=== PATIENT | female | born 1940 | race Caucasian/White ===

== ENCOUNTER 2019-12-31 13:23 | Inpatient (IN) | payer MEDICARE, OTHER ==
[~2019-12-31] VITALS: Ht 165 cm; Wt 75.8 kg
[2019-12-31] MEDS ORDERED: ACETAMINOPHEN 500 MG TAB (TYLENOL) PO PRN (13:30)
[2019-12-31] MEDS ORDERED: MELATONIN 3 MG TABLET PO PRN (13:30)
[2019-12-31] MEDS ORDERED: LOPERAMIDE 2 MG (IMODIUM) TABLET PO PRN (13:30)
[2019-12-31] MEDS ORDERED: LACTULOSE SYRUP 10GM/15ML (ENULOSE) 30ML UDC PO PRN ×2 (13:30→18:15)
[2019-12-31] MEDS ORDERED: ONDANSETRON 4 MG (ZOFRAN) ORAL DISSOLVE TAB PO PRN (13:30)
[2019-12-31] MEDS ORDERED: guaiFENesin/CODEINE (ROBITUSSIN AC) 10ML UDC PO PRN (13:30)
[2019-12-31] MEDS ORDERED: CALCIUM CARBONATE 500 MG (TUMS) TAB.CHEW PO PRN (13:30)
[2019-12-31] MEDS ORDERED: DOCUSATE SODIUM 100 MG (COLACE) CAP PO PRN ×2 (13:30→17:30)
[2019-12-31] MEDS ORDERED: diphenhydrAMINE 25 MG TAB (BENADRYL) PO PRN (13:30)
[2019-12-31] MEDS ORDERED: BISACODYL 10 MG SUPP (DULCOLAX) PR PRN (13:30)
[2019-12-31] MEDS ORDERED: FLEET ENEMA ADULT 1 EA BTL PR PRN (13:30)
--- NOTE | 2019-12-31 13:57 | NUR ---
Call placed to [facility] in [place] to ask when pt last had Lovenox shot ? Spoke w Judy Molina, she states that pt had Lovenox shot this morning at 0900, & that she also gave pt Hydrocodone before she left there.
[2019-12-31] MEDS: ENOXAPARIN 40 MG/0.4 ML (LOVENOX) SYR SC SCH (14:00)
--- NOTE | 2019-12-31 14:25 | NUR ---
Pt admitted to room 231, with an admitting diagnosis of CVA, from [facility] in [place] via EMS stretcher, accompanied by 2 EMS techs. BRADY SIDHU introduced to surroundings, call light, bed controls, phone, TV, temperature control, lights, meal times, smoking policy, visitor policy, side rail policy, bathrooms and showers. Patient Rights given to patient in the handbook. BRADY SIDHU acknowledges understanding that [facility] is not responsible for the loss or damage to any personal effects or valuables that are kept in the patients posession during their hospitalization. The following Patient Care Plans were discussed with the pt: Discharge Planning, Self Care Deficit, Potential for fall/injury, Knowledge Deficit. BRADY SIDHU acknowledges understanding of Interdisciplinary Patient Education. Patient and/or family were informed about the Rapid Response Team and its purpose. Patient received Patient Rights Booklet, which includes Privacy Act Statement and Data Collection Information Summary.
[2019-12-31 14:35] VITALS: BP 178/78
[2019-12-31] MEDS ORDERED: DICL100G18 TP (14:38)
[2019-12-31] MEDS ORDERED: ACET325C7 PO (14:38)
[2019-12-31] MEDS ORDERED: ASPI-1238 PO (14:38)
[2019-12-31] MEDS ORDERED: BISA5TAB8 PO (14:38)
[2019-12-31] MEDS ORDERED: CLOP75TA69 PO (14:38)
[2019-12-31] MEDS ORDERED: CHOL100048 PO (14:38)
[2019-12-31] MEDS ORDERED: BISA10SU8 RC (14:38)
[2019-12-31] MEDS ORDERED: ACHD5005 PO (14:38)
[2019-12-31] MEDS ORDERED: LACT10SO PO (14:38)
[2019-12-31] MEDS ORDERED: DOCU100C37 PO (14:38)
[2019-12-31] MEDS ORDERED: ATOR40TA70 PO ×2 (14:38→15:12)
[2019-12-31] MEDS ORDERED: MAG30ORA2 PO (14:38)
[2019-12-31] MEDS ORDERED: LEVO100T7 PO (14:39)
[2019-12-31] MEDS ORDERED: ONDA-105 PO (14:39)
[2019-12-31] MEDS ORDERED: OXYC10TA85 PO (14:39)
[2019-12-31] MEDS ORDERED: PHEN28OI9 RC (14:39)
[2019-12-31] MEDS ORDERED: PANT40TA52 PO (14:39)
[2019-12-31] MEDS ORDERED: LOSA25TA41 PO (14:39)
[2019-12-31 14:58] VITALS: BP 118/52
[2019-12-31] MEDS ORDERED: CLIN150C2 PO (15:12)
[2019-12-31] MEDS ORDERED: BACL10TA PO (15:12)
[2019-12-31] MEDS ORDERED: POLY17PO6 PO (15:12)
--- NOTE | 2019-12-31 15:42 | NUR ---
MED REC WAS ENTERED USING THE DISCHARGE ORDERS FROM [facility]- AFTER MEDICATIONS ARE CONTINUED I WILL SPEAK WITH THE PT AND MAKE ANY CHANGES TO THE NOTES/MED REC IF NEEDED Addendum: 12/31/19 at 1546 by SHANE VUONG CPhT CLINDAMYCIN 150MG- ON THE DISCHARGE ORDERS THERE WAS NO DURATION LISTED OR # OF CAPS TO DISPENSE. Addendum: 01/08/20 at 1509 by SHANE VUONG CPhT SPOKE WITH THE PT AND WENT THRU THE EXT MED HISTORY TO COMPLETE THE MED REC MEDICATIONS REMOVED DUE TO PT NOT TAKING PRIOR TO [facility]: ATORVASTATIN ASPIRIN 81MG CLINDAMYCIN 150MG CLOPIDOGREL 75MG DICLOFENAC GEL LACTULOSE ONDANSETRON OXYCODONE 10MG PANTOPRAZOLE 40MG HEMORID CREAM MIRALAX BISACODYL SUPPOSITORY AND TABLET MEDICATIONS THAT HAVE CHANGED: DOCUSATE 100MG- DISCHARGE ORDERS SAY 1 TAB BID PRN HOWEVER AT HOME PT IS TAKING 1 TAB HS HYDROCODONE- [facility] ORDERS ARE HYDROCODONE 5/325MG 1 TAB BID PRN HOWEVER AT HOME PT IS TAKING HYDROCODONE 7.5/325MG 1 TAB EVERY 6 HOURS PRB TYLENOL- [facility] DISCHARGE HAS TYLENOL 325MG LISTED BUT PT USUALLY TAKES TYLENOL PM MEDICATIONS THAT HAVE BEEN ADDED TO THE MED REC DUE TO PT TAKING PRIOR TO [facility]: MORPHINE ER 15MG COREG 12.5MG HUMIRA- PT GETS THIS THROUGH [employer] PATIENT SUPPORT AND WAS LAST MAILED OUT IN OCT 2019- PT CANNOT REMEMBER WHEN HER LAST INJECTION WAS
--- NOTE | 2019-12-31 16:06 | Physical Therapy Evaluation ---
PT Evaluation-General Medical Diagnosis Admission Date Dec 31, 2019 at 14:25 Medical Diagnosis: CVA Onset Date: Dec 16, 2019 Therapy Diagnosis Therapy Diagnosis: impaired mobility, strength, endurance, balance Precautions Precautions/Isolations: Standard Precautions Referral Physician: Gianna Bentley DO Reason for Referral: Evaluation/Treatment Medical History Pertinent Medical History: HTN, Hypothroidism Additional Medical History osteoporosis, plaque psoriasis Reviewed History: Yes Social History Home: Single Level Current Living Status: Spouse Entry Into Home: Stairs With Railing PT Steps Into Home: 3 Prior Prior Level of Function SCALE: Activities may be completed with or without assistive devices. 8-Httjteuxrl-ebkreaw completes the activity by him/herself with no assistance from a helper. 5-Set-up or Clean-up Assistance-helper sets up or cleans up; patient completes activity. [place] assists only prior to or following the activity. 4-Supervision or Touching Assistance-helper provides verbal cues and/or touching/steadying and/or contact guard assistance as patient completes act ivity. Assistance may be provided throughout the activity or intermittently. 3-Partial/Moderate Assistance-helper does LESS THAN HALF the effort. [place] lifts, holds or supports trunk or limbs, but provides less than half the effort. 2-Substantial/Maximal Assistance-helper does MORE THAN HALF the effort. [place] lifts or holds trunk or limbs and provides more than half the effort. 7-Fkmxfuucd-bwbbpy does ALL the effort. Patient does none of the effort to complete the activity. Or, the assistance of 2 or more helpers is required for the patient to complete the activity. If activity was not attempted, code reason: 7-Patient Refused. 9-Not Applicable-not attempted and the patient did not perform the activity before the current illness, exacerbation or injury. 10-Not Attempted due to Environmental Limitations-(lack of equipment, weather restraints, etc.). 88-Not Attempted due to Medical Conditions or Safety Concerns. Bed Mobility: 6 Transfers (B,C,W/C): 6 Gait: 6 Stairs: 6 Indoor Mobility (Ambulation): Independent Stairs: Independent Prior Device Use: single point cane PT Evaluation-Current Subjective Patient in bed pre tx, agrees to PT, has no complaints of pain at rest. Pt/Family Goals "to get stronger" Objective Patient Orientation: Person, Place, Situation ROM/Strength ROM Lower Extremities WNL Strength Lower Extremities RLE 4+/5 gross, LLE 2/5 gross (including dorsiflexion) Neuromuscular (Tone, Coordination, Reflexes) increased muscle tone in LLE Sensory Hearing: Functional Sensation Right Lower Extremit: Intact Sensation Left Lower Extremity: Impaired Sensation Lower Extremities Patient has intact light touch sensation but seems to be less in LLE Transfers Roll Left & Right (QC): 3 Sit to Lying (QC): 2 Lying to Sitting/Side of Bed(Q: 2 Sit to Stand (QC): 2 Chair/Lvl-uq-Njwvq Xfer(QC): 2 Toilet Transfer (QC): 2 Car Transfer (QC): 1 Patient performs bed mobility with mod assist, supine <-> sit max assist, sit <- > stand max assist, transfers max assist, car transfer max assist. Gait Does the Patient Walk?: No and Walking Goal IS indicated Walk 10 feet (QC): 88 Walk 50 ft with 2 Turns(QC): 88 Walk 150 ft (QC): 88 Walking 10ft/uneven surface-QC: 88 Wheelchair Training Does the Pt Use a Wheelchair?: Yes Distance: 50'x2 Wheel 50 ft with 2 turns (QC): 2 Wheel 150 ft (QC): 88 Type of Wheelchair: Manual Stairs 1 Step (curb) (QC): 88 4 Steps (QC): 88 12 Steps (QC): 88 Balance Sitting Static: Poor Sitting Dynamic: Poor Standing Static: Poor Standing Dynamic: Poor Picking up an Object (QC): 88 Treatment Patient transferred from supine to sit and then stand pivot to WC, propel WC to therapy gym and into parallel bars, stand x3 with assist of 2, sitting balance training working on limits of stability and reaching for cones. PT worked on balance, bed mobility and transfers, WC mobility, and standing, OT worked on UE positioning and safety, assist with standing and balance training. Assessment/Needs Patient has impaired mobility, strength, endurance, balance. Patient leans to the left side with sitting and standing. Patient gets dizzy a lot and needs frequent rest breaks due to this and to fatigue. Patient in bed post tx with nurse call, phone, tray, bed alarm on. Rehab Potential: Fair PT Short Term Goals Short Term Goals Time Frame: Jan 08, 2020 Roll Left & Right: 3 Sit to lyin Lying to sitting on side of be: 3 Sit to stand: 3 Chair/jnq-lf-eudsp transfer: 3 PT [place] Goals Chcf Goals PT Chcf Goals Time Frame: Jan 22, 2020 Roll Left & Right (QC): 3 (Татьяна) Sit to Lying (QC): 3 (Татьяна) Lying-Sitting on Side/Bed(QC): 3 (Татьяна) Sit to Stand (QC): 3 (Татьяна) Chair/Yal-jg-Kbvdz Xfer(QC): 3 (Татьяна) Toilet Transfer (QC): 3 (Татьяна) Car Transfer (QC): 3 (Татьяна) Does the Patient Walk: No and Walking Goal IS indicated Walk 10 feet (QC): 3 (Татьяна) Walk 50ft with 2 Turns (QC): 88 Walk 150 ft (QC): 88 Walking 10ft on Uneven Surface: 88 1 Step (curb) (QC): 88 4 Steps (QC): 88 12 Steps (QC): 88 Picking up an Object (QC): 88 Wheel 50 feet with 2 turns (QC: 4 Type: Manual Wheel 150 feet: 4 Type: Manual PT Plan Problem List Problem List: Activity Tolerance, Functional Strength, Safety, Balance, Gait, Transfer, Bed Mobility, ROM Treatment/Plan Treatment Plan: Continue Plan of Care Treatment Plan: Bed Mobility, Education, Functional Activity Benson, Functional Strength, Group Therapy, Gait, Safety, Therapeutic Exercise, Transfers Treatment Duration: Jan 21, 2020 Frequency: At least 5 of 7 days/Wk (IRF) Estimated Hrs Per Day: 1.5 hours per day Patient and/or Family Agrees t: Yes Safety Risks/Education Patient Education: Transfer Techniques, Correct Positioning, W/C Management, Safety Issues Teaching Recipient: Patient Teaching Methods: Demonstration, Discussion Response to Teaching: Reinforcement Needed Discharge Recommendations Plan Patient will perform bed mobility and transfer training, balance and endurance training, functional strengthening, stair training, gait training, and education , to improve functional mobility and independence at home. Therapy Discharge Recommendati: Scheduled Assistance, Post Acute PT Time/GCodes Time In: 1435 Time Out: 1605 Total Billed Treatment Time: 90 Total Billed Treatment 1 visit EVM 10' FA 80' PT eval from [id number], co-treat from [id number] DEON BAIRD PT Dec 31, 2019 16:06
--- NOTE | 2019-12-31 16:09 | Occupational Therapy Eval ---
OT Evaluation-General/PLF Medical Diagnosis Admission Date Dec 31, 2019 at 14:25 Medical Diagnosis: CVA Onset Date: Dec 16, 2019 Therapy Diagnosis Therapy Diagnosis: weakness, decreased ADL status Precautions Precautions/Isolations: Standard Precautions Referral Physician: Mc Referral Reason: Evaluation/Treatment Medical History Pertinent Medical History: HTN, Hypothroidism Additional Medical History osteoporosis, plaque psoriasis Current History Pt had CVA with last known well time noon on 12/16/2019, L side weakness. Pt transferred to [facility]. Reviewed History: Yes Social History Home: Single Level Current Living Status: Significant Other Entry Into Home: Stairs With Railing Steps Into Home: 3 Pt indicates she lives with her but her son is also going to stay with her until she gets better. ADL-Prior Level of Function SCALE: Activities may be completed with or without assistive devices. 9-Genhcfjnhp-dmsskwa completes the activity by him/herself with no assistance from a helper. 5-Set-up or Clean-up Assistance-helper sets up or cleans up; patient completes activity. [place] assists only prior to or following the activity. 4-Supervision or Touching Assistance-helper provides verbal cues and/or touching/steadying and/or contact guard assistance as patient completes activity. Assistance may be provided throughout the activity or intermittently. 3-Partial/Moderate Assistance-helper does LESS THAN HALF the effort. [place] lif ts, holds or supports trunk or limbs, but provides less than half the effort. 2-Substantial/Maximal Assistance-helper does MORE THAN HALF the effort. [place] lifts or holds trunk or limbs and provides more than half the effort. 5-Sijntnrvk-xokjwi does ALL the effort. Patient does none of the effort to complete the activity. Or, the assistance of 2 or more helpers is required for the patient to complete the activity. If activity was not attempted, code reason: 7-Patient Refused. 9-Not Applicable-not attempted and the patient did not perform the activity before the current illness, exacerbation or injury. 10-Not Attempted due to Environmental Limitations-(lack of equipment, weather restraints, etc.). 88-Not Attempted due to Medical Conditions or Safety Concerns. ADL PLOF Comments Pt indicates she was independent with all ADLS and functional mobility at PLOF, occasional use of a cane when she is on her feet for long periods or going longer distances. Self Care: Independent Functional Cognition: Independent DME/Equipment: Bath Chair, Shower Drive Self: No OT Current Status Subjective Pt agreeable to OT evaluation, then OT/PT cotreat. Pt reports headache, but does not verbalize pain rating. Mental Status/Objective Patient Orientation: Person, Place, Time, Situation Attachments: Bearden Catheter Current Glasses/Contacts: Yes Hearing Aids: No Dentures/Partials: Yes Hand Dominance: Right Upper Extremity ROM RUE WFL, shoulder flexion to approx 150 degrees LUE impaired, increased tone noted with shoulder flexion & elbow flexion/extension. Pt reports increased pain with PROM. Upper Extremity Coordination decreased due to limitations in LUE Upper Extremity Sensation Pt indicates intact sensation in RUE. LUE impaired to light touch, hot/cold, and to pressure. Upper Extremity Strength RUE grossly 4/5 LUE impaired due to limitations in ROM ADL-Treatment Eating (QC): 5 (Based on clincial judgement, pt would require set up assistance with feeding) Oral Hygiene (QC): 3 (Based on clinical reasoning pt would require mod assist with task. Pt able to remove bottom denture but required assistance to put back in mouth.) Shower/Bathe Self (QC): 7 Upper Body Dressing (QC): 7 Lower Body Dressing (QC): 7 On/Off Footwear (QC): 1 (Total assist to don/doff gripper socks.) Toileting Hygiene (QC): 7 Other Treatments OT educated pt on purpose and benefits of OT, she verbalized understanding. Pt provided information about PLOF and home set up and participated in UE screen. OT/PT cotreat due to skill of 2 clinicians required which a rehab rn could not perform in order to coordinate UE/LEs with tasks, and due to pt's limitations in strength, endurance, functional mobility, and functional transfers. OT focused on ADLS, UE placement, and cues for sequencing and safety, while PT focused on LE placement, gross overall movements, functional mobility and transfers. Pt t ransferred from bed to w/c and taken to therapy gym. Pt completed x3 standing trails at parallel bars, PT assisted with balance as OT assisted with LUE placement onto parallel bar. Pt states she wants to be able to reach up and grab the bars, OT informs pt her hand is on the bar but pt is unable to feel the bar in her hand. Pt then transferred to therapy mat where she completed reaching activity with RUE in all planes with weightbearing through LUE. Pt required cues to find her "center" again due to leaning towards L side. Pt then transferred back to w/c, self propelled w/c back to room with assistance to maintain straight line and to turn corners. Pt indicates she is nauseous, nursing provides pt with meds. Pt removes bottom denture from mouth, when asked to place back in mouth, pt put the right side of dentures in but unable to put the entire denture back. OT assisted pt with returning dentures correctly. Pt then continued to propel towards room, transferring from w/c to EOB via SPT, then sit to supine with assist for trunk and LEs. Some L neglect noted during tx. Please refer to PT evaluation for pt's performance with transfers. Post OT/PT cotreat, pt laying in bed, call light in reach and all needs met. Education OT Patient Education: Correct positioning, Energy conservation, Modified ADL techniques, Progress toward Goal/Update tx plan, Purpose of tx/functional activities, Rehab process, Transfer techniques Teaching Recipient: Patient Teaching Methods: Discussion Response to Teaching: Verbalize Understanding OT Short Term Goals Short Term Goals Time Frame: Jan 16, 2020 Eatin Oral hygiene: 5 Upper body dressin Lower body dressin OT Fpc Goals Fpc Goals Time Frame: Jan 25, 2020 Eating (QC): 6 Oral Hygiene (QC): 6 Toileting Hygiene (QC): 4 Shower/Bathe Self (QC): 4 Upper Body Dressing (QC): 5 Lower Body Dressing (QC): 4 On/Off Footwear (QC): 3 Additional Goals: 1-Demonstrate ADL Tasks, 2-Verbalize Understanding, 3-Impr oveStrength/Benson 1=Demonstrate adherence to instructed precautions during ADL tasks. 2=Patient will verbalize/demonstrate understanding of assistive devices/modifications for ADL. 3=Patient will improve strength/tolerance for activity to enable patient to perform ADL's. OT Education/Plan Problem List/Assessment Assessment: Decreased Activ Tolerance, Decreased UE Strength, Impaired Bed Mobility, Impaired Funct Balance, Impaired I ADL's, Impaired Self-Care Skills, Restricted Funct UE ROM, Visual-Perceptual Deficit Discharge Recommendations Plan/Recommendations: Continue POC Comment Discharge and equipment recommendations to be determined. Treatment Plan/Plan of Care Patient would benefit from OT for education, treatment and training to promote independence in ADL's, mobility, safety and/or upper extremity function for ADL's. Plan of Care: ADL Retraining, Functional Mobility, Group Exercise/Act as Ind, UE Funct Exercise/Act, UE Neuromus Re-Ed/Coord, Visual/Perceptual Retrain, W/C Management Training Treatment Duration: Jan 25, 2020 Frequency: At least 5 of 7 days/Wk (IRF) Estimated Hrs Per Day: 1.5 hours per day Agreement: Yes Rehab Potential: Fair Time/GCodes Start Time: 14:25 Stop Time: 16:05 Total Time Billed (hr/min): 90 Billed Treatment Time 4204-0406 OT evaluation (10') [id number] OT/PT cotreat (80') 1, EVM (10'), FA 5 (80') SOILA AMBROSIO OT Dec 31, 2019 16:09
[2019-12-31] MEDS ORDERED: NON-FORMULARY MEDICATION 1 EA EA (Acetaminophen (Tylenol) 650 MG) PO PRN (17:30)
[2019-12-31] MEDS ORDERED: NON-FORMULARY MEDICATION 1 EA EA (Ondansetron HCl 4 MG) PO PRN (17:30)
[2019-12-31] MEDS ORDERED: LACTULOSE 10 GM/15 ML 30 ML POUR BOTTLE FOR ENEMA PO PRN (17:30)
[2019-12-31] MEDS ORDERED: BISACODYL 5 MG (DULCOLAX) TABLET PO PRN (17:30)
[2019-12-31] MEDS ORDERED: BISACODYL 10 MG SUPP (DULCOLAX) RC PRN (17:30)
[2019-12-31] MEDS ORDERED: PREPARATION H OINTMENT 57 GR TUBE RC PRN (17:30)
[2019-12-31] MEDS ORDERED: ACETAMINOPHEN 325 MG TABLET PO PRN (18:15)
[2019-12-31] MEDS: oxyCODONE ER 10 MG (OxyCONTIN CR) TAB PO SCH (18:17)
[2019-12-31 18:50] VITALS: BP 139/65
--- NOTE | 2019-12-31 20:49 | PM&R Post Admission Assessment ---
PM&R HP Date of Visit: Dec 31, 2019 Time of Visit: 18:15 History of Present Illness CC: CVA HPI: This is a 79yoWF clinic patient of Dr Rodrigez who presents to the IRF following an uncomplicated course at swing bed in [facility] following a CVA. Apparently she had symptoms of slurred speech 12/16/19 which promoted ER visit and CT normal and symptoms resolved and she chose to DC home after dx with UTI but when she tried to get out of her car at home from the ER she had left sided weakness and could not walk. ER visit occurred again and CT repeat was normal and tPA was not administered so she was admitted after ASA and Plavix load. She began to have worsened symptoms and transfer to higher level of care to Neurology was not possible due to [facility] capacity issues. She is currently flaccid on left side and still remains with in-dwelling catheter due to urinary retention. Patient has chronic pain from Ankylosing Spondilitis so she is on chronic narc meds and currently a but constipated. Past Tdhkrrg-Pvxcge-Scandl Hx Past Med/Social Hx: Reviewed Nursing Past Med/Soc Hx, Reviewed and Corrections made Patient Social History Marrital Status: Employed/Student: retired Alcohol Use: Denies Use Recreational Drug Use: No Smoking Status: Never a Smoker Physical Abuse Screen: No Sexual Abuse: No Recent Foreign Travel: No Contact w/other who traveled: No Recent Hopitalizations: No Recent Infectious Disease Expo: No Immunizations Up To Date Pediatric: Yes Date of Pneumonia Vaccine: Nov 10, 2019 Date of Influenza Vaccine: Nov 10, 2019 Seasonal Allergies Seasonal Allergies: No Past Medical History Surgeries: Appendectomy, Gallbladder, Hysterectomy, Orthopedic Cardiac: High Cholesterol, Hypertension Neurological: Stroke (2003 and 12/16/19) Gastrointestinal: Gall Bladder Disease Musculoskeletal: Osteoporosis Ankylosing spondylitis HEENT: Cataract, Double Vision Loss of Vision: Left Hearing Impairment: Denies Skin/Integumentary: Psoriasis History of Blood Disorders: No Adverse Reaction to Blood Alvarez: No Prior Level of Function Bed Mobility: 6 Transfers: 6 Gait: 6 Stairs: 6 Indoor Mobility (Ambulation): Independent Stairs: Independent single point cane Self Care: Independent Functional Cognition: Independent Drive Self: No Eatin Oral Hygiene: 3 (Based on clinical reasoning pt would require mod assist with task. Pt able to remove bottom denture but required assistance to put back in mouth.) Shower/Bathe Self: 7 Upper Body Dressin Lower Body Dressin On/Off Footwear: 1 (Total assist to don/doff gripper socks.) Toileting Hygiene: 7 PM&R Allergy/Meds/Data Review Allergies Coded Allergies: green pepper (Verified Allergy, Severe, Anaphylaxis, 12/31/19) Sulfa (Sulfonamide Antibiotics) (Verified Allergy, Unknown, 12/31/19) Home Medications Scheduled Aspirin (Aspirin EC), 81 MG PO DAILY, (Reported) Atorvastatin Calcium (Atorvastatin Calcium), 80 MG PO HS, (Reported) Baclofen (Baclofen), 10 MG PO TID, (Reported) Cholecalciferol (Vitamin D3) (Vitamin D3), 25 MCG PO DAILY, (Reported) Clindamycin HCl (Cleocin HCl), 300 MG PO BID, (Reported) Clopidogrel Bisulfate (Plavix), 75 MG PO DAILY, (Reported) Diclofenac Sodium (Voltaren), 2 GM TP TID, (Reported) Hydrocodone/Acetaminophen (Hydrocodone-Acetamin 5-325 mg), 1 EACH PO BID, (Reported) Levothyroxine Sodium (Levothyroxine Sodium), 100 MCG PO DAILY, (Reported) Losartan Potassium (Losartan Potassium), 25 MG PO DAILY, (Reported) Oxycodone HCl (Oxycodone HCl ER), 20 MG PO Q12H, (Reported) Pantoprazole Sodium (Pantoprazole Sodium), 40 MG PO DAILY, (Reported) Polyethylene Glycol 3350 (Miralax), 17 GM PO DAILY, (Reported) Scheduled PRN Acetaminophen (Tylenol), 650 MG PO Q6H PRN for PAIN-MILD (1-4) OR TEMPATURE, (Reported) Bisacodyl (Bisacodyl), 5 MG PO HS PRN for CONSTIPATION-4TH LINE, (Reported) Bisacodyl (Bisacodyl), 10 MG RC DAILY PRN for CONSTIPATION-4TH LINE, (Reported) Docusate Sodium (Docusate Sodium), 100 MG PO BID PRN for CONSTIPATION-1ST LINE, (Reported) Lactulose (Lactulose), 15 ML PO DAILY PRN for CONSTIPATION-3RD LINE, (Reported) Mag Hydrox/Al Hydrox/Simeth (Mylanta Suspension), 15 ML PO QID PRN for HEARTBURN/INDIGESTION, (Reported) Ondansetron HCl (Ondansetron HCl), 4 MG PO TID PRN for NAUSEA/VOMITING-1ST LINE, (Reported) Phenyleph/Mineral Oil/Petrolat (Preparation H Ointment), 1 APPLIC RC PRN PRN for HEMMORRHOID DISCOMFORT, (Reported) Discontinued Medications Atorvastatin Calcium (Atorvastatin Calcium), 80 MG PO HS, (Reported) Discontinued Reason: Duplicate Order Current Medications Current Medications Reviewed Review of Systems Constitutional: see HPI, malaise, weakness EENTM: no symptoms reported Respiratory: no symptoms reported Cardiovascular: no symptoms reported Gastrointestinal: constipation Genitourinary: other (retention) Musculoskeletal: back pain, joint pain, muscle pain, muscle stiffness, muscle cramps, neck pain Skin: no symptoms reported Psychiatric/Neurological: Anxiety, Depressed, Numbness, Paresthesia, Weakness All Other Systems Reviewed Negative Unless Noted: Yes Physical Exam Physical Exam Vital Signs Vital Signs - First Documented 12/31/19 14:35 Temp 35.8 Pulse 58 Resp 20 B/P (MAP) 178/78 Pulse Ox 94 O2 Delivery Room Air Capillary Refill : Height, Weight, BMI Height: '" Weight: lbs. oz. kg; 29.97 BMI Method: General Appearance: No Apparent Distress, WD/WN Eyes: Bilateral Eye Normal Inspection, Bilateral Eye PERRL HEENT: PERRL/EOMI, Normal ENT Inspection, Pharynx Normal Neck: Full Range of Motion, Normal Inspection, Non Tender, Supple, Carotid Bruit Respiratory: Chest Non Tender, Lungs Clear, Normal Breath Sounds, No Accessory Muscle Use, No Respiratory Distress Cardiovascular: Regular Rate, Rhythm, No Edema, No Gallop, No JVD, No Murmur, Normal Peripheral Pulses Gastrointestinal: Normal Bowel Sounds, No Organomegaly, No Pulsatile Mass, Non Tender, Soft Back: Normal Inspection, No CVA Tenderness, No Vertebral Tenderness Extremity: Normal Capillary Refill, Normal Inspection, Normal Range of Motion, Non Tender, No Calf Tenderness, No Pedal Edema Neurologic/Psychiatric: Alert, Oriented x3, Normal Mood/Affect, Abnormal Gait, Motor Weakness (left sided weakness) Skin: Normal Color, Warm/Dry Lymphatic: No Adenopathy PM&R Medical Assessment & Plan REHAB/MEDICAL ASSESSMENT AND PLAN: REHAB IMPAIRMENT GROUP: [ ] ETIOLOGIC DIAGNOSIS: [ (condition that led to rehab admission) ] The comorbidities that impact the patients function and/or functional outcome by: [ ] REHAB PLAN: The patient is being admitted to our comprehensive inpatient rehabilitation facility and can tolerate the intensity of service consisting of at least: 180 minutes of therapy a day, 5 out of 7 days a week Rehab treatment will consist of: [ (write brief focus that includes physician, rehab nursing and therapies/modalitiesIPOC will have more specifics) ] The patient/family has a good understanding of our discharge process and will benefit from an interdisciplinary inpatient rehabilitation program. The patient has potential to make improvement and is in need of at least two of the followi ng multidisciplinary therapies including but not limited to physical, occupational, speech, and prosthetics and orthotics. Additionally the patient will need services from respiratory, nutritional services, wound care, psychology, etc. (Customize this to each patient). Given the patients complex condition and risk of further medical complications, rehabilitation services cannot be safely or effectively provided at a lower level of care such as a fci facility. BARRIERS TO DISCHARGE: [ ] ESTIMATED LOS: [ ] DISPOSITION: [ ] RELEVANT CHANGES SINCE PREADMISSION SCREENING: I have compared the patients medical and functional status at the time of the preadmission screening and there are: [no changes] [changes as follows: (if there is a discrepancy between the IGC/Etiologic stated on the PAS, address/clarify this as well) ] PROGNOSIS: [ ] REHABILITATION GOALS: 1. [ (specific to the patient) ] All the above goals were reviewed with the patient and he/she is in agreement. By signing this document, I acknowledge that I have personally performed a full physical examination on this patient within 24 hours of admission to this inpatient rehabilitation facility and have determined the patient to be able to tolerate the above course of treatment at an intensive level for a reasonable period of time. I will be completing a detailed individualized Plan of Care for this patient by day #4 of the patients stay based upon the Preadmission Screen, the Post-Admission Evaluation, and the therapy evaluations. 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 - Other specified diseases of intestine (7) Urinary retention ICD Codes: R33.9 - Retention of urine, unspecified (8) Bearden catheter in place ICD Codes: Z97.8 - Presence of other specified devices (9) UTI (urinary tract infection) ICD Codes: N39.0 - Urinary tract infection, site not specified (10) Left-sided weakness ICD Codes: R53.1 - Weakness (11) Psoriasis ICD Codes: L40.9 - Psoriasis, unspecified (12) Osteoporosis ICD Codes: M81.0 - Age-related osteoporosis without current pathological fracture Assessment/Plan Assessment and Plan Assess & Plan/Chief Complaint Assessment: CVA Left sided weakness [place] Hypothyroidism Chronic pain Narcotic dependent Narcotic bowel Osteoporosis Bearden cath in place Urinary retention UTI Plan: Dr Nesbitt IRF protocol Current meds WILEY WRIGHT DO Dec 31, 2019 20:49
[2019-12-31] MEDS ORDERED: HYDROcodone/APAP 5 MG/325 MG (LORTAB) TAB PO SCH (21:00)
[2019-12-31] MEDS ORDERED: polyethylene glycoL POWDER 17 GM (MIRALAX) PACK PO SCH (21:00)
[2019-12-31] MEDS: DICLOFENAC 1% GEL 100 GM (VOLTAREN) TUBE TP SCH (21:36)
[2019-12-31] MEDS: SENNA W/DOCUSATE (SENOKOT S) TABLET PO SCH (21:37)
[2019-12-31] MEDS: CLINDAMYCIN 150 MG (CLEOCIN) CAP PO SCH (21:38)
[2019-12-31] MEDS: BACLOFEN 10 MG (LIORESAL) TAB PO SCH (21:39)
[2019-12-31] MEDS: DOCUSATE SODIUM 100 MG (COLACE) CAP PO SCH (21:39)
[2019-12-31] MEDS: ALPRAZolam 0.25 MG (XANAX) TAB PO PRN (21:39)
[2019-12-31] MEDS: HYDROcodone/APAP 5 MG/325 MG (LORTAB) TAB PO PRN (21:39)
[2020-01-01] MEDS: HYDROcodone/APAP 5 MG/325 MG (LORTAB) TAB PO PRN ×3 (03:58→20:25)
[2020-01-01] MEDS: LEVOTHYROXINE 100 MCG (LEVOTHROID) TAB PO SCH (05:32)
[2020-01-01] MEDS: oxyCODONE ER 10 MG (OxyCONTIN CR) TAB PO SCH ×2 (05:32→17:18)
[2020-01-01 05:56] LABS: BASOPHILS # (AUTO) 0.1 10^3/uL (0.0-0.1); BASOPHILS % (AUTO) 1 % (0-10); EOSINOPHILS # (AUTO) 0.1 10^3/uL (0.0-0.3); EOSINOPHILS % (AUTO) 2 % (0-10); HEMATOCRIT 40 % (35-52); HEMOGLOBIN 13.2 g/dL (11.5-16.0); LYMPHOCYTES # (AUTO) 1.8 10^3/uL (1.0-4.0); LYMPHOCYTES % (AUTO) 21 % (12-44); MEAN CORPUSCULAR HEMOGLOBIN 30 pg (25-34); MEAN CORPUSCULAR HGB CONC 33 g/dL (32-36); MEAN CORPUSCULAR VOLUME 91 fL (80-99); MEAN PLATELET VOLUME 10.2 fL (9.0-12.2); MONOCYTES # (AUTO) 0.6 10^3/uL (0.0-1.0); MONOCYTES % (AUTO) 7 % (0-12); NEUTROPHILS # (AUTO) 6.1 10^3/uL (1.8-7.8); NEUTROPHILS % (AUTO) 70 % (42-75); PLATELET COUNT 223 10^3/uL (130-400); WHITE BLOOD COUNT 8.7 10^3/uL (4.3-11.0)
[2020-01-01 06:05] LABS: ALBUMIN 3.9 GM/DL (3.2-4.5); POTASSIUM 4.1 MMOL/L (3.6-5.0)
[2020-01-01 06:06] LABS: CALCIUM 9.7 MG/DL (8.5-10.1)
[2020-01-01 06:07] LABS: TOTAL PROTEIN 6.9 GM/DL (6.4-8.2)
[2020-01-01 06:09] LABS: BILIRUBIN,TOTAL 0.9 MG/DL (0.1-1.0)
[2020-01-01 06:10] VITALS: BP 134/60
[2020-01-01 06:11] LABS: CREATININE SERUM 0.98 MG/DL (0.60-1.30)
[2020-01-01] MEDS: SENNA W/DOCUSATE (SENOKOT S) TABLET PO SCH ×2 (08:30→20:24)
[2020-01-01] MEDS: DOCUSATE SODIUM 100 MG (COLACE) CAP PO SCH ×2 (08:30→20:24)
[2020-01-01] MEDS: VITAMIN D3 25 MCG (1,000 UNITS) TABLET PO SCH (08:30)
[2020-01-01] MEDS: PANTOPRAZOLE 40 MG (PROTONIX) TAB PO SCH (08:30)
[2020-01-01] MEDS: BACLOFEN 10 MG (LIORESAL) TAB PO SCH ×3 (08:30→20:24)
[2020-01-01] MEDS: CLOPIDOGREL 75 MG (PLAVIX) TABLET PO SCH (08:30)
[2020-01-01] MEDS: LOSARTAN 25 MG (COZAAR) TAB PO SCH (08:30)
[2020-01-01] MEDS: ALPRAZolam 0.25 MG (XANAX) TAB PO PRN ×2 (08:30→21:36)
[2020-01-01] MEDS: ASPIRIN E.C. 81 MG (ECOTRIN) TAB PO SCH (08:30)
[2020-01-01] MEDS: DICLOFENAC 1% GEL 100 GM (VOLTAREN) TUBE TP SCH ×3 (08:31→20:31)
[2020-01-01] MEDS: polyethylene glycoL POWDER 17 GM (MIRALAX) PACK PO SCH (08:31)
--- NOTE | 2020-01-01 08:35 | PM&R Progress Note ---
Subjective HPI/CC On Admission Date Seen by Provider: Jan 01, 2020 Time Seen by Provider: 08:40 Subjective/Events-last exam Pt settling in pretty well Having a lot of pain ankylosing spondylitis is very painful for her Will aggressively react bowels Remains with a catheter, I did consult urology Checked meds and labs Conferred with RN Reviewed therapy notes Review of Systems General: Fatigue, Malaise Neurological: Weakness, Incoordination Objective Exam Vital Signs Vital Signs Date Time Temp Pulse Resp B/P (MAP) Pulse Ox O2 Delivery O2 Flow Rate FiO2 01/02/20 06:12 35.5 54 18 99/44 (62) 96 Room Air Capillary Refill : Less Than 3 Seconds General Appearance: No Apparent Distress, WD/WN HEENT: PERRL/EOMI, Normal ENT Inspection, Pharynx Normal Neck: Full Range of Motion, Normal Inspection, Non Tender, Supple, Carotid Bruit Respiratory: Chest Non Tender, Lungs Clear, Normal Breath Sounds, No Accessory Muscle Use, No Respiratory Distress Cardiovascular: Regular Rate, Rhythm, No Edema, No Gallop, No JVD, No Murmur, Normal Peripheral Pulses Gastrointestinal: Normal Bowel Sounds, No Organomegaly, No Pulsatile Mass, Non Tender, Soft Back: Normal Inspection, No CVA Tenderness, No Vertebral Tenderness Extremity: Normal Capillary Refill, Normal Inspection, Normal Range of Motion, Non Tender, No Calf Tenderness, No Pedal Edema Neurologic/Psychiatric: Alert, Oriented x3, Normal Mood/Affect, Abnormal Gait, Motor Weakness (left sided weakness) Skin: Normal Color, Warm/Dry Lymphatic: No Adenopathy Results/Procedures Lab Patient resulted labs reviewed. FIM Transfers Therapy Code Descriptions/Definitions Functional [place] Measure: 0=Not Assessed/NA 4=Minimal Assistance 1=Total Assistance 5=Supervision or Setup 2=Maximal Assistance 6=Modified [place] 3=Moderate Assistance 7=Complete IndependenceSCALE: Activities may be completed with or without assistive devices. 4-Jyopybbkui-hfuzxnf completes the activity by him/herself with no assistance from a helper. 5-Set-up or Clean-up Assistance-helper sets up or cleans up; patient completes activity. [place] assists only prior to or following the activity. 4-Supervision or Touching Assistance-helper provides verbal cues and/or touching/steadying and/or contact guard assistance as patient completes activity. Assistance may be provided throughout the activity or intermittently. 3-Partial/Moderate Assistance-helper does LESS THAN HALF the effort. [place] lifts, holds or supports trunk or limbs, but provides less than half the effort. 2-Substantial/Maximal Assistance-helper does MORE THAN HALF the effort. [place] lifts or holds trunk or limbs and provides more than half the effort. 8-Hbihfobwb-umywsk does ALL the effort. Patient does none of the effort to complete the activity. Or, the assistance of 2 or more helpers is required for the patient to complete the activity. If activity was not attempted, code reason: 7-Patient Refused. 9-Not Applicable-not attempted and the patient did not perform the activity before the current illness, exacerbation or injury. 10-Not Attempted due to Environmental Limitations-(lack of equipment, weather restraints, etc.). 88-Not Attempted due to Medical Conditions or Safety Concerns. Roll Left to Right (QC): 3 Sit to Lying (QC): 2 Sit to Stand (QC): 2 Chair/End-sw-Yroqa Xfer(QC): 2 Car Transfer (QC): 1 Gait Training Does the Patient Walk?: No and Walking Goal IS indicated Walk 10 feet (QC): 88 Walk 50 ft with 2 Turns(QC): 88 Walk 150 ft (QC): 88 Walking 10ft/uneven surface-QC: 88 Wheelchair Training Does the Pt Use a Wheelchair?: Yes Distance: 50'x2 Wheel 50 ft with 2 turns (QC): 2 Wheel 150 ft (QC): 88 Type of Wheelchair: Manual Stair Training 1 Step (curb) (QC): 88 4 Steps (QC): 88 12 Steps (QC): 88 ADL-Treatment Eating (QC): 7 Oral Hygiene (QC): 3 (Based on clinical reasoning pt would require mod assist with task. Pt able to remove bottom denture but required assistance to put back in mouth.) Shower/Bathe Self (QC): 7 Upper Body Dressing (QC): 7 Lower Body Dressing (QC): 7 On/Off Footwear (QC): 1 (Total assist to don/doff gripper socks.) Toileting Hygiene (QC): 7 Assessment/Plan Assessment and Plan Assess & Plan/Chief Complaint Assessment: CVA Left sided weakness AK Hypothyroidism Chronic pain Narcotic dependent Narcotic bowel Osteoporosis Bearden cath in place Urinary retention UTI Plan: Dr Nesbitt IRF protocol Current meds 01/01/20: Pain management Dr Nesibtt consult for urinary retention Monitor for falls BM regimen (1) CVA (cerebral vascular accident) (2) Ankylosing spondylitis (3) Acquired hypothyroidism (4) Chronic pain (5) Narcotic dependence (6) Narcotic bowel syndrome (7) Urinary retention (8) Bearden catheter in place (9) UTI (urinary tract infection) (10) Left-sided weakness (11) Psoriasis (12) Osteoporosis WILEY WRIGHT DO Jan 01, 2020 08:35
[2020-01-01] MEDS ORDERED: NON-FORMULARY MEDICATION 1 EA EA (Cholecalciferol (Vitamin D3) (Vitamin D3) 25 MCG) PO SCH (09:00)
[2020-01-01] MEDS: ONDANSETRON 4 MG (ZOFRAN) ORAL DISSOLVE TAB PO PRN (10:05)
--- NOTE | 2020-01-01 10:55 | CONSULTATION REPORT ---
DATE OF SERVICE: 01/01/2020 ATTENDING PHYSICIAN: Dr. Bentley. SUMMARY: After reviewing the patient's records and H and P by Dr. Bentley, this is a 79-year-old lady, who sustained a CVA that affected her left side and was unable to void and has a Bearden catheter and the patient denies any urinary symptoms or problem at home prior to the stroke. She is on no medication for the bladder. She is allergic to sulfa. The rest of the history and physical per Dr. Bentley. IMPRESSION: Neurogenic bladder with retention. PLAN: Start Flomax 0.4 mg daily and Urecholine 10 mg q.i.d. before meals and at bedtime. In a day or two, we will give her a trial of voiding and manage accordingly. The plan was fully explained to the patient. Job ID: [id number] DocumentID: [id number] Dictated Date: 01/01/2020 10:23:46 [place] Captain Date: 01/01/2020 10:54:59 Dictated By: JAY NERI MD
--- NOTE | 2020-01-01 10:58 | Physical Therapy Daily Note ---
PT Daily Note-Current Subjective Patient in bed pre tx, agrees to PT, has no complaints of pain but has nausea, nurse gives her nausea meds. Will be co-treating with OT due to poor patient mobility, strength, endurance, left hemiparesis, the need to coordinate UE and LE during activity. Appearance Patient in therapy gym post tx, will continue with OT for a bit. Mental Status Patient Orientation: Person, Place, Situation Transfers SCALE: Activities may be completed with or without assistive devices. 7-Dbleagaihe-aixhkpt completes the activity by him/herself with no assistance from a helper. 5-Set-up or Clean-up Assistance-helper sets up or cleans up; patient completes activity. [place] assists only prior to or following the activity. 4-Supervision or Touching Assistance-helper provides verbal cues and/or touching/steadying and/or contact guard assistance as patient completes activity . Assistance may be provided throughout the activity or intermittently. 3-Partial/Moderate Assistance-helper does LESS THAN HALF the effort. [place] lifts, holds or supports trunk or limbs, but provides less than half the effort. 2-Substantial/Maximal Assistance-helper does MORE THAN HALF the effort. [place] lifts or holds trunk or limbs and provides more than half the effort. 9-Ihqnpdxej-onrfcf does ALL the effort. Patient does none of the effort to complete the activity. Or, the assistance of 2 or more helpers is required for the patient to complete the activity. If activity was not attempted, code reason: 7-Patient Refused. 9-Not Applicable-not attempted and the patient did not perform the activity before the current illness, exacerbation or injury. 10-Not Attempted due to Environmental Limitations-(lack of equipment, weather restraints, etc.). 88-Not Attempted due to Medical Conditions or Safety Concerns. Roll Left & Right (QC): 3 Lying to Sitting/Side of Bed(Q: 3 Sit to Stand (QC): 2 Chair/Rcf-xg-Rcnqd Xfer(QC): 2 transfer to , undress, transfer to shower room, shower, dry off, stand to dry off completely and change into WC, dress with more standing, propel WC to therapy gym Exercises standing in parallel bars x3 for a couple of minutes each time, patient leans heavily backward Treatments PT worked on bed mobility and transfers, standing, WC mobility, assist with balance during dressing and bathing, OT worked on dressing, bathing, UE positioning and safety during activity Assessment Current Status: Fair Progress improved sitting balance PT Short Term Goals Short Term Goals Time Frame: Jan 08, 2020 Roll Left & Right: 3 Sit to lyin Lying to sitting on side of be: 3 Sit to stand: 3 Chair/xtu-ay-nglmz transfer: 3 PT County Health Officer Goals Detention Goals PT County Health Officer Goals Time Frame: Jan 22, 2020 Roll Left & Right (QC): 3 (Татьяна) Sit to Lying (QC): 3 (Татьяна) Lying-Sitting on Side/Bed(QC): 3 (Татьяна) Sit to Stand (QC): 3 (Татьяна) Chair/Fcy-qe-Ryrbv Xfer(QC): 3 (Татьяна) Toilet Transfer (QC): 3 (Татьяна) Car Transfer (QC): 3 (Татьяна) Does the Patient Walk: No and Walking Goal IS indicated Walk 10 feet (QC): 3 (Татьяна) Walk 50ft with 2 Turns (QC): 88 Walk 150 ft (QC): 88 Walking 10ft on Uneven Surface: 88 1 Step (curb) (QC): 88 4 Steps (QC): 88 12 Steps (QC): 88 Picking up an Object (QC): 88 Wheel 50 feet with 2 turns (QC: 4 Type: Manual Wheel 150 feet: 4 Type: Manual PT Plan Problem List Problem List: Activity Tolerance, Functional Strength, Safety, Balance, Gait, Transfer, Bed Mobility, ROM Treatment/Plan Treatment Plan: Continue Plan of Care Treatment Plan: Bed Mobility, Education, Functional Activity [place], Functional Strength, Group Therapy, Gait, Safety, Therapeutic Exercise, Transfers Treatment Duration: Jan 21, 2020 Frequency: At least 5 of 7 days/Wk (IRF) Estimated Hrs Per Day: 1.5 hours per day Patient and/or Family Agrees t: Yes Safety Risks/Education Patient Education: Transfer Techniques, Correct Positioning, W/C Management, Safety Issues Teaching Recipient: Patient Teaching Methods: Demonstration, Discussion Response to Teaching: Reinforcement Needed Time/GCodes Time In: 1000 Time Out: 1100 Total Billed Treatment Time: 60 Total Billed Treatment 1 visit FA 60' DEON BAIRD PT Jan 01, 2020 10:58
--- NOTE | 2020-01-01 11:51 | Occupational Ther Daily Note ---
OT Current Status-Daily Note Subjective Pt in bed. Pt stated head hurting, lights made it worse. Pt agreed to therapy. Mental Status/Objective Patient Orientation: Person, Place, Time, Situation Attachments: Bearden Catheter ADL-Treatment Co-treatment with PT ([id number]) skills of two clinicans required for skilled instruction and care due to transfers and increase safety concerns. PT focusing on transfers and mobility during ADLs and standing. OT focusing on B UE placement during transfers and mobility and ADLs. Pt lying supine to EOB, x2 assists to sit on EOB. Pt performed doff upper body clothing with Mod A, verbal cues to doff clothing on L side. See PT notes for transfers. Pt transferred to bath chair from EOB Max A, propelled to shower room by PT. Pt performed upper zach dy washing with verbal cues, Min A when cleansing R side. Pt performed lower body washing with Max A, DE LA O cleansed lower legs/feet. Pt cleansed perineal area by self, DE LA O cleansed buttocks area. Pt used grab bars to stabilize while PT helped pt stand to transfer into w/c from bath chair. Pt don upper body clothing Max A, verbal cues to find L arm. Pt was able to use R hand to help thread L hand/arm into shirt. Pt dependent don lower body clothing, required DE LA O to thread feet into briefs. Pt Max A to stand using PT to stabilize while DE LA O hiked pants over hips. Pt dependent threading socks onto feet. Pt propelled self to therapy gym using R foot to guide and R hand pushing. Pt worked on standing balance in parallel bars with PT. Pt propelled back to room using R look to guide, R hand pushing. Pt performed oral care Max A, verbal cues when brushing dentures and applying tooth paste. Pt propelled to recliner, transfer Max A assists. Call light/phone in reach. All needs met. Therapy Code Descriptions/Definitions Functional Schley Measure: 0=Not Assessed/NA 4=Minimal Assistance 1=Total Assistance 5=Supervision or Setup 2=Maximal Assistance 6=Modified Schley 3=Moderate Assistance 7=Complete IndependenceSCALE: Activities may be completed with or without assistive devices. 0-Ioezowvfpm-jkpogsz completes the activity by him/herself with no assistance from a helper. 5-Set-up or Clean-up Assistance-helper sets up or cleans up; patient completes activity. [place] assists only prior to or following the activity. 4-Supervision or Touching Assistance-helper provides verbal cues and/or touching/steadying and/or contact guard assistance as patient completes act ivity. Assistance may be provided throughout the activity or intermittently. 3-Partial/Moderate Assistance-helper does LESS THAN HALF the effort. P[place]iar lifts, holds or supports trunk or limbs, but provides less than half the effort. 2-Substantial/Maximal Assistance-helper does MORE THAN HALF the effort. Pec[place]iar lifts or holds trunk or limbs and provides more than half the effort. 5-Htgxsptup-fthbnl does ALL the effort. Patient does none of the effort to complete the activity. Or, the assistance of 2 or more helpers is required for the patient to complete the activity. If activity was not attempted, code reason: 7-Patient Refused. 9-Not Applicable-not attempted and the patient did not perform the activity before the current illness, exacerbation or injury. 10-Not Attempted due to Environmental Limitations-(lack of equipment, weather restraints, etc.). 88-Not Attempted due to Medical Conditions or Safety Concerns. Oral Hygiene (QC): 2 Bathing Location: R Arm, L Upper Leg, R Upper Leg, Chest, Abdomen, Perineal Area Shower/Bathe Self (QC): 3 Upper Body Dressing (QC): 2 Lower Body Dressing (QC): 1 On/Off Footwear: 1 OT Short Term Goals Short Term Goals Time Frame: Jan 16, 2020 Eatin Oral hygiene: 5 Upper body dressin Lower body dressin OT Mcfp Goals Can Stacker Goals Time Frame: Jan 25, 2020 Eating (QC): 6 Oral Hygiene (QC): 6 Toileting Hygiene (QC): 4 Shower/Bathe Self (QC): 4 Upper Body Dressing (QC): 5 Lower Body Dressing (QC): 4 On/Off Footwear (QC): 3 Additional Goals: 1-Demonstrate ADL Tasks, 2-Verbalize Understanding, 3- ImproveStrength/Benson 1=Demonstrate adherence to instructed precautions during ADL tasks. 2=Patient will verbalize/demonstrate understanding of assistive devices/modifications for ADL. 3=Patient will improve strength/tolerance for activity to enable patient to perform ADL's. OT Education/Plan Problem List/Assessment Assessment: Decreased Activ Tolerance, Decreased UE Strength, Impaired Funct Balance, Impaired Self-Care Skills Discharge Recommendations Plan/Recommendations: Continue POC Treatment Plan/Plan of Care Patient would benefit from OT for education, treatment and training to promote independence in ADL's, mobility, safety and/or upper extremity function for ADL's. Plan of Care: ADL Retraining, Functional Mobility, Group Exercise/Act as Ind, UE Funct Exercise/Act, UE Neuromus Re-Ed/Coord, Visual/Perceptual Retrain, W/C Management Training Treatment Duration: Jan 25, 2020 Frequency: At least 5 of 7 days/Wk (IRF) Estimated Hrs Per Day: 1.5 hours per day Agreement: Yes Rehab Potential: Fair Time/GCodes Start Time: 10:00 Stop Time: 11:30 Total Time Billed (hr/min): 90 Billed Treatment Time 1 visit- ADL 3 (40 mins), EX 3 (50 mins) Co-treatment PT ([id number]) Ind- ([id number]) PAMELLA BURNETTE Jan 01, 2020 11:51
[2020-01-01] MEDS: CLINDAMYCIN 150 MG (CLEOCIN) CAP PO SCH ×2 (12:18→20:24)
[2020-01-01] MEDS: BETHANECHOL 10 MG (URECHOLINE) TAB PO SCH ×3 (12:18→20:24)
[2020-01-01] MEDS: ENOXAPARIN 40 MG/0.4 ML (LOVENOX) SYR SC SCH (12:19)
--- NOTE | 2020-01-01 13:29 | Physical Therapy Daily Note ---
PT Daily Note-Current Subjective Patient in recliner pre tx, agrees to PT, states she would like to get back into the bed and her behind is sore. Appearance Patient in bed post tx with nurse call, phone, tray, all needs met Mental Status Patient Orientation: Person, Place, Situation Attachments: Bearden Catheter Transfers SCALE: Activities may be completed with or without assistive devices. 2-Michqtzquk-mgrmice completes the activity by him/herself with no assistance from a helper. 5-Set-up or Clean-up Assistance-helper sets up or cleans up; patient completes activity. [place] assists only prior to or following the activity. 4-Supervision or Touching Assistance-helper provides verbal cues and/or touching/steadying and/or contact guard assistance as patient completes activity. Assistance may be provided throughout the activity or intermittently. 3-Partial/Moderate Assistance-helper does LESS THAN HALF the effort. [place] lifts, holds or supports trunk or limbs, but provides less than half the effort. 2-Substantial/Maximal Assistance-helper does MORE THAN HALF the effort. [place] lifts or holds trunk or limbs and provides more than half the effort. 6-Kcdxmlfel-zoclss does ALL the effort. Patient does none of the effort to complete the activity. Or, the assistance of 2 or more helpers is required for the patient to complete the activity. If activity was not attempted, code reason: 7-Patient Refused. 9-Not Applicable-not attempted and the patient did not perform the activity before the current illness, exacerbation or injury. 10-Not Attempted due to Environmental Limitations-(lack of equipment, weather restraints, etc.). 88-Not Attempted due to Medical Conditions or Safety Concerns. Sit to Lying (QC): 3 Sit to Stand (QC): 3 Chair/Ypd-po-Wqosv Xfer(QC): 3 mod assist for sit to stand and transfer Exercises PROM LLE in all planes, patient has some increased muscle tone in left leg Treatments bed mobility and transfers, PROM Assessment Current Status: Fair Progress improved stand pivot transfer PT Short Term Goals Short Term Goals Time Frame: Jan 08, 2020 Roll Left & Right: 3 Sit to lyin Lying to sitting on side of be: 3 Sit to stand: 3 Chair/tpj-xj-ssqkq transfer: 3 PT Line Ordering Clinician Goals Line Ordering Clinician Goals PT Line Ordering Clinician Goals Time Frame: Jan 22, 2020 Roll Left & Right (QC): 3 (Татьяна) Sit to Lying (QC): 3 (Татьяна) Lying-Sitting on Side/Bed(QC): 3 (Татьяна) Sit to Stand (QC): 3 (Татьяна) Chair/Ksy-ft-Uctjj Xfer(QC): 3 (Татьяна) Toilet Transfer (QC): 3 (Татяьна) Car Transfer (QC): 3 (Татьяна) Does the Patient Walk: No and Walking Goal IS indicated Walk 10 feet (QC): 3 (Татьяна) Walk 50ft with 2 Turns (QC): 88 Walk 150 ft (QC): 88 Walking 10ft on Uneven Surface: 88 1 Step (curb) (QC): 88 4 Steps (QC): 88 12 Steps (QC): 88 Picking up an Object (QC): 88 Wheel 50 feet with 2 turns (QC: 4 Type: Manual Wheel 150 feet: 4 Type: Manual PT Plan Problem List Problem List: Activity Tolerance, Functional Strength, Safety, Balance, Gait, Transfer, Bed Mobility, ROM Treatment/Plan Treatment Plan: Continue Plan of Care Treatment Plan: Bed Mobility, Education, Functional Activity Benson, Functional Strength, Group Therapy, Gait, Safety, Therapeutic Exercise, Transfers Treatment Duration: Jan 21, 2020 Frequency: At least 5 of 7 days/Wk (IRF) Estimated Hrs Per Day: 1.5 hours per day Patient and/or Family Agrees t: Yes Safety Risks/Education Patient Education: Transfer Techniques, Correct Positioning, Safety Issues Teaching Recipient: Patient Teaching Methods: Demonstration, Discussion Response to Teaching: Reinforcement Needed Time/GCodes Time In: 1300 Time Out: 1315 Total Billed Treatment Time: 15 Total Billed Treatment 1 visit EX DEON GUALLPA PT Jan 01, 2020 13:29
--- NOTE | 2020-01-01 14:36 | ST Cognitive Linguistic Eval ---
Speech Evaluation-General Medical Diagnosis CVA Onset Date: Dec 16, 2019 Therapy Diagnosis Therapy Diagnosis: Cognitive-communication Referral Referring Physician: Dr. Bentley Medical History Pertinent Medical History: HTN, Hypothroidism Reviewed History: Yes Social History Current Living Status: Significant Other Speech PLF-Current Status Prior Level of Function Patient lived at home with her of 55 years. Subjective Patient was pleasant and cooperative with the cognitive assessment. Language Eval: Auditory Comprehends Simple Yes/No Ques: Functional Indent/Objects Multiple Atkins: Functional Ident/Pics in Multiple Atkins: Functional Follows 1-Step Commands: Functional Follows Complex Directions: Functional Follows General Conversations: Functional Language Eval: Verbal Language Completes Spontaneous Greeting: Functional Produces Auto, Serial Info: Functional Imitates Simple Words/Phrases: Functional Word Finding: Functional Requests Basic Needs: Functional States Basic Personal Info: Functional Expresses Complex Ideas: Functional Objective Cognitive Domain Attention: WNL Memory: Mild Problem Solving: Functional Executive Functions: WNL Visuospatial Skills: WNL Composite Severity Rating: WNL Clock Drawing Severity Rating: WNL Objective Formal/Standardized Tests [facility] Status ([facility]) Results 27/30, within normal limits range of function Oral Motor/Speech Production Within Normal Limits Impression Patient is pleasant 79 y/o female who was admitted to the ARU s/p CVA. Patient has a hx of CVA in 2003. Patient was given the SLUMS with a score of 27/30 obtained. This score is within the normal range of function. Patient does not require skilled ST services for communication at this time. Speech Patient Assess Expression of Ideas/Wants: Expression (4) Understanding Verbal Content: Understands (4) Brief Interview-Mental Status: Yes Repetition of Three Words: Three (3) Temporal Orientation: Year: Correct (3) Temporal Orientation: Month: Accurate within 5 days(2) Temporal Orientation: Day: Correct (1) Recall : Wear to say "Sock": Yes,after cueing (1) Recall : Color: Yes, after cueing (1) Recall : Bed: Yes,after cueing (1) Memory/Recall Ability: Current season, Location of own room, That he or she is in a hsp/hsp unit Speech-Plan Patient/Family Goals Patient/Family Goals: Patient plans on returning to her home where she lives with her . Treatment Plan Speech Therapy Treatment Plan: Discontinue ST Treatment Duration: Jan 01, 2020 Frequency: 1 time per week Estimated Hrs Per Day: .25 hour per day Rehab Potential: Fair Barriers to Learning: None identified Pt/Family Agrees to Plan: Yes Safety Risks/Education Teaching Recipient: Patient Teaching Methods: Discussion Response to Teaching: Verbalize Understanding Education Topics Provided: Safety within her room and communication of wants/needs Time Speech Therapy Time In: 11:30 Speech Therapy Time Out: 11:45 Total Billed Time: 15 Billed Treatment Time 1, SPENCER Garcia Jan 01, 2020 14:36
--- NOTE | 2020-01-01 14:47 | ST Dysphagia Evaluation ---
Speech Evaluation-General Medical Diagnosis CVA Onset Date: Dec 16, 2019 Therapy Diagnosis Therapy Diagnosis: Oropharyngeal Dysphagia Precautions Precautions: Aspiration Referral Referring Physician: Dr. Bentley Medical History Pertinent Medical History: HTN, Hypothroidism Reviewed History: Yes Social History Current Living Status: Significant Other Speech PLF/Current-Dysphagia Prior Level of Function Patient lived at home with her of 55 years. Patient states she was able to eat anything she wanted without difficulty. Subjective Patient was cooperative with the Bedside Dysphagia Evaluation. Oral Motor Skills Dentition: Natural Current Food Consistancy: Pureed Ability to Follow Directions: Good Oral Expression Ability: No Impairment Voice Voice Phonatory-Based Quality: Normal Voice Pitch: Normal Voice Loudness: Normal Face Facial Symmetry: Symmetrical Oral-Facial Assessment Oral-Facial Dentition: Normal Labial Seal Description: Reduced ROM Lingual Protrusion: Normal Lingual ROM: Normal Lingual Strength: Normal Pharynx Velopharyngeal Move.: Normal Volitional Dry Swallow: Yes Voluntary Cough: Yes Dysphagia Evaluation Consistencies Presented: Thin Liquid, Mechanical Soft, Pureed Oral Phase: Unable to Form Bolus Oral phase is within normal limits for thin and puree. Mechanical soft exhibits decreased bolus management. Pharyngeal Phase: Decreased A/P Bolus Transit Pharyngeal phase is within normal limits for thin and puree. Mechanical soft exhibits decreased bolus management. Dietary Recommendations: Pureed Liquid Recommendations: Thin Swallowing Precautions: Alternate Liquids/Solids, Double Swallow, Decreased Bolus 1/2 Tsp, Decreased Rate of Oral Intake, Liquids from Straw, Liquids from Spoon, [place] Maneuver, Small Bites and Sips, Sitting Upright 90 Degrees, Sitting 90 Degrees 30 Post Intake Dysphagia Evaluation Summary Patient is a pleasant 79 t=y/o female who was admitted to the ARU s/p CVA. Patient exhibited oropharyngeal dysphagia post CVA. She was on a Dysphagia I diet level upon arrival. Patient completed BDE with results indicating this continues to be the appropriate level for safe intake. Patient was given a trial of mechanical soft with decreased bolus management and A to P transfer. The patient will continue Dysphagia I with a goal of progressing to Dyspahgia II. Patient is currently on thin liquids will continue. Patient will receive skilled ST for dysphagia therapy. Barriers to Learning None identified Speech Short Term Goals Short Term Goals Short Term Goals 1) Patient will tolerate the least restrictive diet level without s/s of aspiration at 90% or greater. 2) Patient will utilize compensatory strategies as trained for safe oral intake at 90% or greater. Speech Automation Analyst Goals [facility] Goals Patient will maintain adequate nutrition/hydration via safe effective swallow function. Speech-Plan Patient/Family Goals Patient/Family Goals: Patient plans on returning to her home where she lives with her . Treatment Plan Speech Therapy Treatment Plan: Continue Plan of Care Treatment Duration: Jan 11, 2020 Frequency: 4 times per week (Patient will receive skilled ST 4-5x per week) Estimated Hrs Per Day: .25 hour per day Rehab Potential: Fair Barriers to Learning: None identified Pt/Family Agrees to Plan: Yes Safety Risks/Education Teaching Recipient: Patient Teaching Methods: Discussion Response to Teaching: Verbalize Understanding Education Topics Provided: Safety of oral intake, diet level Time Speech Therapy Time In: 11:45 Speech Therapy Time Out: 12:00 Total Billed Time: 15 Billed Treatment Time 1, ANNEL LEVIN BETH[place] ST Jan 01, 2020 14:47
--- NOTE | 2020-01-01 15:15 | NUR ---
RD ASSESSMENT PMHx: hypercholesterolemia; HTN; stroke (2003, 12/16/2019); PT INTERACTION: Pt was awake and pleasant during nutrition assessment. Pt states current appetite is not good, and it has been this way for a while. Note avg PO intake <25% x3meal, per chart review. Pt states following a "low calcium" diet at home, and has some issues with swallowing food. Pt states some recent issues with nausea and constipation, and that her last BM was prior to admit. Note pt currently on bowel regimen of colace BID, senna BID, and miralax qd, per chart review. Pt states recent wt loss. "I went from 163# to 162#." Note current wt of 179# per chart review. Note unable to determine recent wt hx, per chart review. 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 ABNORMAL NUTRITION-RELATED LAB VALUES LOW: HIGH: BUN 21; AST 37; Est. kcal needs: 2226-7431 kcal | 15-20 kcal/kg Est. Pro needs: 65-82 g Pro | 0.8-1.0 g Pro/kg PES STATEMENT: Inadequate oral intake (NI-2.1) related to loss of appetite, nausea, and constipation, as evidenced by pt interview, and avg PO intake <25% x3meal. 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 Would recommend swallow evaluation to determine consistency of diet. Continue with current supplementation order of Ensure Enlive with meals TID, for increased kcal intake. Provides 350 kcal and 20 g Pro per serving. Encouraged pt to eat when able. Will continue to follow and reassess as pt needs, intake, and status change. Trina Verde, MS RD LD [phone] cell
[2020-01-01] MEDS: TAMSULOSIN 0.4 MG (FLOMAX) CAP PO SCH (17:18)
[2020-01-01 18:10] VITALS: BP 156/69
[2020-01-01] MEDS: ANTACID SUSP 30 ML UDC (MYLANTA) PO PRN (22:49)
[2020-01-02] MEDS: HYDROcodone/APAP 5 MG/325 MG (LORTAB) TAB PO PRN ×3 (02:59→14:14)
[2020-01-02 06:12] VITALS: BP 99/44
[2020-01-02] MEDS: BETHANECHOL 10 MG (URECHOLINE) TAB PO SCH ×4 (06:17→20:57)
[2020-01-02] MEDS: LEVOTHYROXINE 100 MCG (LEVOTHROID) TAB PO SCH (06:17)
[2020-01-02] MEDS: oxyCODONE ER 10 MG (OxyCONTIN CR) TAB PO SCH ×2 (06:17→17:10)
--- NOTE | 2020-01-02 07:10 | Individualized Plan of Care ---
Individualized Plan of Care Rehab Nursing IPOC Order Admission Date Dec 31, 2019 at 14:25 Current Orders Orders Admission Order(Inpt,Obs,Sdc) (12/31/19 13:28) Vital Signs: Per Unit Policy ( 08,16,00 (12/31/19 13:28) José Miguel Méndez 09,21 (12/31/19 13:28) Sequential Compression Device Q4H (12/31/19 13:28) Advertising Dispatch Clerk-Inpt Rehab Con (12/31/19 13:28) Rehab Nursing Orders-Ipoc (12/31/19 13:28) Physical Therapy Rehab Orders (12/31/19 13:28) Occupational Therapy Rehab Ord (12/31/19 13:28) Speech Therapy Rehab Orders (12/31/19 13:28) Cbc With Automated Diff (01/01/20 06:00) Comprehensive Metabolic Panel (01/01/20 06:00) General/Regular (12/31/19 Lunch) Intake & Output 06,14, (12/31/19 13:28) Precautions (Aru) (12/31/19 13:28) Rehab-Intensity Of Therapy (12/31/19 13:28) Initiate Admission Nursing Pro .admission (12/31/19 13:28) Acetaminophen Tablet (Tylenol Tablet) (12/31/19 13:30) Alprazolam Tablet (Xanax Tablet) (12/31/19 13:30) Calcium Carbonate Chew Tablet (Antacid C (12/31/19 13:30) Diphenhydramine Tablet (Benadryl Tablet) (12/31/19 13:30) Docusate Sodium Capsule (Colace Capsule) (12/31/19 21:00) Docusate Sodium Capsule (Colace Capsule) (12/31/19 13:30) Bisacodyl Suppository (Dulcolax Supposit (12/31/19 13:30) Lactulose Oral Solution (Enulose Oral So (12/31/19 13:30) Na Phos/Na Biphos Enema (Fleet Enema Miguel A (12/31/19 13:30) Guaifenesin/Codeine Syrup (Robitussin Ac (12/31/19 13:30) Loperamide Tablet (Imodium Tablet) (12/31/19 13:30) Enoxaparin Injection (Lovenox Injection) (12/31/19 13:30) Melatonin Tablet (Melatonin Tablet) (12/31/19 13:30) Polyethylene Glycol Powder Pkt (Miralax (12/31/19 21:00) Ondansetron Oral Dissolve Tab (Zofran (12/31/19 13:30) Senna S Tablet (Senokot S Tablet) (12/31/19 21:00) Admission Arrival Bed Request (12/31/19 14:25) Dys1 Pureed (12/31/19 Dinner) Ensure Enlive (12/31/19 Dinner) Ambulate 08,12,20 (12/31/19 16:53) Sequential Compression Device Q4H (12/31/19 16:53) Dvt/Vte Risk - Notifiy Physici Q4H (12/31/19 16:53) Aspirin Enteric Coated Tablet (Ecotrin T (01/01/20 09:00) Atorvastatin Tablet (Lipitor) (12/31/19 21:00) Baclofen Tablet (Lioresal Tablet) (12/31/19 21:00) Bisacodyl Tablet (Dulcolax Tablet) (12/31/19 17:30) Bisacodyl Suppository (Dulcolax Supposit (12/31/19 17:30) Clindamycin Capsule (Cleocin Capsule) (12/31/19 21:00) Clopidogrel Tablet (Plavix Tablet) (01/01/20 09:00) Diclofenac 1% Gel (Voltaren 1% Gel) (12/31/19 21:00) Docusate Sodium Capsule (Colace Capsule) (12/31/19 17:30) Hydrocodone/Apap 5/325 Tablet (Lortab 5 (12/31/19 21:00) Lactulose Syrup (Pour Bottle) (Cephulac (12/31/19 17:30) Levothyroxine Tablet (Synthroid Tablet) (01/01/20 06:30) Losartan Tablet (Cozaar Tablet) (01/01/20 09:00) Antacid Suspension (Mylanta Suspension (12/31/19 17:30) Oxycodone Extended Release Tab (Oxyconti (12/31/19 17:30) Pantoprazole Tablet (Protonix Tablet) (01/01/20 09:00) Phenyleph/Mineral Oil/Petrolat (Hemorrho (12/31/19 17:30) Polyethylene Glycol Powder Pkt (Miralax (01/01/20 09:00) (Nf) Acetaminophen (Tylenol) (12/31/19 17:30) (Nf) Cholecalciferol (Vitamin D3) (Vitam (01/01/20 09:00) (Nf) Ondansetron Hcl (12/31/19 17:30) Atorvastatin Tablet (Lipitor Tablet) (12/31/19 21:00) Ondansetron Oral Dissolve Tab (Zofran (12/31/19 18:15) Lactulose Oral Solution (Enulose Oral So (12/31/19 18:15) Acetaminophen Tablet/Caplet (Tylenol T (12/31/19 18:15) Cholecalciferol Capsule/Tablet (Vitamin (01/01/20 09:00) Hydrocodone/Apap 5/325 Tablet (Lortab 5 (12/31/19 18:45) Patient Visit (01/01/20 ) Pt Eval Moderate Complexity (01/01/20 ) Functional Activities, Ea 15 (01/01/20 ) Patient Visit (12/31/19 ) Pt Eval Moderate Complexity (12/31/19 ) Functional Activities, Ea 15 (12/31/19 ) Consult Urology (01/01/20 08:45) Tamsulosin Capsule (Flomax Capsule) (01/01/20 18:00) Bethanechol Tablet (Urecholine Tablet) (01/01/20 11:00) Patient Visit (01/01/20 ) Functional Activities, Ea 15 (01/01/20 ) Exercise Therap, Ea 15 Min (01/01/20 ) Patient Visit (01/01/20 ) Speech Sound Lang Comp (01/01/20 ) Dysphagia Evaluation Std (01/01/20 ) Dysphagia Therapy (01/01/20 ) Rehab Nursing Orders: Ongoing Assess. of Cognitive Status, Ongoing Assess. of Function Status, Bladder Management, Bladder Scan, Bladder Training, Bowel Management, Bowel Training, Disease Management & Educaiton, DVT Prophylaxis, Fall Prevention, Fluid/Electrolyte/Nutrition Mgmt, Infection Prevention, Medication Management & Education, Management of Risks & Complications, Nutrition Management, Pain Management, Patient/Family Support, Safety Management, Swallow Precautions Intensity of Therapy to be met Patient to be seen: Min.3h per day/5 of 7d PT IPOC Problem List: Activity Tolerance, Functional Strength, Safety, Balance, Gait, Transfer, Bed Mobility, ROM Treatment Plan: Continue Plan of Care Bed Mobility, Education, Functional Activity Benson, Functional Strength, Group Therapy, Gait, Safety, Therapeutic Exercise, Transfers Treatment Duration: Jan 21, 2020 Frequency: At least 5 of 7 days/Wk (IRF) Estimated Hrs Per Day: 1.5 hours per day OT IPOC Problems: Decreased Activ Tolerance, Decreased UE Strength, Impaired Funct Balance, Impaired Self-Care Skills OT Treatment, Training and Edu: Yes Plan of Care: ADL Retraining, Functional Mobility, Group Exercise/Act as Ind, UE Funct Exercise/Act, UE Neuromus Re-Ed/Coord, Visual/Perceptual Retrain, W/C Management Training Treatment Duration: Jan 25, 2020 Frequency: At least 5 of 7 days/Wk (IRF) Estimated Hrs Per Day: 1.[address] IPOC Speech Therapy Treatment Plan: Continue Plan of Care Treatment Duration: Jan 11, 2020 Frequency: 4 times per week Estimated Hrs Per Day: .25 hour per day Advertising Dispatch Clerk/Case Mgmt Advertising Dispatch Clerk/Case Managemen: Discharge Planning Dietitian/Cardiovascular Operating Room Nurse Dietitian/Cardiovascular Operating Room Nurse to monitor nutritional status and make changes and/or recommendations as needed and work with speech pathology on dietary upgrades as the occur. 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
--- NOTE | 2020-01-02 07:10 | PM&R Progress Note ---
Subjective HPI/CC On Admission Date Seen by Provider: Jan 02, 2020 Time Seen by Provider: 09:30 Subjective/Events-last exam 01/02/20: Decreasing food intake Chest pain prompting EKG and cardiology evaluation Troponin will be checked Nausea noted Very difficult to manage with such chronic pain Appreciate Dr Nesbitt and Dr Johnson Pt settling in pretty well Having a lot of pain ankylosing spondylitis is very painful for her Will aggressively react bowels Remains with a catheter, I did consult urology Checked meds and labs Conferred with RN Reviewed therapy notes Review of Systems General: Fatigue, Malaise Cardiovascular: Chest Pain Musculoskeletal: back pain, hand pain Objective Exam Vital Signs Vital Signs Date Time Temp Pulse Resp B/P (MAP) Pulse Ox O2 Delivery O2 Flow Rate FiO2 01/02/20 20:00 96 Room Air 01/02/20 16:00 35.6 56 14 125/56 (79) Capillary Refill : Less Than 3 Seconds General Appearance: No Apparent Distress, WD/WN HEENT: PERRL/EOMI, Normal ENT Inspection, Pharynx Normal Neck: Full Range of Motion, Normal Inspection, Non Tender, Supple, Carotid Bruit Respiratory: Chest Non Tender, Lungs Clear, Normal Breath Sounds, No Accessory Muscle Use, No Respiratory Distress Cardiovascular: Regular Rate, Rhythm, No Edema, No Gallop, No JVD, No Murmur, Normal Peripheral Pulses Gastrointestinal: Normal Bowel Sounds, No Organomegaly, No Pulsatile Mass, Non Tender, Soft Back: Normal Inspection, No CVA Tenderness, No Vertebral Tenderness Extremity: Normal Capillary Refill, Normal Inspection, Normal Range of Motion, Non Tender, No Calf Tenderness, No Pedal Edema Neurologic/Psychiatric: Alert, Oriented x3, Normal Mood/Affect, Abnormal Gait, Motor Weakness (left sided weakness) Skin: Normal Color, Warm/Dry Lymphatic: No Adenopathy Results/Procedures Lab Patient resulted labs reviewed. FIM Transfers Therapy Code Descriptions/Definitions Functional [place] Measure: 0=Not Assessed/NA 4=Minimal Assistance 1=Total Assistance 5=Supervision or Setup 2=Maximal Assistance 6=Modified [place] 3=Moderate Assistance 7=Complete IndependenceSCALE: Activities may be completed with or without assistive devices. 1-Deuonzjocg-qnlqury completes the activity by him/herself with no assistance from a helper. 5-Set-up or Clean-up Assistance-helper sets up or cleans up; patient completes activity. [place] assists only prior to or following the activity. 4-Supervision or Touching Assistance-helper provides verbal cues and/or touching/steadying and/or contact guard assistance as patient completes activity. Assistance may be provided throughout the activity or intermittently. 3-Partial/Moderate Assistance-helper does LESS THAN HALF the effort. [place] lifts, holds or supports trunk or limbs, but provides less than half the effort. 2-Substantial/Maximal Assistance-helper does MORE THAN HALF the effort. [place] lifts or holds trunk or limbs and provides more than half the effort. 9-Afcmzbjzf-ecgxrk does ALL the effort. Patient does none of the effort to complete the activity. Or, the assistance of 2 or more helpers is required for the patient to complete the activity. If activity was not attempted, code reason: 7-Patient Refused. 9-Not Applicable-not attempted and the patient did not perform the activity before the current illness, exacerbation or injury. 10-Not Attempted due to Environmental Limitations-(lack of equipment, weather restraints, etc.). 88-Not Attempted due to Medical Conditions or Safety Concerns. Roll Left to Right (QC): 3 Sit to Lying (QC): 3 Sit to Stand (QC): 3 Chair/Yzy-ig-Jjmgk Xfer(QC): 3 Car Transfer (QC): 1 Gait Training Walk 10 feet (QC): 88 Walk 50 ft with 2 Turns(QC): 88 Walk 150 ft (QC): 88 Walking 10ft/uneven surface-QC: 88 Wheelchair Training Distance: 50'x2 Wheel 50 ft with 2 turns (QC): 2 Wheel 150 ft (QC): 88 Stair Training 1 Step (curb) (QC): 88 4 Steps (QC): 88 12 Steps (QC): 88 Balance Picking up an Object (QC): 88 ADL-Treatment Eating (QC): 5 (Based on clincial judgement, pt would require set up assistance with feeding) Oral Hygiene (QC): 2 Bathing Location: R Arm, L Upper Leg, R Upper Leg, Chest, Abdomen, Perineal Area Shower/Bathe Self (QC): 3 Upper Body Dressing (QC): 2 Lower Body Dressing (QC): 1 On/Off Footwear (QC): 1 Toileting Hygiene (QC): 7 Assessment/Plan Assessment and Plan Assess & Plan/Chief Complaint Assessment: CVA Left sided weakness AK Hypothyroidism Chronic pain Narcotic dependent Narcotic bowel Osteoporosis Bearden cath in place Urinary retention UTI Plan: Dr Nesbitt IRF protocol Current meds 01/01/20: Pain management Dr Nesbitt consult for urinary retention Monitor for falls BM regimen 01/02/20: Pain management Cardiology and Urology consultation is appreciated (1) CVA (cerebral vascular accident) (2) Ankylosing spondylitis (3) Acquired hypothyroidism (4) Chronic pain (5) Narcotic dependence (6) Narcotic bowel syndrome (7) Urinary retention (8) Bearden catheter in place (9) UTI (urinary tract infection) (10) Left-sided weakness (11) Psoriasis (12) Osteoporosis WILEY WRIGHT DO Jan 02, 2020 07:10
[2020-01-02] MEDS: DOCUSATE SODIUM 100 MG (COLACE) CAP PO SCH ×2 (09:25→21:00)
[2020-01-02] MEDS: SENNA W/DOCUSATE (SENOKOT S) TABLET PO SCH ×2 (09:25→21:00)
[2020-01-02] MEDS: VITAMIN D3 25 MCG (1,000 UNITS) TABLET PO SCH (09:25)
[2020-01-02] MEDS: CLINDAMYCIN 150 MG (CLEOCIN) CAP PO SCH ×2 (09:25→20:55)
[2020-01-02] MEDS: polyethylene glycoL POWDER 17 GM (MIRALAX) PACK PO SCH (09:25)
[2020-01-02] MEDS: ASPIRIN E.C. 81 MG (ECOTRIN) TAB PO SCH (09:25)
[2020-01-02] MEDS: LOSARTAN 25 MG (COZAAR) TAB PO SCH (09:25)
[2020-01-02] MEDS: CLOPIDOGREL 75 MG (PLAVIX) TABLET PO SCH (09:25)
[2020-01-02] MEDS: PANTOPRAZOLE 40 MG (PROTONIX) TAB PO SCH (09:25)
[2020-01-02] MEDS: BACLOFEN 10 MG (LIORESAL) TAB PO SCH ×3 (09:25→20:54)
[2020-01-02] MEDS: DICLOFENAC 1% GEL 100 GM (VOLTAREN) TUBE TP SCH ×3 (09:26→21:04)
--- NOTE | 2020-01-02 10:02 | Occupational Ther Daily Note ---
OT Current Status-Daily Note Subjective Pt was in bed upon arrival. Pt stated head was still hurting. Pt agreed to therapy. Nrsg notified, brought pain meds. Mental Status/Objective Patient Orientation: Person, Place, Time, Situation Attachments: Bearden Catheter ADL-Treatment Pt lying supine to EOB Mod A. Pt stated wanted to try to use restroom. Pt transferred from EOB to commode Max A. Pt performed sponge bath, cleansed perineal area by self. Due to time restraint, DE LA O helped with sponge bath. Co- treatment PT ([id number]) skills of two clinicians required for skilled instruction and care due to transfers and safety concerns. PT worked on standing balance, transfers. DE LA O worked with pt on ADLs, hand placement. Pt don upper body clothing Max A, using R arm to help thread L arm into shirt. Pt performed lower body dressing Max A, able to lift feet into briefs. DE LA O stabilized pt in standing while 2nd person assists to manipulate clothing and cleanse buttocks. Pt transferred from commode to w/c Max A. Pt given dentures, verbal cues to place dentures in mouth correctly. Pt propelled to therapy gym by DE LA O. Pt worked on standing balance with PT in parallel bars, verbal cues required.Pt propelled back to room using R foot to guide, R hand to push. Pt transferred to bed from w/c Max A, laying on R side. Pt call light/phone in reach. All needs met. Nursing in room. Therapy Code Descriptions/Definitions Functional [place] Measure: 0=Not Assessed/NA 4=Minimal Assistance 1=Total Assistance 5=Supervision or Setup 2=Maximal Assistance 6=Modified [place] 3=Moderate Assistance 7=Complete IndependenceSCALE: Activities may be completed with or without assistive devices. 3-Nwbbwmnezu-kbzbfjn completes the activity by him/herself with no assistance from a helper. 5-Set-up or Clean-up Assistance-helper sets up or cleans up; patient completes activity. [place] assists only prior to or following the activity. 4-Supervision or Touching Assistance-helper provides verbal cues and/or touching/steadying and/or contact guard assistance as patient completes activity. Assistance may be provided throughout the activity or intermittently. 3-Partial/Moderate Assistance-helper does LESS THAN HALF the effort. [place] lifts, holds or supports trunk or limbs, but provides less than half the effort. 2-Substantial/Maximal Assistance-helper does MORE THAN HALF the effort. [place] lifts or holds trunk or limbs and provides more than half the effort. 1-Yunkyzlpd-vqxrjb does ALL the effort. Patient does none of the effort to complete the activity. Or, the assistance of 2 or more helpers is required for the patient to complete the activity. If activity was not attempted, code reason: 7-Patient Refused. 9-Not Applicable-not attempted and the patient did not perform the activity before the current illness, exacerbation or injury. 10-Not Attempted due to Environmental Limitations-(lack of equipment, weather restraints, etc.). 88-Not Attempted due to Medical Conditions or Safety Concerns. Upper Body Dressing (QC): 2 Lower Body Dressing (QC): 1 On/Off Footwear: 2 Toileting Hygiene (QC): 1 Toilet Transfer (QC): 2 OT Short Term Goals Short Term Goals Time Frame: Jan 16, 2020 Eatin Oral hygiene: 5 Upper body dressin Lower body dressin OT [facility] Goals Color Checker Roving Or Yarn Goals Time Frame: Jan 25, 2020 Eating (QC): 6 Oral Hygiene (QC): 6 Toileting Hygiene (QC): 4 Shower/Bathe Self (QC): 4 Upper Body Dressing (QC): 5 Lower Body Dressing (QC): 4 On/Off Footwear (QC): 3 Additional Goals: 1-Demonstrate ADL Tasks, 2-Verbalize Understanding, 3- ImproveStrength/Benson 1=Demonstrate adherence to instructed precautions during ADL tasks. 2=Patient will verbalize/demonstrate understanding of assistive devices/modifications for ADL. 3=Patient will improve strength/tolerance for activity to enable patient to perform ADL's. OT Education/Plan Problem List/Assessment Assessment: Decreased Activ Tolerance, Decreased UE Strength, Impaired Funct Balance, Impaired Self-Care Skills Discharge Recommendations Plan/Recommendations: Continue POC Treatment Plan/Plan of Care Patient would benefit from OT for education, treatment and training to promote independence in ADL's, mobility, safety and/or upper extremity function for ADL's. Plan of Care: ADL Retraining, Functional Mobility, Group Exercise/Act as Ind, UE Funct Exercise/Act, UE Neuromus Re-Ed/Coord, Visual/Perceptual Retrain, W/C Management Training Treatment Duration: Jan 25, 2020 Frequency: At least 5 of 7 days/Wk (IRF) Estimated Hrs Per Day: 1.5 hours per day Agreement: Yes Rehab Potential: Fair Time/GCodes Start Time: 08:45 Stop Time: 10:00 Total Time Billed (hr/min): 75 Billed Treatment Time 1 visit- ADL 2 (35 mins), FA 3 (40 mins) co-treatment PT ([id number]) ind- ([id number]) PAMELLA BURNETTE Jan 02, 2020 10:02
--- NOTE | 2020-01-02 10:04 | Physical Therapy Daily Note ---
PT Daily Note-Current Subjective Pt sitting on toilet upon arrival. Pt agrees to PT/OT co-alessandro. Pain Numeric Pain Scale: 7 Location Body Site: Neck Pain Description: Ache, Tightness Mental Status Patient Orientation: Person, Place Attachments: Bearden Catheter Transfers SCALE: Activities may be completed with or without assistive devices. 4-Ehnmsrqlcf-injdrsu completes the activity by him/herself with no assistance f rom a helper. 5-Set-up or Clean-up Assistance-helper sets up or cleans up; patient completes activity. [place] assists only prior to or following the activity. 4-Supervision or Touching Assistance-helper provides verbal cues and/or touching/steadying and/or contact guard assistance as patient completes activity. Assistance may be provided throughout the activity or intermittently. 3-Partial/Moderate Assistance-helper does LESS THAN HALF the effort. [place] lifts, holds or supports trunk or limbs, but provides less than half the effort. 2-Substantial/Maximal Assistance-helper does MORE THAN HALF the effort. [place] lifts or holds trunk or limbs and provides more than half the effort. 0-Jpzvvcffj-oqregd does ALL the effort. Patient does none of the effort to complete the activity. Or, the assistance of 2 or more helpers is required for the patient to complete the activity. If activity was not attempted, code reason: 7-Patient Refused. 9-Not Applicable-not attempted and the patient did not perform the activity before the current illness, exacerbation or injury. 10-Not Attempted due to Environmental Limitations-(lack of equipment, weather restraints, etc.). 88-Not Attempted due to Medical Conditions or Safety Concerns. Sit to Stand (QC): 2 Toilet Transfer (QC): 2 Wheelchair Training Does the Pt Use a Wheelchair?: Yes Wheel 50 ft with 2 turns (QC): 3 Wheel 150 ft (QC): 3 Type of Wheelchair: Manual Exercises Seated Therapy Exercises: Sit to stand Treatments Co-treatment PT ([id number]) skills of two clinicians required for skilled instruction and care due to transfers and safety concerns. PT worked on standing balance, transfers. DE LA O worked with pt on ADLs, hand placement. Pt don upper body clothing Max A, using R arm to help thread L arm into shirt. Pt performed lower body dressing Max A, able to lift feet into briefs. DE LA O stabilized pt in standing while 2nd person assists to manipulate clothing and cleanse buttocks. Pt transferred from commode to w/c Max A. Pt given dentures, verbal cues to place dentures in mouth correctly. Pt propelled to therapy gym by JAYLYN. Pt worked on standing balance with PT in parallel bars, verbal cues required. Pt propelled back to room using R foot to guide, R hand to push. Pt transferred to bed from w/c Max A, laying on R side. Pt call light/phone in reach. All needs met. Nursing in room. 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 PT Short Term Goals Short Term Goals Time Frame: Jan 08, 2020 Roll Left & Right: 3 Sit to lyin Lying to sitting on side of be: 3 Sit to stand: 3 Chair/yvm-at-ogluh transfer: 3 PT [employer] Developer Goals Shelter Goals PT [employer] Developer Goals Time Frame: Jan 22, 2020 Roll Left & Right (QC): 3 (Татьяна) Sit to Lying (QC): 3 (Татьяна) Lying-Sitting on Side/Bed(QC): 3 (Татьяна) Sit to Stand (QC): 3 (Татьяна) Chair/Hlf-ve-Cxwxv Xfer(QC): 3 (Татьяна) Toilet Transfer (QC): 3 (Татьяна) Car Transfer (QC): 3 (Татьяна) Does the Patient Walk: No and Walking Goal IS indicated Walk 10 feet (QC): 3 (Татьяна) Walk 50ft with 2 Turns (QC): 88 Walk 150 ft (QC): 88 Walking 10ft on Uneven Surface: 88 1 Step (curb) (QC): 88 4 Steps (QC): 88 12 Steps (QC): 88 Picking up an Object (QC): 88 Wheel 50 feet with 2 turns (QC: 4 Type: Manual Wheel 150 feet: 4 Type: Manual PT Plan Problem List Problem List: Activity Tolerance, Functional Strength, Safety, Balance, Transfer Treatment/Plan Treatment Plan: Continue Plan of Care Treatment Plan: Bed Mobility, Education, Functional Activity Benson, Functional Strength, Group Therapy, Gait, Safety, Therapeutic Exercise, Transfers Treatment Duration: Jan 21, 2020 Frequency: At least 5 of 7 days/Wk (IRF) Estimated Hrs Per Day: 1.5 hours per day Patient and/or Family Agrees t: Yes Safety Risks/Education Patient Education: Transfer Techniques, Correct Positioning, Safety Issues Teaching Recipient: Patient Teaching Methods: Discussion Response to Teaching: Reinforcement Needed Time/GCodes Time In: 900 Time Out: 1000 Total Billed Treatment Time: 60 Total Billed Treatment 1, FA x3 (40m) & W[facility] (20m) JAVON OJEDA ELECTROPHYSIOLOGIST Jan 02, 2020 10:04
--- NOTE | 2020-01-02 11:00 | NUR ---
CM/SS ADMISSION Patient was admitted to ARU 12/31/19 from [facility] Swing Bed for CVA with left sided weakness. Other comorbidities are, in part, ankylosing spondylitis, chronic pain, narcotic dependence and narcotic bowel syndrome, osteoporosis, urinary retention with [place] catheter. Patient resides at home with her spouse Donavon Beauchamp and plans to return there when able. They have two sons, Donavon "Mari BeauchampJr. and Catarino Beauchamp, neither of whom reside locally. PCP: Dr. Forrest Rodrigez, DO [address] [place] [id number] PHARMACY: [facility] INSURANCE: Medicare, [employer] supplement DME: Patient has cane, FWW, shower chair, raised seat toilet and stool riser. OT recommends Hip Kit and Tub Transfer Bench. Other assistive device recommendations to be assessed by therapy team. BARRIERS TO DISCHARGE: Patient's overall level of recovery and ability to return to her home with assistance from her Donavon who is 87 years old. Children Donavon and Catarino both reside out of [facility]. CONTACTS: Donavon Beauchamp, Spouse [address] [place] [address] CELL: [phone] Patient indicates they only have one cell phone and Donavon has it. ARU team to assist with facetime if Donavon is able to facilitate it on his end. Donavon resides in [place], [place] on an organic farm. Catarino resides in [place], [place]. Patient understood the purpose and process of the weekly patient care conference and that she would first be reviewed today with an assumed recheck next Thursday, January 09, 2020. Addendum: 01/22/20 at 1511 by JUSTICE GAGNON Correcting PCP information: Che Rodrigez, DO [address] [place], [place] [id number] PH: [phone] FX: [phone]
--- NOTE | 2020-01-02 13:20 | Consultation-Cardiology ---
HPI-Cardiology Cardiology Consultation Date of Consultation 01/02/20 Date of Admission Time Seen by Provider: 08:40 Indication: CVA HPI Patient is a 79 y/o female with history of recent CVA, hx of HTN, Ankylosing spondylitis, hypothyroidism. Transfer from [facility] to [facility] and [address]. Presented to ER at [facility] on 12/15 with c/o slurred speech, presented after symptoms had resoved and had CT head that was negative for acute changes. Was found to have UTI, did not want to stay for admission and was discharged on Levaquin. Later that day she began having slurred speech as well as left sided weakness, present back to ther ER. Did not qualify for tPA. Underwent w/u for cryptogenic CVA including 2D echo, CTA head and neck, which was all negative. MRI done revealed right frontal parietal lobe infarct. Currently, she denies any chest pain or dyspnea. Continues to have right sided weakness. Home Medications & Allergies Allergies: Coded Allergies: green pepper (Verified Allergy, Severe, Anaphylaxis, 12/31/19) Sulfa (Sulfonamide Antibiotics) (Verified Allergy, Unknown, 12/31/19) Home Medication List Reviewed: Yes REP-Jvwean-Lzxtda Hx Patient Social History Marital Status: Employed/Student: retired Alcohol Use: Denies Use Recreational Drug Use: No Smoking Status: Never a Smoker Recent Foreign Travel: No Recent Infectious Disease Expo: No Recent Hopitalizations: No Physical Abuse Screen: No Sexual Abuse: No Immunizations Up To Date Date of Pneumonia Vaccine: Nov 10, 2019 Date of Influenza Vaccine: Nov 10, 2019 Past Medical History CVA, HTN, Hypothyroidism Review of Systems-General Review of Systems Constitutional: see HPI, malaise, weakness EENTM: no symptoms reported Respiratory: no symptoms reported Cardiovascular: no symptoms reported Gastrointestinal: constipation Genitourinary: other (retention) Musculoskeletal: back pain, joint pain, muscle pain, muscle stiffness, muscle cramps, neck pain Skin: no symptoms reported Psychiatric/Neurological: Anxiety, Depressed, Numbness, Paresthesia, Weakness All Other Systems Reviewed Negative Unless Noted: Yes Reviewed Test Results Reviewed Test Results Lab Laboratory Tests 01/02/20 10:35: Troponin I < 0.028 ECG Impression ECG Comment SR with incomplete LBBB Physical Exam Physical Exam Vital Signs Vital Signs - First Documented 12/31/19 14:35 Temp 35.8 Pulse 58 Resp 20 B/P (MAP) 178/78 Pulse Ox 94 O2 Delivery Room Air Capillary Refill : Less Than 3 Seconds Height, Weight, BMI Height: '" Weight: lbs. oz. kg; 29.97 BMI Method: General Appearance: No Apparent Distress, WD/WN Eyes: Bilateral Eye Normal Inspection, Bilateral Eye PERRL HEENT: PERRL/EOMI, Normal ENT Inspection, Pharynx Normal Neck: Full Range of Motion, Normal Inspection, Non Tender, Supple, Carotid Bruit Respiratory: Chest Non Tender, Lungs Clear, Normal Breath Sounds, No Accessory Muscle Use, No Respiratory Distress Cardiovascular: Regular Rate, Rhythm, No Edema, No Gallop, No JVD, No Murmur, Normal Peripheral Pulses Gastrointestinal: Normal Bowel Sounds, No Organomegaly, No Pulsatile Mass, Non Tender, Soft Back: Normal Inspection, No CVA Tenderness, No Vertebral Tenderness Extremity: Normal Capillary Refill, Normal Inspection, Normal Range of Motion, Non Tender, No Calf Tenderness, No Pedal Edema Neurologic/Psychiatric: Alert, Oriented x3, Normal Mood/Affect, Abnormal Gait, Motor Weakness (left sided weakness) Skin: Normal Color, Warm/Dry Lymphatic: No Adenopathy A/P-Cardiology Admission Diagnosis CVA HTN Hypothyroidism Ankylosing spondylitis Assessment/Plan 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 MRI done at [facility] showing right frontal parietal lobe infarct. 2D Echo done 12/18/2019 demonstrated LVH with normal EF. CTA Head and neck unremarkable. Continues to have left sided weakness. Reports hx of previous CVA in 2004. Continue on ASA and Plavix. Discussed possibility of LINq implantation for further monitoring for atrial fibrillation HTN, continue to monitor HLP, recently started on statin, continue to monitor Hypothyroidism Ankylosing spondylitis Epigastric pain, resolved. Thank you for allowing us to participate in the management of Ms. Beauchamp. This is Maribel Catalan PA-C, as a scribe for Dr. Johnson. Patient was seen and evaluated with Maribel, examination performed, management plan was discussed, agree with the current scribed note, I made few changes to the note using Italic font Patient denied any further episode of chest pain Cardiac enzymes and EKG did not show any acute changes Clinical Quality Measures DVT/VTE Risk/Contraindication: Risk Factor Score Per Nursin RFS Level Per Nursing on Admit: 4+=Very High MARIBEL OCHOA Jan 02, 2020 1:20 pm CLIFFORD JOHNSON MD Jan 02, 2020 2:16 pm
--- NOTE | 2020-01-02 13:30 | Speech Therapy Daily Note ---
Speech Daily Progress Note Subjective Date Seen by Provider: Jan 02, 2020 Time Seen by Provider: 00:30 Patient states she feels SOB and is having discomfort in her chest. Nursing was aware and blood work was taken. Objective Patient demonstrated use of compensatory strategies as trained for intake including small sips/bites with 80% given 20% verbal and visual cues. Assessment Assessment Current Status: Fair Progress Treatment Plan Continue Plan of Care Speech Short Term Goals Short Term Goals Short Term Goals 1) Patient will tolerate the least restrictive diet level without s/s of aspiration at 90% or greater. 2) Patient will utilize compensatory strategies as trained for safe oral intake at 90% or greater. Speech Fpc Goals Network And Threat Support Specialist Goals Patient will maintain adequate nutrition/hydration via safe effective swallow function. Speech-Plan Patient/Family Goals Patient/Family Goals: Patient plans on returning to her home where she lives with her . Treatment Plan Speech Therapy Treatment Plan: Continue Plan of Care Treatment Duration: Jan 11, 2020 Frequency: 4 times per week Estimated Hrs Per Day: .25 hour per day Rehab Potential: Fair Barriers to Learning: Patient's recent CVA, age Pt/Family Agrees to Plan: Yes Safety Risks/Education Teaching Recipient: Patient Teaching Methods: Demonstration, Discussion Response to Teaching: Verbalize Understanding, Return Demonstration Education Topics Provided: Safety of oral intake Time Speech Therapy Time In: 10:30 Speech Therapy Time Out: 11:00 Total Billed Time: 30 Billed Treatment Time RafaANNEL B[address] ST Jan 02, 2020 13:30
[2020-01-02] MEDS: ENOXAPARIN 40 MG/0.4 ML (LOVENOX) SYR SC SCH (14:15)
[2020-01-02] MEDS: ONDANSETRON 4 MG (ZOFRAN) ORAL DISSOLVE TAB PO PRN (14:50)
--- NOTE | 2020-01-02 15:39 | Physical Therapy Daily Note ---
PT Daily Note-Current Subjective Pt L sidelying in bed upon arrival. Pt agrees to PT. Pt asked to change clothes as she was cold and to be repositioned. Mental Status Patient Orientation: Person, Place Transfers SCALE: Activities may be completed with or without assistive devices. 6-Jfjgsnsnth-gvvatmg completes the activity by him/herself with no assistance from a helper. 5-Set-up or Clean-up Assistance-helper sets up or cleans up; patient completes activity. [place] assists only prior to or following the activity. 4-Supervision or Touching Assistance-helper provides verbal cues and/or touching/steadying and/or contact guard assistance as patient completes activity. Assistance may be provided throughout the activity or intermittently. 3-Partial/Moderate Assistance-helper does LESS THAN HALF the effort. [place] lifts, holds or supports trunk or limbs, but provides less than half the effort. 2-Substantial/Maximal Assistance-helper does MORE THAN HALF the effort. [place] lifts or holds trunk or limbs and provides more than half the effort. 0-Pldnhfeiz-kgaeou does ALL the effort. Patient does none of the effort to complete the activity. Or, the assistance of 2 or more helpers is required for the patient to complete the activity. If activity was not attempted, code reason: 7-Patient Refused. 9-Not Applicable-not attempted and the patient did not perform the activity before the current illness, exacerbation or injury. 10-Not Attempted due to Environmental Limitations-(lack of equipment, weather restraints, etc.). 88-Not Attempted due to Medical Conditions or Safety Concerns. Roll Left & Right (QC): 3 Sit to Lying (QC): 2 Lying to Sitting/Side of Bed(Q: 2 Exercises Supine Ex: Rolling Treatments TF to EOB to doff/don clothes since pt was cold. Pt is assisted in repositioning to comfort. All needs met, call light in hand. Assessment Current Status: Fair Progress Pt still weak and demonstrates difficulty with sitting balance when at EOB. PT Short Term Goals Short Term Goals Time Frame: Jan 08, 2020 Roll Left & Right: 3 Sit to lyin Lying to sitting on side of be: 3 Sit to stand: 3 Chair/ohb-wl-kkthn transfer: 3 PT Mcfp Goals Mcfp Goals PT Mcfp Goals Time Frame: Jan 22, 2020 Roll Left & Right (QC): 3 (Татьяна) Sit to Lying (QC): 3 (Татьяна) Lying-Sitting on Side/Bed(QC): 3 (Татьяна) Sit to Stand (QC): 3 (Татьяна) Chair/Oeu-gi-Engif Xfer(QC): 3 (Татьяна) Toilet Transfer (QC): 3 (Татьяна) Car Transfer (QC): 3 (Татьяна) Does the Patient Walk: No and Walking Goal IS indicated Walk 10 feet (QC): 3 (Татьяна) Walk 50ft with 2 Turns (QC): 88 Walk 150 ft (QC): 88 Walking 10ft on Uneven Surface: 88 1 Step (curb) (QC): 88 4 Steps (QC): 88 12 Steps (QC): 88 Picking up an Object (QC): 88 Wheel 50 feet with 2 turns (QC: 4 Type: Manual Wheel 150 feet: 4 Type: Manual PT Plan Problem List Problem List: Activity Tolerance, Functional Strength, Safety, Balance Treatment/Plan Treatment Plan: Continue Plan of Care Treatment Plan: Bed Mobility, Education, Functional Activity Benson, Functional Strength, Group Therapy, Gait, Safety, Therapeutic Exercise, Transfers Treatment Duration: Jan 21, 2020 Frequency: At least 5 of 7 days/Wk (IRF) Estimated Hrs Per Day: 1.5 hours per day Patient and/or Family Agrees t: Yes Safety Risks/Education Patient Education: Transfer Techniques, Correct Positioning, Safety Issues Teaching Recipient: Patient Teaching Methods: Discussion Response to Teaching: Reinforcement Needed Time/GCodes Time In: 1315 Time Out: 1330 Total Billed Treatment Time: 15 Total Billed Treatment 1, FA (15m) JAVON OJEDA NURSING HOME ADMINISTRATOR Jan 02, 2020 15:39
--- NOTE | 2020-01-02 15:50 | NUR ---
Weekly Care Team Conference Discussed weekly care team conference with patient and team's recommendation for recheck on 01/09/2020. Patient is agreeable to this plan as she just admitted to the rehab unit on 12/31/2019. Patient had no further questions or concerns.
[2020-01-02 16:00] VITALS: BP 125/56
--- NOTE | 2020-01-02 17:07 | Progress Note - Urology ---
Progress Note-Urology Progress Notes/Assess & Plan Progress/Assessment & Plan TOV TOMORROW. TOLERATES MEDS WELL Final Diagnosis URINE RETENTION JAY NERI MD Jan 02, 2020 17:07
[2020-01-02] MEDS: TAMSULOSIN 0.4 MG (FLOMAX) CAP PO SCH (17:10)
[2020-01-02] MEDS: MELATONIN 3 MG TABLET PO SCH (20:54)
[2020-01-02] MEDS: ALPRAZolam 0.25 MG (XANAX) TAB PO PRN (20:56)
[2020-01-03] MEDS: HYDROcodone/APAP 5 MG/325 MG (LORTAB) TAB PO PRN ×6 (00:12→21:00)
[2020-01-03] MEDS: ANTACID SUSP 30 ML UDC (MYLANTA) PO PRN ×2 (04:25→20:01)
[2020-01-03] MEDS: BETHANECHOL 10 MG (URECHOLINE) TAB PO SCH ×4 (05:41→20:59)
[2020-01-03] MEDS: oxyCODONE ER 10 MG (OxyCONTIN CR) TAB PO SCH ×2 (05:41→12:12)
--- NOTE | 2020-01-03 06:11 | PM&R Progress Note ---
Subjective HPI/CC On Admission Date Seen by Provider: Jan 03, 2020 Time Seen by Provider: 09:30 Subjective/Events-last exam 01/03/20: Bearden out and has yet to void Dr Nesbitt and I conferred on the unit Oxycontin increased to 30mg BID she takes it at 0700 and 1330 so instructed pharmacy to put it in for that time slot Swallowing better 12/31/19 BM so laxatives given Pureed diet 01/02/20: Decreasing food intake Chest pain prompting EKG and cardiology evaluation Troponin will be checked Nausea noted Very difficult to manage with such chronic pain Appreciate Dr Nesbitt and Dr Johnson Pt settling in pretty well Having a lot of pain ankylosing spondylitis is very painful for her Will aggressively react bowels Remains with a catheter, I did consult urology Checked meds and labs Conferred with RN Reviewed therapy notes Review of Systems Musculoskeletal: neck pain, shoulder pain, back pain Neurological: Weakness, Incoordination Objective Exam Vital Signs Vital Signs Date Time Temp Pulse Resp B/P (MAP) Pulse Ox O2 Delivery O2 Flow Rate FiO2 01/03/20 17:27 36.6 53 18 141/58 (85) 96 Room Air Capillary Refill : Less Than 3 Seconds General Appearance: No Apparent Distress, WD/WN HEENT: PERRL/EOMI, Normal ENT Inspection, Pharynx Normal Neck: Full Range of Motion, Normal Inspection, Non Tender, Supple, Carotid Bruit Respiratory: Chest Non Tender, Lungs Clear, Normal Breath Sounds, No Accessory Muscle Use, No Respiratory Distress Cardiovascular: Regular Rate, Rhythm, No Edema, No Gallop, No JVD, No Murmur, Normal Peripheral Pulses Gastrointestinal: Normal Bowel Sounds, No Organomegaly, No Pulsatile Mass, Non Tender, Soft Back: Normal Inspection, No CVA Tenderness, No Vertebral Tenderness Extremity: Normal Capillary Refill, Normal Inspection, Normal Range of Motion, Non Tender, No Calf Tenderness, No Pedal Edema Neurologic/Psychiatric: Alert, Oriented x3, Normal Mood/Affect, Abnormal Gait, Motor Weakness (left sided weakness) Skin: Normal Color, Warm/Dry Lymphatic: No Adenopathy Results/Procedures Lab Patient resulted labs reviewed. FIM Transfers Therapy Code Descriptions/Definitions Functional [place] Measure: 0=Not Assessed/NA 4=Minimal Assistance 1=Total Assistance 5=Supervision or Setup 2=Maximal Assistance 6=Modified [place] 3=Moderate Assistance 7=Complete IndependenceSCALE: Activities may be completed with or without assistive devices. 1-Uibccroutd-fqmpoim completes the activity by him/herself with no assistance fr om a helper. 5-Set-up or Clean-up Assistance-helper sets up or cleans up; patient completes activity. [place] assists only prior to or following the activity. 4-Supervision or Touching Assistance-helper provides verbal cues and/or touching/steadying and/or contact guard assistance as patient completes activity. Assistance may be provided throughout the activity or intermittently. 3-Partial/Moderate Assistance-helper does LESS THAN HALF the effort. [place] lifts, holds or supports trunk or limbs, but provides less than half the effort. 2-Substantial/Maximal Assistance-helper does MORE THAN HALF the effort. [place] lifts or holds trunk or limbs and provides more than half the effort. 3-Vhrtqkpow-zytoiu does ALL the effort. Patient does none of the effort to complete the activity. Or, the assistance of 2 or more helpers is required for the patient to complete the activity. If activity was not attempted, code reason: 7-Patient Refused. 9-Not Applicable-not attempted and the patient did not perform the activity before the current illness, exacerbation or injury. 10-Not Attempted due to Environmental Limitations-(lack of equipment, weather restraints, etc.). 88-Not Attempted due to Medical Conditions or Safety Concerns. Roll Left to Right (QC): 3 Sit to Lying (QC): 2 Sit to Stand (QC): 2 Chair/Dxl-ob-Crwhl Xfer(QC): 3 Car Transfer (QC): 1 Gait Training Walk 10 feet (QC): 88 Walk 50 ft with 2 Turns(QC): 88 Walk 150 ft (QC): 88 Walking 10ft/uneven surface-QC: 88 Wheelchair Training Does the Pt Use a Wheelchair?: Yes Distance: 50'x2 Wheel 50 ft with 2 turns (QC): 3 Wheel 150 ft (QC): 3 Type of Wheelchair: Manual Stair Training 1 Step (curb) (QC): 88 4 Steps (QC): 88 12 Steps (QC): 88 Balance Picking up an Object (QC): 88 ADL-Treatment Eating (QC): 5 (Based on clincial judgement, pt would require set up assistance with feeding) Oral Hygiene (QC): 2 Bathing Location: R Arm, L Upper Leg, R Upper Leg, Chest, Abdomen, Perineal Area Shower/Bathe Self (QC): 3 Upper Body Dressing (QC): 2 Lower Body Dressing (QC): 1 On/Off Footwear (QC): 2 Toileting Hygiene (QC): 1 Toilet Transfer (QC): 2 Assessment/Plan Assessment and Plan Assess & Plan/Chief Complaint Assessment: CVA Left sided weakness [place] Hypothyroidism Chronic pain Narcotic dependent Narcotic bowel Osteoporosis Bearden cath in place Urinary retention UTI Plan: Dr Nesbitt IRF protocol Current meds 01/01/20: Pain management Dr Nesbitt consult for urinary retention Monitor for falls BM regimen 01/02/20: Pain management Cardiology and Urology consultation is appreciated 01/03/20: Urology appreciated Pain med increased to her home dose Pureed diet (1) CVA (cerebral vascular accident) (2) Ankylosing spondylitis (3) Acquired hypothyroidism (4) Chronic pain (5) Narcotic dependence (6) Narcotic bowel syndrome (7) Urinary retention (8) Bearden catheter in place (9) UTI (urinary tract infection) (10) Left-sided weakness (11) Psoriasis (12) Osteoporosis WILEY WRIGHT DO Jan 03, 2020 06:11
[2020-01-03] MEDS: LEVOTHYROXINE 100 MCG (LEVOTHROID) TAB PO SCH (06:35)
[2020-01-03 06:39] VITALS: BP 130/61
[2020-01-03] MEDS: PANTOPRAZOLE 40 MG (PROTONIX) TAB PO SCH (07:51)
[2020-01-03] MEDS: CLOPIDOGREL 75 MG (PLAVIX) TABLET PO SCH (07:51)
[2020-01-03] MEDS: DOCUSATE SODIUM 100 MG (COLACE) CAP PO SCH ×2 (07:51→21:08)
[2020-01-03] MEDS: CLINDAMYCIN 150 MG (CLEOCIN) CAP PO SCH ×2 (07:52→20:59)
[2020-01-03] MEDS: ASPIRIN E.C. 81 MG (ECOTRIN) TAB PO SCH (07:52)
[2020-01-03] MEDS: polyethylene glycoL POWDER 17 GM (MIRALAX) PACK PO SCH (07:52)
[2020-01-03] MEDS: VITAMIN D3 25 MCG (1,000 UNITS) TABLET PO SCH (07:52)
[2020-01-03] MEDS: BACLOFEN 10 MG (LIORESAL) TAB PO SCH ×3 (07:52→20:59)
[2020-01-03] MEDS: LOSARTAN 25 MG (COZAAR) TAB PO SCH (07:52)
[2020-01-03] MEDS: SENNA W/DOCUSATE (SENOKOT S) TABLET PO SCH ×2 (07:52→21:08)
[2020-01-03] MEDS: DICLOFENAC 1% GEL 100 GM (VOLTAREN) TUBE TP SCH ×3 (07:53→21:06)
--- NOTE | 2020-01-03 10:08 | Physical Therapy Daily Note ---
PT Daily Note-Current Subjective Pt agreeable to PT. "I want to stand". Mental Status Patient Orientation: Person, Place, Time, Situation Transfers SCALE: Activities may be completed with or without assistive devices. 5-Slvycbwxem-bnuaoas completes the activity by him/herself with no assistance from a helper. 5-Set-up or Clean-up Assistance-helper sets up or cleans up; patient completes activity. [place] assists only prior to or following the activity. 4-Supervision or Touching Assistance-helper provides verbal cues and/or touc jessica/steadying and/or contact guard assistance as patient completes activity. Assistance may be provided throughout the activity or intermittently. 3-Partial/Moderate Assistance-helper does LESS THAN HALF the effort. [place] lifts, holds or supports trunk or limbs, but provides less than half the effort. 2-Substantial/Maximal Assistance-helper does MORE THAN HALF the effort. [place] lifts or holds trunk or limbs and provides more than half the effort. 2-Hpqkqivul-xjrydu does ALL the effort. Patient does none of the effort to complete the activity. Or, the assistance of 2 or more helpers is required for the patient to complete the activity. If activity was not attempted, code reason: 7-Patient Refused. 9-Not Applicable-not attempted and the patient did not perform the activity before the current illness, exacerbation or injury. 10-Not Attempted due to Environmental Limitations-(lack of equipment, weather restraints, etc.). 88-Not Attempted due to Medical Conditions or Safety Concerns. Lying to Sitting/Side of Bed(Q: 2 (mod assist to lift her trunk; pt able to move her legs to the side and off the bed) Sit to Stand (QC): 2 (max assist of 1 with skilled cues for sequencing, hand and foot placement. ) Chair/Dec-di-Jbarq Xfer(QC): 2 (Pt able to take small steps to complete but is max assist; limited WB left LE) Sit to stand x 3 in // bars with max assist, worked on hip and knee extension and left UE use on the bar. Treatments Co treat with OT this visit due to the complexity of her CVA and need for skill of 2 clinicians to effectively complete tasks. Pt performed a sponge bath, which OT addressed. PT addressed trunk control seated EOB with support of left UE, leaning forward and back; sit to stand mulitple attempst and transfers as OT assisted with the ADL/self care task. In the // bars, PT addressed the gross standing activity as OT verbalized sequencing, use and placment of left UE. Assessment Current Status: Good Progress Pt is progressing, improved seated EOB and does initiate sit to stand. She follows cues well and is participatory. She assists with cues verbal and tactile throughout the treatment session. Able to activate gluts and quads left in standing for brief moments. PT Short Term Goals Short Term Goals Time Frame: Jan 08, 2020 Roll Left & Right: 3 Sit to lyin Lying to sitting on side of be: 3 Sit to stand: 3 Chair/fpu-up-knjzx transfer: 3 PT Retirement Goals Retirement Goals PT Collection Systems Foreman Goals Time Frame: Jan 22, 2020 Roll Left & Right (QC): 3 (Татьяна) Sit to Lying (QC): 3 (Татьяна) Lying-Sitting on Side/Bed(QC): 3 (Татьяна) Sit to Stand (QC): 3 (Татьяна) Chair/Hyg-jy-Nignt Xfer(QC): 3 (Татьяна) Toilet Transfer (QC): 3 (Татьяна) Car Transfer (QC): 3 (Татьяна) Does the Patient Walk: No and Walking Goal IS indicated Walk 10 feet (QC): 3 (Татьяна) Walk 50ft with 2 Turns (QC): 88 Walk 150 ft (QC): 88 Walking 10ft on Uneven Surface: 88 1 Step (curb) (QC): 88 4 Steps (QC): 88 12 Steps (QC): 88 Picking up an Object (QC): 88 Wheel 50 feet with 2 turns (QC: 4 Type: Manual Wheel 150 feet: 4 Type: Manual PT Plan Problem List Problem List: Activity Tolerance, Functional Strength, Safety, Balance, Gait, Transfer, Bed Mobility Treatment/Plan Treatment Plan: Continue Plan of Care Treatment Plan: Bed Mobility, Education, Functional Activity Benson, Functional Strength, Group Therapy, Gait, Safety, Therapeutic Exercise, Transfers Treatment Duration: Jan 21, 2020 Frequency: At least 5 of 7 days/Wk (IRF) Estimated Hrs Per Day: 1.5 hours per day Patient and/or Family Agrees t: Yes Safety Risks/Education Patient Education: Transfer Techniques, Safety Issues Teaching Recipient: Patient Teaching Methods: Demonstration, Discussion Response to Teaching: Reinforcement Needed Time/GCodes Time In: 900 Time Out: 1000 Total Billed Treatment Time: 60 Total Billed Treatment visit FA 60 co treat withOT 60 minutes. PAMELLA HUNTER PT Jan 03, 2020 10:07
--- NOTE | 2020-01-03 10:12 | Occupational Ther Daily Note ---
OT Current Status-Daily Note Subjective Pt alert/ oriented. Pt in bed upon entry. states pain in neck/ head. Decrease of lights help. OT/ PT co-treat this session with OT addressing UE movement, ADLs, attention/ problem solving, scanning and PT addressing fx transfers, gait pattern, balance, and mobility. Mental Status/Objective Patient Orientation: Person, Place, Situation ADL-Treatment Therapy Code Descriptions/Definitions Functional [place] Measure: 0=Not Assessed/NA 4=Minimal Assistance 1=Total Assistance 5=Supervision or Setup 2=Maximal Assistance 6=Modified [place] 3=Moderate Assistance 7=Complete IndependenceSCALE: Activities may be completed with or without assistive devices. 1-Jpfhwrponm-evnpnro completes the activity by him/herself with no assistance from a helper. 5-Set-up or Clean-up Assistance-helper sets up or cleans up; patient completes activity. [place] assists only prior to or following the activity. 4-Supervision or Touching Assistance-helper provides verbal cues and/or touching/steadying and/or contact guard assistance as patient completes activity. Assistance may be provided throughout the activity or intermittently. 3-Partial/Moderate Assistance-helper does LESS THAN HALF the effort. [place] lifts, holds or supports trunk or limbs, but provides less than half the effort. 2-Substantial/Maximal Assistance-helper does MORE THAN HALF the effort. [place] lifts or holds trunk or limbs and provides more than half the effort. 7-Uvpoaiaus-netsqp does ALL the effort. Patient does none of the effort to complete the activity. Or, the assistance of 2 or more helpers is required for the patient to complete the activity. If activity was not attempted, code reason: 7-Patient Refused. 9-Not Applicable-not attempted and the patient did not perform the activity before the current illness, exacerbation or injury. 10-Not Attempted due to Environmental Limitations-(lack of equipment, weather restraints, etc.). 88-Not Attempted due to Medical Conditions or Safety Concerns. Bathing Location: L Arm, R Arm, L Upper Leg, R Upper Leg, Chest, Abdomen, Perineal Area Shower/Bathe Self (QC): 1 (TD due to Ax2 in stance for bottom/ dragan area. Pt requires cues for problem solving at times.) Upper Body Dressing (QC): 2 (max A donning techniques. Cues and mod A for doffing overhead/ over L UE) Lower Body Dressing (QC): 1 (TD Ax2. Pt's pants threaded bilaterally. Pt able to pulley maintainer knees. Ax2-3 to pull up in stance. ) On/Off Footwear: 2 (Pt able to flex BLEs to assist in donning. Attempt to doff in sit with ankle to knee, unable to complete.) Toileting Hygiene (QC): 1 (TD) Other Treatment OT/ PT co-treat this session with OT addressing UE movement, ADLs, attention/ problem solving, scanning and PT addressing fx transfers, gait pattern, balance, and mobility. Pt bed mob with max A to EOB. LE washing completed EOB with max A. Pt sit to stand Max A and SPT to w/c, pt incontinent of stool/ urine. Pt is cleansed in stance and complete TD washing/ LB dressing. Pt sits in recliner to complete UB washing/ dressing. Cues for dressing techniques and eyes open. Pt states vision has changed drastically since onset of CVA. Pt w/c mob with assist to gym. Sit to building trades instructor parallel bars with max A. Stands 2x with assist and cues for pelvis position and leaning to L side. Pt able to slightly correct with cues. Pt return s to room, SPT with assist from PT to recliner. LEs brought up, all needs met, call light in reach. Education OT Patient Education: Correct positioning, Exercise program, Home exercise program, Modified ADL techniques, Purpose of tx/functional activities, Safety issues, Transfer techniques Teaching Recipient: Patient Teaching Methods: Demonstration, Discussion Response to Teaching: Verbalize Understanding, Return Demonstration, Reinforcement Needed OT Short Term Goals Short Term Goals Time Frame: Jan 16, 2020 Eatin Oral hygiene: 5 Upper body dressin Lower body dressin OT Usp Goals Usp Goals Time Frame: Jan 25, 2020 Eating (QC): 6 Oral Hygiene (QC): 6 Toileting Hygiene (QC): 4 Shower/Bathe Self (QC): 4 Upper Body Dressing (QC): 5 Lower Body Dressing (QC): 4 On/Off Footwear (QC): 3 Additional Goals: 1-Demonstrate ADL Tasks, 2-Verbalize Understanding, 3- ImproveStrength/[place] 1=Demonstrate adherence to instructed precautions during ADL tasks. 2=Patient will verbalize/demonstrate understanding of assistive devices/modifications for ADL. 3=Patient will improve strength/tolerance for activity to enable patient to perform ADL's. OT Education/Plan Problem List/Assessment Assessment: Decreased Activ Tolerance, Decreased UE Strength, Dependent Transfers, Impaired Bed Mobility, Impaired Coordination, Impaired Funct Balance, Impaired I ADL's, Impaired Self-Care Skills, Restricted Funct UE ROM, Visual- Perceptual Deficit Discharge Recommendations Plan/Recommendations: Continue POC Therapy Discharge Recommendati: 24 Hour Supervision, Assisted Living, Post Acute OT Treatment Plan/Plan of Care Treatment,Training & Education: Yes Patient would benefit from OT for education, treatment and training to promote independence in ADL's, mobility, safety and/or upper extremity function for ADL's. Plan of Care: ADL Retraining, Functional Mobility, Group Exercise/Act as Ind, UE Funct Exercise/Act, UE Neuromus Re-Ed/Coord, Visual/Perceptual Retrain, W/C Management Training Treatment Duration: Jan 25, 2020 Frequency: At least 5 of 7 days/Wk (IRF) Estimated Hrs Per Day: 1.5 hours per day Agreement: Yes Rehab Potential: Fair Time/GCodes Start Time: 09:00 Stop Time: 10:00 Total Time Billed (hr/min): 60 Billed Treatment Time OT/ PT co-treat this session with OT addressing UE movement, ADLs, attention/ problem solving, scanning and PT addressing fx transfers, gait pattern, balance, and mobility. 1, ADL 3 (45), NM (15)= 60 GREGORIO DAMON OTR Jan 03, 2020 10:12
--- NOTE | 2020-01-03 10:14 | Progress Note - Urology ---
Progress Note-Urology Progress Notes/Assess & Plan Progress/Assessment & Plan TOV TODAY Final Diagnosis RETENTION JAY NERI MD Jan 03, 2020 10:14
[2020-01-03] MEDS: ENOXAPARIN 40 MG/0.4 ML (LOVENOX) SYR SC SCH (12:21)
--- NOTE | 2020-01-03 12:23 | Therapy Group Daily Note ---
Therapy Daily Group Note Patient Education Topic Home Safety, Exercises Exercises LE Seated Exercise, Stretching, UE Exercise Session Ratio (pt:therapist): 4:1 Goal of Session: Home Safety Strategies Education on home safety Functional strengthening for improved functional mobility. Goal Met for this Session: Yes Pt Benefit of Group: Contributions to Others, Increased Functional Safety Pt enjoyed offering suggestions to others and discussing her current situation. masks worn and social distancing practiced. Other/Notes Pt interacted appropriately and offered good home safety suggestions. She participated in strengthening activities and accepted assist as needed. Start Time: 11:00 Stop Time: 12:00 Total Billed Treatment Time: 60 Total Billed Treatment visit GRP 60 PAMELLA HUNTER PT Jan 03, 2020 12:23
--- NOTE | 2020-01-03 13:00 | NUR ---
VOIDED LARGE AMT. CLEAR YELLOW URINE INC. BLADDER SCAN DONE-5 CC NOTED.
--- NOTE | 2020-01-03 16:30 | NUR ---
VOIDED 150 CC CLOUDY YELLOW URINE IN BEDPAN. WITHOUT DIFFICULTY.
[2020-01-03 17:27] VITALS: BP 141/58
[2020-01-03] MEDS ORDERED: oxyCODONE ER 10 MG (OxyCONTIN CR) TAB PO SCH (17:30)
[2020-01-03] MEDS: TAMSULOSIN 0.4 MG (FLOMAX) CAP PO SCH (19:00)
--- NOTE | 2020-01-03 19:10 | NUR ---
Bedside report received from ARMAND BOJORQUEZ, assume care of pt
--- NOTE | 2020-01-03 20:59 | NUR ---
Pt refused Colace & Senokot, c/o neck & hip pain level 9/10 on numeric scale, Lortab 5 1 tab, Melatonin 6mg scheduled, Lioresal 10mg scheduled & Voltaren gel applied
[2020-01-03] MEDS: MELATONIN 3 MG TABLET PO SCH (21:00)
--- NOTE | 2020-01-03 21:50 | NUR ---
Rates pain level 7/10 on numeric scale
[2020-01-04] MEDS: HYDROcodone/APAP 5 MG/325 MG (LORTAB) TAB PO PRN ×3 (03:04→13:01)
--- NOTE | 2020-01-04 03:04 | NUR ---
Pt c/o pain to hip & neck pain level 9/10 on numeric scale, Lortab 5 1 taB Q4HRS
--- NOTE | 2020-01-04 03:50 | NUR ---
resting quietly in bed, pain level 0/10 on CNPI scale
[2020-01-04 05:32] VITALS: BP 134/61
[2020-01-04] MEDS: BETHANECHOL 10 MG (URECHOLINE) TAB PO SCH ×4 (06:46→22:04)
[2020-01-04] MEDS: oxyCODONE ER 10 MG (OxyCONTIN CR) TAB PO SCH ×2 (06:47→13:00)
[2020-01-04] MEDS: LEVOTHYROXINE 100 MCG (LEVOTHROID) TAB PO SCH (06:47)
--- NOTE | 2020-01-04 06:55 | NUR ---
pt stating did not want breakfast, advised can not give scheduled OxyContin 30mg on empty stomach the pt agreed to eat oatmeal & milk, rates pain 7/10 on numeric scale, OxyContin 30mg given
--- NOTE | 2020-01-04 07:07 | PM&R Progress Note ---
Subjective HPI/CC On Admission Date Seen by Provider: Jan 04, 2020 Time Seen by Provider: 13:00 Subjective/Events-last exam 01/04/20: Much improved status Bearden now out and voiding well Not sleeping well so added equivalent of Tylenol PM to night time to see if that helps her since she takes that at home on occasion Advanced diet Repeat UA via in/out cath DC Cleocin 01/03/20: Bearden out and has yet to void Dr Nesbitt and I conferred on the unit Oxycontin increased to 30mg BID she takes it at 0700 and 1330 so instructed pharmacy to put it in for that time slot Swallowing better 12/31/19 BM so laxatives given Pureed diet 01/02/20: Decreasing food intake Chest pain prompting EKG and cardiology evaluation Troponin will be checked Nausea noted Very difficult to manage with such chronic pain Appreciate Dr Nesbitt and Dr Johnson Pt settling in pretty well Having a lot of pain ankylosing spondylitis is very painful for her Will aggressively react bowels Remains with a catheter, I did consult urology Checked meds and labs Conferred with RN Reviewed therapy notes Review of Systems General: Fatigue Neurological: Weakness, Incoordination Objective Exam Vital Signs Vital Signs Date Time Temp Pulse Resp B/P (MAP) Pulse Ox O2 Delivery O2 Flow Rate FiO2 01/04/20 20:00 98 Room Air 01/04/20 16:17 35.9 56 16 112/54 (73) Capillary Refill : Less Than 3 Seconds General Appearance: No Apparent Distress, WD/WN HEENT: PERRL/EOMI, Normal ENT Inspection, Pharynx Normal Neck: Full Range of Motion, Normal Inspection, Non Tender, Supple, Carotid Bruit Respiratory: Chest Non Tender, Lungs Clear, Normal Breath Sounds, No Accessory Muscle Use, No Respiratory Distress Cardiovascular: Regular Rate, Rhythm, No Edema, No Gallop, No JVD, No Murmur, Normal Peripheral Pulses Gastrointestinal: Normal Bowel Sounds, No Organomegaly, No Pulsatile Mass, Non Tender, Soft Back: Normal Inspection, No CVA Tenderness, No Vertebral Tenderness Extremity: Normal Capillary Refill, Normal Inspection, Normal Range of Motion, Non Tender, No Calf Tenderness, No Pedal Edema Neurologic/Psychiatric: Alert, Oriented x3, Normal Mood/Affect, Abnormal Gait, Motor Weakness (left sided weakness) Skin: Normal Color, Warm/Dry Lymphatic: No Adenopathy Results/Procedures Lab Patient resulted labs reviewed. FIM Transfers Therapy Code Descriptions/Definitions Functional [place] Measure: 0=Not Assessed/NA 4=Minimal Assistance 1=Total Assistance 5=Supervision or Setup 2=Maximal Assistance 6=Modified [place] 3=Moderate Assistance 7=Complete IndependenceSCALE: Activities may be completed with or without assistive devices. 6-Lewyrdwglw-gympxpy completes the activity by him/herself with no assistance from a helper. 5-Set-up or Clean-up Assistance-helper sets up or cleans up; patient completes activity. [place] assists only prior to or following the activity. 4-Supervision or Touching Assistance-helper provides verbal cues and/or touching/steadying and/or contact guard assistance as patient completes activity. Assistance may be provided throughout the activity or intermittently. 3-Partial/Moderate Assistance-helper does LESS THAN HALF the effort. [place] lifts, holds or supports trunk or limbs, but provides less than half the effort. 2-Substantial/Maximal Assistance-helper does MORE THAN HALF the effort. [place] lifts or holds trunk or limbs and provides more than half the effort. 5-Htzoyiovt-monxbg does ALL the effort. Patient does none of the effort to complete the activity. Or, the assistance of 2 or more helpers is required for the patient to complete the activity. If activity was not attempted, code reason: 7-Patient Refused. 9-Not Applicable-not attempted and the patient did not perform the activity before the current illness, exacerbation or injury. 10-Not Attempted due to Environmental Limitations-(lack of equipment, weather restraints, etc.). 88-Not Attempted due to Medical Conditions or Safety Concerns. Roll Left to Right (QC): 3 Sit to Lying (QC): 2 Sit to Stand (QC): 2 (max assist of 1 with skilled cues for sequencing, hand and foot placement. ) Chair/Vkx-yw-Luvsw Xfer(QC): 2 (Pt able to take small steps to complete but is max assist; limited WB left LE) Car Transfer (QC): 1 Gait Training Walk 10 feet (QC): 88 Walk 50 ft with 2 Turns(QC): 88 Walk 150 ft (QC): 88 Walking 10ft/uneven surface-QC: 88 Wheelchair Training Does the Pt Use a Wheelchair?: Yes Distance: 50'x2 Wheel 50 ft with 2 turns (QC): 3 Wheel 150 ft (QC): 3 Type of Wheelchair: Manual Stair Training 1 Step (curb) (QC): 88 4 Steps (QC): 88 12 Steps (QC): 88 Balance Picking up an Object (QC): 88 ADL-Treatment Eating (QC): 5 (Based on clincial judgement, pt would require set up assistance with feeding) Oral Hygiene (QC): 2 Bathing Location: L Arm, R Arm, L Upper Leg, R Upper Leg, Chest, Abdomen, Perineal Area Shower/Bathe Self (QC): 1 (TD due to Ax2 in stance for bottom/ dragan area. Pt requires cues for problem solving at times.) Upper Body Dressing (QC): 2 (max A donning techniques. Cues and mod A for doffing overhead/ over L UE) Lower Body Dressing (QC): 1 (TD Ax2. Pt's pants threaded bilaterally. Pt able to washing machine loader and puller knees. Ax2-3 to pull up in stance. ) On/Off Footwear (QC): 2 (Pt able to flex BLEs to assist in donning. Attempt to doff in sit with ankle to knee, unable to complete.) Toileting Hygiene (QC): 1 (TD) Toilet Transfer (QC): 2 Assessment/Plan Assessment and Plan Assess & Plan/Chief Complaint Assessment: CVA Left sided weakness [place] Hypothyroidism Chronic pain Narcotic dependent Narcotic bowel Osteoporosis Bearden cath in place Urinary retention UTI Plan: Dr Nesbitt IRF protocol Current meds 01/01/20: Pain management Dr Nesbitt consult for urinary retention Monitor for falls BM regimen 01/02/20: Pain management Cardiology and Urology consultation is appreciated 01/03/20: Urology appreciated Pain med increased to her home dose Pureed diet 01/04/20: Advanced diet Repeat UA inout cath Insomnia treatment (1) CVA (cerebral vascular accident) (2) Ankylosing spondylitis (3) Acquired hypothyroidism (4) Chronic pain (5) Narcotic dependence (6) Narcotic bowel syndrome (7) Urinary retention (8) Bearden catheter in place (9) UTI (urinary tract infection) (10) Left-sided weakness (11) Psoriasis (12) Osteoporosis WILEY WRIGHT DO Jan 04, 2020 07:07
[2020-01-04] MEDS: LOSARTAN 25 MG (COZAAR) TAB PO SCH (08:42)
[2020-01-04] MEDS: CLINDAMYCIN 150 MG (CLEOCIN) CAP PO SCH (08:42)
[2020-01-04] MEDS: BACLOFEN 10 MG (LIORESAL) TAB PO SCH ×3 (08:42→22:03)
[2020-01-04] MEDS: polyethylene glycoL POWDER 17 GM (MIRALAX) PACK PO SCH (08:42)
[2020-01-04] MEDS: SENNA W/DOCUSATE (SENOKOT S) TABLET PO SCH ×2 (08:42→19:29)
[2020-01-04] MEDS: PANTOPRAZOLE 40 MG (PROTONIX) TAB PO SCH (08:42)
[2020-01-04] MEDS: CLOPIDOGREL 75 MG (PLAVIX) TABLET PO SCH (08:42)
[2020-01-04] MEDS: ALPRAZolam 0.25 MG (XANAX) TAB PO PRN (08:42)
[2020-01-04] MEDS: DOCUSATE SODIUM 100 MG (COLACE) CAP PO SCH ×2 (08:42→19:28)
[2020-01-04] MEDS: ASPIRIN E.C. 81 MG (ECOTRIN) TAB PO SCH (08:42)
[2020-01-04] MEDS: VITAMIN D3 25 MCG (1,000 UNITS) TABLET PO SCH (08:42)
[2020-01-04] MEDS: DICLOFENAC 1% GEL 100 GM (VOLTAREN) TUBE TP SCH ×3 (08:49→22:05)
--- NOTE | 2020-01-04 10:09 | Occupational Ther Daily Note ---
OT Current Status-Daily Note Subjective Pt in bed upon arrival. Pt no c/o pain. Pt agreed to therapy. Mental Status/Objective Patient Orientation: Person, Place, Time, Situation ADL-Treatment PT/OT co-treat ([id number]), skills of 2 clinicians required due to decreased balance and mobility for higher level skilled activities. OT focusing ADL skills and placement of L UE while PT facilitated sitting balance, standing and transfers. Pt lying supine to EOB Max A with HOB elevated. Pt transferred from EOB to commode. Pt don upper body clothing Max A, threading arm/head into shirt. Pt threaded lower body clothing Max A to thread feet/legs in to pants/socks then assist x2 to hike pants over hips. Pt cleansed perineal area, PT stabilized pt while DE [place] O cleansed buttocks area. [place] O hiked pants/briefs over hips. Pt transferred from commode to w/c Max A. See PT notes for transfers. Pt placed dentures in mouth, verbal cues required. Therapy Code Descriptions/Definitions Functional [place] Measure: 0=Not Assessed/NA 4=Minimal Assistance 1=Total Assistance 5=Supervision or Setup 2=Maximal Assistance 6=Modified [place] 3=Moderate Assistance 7=Complete IndependenceSCALE: Activities may be completed with or without assistive devices. 7-Xylseghxxz-oqgdmqx completes the activity by him/herself with no assistance from a helper. 5-Set-up or Clean-up Assistance-helper sets up or cleans up; patient completes activity. [place] assists only prior to or following the activity. 4-Supervision or Touching Assistance-helper provides verbal cues and/or touching/steadying and/or contact guard assistance as patient completes activity. Assistance may be provided throughout the activity or intermittently. 3-Partial/Moderate Assistance-helper does LESS THAN HALF the effort. [place] lifts, holds or supports trunk or limbs, but provides less than half the effort. 2-Substantial/Maximal Assistance-helper does MORE THAN HALF the effort. [place] lifts or holds trunk or limbs and provides more than half the effort. 8-Bhjemdmum-yxyamh does ALL the effort. Patient does none of the effort to complete the activity. Or, the assistance of 2 or more helpers is required for the patient to complete the activity. If activity was not attempted, code reason: 7-Patient Refused. 9-Not Applicable-not attempted and the patient did not perform the activity be fore the current illness, exacerbation or injury. 10-Not Attempted due to Environmental Limitations-(lack of equipment, weather restraints, etc.). 88-Not Attempted due to Medical Conditions or Safety Concerns. Lower Body Dressing (QC): 1 Toileting Hygiene (QC): 1 Other Treatment Pt propelled self to gym using R foot to guide, R hand to push. Pt worked on standing balance in parallel bars with PT. Pt worked on sitting balance activity using executive advisor to gather objects off ground. Pt completed 2 sets of 12, verbal cues required for body placement. Pt propelled self back to room. Pt in recliner call light/phone in reach. All needs met. OT Short Term Goals Short Term Goals Time Frame: Jan 16, 2020 Eatin Oral hygiene: 5 Upper body dressin Lower body dressin OT [employer] Resource [employer] Teacher Goals [employer] Teacher Goals Time Frame: Jan 25, 2020 Eating (QC): 6 Oral Hygiene (QC): 6 Toileting Hygiene (QC): 4 Shower/Bathe Self (QC): 4 Upper Body Dressing (QC): 5 Lower Body Dressing (QC): 4 On/Off Footwear (QC): 3 Additional Goals: 1-Demonstrate ADL Tasks, 2-Verbalize Understanding, 3- ImproveStrength/[place] 1=Demonstrate adherence to instructed precautions during ADL tasks. 2=Patient will verbalize/demonstrate understanding of assistive devices/modifica tions for ADL. 3=Patient will improve strength/tolerance for activity to enable patient to perform ADL's. OT Education/Plan Problem List/Assessment Assessment: Decreased Activ Tolerance, Decreased UE Strength, Impaired Funct Balance, Impaired Self-Care Skills Discharge Recommendations Plan/Recommendations: Continue POC Treatment Plan/Plan of Care Patient would benefit from OT for education, treatment and training to promote independence in ADL's, mobility, safety and/or upper extremity function for ADL's. Plan of Care: ADL Retraining, Functional Mobility, Group Exercise/Act as Ind, UE Funct Exercise/Act, UE Neuromus Re-Ed/Coord, Visual/Perceptual Retrain, W/C Management Training Treatment Duration: Jan 25, 2020 Frequency: At least 5 of 7 days/Wk (IRF) Estimated Hrs Per Day: 1.5 hours per day Agreement: Yes Rehab Potential: Fair Time/GCodes Start Time: 09:00 Stop Time: 10:15 Total Time Billed (hr/min): 75 Billed Treatment Time 1 visit- ADL 2 (25 mins), FA 3 (50 mins) Co-treatment- ([id number]) PAMELLA BURNETTE Jan 04, 2020 10:09
--- NOTE | 2020-01-04 11:08 | Progress Note - Urology ---
Progress Note-Urology Progress Notes/Assess & Plan Progress/Assessment & Plan VOIDING WELL. EMPTIES WELL. TOLERATES MEDS WELL. KEEP SAME Final Diagnosis URINE RETENTION (RESOLVING) JAY NERI MD Jan 04, 2020 11:08
--- NOTE | 2020-01-04 11:10 | Physical Therapy Daily Note ---
PT Daily Note-Current Subjective Pt was on the commode and we assisted her with the cleanup and transfer to the wheelchair. Pt agreed to therapy with OT and PT. Mental Status Patient Orientation: Person, Place, Time, Situation Transfers SCALE: Activities may be completed with or without assistive devices. 0-Iqbdtsacnt-vqydvbr completes the activity by him/herself with no assistance from a helper. 5-Set-up or Clean-up Assistance-helper sets up or cleans up; patient completes activity. [place] assists only prior to or following the activity. 4-Supervision or Touching Assistance-helper provides verbal cues and/or touching/steadying and/or contact guard assistance as patient completes activity. Assistance may be provided throughout the activity or intermittently. 3-Partial/Moderate Assistance-helper does LESS THAN HALF the effort. [place] lifts, holds or supports trunk or limbs, but provides less than half the effort. 2-Substantial/Maximal Assistance-helper does MORE THAN HALF the effort. [place] lifts or holds trunk or limbs and provides more than half the effort. 5-Xujykelja-boaceo does ALL the effort. Patient does none of the effort to complete the activity. Or, the assistance of 2 or more helpers is required for the patient to complete the activity. If activity was not attempted, code reason: 7-Patient Refused. 9-Not Applicable-not attempted and the patient did not perform the activity before the current illness, exacerbation or injury. 10-Not Attempted due to Environmental Limitations-(lack of equipment, weather restraints, etc.). 88-Not Attempted due to Medical Conditions or Safety Concerns. Sit to Stand (QC): 3 Toilet Transfer (QC): 3 Gait Training Does the Patient Walk?: No and Walking Goal IS indicated Wheelchair Training Does the Pt Use a Wheelchair?: Yes Wheel 50 ft with 2 turns (QC): 2 Type of Wheelchair: Manual Balance Picking up an Object (QC): 1 Treatments Co treat with OT to work on seated and standing balance, (L) UE/LE limb in volvement with standing and transfers, posture in sitting and standing, finding center line for all positions, and improving awareness of posture. Pt participated very well with the treatment and was able to self correct with verbal cues to improve posture and achieve neutral positioning. Assessment Current Status: Good Progress Pt was very receptive to the input about her posture and positioning during standing and seated activity. She was given a seated exercise to work on leaning (R) to work on improving vertical posture instead of pushing (L). PT Short Term Goals Short Term Goals Time Frame: Jan 08, 2020 Roll Left & Right: 3 Sit to lyin Lying to sitting on side of be: 3 Sit to stand: 3 Chair/kam-bn-stuim transfer: 3 PT Retirement Goals Retirement Goals PT Manager Photography Goals Time Frame: Jan 22, 2020 Roll Left & Right (QC): 3 (Татьяна) Sit to Lying (QC): 3 (Татьяна) Lying-Sitting on Side/Bed(QC): 3 (Татьяна) Sit to Stand (QC): 3 (Татьяна) Chair/Ytj-li-Bfgix Xfer(QC): 3 (Татьяна) Toilet Transfer (QC): 3 (Татьяна) Car Transfer (QC): 3 (Татьяна) Does the Patient Walk: No and Walking Goal IS indicated Walk 10 feet (QC): 3 (Татьяна) Walk 50ft with 2 Turns (QC): 88 Walk 150 ft (QC): 88 Walking 10ft on Uneven Surface: 88 1 Step (curb) (QC): 88 4 Steps (QC): 88 12 Steps (QC): 88 Picking up an Object (QC): 88 Wheel 50 feet with 2 turns (QC: 4 Type: Manual Wheel 150 feet: 4 Type: Manual PT Plan Treatment/Plan Treatment Plan: Continue Plan of Care Treatment Plan: Bed Mobility, Education, Functional Activity [place], Functional Strength, Group Therapy, Gait, Safety, Therapeutic Exercise, Transfers Treatment Duration: Jan 21, 2020 Frequency: At least 5 of 7 days/Wk (IRF) Estimated Hrs Per Day: 1.5 hours per day Patient and/or Family Agrees t: Yes Time/GCodes Time In: 0900 Time Out: 1015 Total Billed Treatment Time: 75 Total Billed Treatment 1, fa x3 (45), wc (15), ex (15) MARTY NAYAK PT Jan 04, 2020 11:10
[2020-01-04] MEDS: ENOXAPARIN 40 MG/0.4 ML (LOVENOX) SYR SC SCH (13:00)
--- NOTE | 2020-01-04 13:24 | Speech Therapy Daily Note ---
Speech Daily Progress Note Subjective Date Seen by Provider: Jan 04, 2020 Time Seen by Provider: 00:30 Patient was resting in her recliner following her other therapy. Objective Patient completed a trial of mechanical soft diet level without difficulty. Patient utilizes compensatory strategies as directed with 80% given minimal cues. Assessment Assessment Current Status: Good Progress Patient will be upgraded to Dysphagia II diet level. Treatment Plan Continue Plan of Care Speech Short Term Goals Short Term Goals Short Term Goals 1) Patient will tolerate the least restrictive diet level without s/s of aspiration at 90% or greater. 2) Patient will utilize compensatory strategies as trained for safe oral intake at 90% or greater. Speech Custodial Goals Custodial Goals Patient will maintain adequate nutrition/hydration via safe effective swallow function. Speech-Plan Patient/Family Goals Patient/Family Goals: Patient plans on returning to her home where she lives with her . Treatment Plan Speech Therapy Treatment Plan: Continue Plan of Care Treatment Duration: Jan 11, 2020 Frequency: 4 times per week Estimated Hrs Per Day: .25 hour per day Rehab Potential: Fair Barriers to Learning: Patient's recent CVA, age Pt/Family Agrees to Plan: Yes Safety Risks/Education Teaching Recipient: Patient Teaching Methods: Demonstration, Discussion Response to Teaching: Verbalize Understanding, Return Demonstration Education Topics Provided: Safety of oral intake, diet level Time Speech Therapy Time In: 11:00 Speech Therapy Time Out: 11:30 Total Billed Time: 30 Billed Treatment Time 1 ANNEL SPENCER [place] Jan 04, 2020 13:24
[2020-01-04 14:41] LABS: BILIRUBIN,URINE NEGATIVE (NEGATIVE); CLARITY,URINE CLEAR; COLOR,URINE YELLOW; GLUCOSE, URINE (UA) NEGATIVE (NEGATIVE); KETONES,URINE NEGATIVE (NEGATIVE); LEUKOCYTE ESTERASE ,URINE TRACE (NEGATIVE); NITRITE,URINE POSITIVE (NEGATIVE); PH,URINE 8.5 (5-9); PROTEIN,URINE NEGATIVE (NEGATIVE)
[2020-01-04 14:52] LABS: AMORPHOUS SEDIMENT,UR MOD AMOR PHOSPHATE /LPF; BACTERIA,URINE FEW /HPF
[2020-01-04 16:17] VITALS: BP 112/54
[2020-01-04] MEDS: TAMSULOSIN 0.4 MG (FLOMAX) CAP PO SCH (16:54)
[2020-01-04] MEDS: diphenhydrAMINE 25 MG TAB (BENADRYL) PO SCH (22:04)
[2020-01-04] MEDS: MELATONIN 3 MG TABLET PO SCH (22:04)
[2020-01-04] MEDS: ACETAMINOPHEN 500 MG TAB (TYLENOL) PO SCH (22:05)
[2020-01-05] MEDS: ALPRAZolam 0.25 MG (XANAX) TAB PO PRN ×2 (01:05→20:58)
[2020-01-05] MEDS: HYDROcodone/APAP 5 MG/325 MG (LORTAB) TAB PO PRN ×5 (01:07→20:58)
[2020-01-05] MEDS: LEVOTHYROXINE 100 MCG (LEVOTHROID) TAB PO SCH (05:59)
[2020-01-05] MEDS: BETHANECHOL 10 MG (URECHOLINE) TAB PO SCH ×4 (05:59→20:37)
[2020-01-05] MEDS: oxyCODONE ER 10 MG (OxyCONTIN CR) TAB PO SCH ×2 (06:03→12:51)
[2020-01-05] MEDS: PANTOPRAZOLE 40 MG (PROTONIX) TAB PO SCH (08:06)
[2020-01-05] MEDS: LOSARTAN 25 MG (COZAAR) TAB PO SCH (08:06)
[2020-01-05] MEDS: VITAMIN D3 25 MCG (1,000 UNITS) TABLET PO SCH (08:06)
[2020-01-05] MEDS: CLOPIDOGREL 75 MG (PLAVIX) TABLET PO SCH (08:06)
[2020-01-05] MEDS: ASPIRIN E.C. 81 MG (ECOTRIN) TAB PO SCH (08:06)
[2020-01-05] MEDS: polyethylene glycoL POWDER 17 GM (MIRALAX) PACK PO SCH (08:07)
[2020-01-05] MEDS: BACLOFEN 10 MG (LIORESAL) TAB PO SCH ×3 (08:07→20:37)
[2020-01-05] MEDS: DOCUSATE SODIUM 100 MG (COLACE) CAP PO SCH ×2 (08:07→19:47)
[2020-01-05] MEDS: SENNA W/DOCUSATE (SENOKOT S) TABLET PO SCH ×2 (08:07→19:47)
[2020-01-05] MEDS: DICLOFENAC 1% GEL 100 GM (VOLTAREN) TUBE TP SCH ×3 (08:08→20:37)
[2020-01-05 08:30] VITALS: BP 128/58
--- NOTE | 2020-01-05 10:46 | Progress Note - Urology ---
Progress Note-Urology Progress Notes/Assess & Plan Progress/Assessment & Plan CONTINUES VOIDING WITH NO RESIDUAL Final Diagnosis URINE RETENTION (RESOLVED) JAY NERI MD Jan 05, 2020 10:46
--- NOTE | 2020-01-05 11:29 | Physical Therapy Daily Note ---
PT Daily Note-Current Subjective Pt is in bed and ready to get up. Mental Status Patient Orientation: Person, Place, Situation Transfers SCALE: Activities may be completed with or without assistive devices. 3-Hdzfzowpye-tveyaxm completes the activity by him/herself with no assistance from a helper. 5-Set-up or Clean-up Assistance-helper sets up or cleans up; patient completes activity. [place] assists only prior to or following the activity. 4-Supervision or Touching Assistance-helper provides verbal cues and/or touching/steadying and/or contact guard assistance as patient completes activity. Assistance may be provided throughout the activity or intermittently. 3-Partial/Moderate Assistance-helper does LESS THAN HALF the effort. [place] lifts, holds or supports trunk or limbs, but provides less than half the effort. 2-Substantial/Maximal Assistance-helper does MORE THAN HALF the effort. [place] lifts or holds trunk or limbs and provides more than half the effort. 6-Slbhrknwx-qontcf does ALL the effort. Patient does none of the effort to complete the activity. Or, the assistance of 2 or more helpers is required for the patient to complete the activity. If activity was not attempted, code reason: 7-Patient Refused. 9-Not Applicable-not attempted and the patient did not perform the activity before the current illness, exacerbation or injury. 10-Not Attempted due to Environmental Limitations-(lack of equipment, weather restraints, etc.). 88-Not Attempted due to Medical Conditions or Safety Concerns. Roll Left & Right (QC): 2 Sit to Lying (QC): 2 Lying to Sitting/Side of Bed(Q: 2 Sit to Stand (QC): 2 Chair/Ajp-iq-Nxtug Xfer(QC): 2 Gait Training Does the Patient Walk?: No and Walking Goal IS indicated Treatments Standing in parallel bars working on posture in standing, leaning (R), and decreasing push with (R) UE. Pt was able to stand, holding onto the bar with the (R) UE, without contact assist for 5 seconds 4x. She was able to perform marching with moderate assist and verbal cues for posture. Much better awareness of posture/positioning in standing and sitting. Assessment Current Status: Good Progress Much less support required during standing activity today. Better awareness of posture and able perform marching. PT Short Term Goals Short Term Goals Time Frame: Jan 08, 2020 Roll Left & Right: 3 Sit to lyin Lying to sitting on side of be: 3 Sit to stand: 3 Chair/meu-qn-tuuns transfer: 3 PT Senior Living Goals Press Feeder Goals PT Press Feeder Goals Time Frame: Jan 22, 2020 Roll Left & Right (QC): 3 (Татьяна) Sit to Lying (QC): 3 (Татьяна) Lying-Sitting on Side/Bed(QC): 3 (Татьяна) Sit to Stand (QC): 3 (Татьяна) Chair/Pkb-ux-Dxvit Xfer(QC): 3 (Татьяна) Toilet Transfer (QC): 3 (Татьяна) Car Transfer (QC): 3 (Татьяна) Does the Patient Walk: No and Walking Goal IS indicated Walk 10 feet (QC): 3 (Татьяна) Walk 50ft with 2 Turns (QC): 88 Walk 150 ft (QC): 88 Walking 10ft on Uneven Surface: 88 1 Step (curb) (QC): 88 4 Steps (QC): 88 12 Steps (QC): 88 Picking up an Object (QC): 88 Wheel 50 feet with 2 turns (QC: 4 Type: Manual Wheel 150 feet: 4 Type: Manual PT Plan Treatment/Plan Treatment Plan: Continue Plan of Care Treatment Plan: Bed Mobility, Education, Functional Activity [place], Functional Strength, Group Therapy, Gait, Safety, Therapeutic Exercise, Transfers Treatment Duration: Jan 21, 2020 Frequency: At least 5 of 7 days/Wk (IRF) Estimated Hrs Per Day: 1.5 hours per day Patient and/or Family Agrees t: Yes Time/GCodes Time In: 1055 Time Out: 1114 Total Billed Treatment Time: 19 Total Billed Treatment 1, fa 19 MARTY NAYAK PT Jan 05, 2020 11:29
[2020-01-05] MEDS: ENOXAPARIN 40 MG/0.4 ML (LOVENOX) SYR SC SCH (12:59)
--- NOTE | 2020-01-05 13:11 | NUR ---
PT. STATED SHE FELT AIR COME FROM HER VAGINA AND THEN LEAKED SOMETHING, WHEN CHECKED PT. MOD. AMT. BROWNISH BROWNISH DRAINAGE NOTED FROM VAGINA. CLEANED AND RE-POSITIONED. ESTEVAN-AREA RED. ZINC OXIDE APPLIED.
--- NOTE | 2020-01-05 13:58 | PM&R Progress Note ---
Subjective HPI/CC On Admission Date Seen by Provider: Jan 05, 2020 Time Seen by Provider: 14:00 Subjective/Events-last exam 01/05/20: Brown vaginal discharge noted If continues will obtain TV USG and Production Control Coordinating Clerk consult No pain reported UA repeat normal Incontinence at night 01/04/20: Much improved status Bearden now out and voiding well Not sleeping well so added equivalent of Tylenol PM to night time to see if that helps her since she takes that at home on occasion Advanced diet Repeat UA via in/out cath DC Cleocin 01/03/20: Bearden out and has yet to void Dr Nesbitt and I conferred on the unit Oxycontin increased to 30mg BID she takes it at 0700 and 1330 so instructed pharmacy to put it in for that time slot Swallowing better 12/31/19 BM so laxatives given Pureed diet 01/02/20: Decreasing food intake Chest pain prompting EKG and cardiology evaluation Troponin will be checked Nausea noted Very difficult to manage with such chronic pain Appreciate Dr Nesbitt and Dr Johnson Pt settling in pretty well Having a lot of pain ankylosing spondylitis is very painful for her Will aggressively react bowels Remains with a catheter, I did consult urology Checked meds and labs Conferred with RN Reviewed therapy notes Review of Systems General: Fatigue, Malaise Genitourinary: Incontinence Neurological: Weakness, Incoordination Objective Exam Vital Signs Vital Signs Date Time Temp Pulse Resp B/P (MAP) Pulse Ox O2 Delivery O2 Flow Rate FiO2 01/05/20 09:00 Room Air 01/05/20 08:30 36.2 60 16 128/58 (81) 98 Capillary Refill : Less Than 3 Seconds General Appearance: No Apparent Distress, WD/WN HEENT: PERRL/EOMI, Normal ENT Inspection, Pharynx Normal Neck: Full Range of Motion, Normal Inspection, Non Tender, Supple, Carotid Bruit Respiratory: Chest Non Tender, Lungs Clear, Normal Breath Sounds, No Accessory Muscle Use, No Respiratory Distress Cardiovascular: Regular Rate, Rhythm, No Edema, No Gallop, No JVD, No Murmur, Normal Peripheral Pulses Gastrointestinal: Normal Bowel Sounds, No Organomegaly, No Pulsatile Mass, Non Tender, Soft Back: Normal Inspection, No CVA Tenderness, No Vertebral Tenderness Extremity: Normal Capillary Refill, Normal Inspection, Normal Range of Motion, Non Tender, No Calf Tenderness, No Pedal Edema Neurologic/Psychiatric: Alert, Oriented x3, Normal Mood/Affect, Abnormal Gait, Motor Weakness (left sided weakness) Skin: Normal Color, Warm/Dry Lymphatic: No Adenopathy Results/Procedures Lab Patient resulted labs reviewed. FIM Transfers Therapy Code Descriptions/Definitions Functional [place] Measure: 0=Not Assessed/NA 4=Minimal Assistance 1=Total Assistance 5=Supervision or Setup 2=Maximal Assistance 6=Modified [place] 3=Moderate Assistance 7=Complete IndependenceSCALE: Activities may be completed with or without assistive devices. 7-Jrakosvdrb-kzsnsre completes the activity by him/herself with no assistance from a helper. 5-Set-up or Clean-up Assistance-helper sets up or cleans up; patient completes activity. [place] assists only prior to or following the activity. 4-Supervision or Touching Assistance-helper provides verbal cues and/or touching/steadying and/or contact guard assistance as patient completes activity. Assistance may be provided throughout the activity or intermittently. 3-Partial/Moderate Assistance-helper does LESS THAN HALF the effort. [place] lifts, holds or supports trunk or limbs, but provides less than half the effort. 2-Substantial/Maximal Assistance-helper does MORE THAN HALF the effort. [place] lifts or holds trunk or limbs and provides more than half the effort. 7-Zfnyvhtcs-bezlco does ALL the effort. Patient does none of the effort to complete the activity. Or, the assistance of 2 or more helpers is required for the patient to complete the activity. If activity was not attempted, code reason: 7-Patient Refused. 9-Not Applicable-not attempted and the patient did not perform the activity before the current illness, exacerbation or injury. 10-Not Attempted due to Environmental Limitations-(lack of equipment, weather restraints, etc.). 88-Not Attempted due to Medical Conditions or Safety Concerns. Roll Left to Right (QC): 2 Sit to Lying (QC): 2 Sit to Stand (QC): 2 Chair/Nos-me-Lgabt Xfer(QC): 2 Car Transfer (QC): 1 Gait Training Does the Patient Walk?: No and Walking Goal IS indicated Walk 10 feet (QC): 88 Walk 50 ft with 2 Turns(QC): 88 Walk 150 ft (QC): 88 Walking 10ft/uneven surface-QC: 88 Wheelchair Training Does the Pt Use a Wheelchair?: Yes Distance: 50'x2 Wheel 50 ft with 2 turns (QC): 2 Wheel 150 ft (QC): 3 Type of Wheelchair: Manual Stair Training 1 Step (curb) (QC): 88 4 Steps (QC): 88 12 Steps (QC): 88 Balance Picking up an Object (QC): 1 ADL-Treatment Eating (QC): 5 (Based on clincial judgement, pt would require set up assistance with feeding) Oral Hygiene (QC): 2 Bathing Location: L Arm, R Arm, L Upper Leg, R Upper Leg, Chest, Abdomen, Perineal Area Shower/Bathe Self (QC): 1 (TD due to Ax2 in stance for bottom/ dragan area. Pt requires cues for problem solving at times.) Upper Body Dressing (QC): 2 (max A donning techniques. Cues and mod A for doffing overhead/ over L UE) Lower Body Dressing (QC): 1 On/Off Footwear (QC): 2 (Pt able to flex BLEs to assist in donning. Attempt to doff in sit with ankle to knee, unable to complete.) Toileting Hygiene (QC): 1 Toilet Transfer (QC): 2 Assessment/Plan Assessment and Plan Assess & Plan/Chief Complaint Assessment: CVA Left sided weakness [place] Hypothyroidism Chronic pain Narcotic dependent Narcotic bowel Osteoporosis Bearden cath in place Urinary retention UTI Plan: Dr Nesbitt IRF protocol Current meds 01/01/20: Pain management Dr Nesbitt consult for urinary retention Monitor for falls BM regimen 01/02/20: Pain management Cardiology and Urology consultation is appreciated 01/03/20: Urology appreciated Pain med increased to her home dose Pureed diet 01/04/20: Advanced diet Repeat UA inout cath Insomnia treatment 01/05/20: Vaginal discharge? May need TV USG and Production Control Coordinating Clerk consult (1) CVA (cerebral vascular accident) (2) Ankylosing spondylitis (3) Acquired hypothyroidism (4) Chronic pain (5) Narcotic dependence (6) Narcotic bowel syndrome (7) Urinary retention (8) Bearden catheter in place (9) UTI (urinary tract infection) (10) Left-sided weakness (11) Psoriasis (12) Osteoporosis WILEY WRIGHT DO Jan 05, 2020 13:58
[2020-01-05 16:48] VITALS: BP 138/68
[2020-01-05] MEDS: ZINC OXIDE 16% OINT (BUTT PASTE) 57 GM TUBE TOP PRN (16:54)
[2020-01-05] MEDS: TAMSULOSIN 0.4 MG (FLOMAX) CAP PO SCH (17:31)
[2020-01-05] MEDS: ANTACID SUSP 30 ML UDC (MYLANTA) PO PRN (20:35)
[2020-01-05] MEDS: ACETAMINOPHEN 500 MG TAB (TYLENOL) PO SCH (20:36)
[2020-01-05] MEDS: diphenhydrAMINE 25 MG TAB (BENADRYL) PO SCH (20:36)
[2020-01-05] MEDS: MELATONIN 3 MG TABLET PO SCH (20:37)
[2020-01-06 05:01] VITALS: BP 128/52
[2020-01-06] MEDS: BETHANECHOL 10 MG (URECHOLINE) TAB PO SCH ×2 (05:58→11:06)
[2020-01-06] MEDS: LEVOTHYROXINE 100 MCG (LEVOTHROID) TAB PO SCH (05:58)
[2020-01-06] MEDS: oxyCODONE ER 10 MG (OxyCONTIN CR) TAB PO SCH ×2 (05:58→12:37)
--- NOTE | 2020-01-06 07:32 | PM&R Progress Note ---
Subjective HPI/CC On Admission Date Seen by Provider: Jan 06, 2020 Time Seen by Provider: 12:30 Subjective/Events-last exam 01/06/20: Spoke to Dr Cook after I assessed her symptoms again of the vaginal discharge and we need CT abd pelvis with rectal contrast to see if fistula is an issue Proteus on UC x but UA was normal which may be involved in this fistula issues Left arm is flaccid some movement in left foot Uterine prolapse noted when she was admitted 01/05/20: Brown vaginal discharge noted If continues will obtain TV USG and Breastfeeding Program Coordinator consult No pain reported UA repeat normal Incontinence at night 01/04/20: Much improved status Bearden now out and voiding well Not sleeping well so added equivalent of Tylenol PM to night time to see if that helps her since she takes that at home on occasion Advanced diet Repeat UA via in/out cath DC Cleocin 01/03/20: Bearden out and has yet to void Dr Nesbitt and I conferred on the unit Oxycontin increased to 30mg BID she takes it at 0700 and 1330 so instructed pharmacy to put it in for that time slot Swallowing better 12/31/19 BM so laxatives given Pureed diet 01/02/20: Decreasing food intake Chest pain prompting EKG and cardiology evaluation Troponin will be checked Nausea noted Very difficult to manage with such chronic pain Appreciate Dr Nesbitt and Dr Johnson Pt settling in pretty well Having a lot of pain ankylosing spondylitis is very painful for her Will aggressively react bowels Remains with a catheter, I did consult urology Checked meds and labs Conferred with RN Reviewed therapy notes Review of Systems General: Fatigue Genitourinary: Other (vaginal discharge) Objective Exam Vital Signs Vital Signs Date Time Temp Pulse Resp B/P (MAP) Pulse Ox O2 Delivery O2 Flow Rate FiO2 01/06/20 09:00 Room Air 01/06/20 05:01 36.4 48 20 128/52 (77) 97 Capillary Refill : Less Than 3 Seconds General Appearance: No Apparent Distress, WD/WN HEENT: PERRL/EOMI, Normal ENT Inspection, Pharynx Normal Neck: Full Range of Motion, Normal Inspection, Non Tender, Supple, Carotid Bruit Respiratory: Chest Non Tender, Lungs Clear, Normal Breath Sounds, No Accessory Muscle Use, No Respiratory Distress Cardiovascular: Regular Rate, Rhythm, No Edema, No Gallop, No JVD, No Murmur, Normal Peripheral Pulses Gastrointestinal: Normal Bowel Sounds, No Organomegaly, No Pulsatile Mass, Non Tender, Soft Back: Normal Inspection, No CVA Tenderness, No Vertebral Tenderness Extremity: Normal Capillary Refill, Normal Inspection, Normal Range of Motion, Non Tender, No Calf Tenderness, No Pedal Edema Neurologic/Psychiatric: Alert, Oriented x3, Normal Mood/Affect, Abnormal Gait, Motor Weakness (left sided weakness) Skin: Normal Color, Warm/Dry Lymphatic: No Adenopathy Results/Procedures Lab Patient resulted labs reviewed. FIM Transfers Therapy Code Descriptions/Definitions Functional [place] Measure: 0=Not Assessed/NA 4=Minimal Assistance 1=Total Assistance 5=Supervision or Setup 2=Maximal Assistance 6=Modified [place] 3=Moderate Assistance 7=Complete IndependenceSCALE: Activities may be completed with or without assistive devices. 9-Cnpmqtujyp-xugaviw completes the activity by him/herself with no assistance from a helper. 5-Set-up or Clean-up Assistance-helper sets up or cleans up; patient completes activity. [place] assists only prior to or following the activity. 4-Supervision or Touching Assistance-helper provides verbal cues and/or touching/steadying and/or contact guard assistance as patient completes activity. Assistance may be provided throughout the activity or intermittently. 3-Partial/Moderate Assistance-helper does LESS THAN HALF the effort. [place] lifts, holds or supports trunk or limbs, but provides less than half the effort. 2-Substantial/Maximal Assistance-helper does MORE THAN HALF the effort. [place] lifts or holds trunk or limbs and provides more than half the effort. 2-Cagrpnffu-snybqe does ALL the effort. Patient does none of the effort to complete the activity. Or, the assistance of 2 or more helpers is required for the patient to complete the activity. If activity was not attempted, code reason: 7-Patient Refused. 9-Not Applicable-not attempted and the patient did not perform the activity before the current illness, exacerbation or injury. 10-Not Attempted due to Environmental Limitations-(lack of equipment, weather restraints, etc.). 88-Not Attempted due to Medical Conditions or Safety Concerns. Roll Left to Right (QC): 2 Sit to Lying (QC): 2 Sit to Stand (QC): 2 Chair/Mno-eo-Utitv Xfer(QC): 2 Car Transfer (QC): 1 Gait Training Does the Patient Walk?: No and Walking Goal IS indicated Walk 10 feet (QC): 88 Walk 50 ft with 2 Turns(QC): 88 Walk 150 ft (QC): 88 Walking 10ft/uneven surface-QC: 88 Wheelchair Training Does the Pt Use a Wheelchair?: Yes Distance: 50'x2 Wheel 50 ft with 2 turns (QC): 2 Wheel 150 ft (QC): 3 Type of Wheelchair: Manual Stair Training 1 Step (curb) (QC): 88 4 Steps (QC): 88 12 Steps (QC): 88 Balance Picking up an Object (QC): 1 ADL-Treatment Eating (QC): 5 (Based on clincial judgement, pt would require set up assistance with feeding) Oral Hygiene (QC): 2 Bathing Location: L Arm, R Arm, L Upper Leg, R Upper Leg, Chest, Abdomen, Perineal Area Shower/Bathe Self (QC): 1 (TD due to Ax2 in stance for bottom/ dragan area. Pt requires cues for problem solving at times.) Upper Body Dressing (QC): 2 (max A donning techniques. Cues and mod A for doffing overhead/ over L UE) Lower Body Dressing (QC): 1 On/Off Footwear (QC): 2 (Pt able to flex BLEs to assist in donning. Attempt to doff in sit with ankle to knee, unable to complete.) Toileting Hygiene (QC): 1 Toilet Transfer (QC): 2 Assessment/Plan Assessment and Plan Assess & Plan/Chief Complaint Assessment: CVA Left sided weakness [place] Hypothyroidism Chronic pain Narcotic dependent Narcotic bowel Osteoporosis Bearden cath in place Urinary retention UTI Plan: Dr Nesbitt IRF protocol Current meds 01/01/20: Pain management Dr Nesbitt consult for urinary retention Monitor for falls BM regimen 01/02/20: Pain management Cardiology and Urology consultation is appreciated 01/03/20: Urology appreciated Pain med increased to her home dose Pureed diet 01/04/20: Advanced diet Repeat UA inout cath Insomnia treatment 01/05/20: Vaginal discharge? May need TV USG and Breastfeeding Program Coordinator consult 01/06/20: Fistula between rectum and vagina? CT scan and TV USG tomorrow (1) CVA (cerebral vascular accident) (2) Ankylosing spondylitis (3) Acquired hypothyroidism (4) Chronic pain (5) Narcotic dependence (6) Narcotic bowel syndrome (7) Urinary retention (8) Bearden catheter in place (9) UTI (urinary tract infection) (10) Left-sided weakness (11) Psoriasis (12) Osteoporosis WILEY WRIGHT DO Jan 06, 2020 07:32
[2020-01-06] MEDS: HYDROcodone/APAP 5 MG/325 MG (LORTAB) TAB PO PRN ×4 (08:22→16:32)
[2020-01-06] MEDS: polyethylene glycoL POWDER 17 GM (MIRALAX) PACK PO SCH (08:22)
[2020-01-06] MEDS: ASPIRIN E.C. 81 MG (ECOTRIN) TAB PO SCH (08:22)
[2020-01-06] MEDS: CLOPIDOGREL 75 MG (PLAVIX) TABLET PO SCH (08:22)
[2020-01-06] MEDS: PANTOPRAZOLE 40 MG (PROTONIX) TAB PO SCH (08:22)
[2020-01-06] MEDS: SENNA W/DOCUSATE (SENOKOT S) TABLET PO SCH ×2 (08:22→19:45)
[2020-01-06] MEDS: LOSARTAN 25 MG (COZAAR) TAB PO SCH (08:22)
[2020-01-06] MEDS: VITAMIN D3 25 MCG (1,000 UNITS) TABLET PO SCH (08:22)
[2020-01-06] MEDS: BACLOFEN 10 MG (LIORESAL) TAB PO SCH ×3 (08:22→20:36)
[2020-01-06] MEDS: DOCUSATE SODIUM 100 MG (COLACE) CAP PO SCH ×2 (08:22→19:45)
[2020-01-06] MEDS: DICLOFENAC 1% GEL 100 GM (VOLTAREN) TUBE TP SCH ×3 (09:00→20:39)
--- NOTE | 2020-01-06 11:54 | Progress Note - Urology ---
Progress Note-Urology Progress Notes/Assess & Plan Progress/Assessment & Plan CONTINUES VOIDING WELL WITH NO PVR. PLAN DECREASE URECHOLINE 10 TO TID Final Diagnosis RETENTION JAY NERI MD Jan 06, 2020 11:54
--- NOTE | 2020-01-06 13:25 | NUR ---
VOIDED 100 CC CLOUDY LIGHT ALBERT URINE. BLADDER SCAN DONE. [address] NERI NOTIFIED OF POSSIBLE FISTULA.
[2020-01-06] MEDS: ENOXAPARIN 40 MG/0.4 ML (LOVENOX) SYR SC SCH (13:34)
--- NOTE | 2020-01-06 14:15 | NUR ---
DR. NERI CALLED. NEW ORDER'S NOTED. ST. CATH DONE. 325 CC CLOUDY YELLOW FOUL SMELLING URINE. URINE SENT TO LAB FOR UA AND SENSITIVITY AND VAGINAL CULTURE DONE PER DR. BERNAL ORDER'S.
[2020-01-06 14:19] LABS: BILIRUBIN,URINE NEGATIVE (NEGATIVE); CLARITY,URINE CLEAR; COLOR,URINE YELLOW; GLUCOSE, URINE (UA) NEGATIVE (NEGATIVE); KETONES,URINE NEGATIVE (NEGATIVE); LEUKOCYTE ESTERASE ,URINE 2+ (NEGATIVE); NITRITE,URINE POSITIVE (NEGATIVE); PH,URINE >=9.0 (5-9); PROTEIN,URINE NEGATIVE (NEGATIVE)
[2020-01-06 14:42] LABS: AMORPHOUS SEDIMENT,UR MOD AMOR URATES /LPF; BACTERIA,URINE LARGE /HPF; TRIPLE PHOSPHATE CRYSTAL,UR LARGE /LPF
--- NOTE | 2020-01-06 15:11 | Consultation - Surgery ---
SARUAV HODGES MED STUDENT 01/06/20 1511: History of Present Illness History of Present Illness Patient Consulted On(finn/time) 01/06/20 15:08 Date Seen by Provider: Jan 06, 2020 Time Seen by Provider: 14:30 Reason for Visit: CVA History of Present Illness Consulted by Dr. Bentley for possible colovaginal fistula. Pt was admitted inpatient rehab on 12/30 after CVA on 12/15. Pt states this morning, she noticed air coming out of her vagina when she was trying to pass flatus. Denies any pain except chronic back and neck pain from anklyosing spondylitis. Has had nausea improved with medication, but no vomiting. Has residual left-sided deficit from her stroke. Allergies and Home Medications Allergies Coded Allergies: green pepper (Verified Allergy, Severe, Anaphylaxis, 12/31/19) Sulfa (Sulfonamide Antibiotics) (Verified Allergy, Unknown, 12/31/19) Home Medications Acetaminophen 325 Mg Capsule, 650 MG PO Q6H PRN for PAIN-MILD (1-4) OR TEMPATURE, (Reported) Aspirin 81 Mg Tablet.dr, 81 MG PO DAILY, (Reported) Atorvastatin Calcium 40 Mg Tablet, 80 MG PO HS, (Reported) TAKES 2 (40MG) TABS Baclofen 10 Mg Tablet, 10 MG PO TID, (Reported) Bisacodyl 5 Mg Tablet.dr, 5 MG PO HS PRN for CONSTIPATION-4TH LINE, (Reported) Bisacodyl 10 Mg Supp.rect, 10 MG RC DAILY PRN for CONSTIPATION-4TH LINE, (Reported) Cholecalciferol (Vitamin D3) 25 Mcg Capsule, 25 MCG PO DAILY, (Reported) Clindamycin HCl 150 Mg Capsule, 300 MG PO BID, (Reported) TAKES 2 (150MG) CAPS NO DURATION LISTED ON DISCHARGE Clopidogrel Bisulfate 75 Mg Tablet, 75 MG PO DAILY, (Reported) Diclofenac Sodium 100 Gm Gel..gram., 2 GM TP TID, (Reported) Docusate Sodium 100 Mg Capsule, 100 MG PO BID PRN for CONSTIPATION-1ST LINE, (Reported) Hydrocodone/Acetaminophen 1 Each Tablet, 1 EACH PO BID, (Reported) Lactulose 10 Gm/15 Ml Solution, 15 ML PO DAILY PRN for CONSTIPATION-3RD LINE, (Reported) Levothyroxine Sodium 100 Mcg Tablet, 100 MCG PO DAILY, (Reported) Losartan Potassium 25 Mg Tablet, 25 MG PO DAILY, (Reported) Mag Hydrox/Al Hydrox/Simeth 30 Ml Oral.susp, 15 ML PO QID PRN for HEARTBURN/INDIGESTION, (Reported) Ondansetron HCl 4 Mg Tablet, 4 MG PO TID PRN for NAUSEA/VOMITING-1ST LINE, (Reported) Oxycodone HCl 10 Mg Tab.er.12h, 20 MG PO Q12H, (Reported) Pantoprazole Sodium 40 Mg Tablet.dr, 40 MG PO DAILY, (Reported) Phenyleph/Mineral Oil/Petrolat 28 Gm Oint.appl, 1 APPLIC RC PRN PRN for HEMMORRHOID DISCOMFORT, (Reported) Polyethylene Glycol 3350 17 Gm Powd.pack, 17 GM PO DAILY, (Reported) Past Wlmaqqv-Cactpi-Smzjxk Hx Patient Social History Alcohol Use: Denies Use Recreational Drug Use: No Smoking Status: Never a Smoker Recent Foreign Travel: No Contact w/Someone Who Travel: No Recent Infectious Disease Expo: No Recent Hopitalizations: No Physical Abuse Screen: No Sexual Abuse: No Immunizations Up To Date PED Vaccines UTD: Yes Date of Pneumonia Vaccine: Nov 10, 2019 Date of Influenza Vaccine: Nov 10, 2019 Seasonal Allergies Seasonal Allergies: No Surgeries Surgeries: Appendectomy, Gallbladder, Hysterectomy, Orthopedic Respiratory History of Respiratory Disorde: No Cardiovascular History of Cardiac Disorders: No Cardiac Disorders: High Cholesterol, Hypertension Neurological History of Neurological Disord: Yes Neurological Disorders: Stroke (2003 and 12/16/19) Genitourinary History of Genitourinary Disor: No Gastrointestinal History of Gastrointestinal Di: Yes Gastrointestinal Disorders: Gall Bladder Disease Musculoskeletal History of Musculoskeletal Dis: Yes (BACK SX, HIP SX X2,) Musculoskeletal Disorders: Osteoporosis Endocrine History of Endocrine Disorders: Yes HEENT History of HEENT Disorders: Yes HEENT Disorders: Cataract, Double Vision Loss of Vision: Left Hearing Impairment: Denies Cancer History of Cancer: No Psychosocial History of Psychiatric Problem: No Integumentary History of Skin or Integumenta: Yes Skin/Integumentary Disorders: Psoriasis Blood Transfusions History of Blood Disorders: No Adverse Reaction to a Blood Tr: No Review of Systems-General Constitutional: No chills, No fever EENTM: No blurred vision, No double vision Respiratory: No cough, No short of breath Cardiovascular: No chest pain, No palpitations Gastrointestinal: No abdominal pain; nausea; No vomiting Genitourinary: No dysuria, No hematuria Musculoskeletal: other (left-sided weakness, chronic neck and back pain) Skin: No change in color, No change in hair/nails Psychiatric/Neurological: Denies Headache; Pre-Existing Deficit All Other Systems Reviewed Negative Unless Noted: Yes (Negative excepted noted.) Physical Exam-General Problems Physical Exam Vital Signs Vital Signs - First Documented 12/31/19 14:35 Temp 35.8 Pulse 58 Resp 20 B/P (MAP) 178/78 Pulse Ox 94 O2 Delivery Room Air Capillary Refill : Less Than 3 Seconds General Appearance: WD/WN, no apparent distress Eyes: Bilateral Eye Normal Inspection, Bilateral Eye EOMI HEENT: PERRL/EOMI, normal ENT inspection Neck: supple, normal inspection Respiratory: chest non-tender, no respiratory distress, no accessory muscle use Cardiovascular: regular rate, rhythm, no edema Gastrointestinal: non tender, soft; No guarding, No rebound Rectal: deferred Extremities: normal inspection, no pedal edema Neurologic/Psychiatric: alert, normal mood/affect, oriented x 3, other (LUE 0/4 strength, LLE 2/4 strength) Skin: normal color, warm/dry Lymphatic: no adenopathy Data Review Labs Laboratory Tests 01/06/20 13:00: Urine Color YELLOW, Urine Clarity CLEAR, Urine pH >=9.0, Urine Specific [place] 1.015L, Urine Protein NEGATIVE, Urine Glucose (UA) NEGATIVE, Urine Ketones NEGATIVE, Urine Nitrite POSITIVEH, Urine Bilirubin NEGATIVE, Urine Urobilinogen 0.2, Urine Leukocyte Esterase 2+H, Urine RBC (Auto) NEGATIVE, Urine RBC NONE, Urine WBC 5-10H, Urine Crystals PRESENTH, Urine Triple Phosphate Crystals LARGEH , Urine Amorphous Sediment MOD MARYJANE URATESH, Urine Bacteria LARGEH, Urine Casts NONE, Urine Mucus NEGATIVE, Urine Culture Indicated CULTURE PENDING Microbiology 01/04/20 Urine Culture - Preliminary, Resulted Proteus mirabilis Assessment/Plan Assessment/Plan Assessment/Plan CVA 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 Patient states that this is resolved and left-sided weakness specifically her left arm. She is already regaining decent strength in her left lower extremity she states. Patient with some recent discharge from her vagina that was darker in color. Patient states that she was trying to pass flatus when she noticed that air was coming out of the vagina. She thinks she may have had this occur one previous time but denies any other episodes. She states nothing seems to make it worse or better that she knows of. She does not have any pain. She has had some urinary retention issues. She denies any blood in her stools. Denies any nausea vomiting fever sweats chills shortness of breath or chest pain at this time. She does have occasional nausea which is relieved with medication she states. Allergies and Home Medications Allergies Coded Allergies: green pepper (Verified Allergy, Severe, Anaphylaxis, 12/31/19) Sulfa (Sulfonamide Antibiotics) (Verified Allergy, Unknown, 12/31/19) Home Medications Acetaminophen 325 Mg Capsule, 650 MG PO Q6H PRN for PAIN-MILD (1-4) OR TEMPATURE, (Reported) Aspirin 81 Mg Tablet.dr, 81 MG PO DAILY, (Reported) Atorvastatin Calcium 40 Mg Tablet, 80 MG PO HS, (Reported) TAKES 2 (40MG) TABS Baclofen 10 Mg Tablet, 10 MG PO TID, (Reported) Bisacodyl 5 Mg Tablet.dr, 5 MG PO HS PRN for CONSTIPATION-4TH LINE, (Reported) Bisacodyl 10 Mg Supp.rect, 10 MG RC DAILY PRN for CONSTIPATION-4TH LINE, (Reported) Cholecalciferol (Vitamin D3) 25 Mcg Capsule, 25 MCG PO DAILY, (Reported) Clindamycin HCl 150 Mg Capsule, 300 MG PO BID, (Reported) TAKES 2 (150MG) CAPS NO DURATION LISTED ON DISCHARGE Clopidogrel Bisulfate 75 Mg Tablet, 75 MG PO DAILY, (Reported) Diclofenac Sodium 100 Gm Gel..gram., 2 GM TP TID, (Reported) Docusate Sodium 100 Mg Capsule, 100 MG PO BID PRN for CONSTIPATION-1ST LINE, (Reported) Hydrocodone/Acetaminophen 1 Each Tablet, 1 EACH PO BID, (Reported) Lactulose 10 Gm/15 Ml Solution, 15 ML PO DAILY PRN for CONSTIPATION-3RD LINE, (Reported) Levothyroxine Sodium 100 Mcg Tablet, 100 MCG PO DAILY, (Reported) Losartan Potassium 25 Mg Tablet, 25 MG PO DAILY, (Reported) Mag Hydrox/Al Hydrox/Simeth 30 Ml Oral.susp, 15 ML PO QID PRN for HEARTBURN/INDIGESTION, (Reported) Ondansetron HCl 4 Mg Tablet, 4 MG PO TID PRN for NAUSEA/VOMITING-1ST LINE, (Reported) Oxycodone HCl 10 Mg Tab.er.12h, 20 MG PO Q12H, (Reported) Pantoprazole Sodium 40 Mg Tablet.dr, 40 MG PO DAILY, (Reported) Phenyleph/Mineral Oil/Petrolat 28 Gm Oint.appl, 1 APPLIC RC PRN PRN for HEMMORRHOID DISCOMFORT, (Reported) Polyethylene Glycol 3350 17 Gm Powd.pack, 17 GM PO DAILY, (Reported) Patient Home Medication List Home Medication List Reviewed: Yes Past Dmtmwtr-Rpzeku-Nhwpxm Hx Reviewed Nursing Assessment Reviewed/Agree w Nursing PMH: Yes Family Medical History Significant Family History: No Pertinent Family Hx Review of Systems-General Constitutional: No chills, No fever EENTM: No blurred vision, No double vision Respiratory: No cough, No short of breath Cardiovascular: No chest pain, No palpitations Gastrointestinal: No abdominal pain; nausea; No vomiting Genitourinary: No dysuria, No hematuria Musculoskeletal: other (left-sided weakness, chronic neck and back pain) Skin: No change in color, No change in hair/nails Psychiatric/Neurological: Denies Anxiety, Denies Headache All Other Systems Reviewed Negative Unless Noted: Yes (Negative excepted noted.) Physical Exam-General Problems Physical Exam General Appearance: WD/WN, no apparent distress HEENT: PERRL/EOMI, other (left sided facial droop) Neck: non-tender, supple, normal inspection Respiratory: chest non-tender, no respiratory distress, no accessory muscle use Cardiovascular: regular rate, rhythm, no edema Gastrointestinal: non tender, soft; No guarding, No rebound Rectal: deferred (at this time) Back: no CVA tenderness, no vertebral tenderness Extremities: normal inspection, no pedal edema Neurologic/Psychiatric: alert, normal mood/affect, oriented x 3 Skin: normal color, warm/dry Lymphatic: no adenopathy Assessment/Plan Assessment/Plan Assessment/Plan CVA left sided weakness vaginal discharge-possible colovaginal fistula Plan on CT abdomen/pelvis with rectal contrast tomorrow to further evaluate for colovaginal fistula. She has never had a colonoscopy would recommend having in near future one medically stable. Patient discussed plan for further work up and she agrees with plan. Supervisory-Addendum Brief Verification & Attestation Participated in pt care: history, MDM, physical Personally performed: exam, history, MDM, supervision of care Care discussed with: Medical Student Procedures: n/a Results interpretation: Verified all documentation Verification and Attestation of Medical Student E/M Service A medical student performed and documented this service in my presence. I reviewed and verified all information documented by the medical student and made modifications to such information, when appropriate. I personally performed the physical exam and medical decision making. Dominic Cook, Jan 06, 2020,19:42 SAURAV HODGES MED STUDENT Jan 06, 2020 15:11 DOMINIC COOK DO Jan 06, 2020 19:35
[2020-01-06] MEDS: BETHANECHOL 25 MG (URECHOLINE) TAB PO SCH ×2 (15:34→20:36)
[2020-01-06] MEDS ORDERED: BETHANECHOL 10 MG (URECHOLINE) TAB PO SCH (16:00)
--- NOTE | 2020-01-06 16:08 | NUR ---
REQUESTING PAIN MED EARLY FOR NECK PAIN. TOO EARLY FOR PAIN MED. EXPLAINED TO PT THAT SHE NEEDED TO WAIT 30-45 MIN. WARM BLANKET APPLIED TO NECK.
[2020-01-06] MEDS: TAMSULOSIN 0.4 MG (FLOMAX) CAP PO SCH (17:44)
[2020-01-06] MEDS ORDERED: CIPROFLOXACIN 500 MG (CIPRO) TABLET PO ONE (17:45)
[2020-01-06] MEDS: CIPROFLOXACIN 500 MG (CIPRO) TABLET PO SCH (17:48)
[2020-01-06 18:00] VITALS: BP 136/55
[2020-01-06] MEDS: ALPRAZolam 0.25 MG (XANAX) TAB PO PRN (19:20)
[2020-01-06] MEDS: MELATONIN 3 MG TABLET PO SCH (20:35)
[2020-01-06] MEDS: diphenhydrAMINE 25 MG TAB (BENADRYL) PO SCH (20:35)
[2020-01-06] MEDS: ACETAMINOPHEN 500 MG TAB (TYLENOL) PO SCH (20:36)
[2020-01-07] MEDS: HYDROcodone/APAP 5 MG/325 MG (LORTAB) TAB PO PRN ×3 (03:39→20:49)
[2020-01-07 05:33] LABS: BASOPHILS % (AUTO) 1 % (0-10); EOSINOPHILS # (AUTO) 0.4 10^3/uL (0.0-0.3); EOSINOPHILS % (AUTO) 5 % (0-10); HEMATOCRIT 37 % (35-52); HEMOGLOBIN 11.9 g/dL (11.5-16.0); LYMPHOCYTES # (AUTO) 2.2 10^3/uL (1.0-4.0); LYMPHOCYTES % (AUTO) 28 % (12-44); MEAN CORPUSCULAR HEMOGLOBIN 30 pg (25-34); MEAN CORPUSCULAR HGB CONC 33 g/dL (32-36); MEAN CORPUSCULAR VOLUME 91 fL (80-99); MEAN PLATELET VOLUME 10.5 fL (9.0-12.2); MONOCYTES # (AUTO) 0.5 10^3/uL (0.0-1.0); MONOCYTES % (AUTO) 7 % (0-12); NEUTROPHILS # (AUTO) 4.6 10^3/uL (1.8-7.8); NEUTROPHILS % (AUTO) 60 % (42-75); PLATELET COUNT 196 10^3/uL (130-400); WHITE BLOOD COUNT 7.6 10^3/uL (4.3-11.0)
[2020-01-07 05:35] LABS: ALBUMIN 3.5 GM/DL (3.2-4.5)
[2020-01-07 05:36] LABS: POTASSIUM 4.1 MMOL/L (3.6-5.0)
[2020-01-07 05:37] LABS: CALCIUM 9.2 MG/DL (8.5-10.1)
[2020-01-07 05:38] LABS: TOTAL PROTEIN 6.2 GM/DL (6.4-8.2)
[2020-01-07 05:40] LABS: BILIRUBIN,TOTAL 0.5 MG/DL (0.1-1.0)
[2020-01-07 05:42] LABS: CREATININE SERUM 0.96 MG/DL (0.60-1.30)
[2020-01-07 06:17] VITALS: BP 116/50
[2020-01-07] MEDS: oxyCODONE ER 10 MG (OxyCONTIN CR) TAB PO SCH ×2 (06:37→13:57)
[2020-01-07] MEDS: BETHANECHOL 25 MG (URECHOLINE) TAB PO SCH ×4 (06:37→20:49)
[2020-01-07] MEDS: LEVOTHYROXINE 100 MCG (LEVOTHROID) TAB PO SCH (06:37)
[2020-01-07 08:00] VITALS: BP 137/60
--- NOTE | 2020-01-07 08:12 | Progress Note - Surgery ---
SAURAV HODGES MED STUDENT 01/07/20 0812: Subjective Date Seen by a Provider: Jan 07, 2020 Time Seen by a Provider: 07:30 Subjective/Events-last exam Pt denies any pain or new complaints. States she is still feeling air coming out of her vagina when she passes flatus. No N/V, CP, or SOB. Objective Exam Vital Signs Date Time Temp Pulse Resp B/P (MAP) Pulse Ox O2 Delivery O2 Flow Rate FiO2 01/07/20 06:17 35.8 83 20 116/50 (72) 93 Room Air 01/06/20 20:31 Room Air 01/06/20 18:00 36.3 62 18 136/55 (82) 96 Room Air 01/06/20 09:00 Room Air I & O 01/07/20 07:00 Intake Total 1220 ml Output Total 1075 ml Balance 145 ml Capillary Refill : Less Than 3 Seconds General Appearance: No Apparent Distress, WD/WN HEENT: PERRL/EOMI, Normal ENT Inspection Neck: Normal Inspection, Supple Respiratory: Chest Non Tender, Lungs Clear, Normal Breath Sounds, No Accessory Muscle Use, No Respiratory Distress Cardiovascular: Regular Rate, Rhythm, No Edema Gastrointestinal: non tender, soft; No guarding, No rebound Extremity: Normal Inspection, No Calf Tenderness, No Pedal Edema Neurologic/Psychiatric: Alert, Oriented x3, Normal Mood/Affect, Motor Weakness (left sided weakness) Skin: Normal Color, Warm/Dry Lymphatic: No Adenopathy Results Lab Laboratory Tests 01/06/20 13:00: Urine Color YELLOW, Urine Clarity CLEAR, Urine pH >=9.0, Urine Specific [place] 1.015L, Urine Protein NEGATIVE, Urine Glucose (UA) NEGATIVE, Urine Ketones NEGATIVE, Urine Nitrite POSITIVEH, Urine Bilirubin NEGATIVE, Urine Urobilinogen 0.2, Urine Leukocyte Esterase 2+H, Urine RBC (Auto) NEGATIVE, Urine RBC NONE, Urine WBC 5-10H, Urine Crystals PRESENTH, Urine Triple Phosphate Crystals LARGEH , Urine Amorphous Sediment MOD MARYJANE URATESH, Urine Bacteria LARGEH, Urine Casts NONE, Urine Mucus NEGATIVE, Urine Culture Indicated CULTURE PENDING 01/07/20 05:02: White Blood Count 7.6, Red Blood Count 4.01, Hemoglobin 11.9, Hematocrit 37, Mean Corpuscular Volume 91, Mean Corpuscular Hemoglobin 30, Mean Corpuscular Hemoglobin Concent 33, Red Cell Distribution Width 13.2, Platelet Count 196, Mean Platelet Volume 10.5, Immature Granulocyte % (Auto) 0, Neutrophils (%) (Auto) 60, Lymphocytes (%) (Auto) 28, Monocytes (%) (Auto) 7, Eosinophils (%) (Auto) 5, Basophils (%) (Auto) 1, Neutrophils # (Auto) 4.6, Lymphocytes # (Auto) 2.2, Monocytes # (Auto) 0.5, Eosinophils # (Auto) 0.4H, Basophils # (Auto) 0.0, Immature Granulocyte # (Auto) 0.0, Sodium Level 141, Potassium Level 4.1, Chloride Level 102, Carbon Dioxide Level 26, Anion Gap 13, Blood Urea Nitrogen 20H, Creatinine 0.96, Estimat Glomerular Filtration Rate 56, BUN/Creatinine Ratio 21, Glucose Level 107H, Calcium Level 9.2, Corrected Calcium 9.6, Total Bilirubin 0.5, Aspartate Amino Transf (AST/SGOT) 37H, Alanine Aminotransferase (ALT/SGPT) 19, Alkaline Phosphatase 66, Total Protein 6.2L, Albumin 3.5 Microbiology 01/06/20 Urine Culture - Preliminary, Resulted Proteus Group Assessment/Plan Assessment/Plan Assessment/Plan CVA left sided weakness vaginal discharge-possible colovaginal fistula Plan on CT abdomen/pelvis with rectal contrast today to further evaluate for colovaginal fistula. She has never had a colonoscopy would recommend having in near future one medically stable. Clinical Quality Measures DVT/VTE Risk/Contraindication: Risk Factor Score Per Nursin RFS Level Per Nursing on Admit: 4+=Very High HAYLEY MENON DO 01/07/20 1509: Subjective Time Seen by a Provider: 09:39 Subjective/Events-last exam Pt denies seeing fecal material come from vagina; but, stated that she noticed stain in her briefs. Review of Systems General: Fatigue, Malaise Pulmonary: No Dyspnea, No Cough Cardiovascular: No: Chest Pain, Palpitations Gastrointestinal: No: Nausea, Vomiting, Abdominal Pain Objective Exam General Appearance: No Apparent Distress, Chronically ill HEENT: PERRL/EOMI Respiratory: Chest Non Tender, Lungs Clear, Normal Breath Sounds, No Accessory Muscle Use Cardiovascular: Regular Rate, Rhythm, No Murmur Gastrointestinal: non tender, soft; No guarding, No rebound Neurologic/Psychiatric: Motor Weakness (left sided weakness) Results Radiology Date of Exam:01/07/20 CT ABDOMEN/PELVIS WO PROCEDURE: CT abdomen and pelvis without contrast. TECHNIQUE: Multiple contiguous axial images were obtained through the abdomen and pelvis without the use of intravenous contrast. Auto Exposure Controls were utilized during the CT exam to meet ALARA standards for radiation dose reduction. INDICATION: Evaluate for rectal vaginal fistula. Gastrografin contrast was infused in a retrograde fashion through a rectal tip. Axial imaging through the abdomen and pelvis was then performed. The lung bases are clear. Liver is unremarkable. Gallbladder surgically absent. No liver mass is identified. The pancreas and spleen are unremarkable. No adrenal mass is detected. Kidneys are without calculi or hydronephrosis. Aorta is non-aneurysmal. Bowel loops are non-dilated. There is contrast within the rectum and portions of the distal colon. No definite contrast is seen within the vagina. The uterus appears to be surgically absent. The bladder is decompressed. No free fluid in the abdomen or pelvis is seen. 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 There is sacral plasties involving the sacral alar bilaterally. No acute bony abnormality is detected. IMPRESSION: Unremarkable CT of abdomen and pelvis with rectal contrast. No definite contrast is seen within the vagina to suggest rectovaginal fistula. No acute features identified. Dictated on workstation # [id number] Dict: 01/07/20 1051 Trans: 01/07/20 1103 CVB [id number] Interpreted by: KEEGAN MCKNIGHT MD Assessment/Plan Assessment/Plan Assessment/Plan CVA Left sided Weakness Vaginal D/C - r/o colovaginal fistula Unfortunately, CT unable to demonstrate fistula; but also not a good study because pt was unable to keep contrast in the rectum and she had b/l hip implants. Pt denied chronic UTI's. Pelvic exam in OR and/or flex sig can be tried to help search for fistula. Supervisory-Addendum Brief Verification & Attestation Participated in pt care: history, MDM, physical Personally performed: exam, history, MDM Care discussed with: Medical Student Procedures: n/a Verification and Attestation of Medical Student E/M Service A medical student performed and documented this service. I then reviewed and verified all information documented by the medical student and made modifications to such information, when appropriate. I personally performed a physical exam, medical decision making and then discussed any differences between the notes and made revisions as necessary to create one note. Hayley Menon , 01/07/20 , 15:09 SAURAV HODGES MED STUDENT Jan 07, 2020 08:12 HAYLEY MENON DO Jan 07, 2020 15:09
--- NOTE | 2020-01-07 08:20 | PM&R Progress Note ---
Subjective HPI/CC On Admission Date Seen by Provider: Jan 07, 2020 Time Seen by Provider: 08:30 Subjective/Events-last exam 01/07/20: Proteus urine culture, Dr. Nesbitt placed her on Cipro CT scan with rectal contrast has been completed, will evaluate for fistula Bowels moved today but she feels like it goes into her vagina 01/06/20: Spoke to Dr Cook after I assessed her symptoms again of the vaginal discharge and we need CT abd pelvis with rectal contrast to see if fistula is an issue Proteus on UC x but UA was normal which may be involved in this fistula issues Left arm is flaccid some movement in left foot Uterine prolapse noted when she was admitted 01/05/20: Brown vaginal discharge noted If continues will obtain TV USG and Technical Artist consult No pain reported UA repeat normal Incontinence at night 01/04/20: Much improved status Bearden now out and voiding well Not sleeping well so added equivalent of Tylenol PM to night time to see if that helps her since she takes that at home on occasion Advanced diet Repeat UA via in/out cath DC Cleocin 01/03/20: Bearden out and has yet to void Dr Nesbitt and I conferred on the unit Oxycontin increased to 30mg BID she takes it at 0700 and 1330 so instructed pharmacy to put it in for that time slot Swallowing better 12/31/19 BM so laxatives given Pureed diet 01/02/20: Decreasing food intake Chest pain prompting EKG and cardiology evaluation Troponin will be checked Nausea noted Very difficult to manage with such chronic pain Appreciate Dr Nesbitt and Dr Johnson Pt settling in pretty well Having a lot of pain ankylosing spondylitis is very painful for her Will aggressively react bowels Remains with a catheter, I did consult urology Checked meds and labs Conferred with RN Reviewed therapy notes Review of Systems General: Fatigue, Malaise Genitourinary: Dysuria, Frequency Neurological: Weakness, Incoordination Objective Exam Vital Signs Vital Signs Date Time Temp Pulse Resp B/P (MAP) Pulse Ox O2 Delivery O2 Flow Rate FiO2 01/08/20 01:00 55 01/07/20 20:20 Room Air 01/07/20 18:28 36.0 16 130/60 (83) 96 Capillary Refill : Less Than 3 Seconds General Appearance: No Apparent Distress, WD/WN HEENT: PERRL/EOMI, Normal ENT Inspection Neck: Normal Inspection, Supple Respiratory: Chest Non Tender, Lungs Clear, Normal Breath Sounds, No Accessory Muscle Use, No Respiratory Distress Cardiovascular: Regular Rate, Rhythm, No Edema Gastrointestinal: Normal Bowel Sounds, No Organomegaly, No Pulsatile Mass, Non Tender, Soft Back: Normal Inspection, No CVA Tenderness, No Vertebral Tenderness Extremity: Normal Inspection, No Calf Tenderness, No Pedal Edema Neurologic/Psychiatric: Alert, Oriented x3, Normal Mood/Affect, Motor Weakness (left sided weakness) Skin: Normal Color, Warm/Dry Lymphatic: No Adenopathy Results/Procedures Lab Patient resulted labs reviewed. FIM Transfers Therapy Code Descriptions/Definitions Functional [place] Measure: 0=Not Assessed/NA 4=Minimal Assistance 1=Total Assistance 5=Supervision or Setup 2=Maximal Assistance 6=Modified [place] 3=Moderate Assistance 7=Complete IndependenceSCALE: Activities may be completed with or without assistive devices. 0-Jvdazeurvv-chlpvan completes the activity by him/herself with no assistance from a helper. 5-Set-up or Clean-up Assistance-helper sets up or cleans up; patient completes activity. [place] assists only prior to or following the activity. 4-Supervision or Touching Assistance-helper provides verbal cues and/or touching/steadying and/or contact guard assistance as patient completes activity. Assistance may be provided throughout the activity or intermittently. 3-Partial/Moderate Assistance-helper does LESS THAN HALF the effort. [place] lifts, holds or supports trunk or limbs, but provides less than half the effort. 2-Substantial/Maximal Assistance-helper does MORE THAN HALF the effort. [place] lifts or holds trunk or limbs and provides more than half the effort. 3-Lritizddp-vieqnq does ALL the effort. Patient does none of the effort to complete the activity. Or, the assistance of 2 or more helpers is required for the patient to complete the activity. If activity was not attempted, code reason: 7-Patient Refused. 9-Not Applicable-not attempted and the patient did not perform the activity before the current illness, exacerbation or injury. 10-Not Attempted due to Environmental Limitations-(lack of equipment, weather restraints, etc.). 88-Not Attempted due to Medical Conditions or Safety Concerns. Roll Left to Right (QC): 2 Sit to Lying (QC): 2 Sit to Stand (QC): 2 Chair/Epz-fk-Xibvw Xfer(QC): 2 Car Transfer (QC): 1 Gait Training Does the Patient Walk?: No and Walking Goal IS indicated Walk 10 feet (QC): 88 Walk 50 ft with 2 Turns(QC): 88 Walk 150 ft (QC): 88 Walking 10ft/uneven surface-QC: 88 Wheelchair Training Does the Pt Use a Wheelchair?: Yes Distance: 50'x2 Wheel 50 ft with 2 turns (QC): 2 Wheel 150 ft (QC): 3 Type of Wheelchair: Manual Stair Training 1 Step (curb) (QC): 88 4 Steps (QC): 88 12 Steps (QC): 88 Balance Picking up an Object (QC): 1 ADL-Treatment Eating (QC): 5 (Based on clincial judgement, pt would require set up assistance with feeding) Oral Hygiene (QC): 2 Bathing Location: L Arm, R Arm, L Upper Leg, R Upper Leg, Chest, Abdomen, Perineal Area Shower/Bathe Self (QC): 1 (TD due to Ax2 in stance for bottom/ dragan area. Pt requires cues for problem solving at times.) Upper Body Dressing (QC): 2 (max A donning techniques. Cues and mod A for doffing overhead/ over L UE) Lower Body Dressing (QC): 1 On/Off Footwear (QC): 2 (Pt able to flex BLEs to assist in donning. Attempt to doff in sit with ankle to knee, unable to complete.) Toileting Hygiene (QC): 1 Toilet Transfer (QC): 2 Assessment/Plan Assessment and Plan Assess & Plan/Chief Complaint Assessment: CVA Left sided weakness AK Hypothyroidism Chronic pain Narcotic dependent Narcotic bowel Osteoporosis Bearden cath in place Urinary retention UTI Plan: Dr Nesbitt IRF protocol Current meds 01/01/20: Pain management Dr Nesbitt consult for urinary retention Monitor for falls BM regimen 01/02/20: Pain management Cardiology and Urology consultation is appreciated 01/03/20: Urology appreciated Pain med increased to her home dose Pureed diet 01/04/20: Advanced diet Repeat UA inout cath Insomnia treatment 01/05/20: Vaginal discharge? May need TV USG and Technical Artist consult 01/06/20: Fistula between rectum and vagina? CT scan and TV USG tomorrow 01/07/20: CT scan with rectal enema Technical Artist consult Conferred with Dr Laz Farr for Proteus (1) CVA (cerebral vascular accident) (2) Ankylosing spondylitis (3) Acquired hypothyroidism (4) Chronic pain (5) Narcotic dependence (6) Narcotic bowel syndrome (7) Urinary retention (8) Bearden catheter in place (9) UTI (urinary tract infection) (10) Left-sided weakness (11) Psoriasis (12) Osteoporosis WILEY WRIGHT DO Jan 07, 2020 08:20
--- NOTE | 2020-01-07 08:42 | Cardiology Progress Note ---
Subjective Date Seen by Provider: Jan 07, 2020 Time Seen by Provider: 08:40 Subjective/Events-last exam Patient in bed, c/o nausea. Denies any chest pain or dyspnea. Going for CT Abdomin/pelvis later this morning. Review of Systems General: No Chills, No Night Sweats, No Fatigue, No Malaise, No Appetite, No Other HEENT: No Head Aches, No Visual Changes, No Eye Pain, No Ear Pain, No Dysphasia, No Sinus Congestion, No Post Nasal Drip, No Sore Throat, No Other Pulmonary: No Dyspnea, No Cough, No Pleuritic Chest Pain, No Other Cardiovascular: No: Chest Pain, Palpitations, Orthopnea, Paroxysmal Noc. Dyspnea, Edema, Lt Headedness, Other Objective-Cardiology Exam Last Set of Vital Signs Vital Signs 01/07/20 01/07/20 06:17 11:10 Temp 35.8 Pulse 65 Resp 20 B/P (MAP) 116/50 (72) Pulse Ox 93 O2 Delivery Room Air Capillary Refill : Less Than 3 Seconds I&O Intake and Output 01/07/20 00:00 Intake Total 1270 ml Output Total 1025 ml Balance 245 ml Intake Oral 1270 ml Output Urine Total 1025 ml # Bowel Movements 2 General: Alert, Oriented X3, Cooperative HEENT: Atraumatic, PERRLA Neck: Supple, No JVD, No Thyromegaly Lungs: Clear to Auscultation, Normal Air Movement Heart: Regular Rate, Normal S1, Normal S2, No Murmurs Abdomen: Soft, Other (ttp) Extremities: No Clubbing, No Cyanosis, No Edema, Normal Pulses Skin: No Rashes, No Significant Lesion Neuro: Normal Speech Psych/Mental Status: Mental Status NL, Mood NL Results Lab Laboratory Tests 01/07/20 05:02 A/P-Cardiology Admission Diagnosis CVA HTN Hypothyroidism Ankylosing spondylitis Assessment/Plan 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 MRI done at [facility] showing right frontal parietal lobe infarct. 2D Echo done 12/18/2019 demonstrated LVH with normal EF. CTA Head and neck unremarkable. Continues to have left sided weakness. Reports hx of previous CVA in 2003. Continue on ASA and Plavix. Discussed possibility of LINq implantation for further monitoring for atrial fibrillation HTN, continue to monitor HLP, recently started on statin, continue to monitor UTI, started on antibiotics. 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 Management per Dr. Bentley and Dr. Cook. Hypothyroidism Ankylosing spondylitis Epigastric pain, resolved. Patient was seen and evaluated with Inna, examination performed, management plan was discussed, agree with the current scribed note, I made few changes to the note using Italic font Patient was seen at bedside , laying down in bed, started on antibiotic, workup for possible fistula. Cardiac status at this time is stable. Continue to monitor Clinical Quality Measures DVT/VTE Risk/Contraindication: Risk Factor Score Per Nursin RFS Level Per Nursing on Admit: 4+=Very High INNA OCHOA Jan 07, 2020 08:42 CLIFFORD PETER MD Jan 07, 2020 12:17
[2020-01-07] MEDS: VITAMIN D3 25 MCG (1,000 UNITS) TABLET PO SCH (08:50)
[2020-01-07] MEDS: PANTOPRAZOLE 40 MG (PROTONIX) TAB PO SCH (08:50)
[2020-01-07] MEDS: BACLOFEN 10 MG (LIORESAL) TAB PO SCH ×3 (08:50→20:49)
[2020-01-07] MEDS: LOSARTAN 25 MG (COZAAR) TAB PO SCH (08:50)
[2020-01-07] MEDS: CIPROFLOXACIN 500 MG (CIPRO) TABLET PO SCH ×2 (08:50→20:49)
[2020-01-07] MEDS: ASPIRIN E.C. 81 MG (ECOTRIN) TAB PO SCH (08:50)
[2020-01-07] MEDS: CLOPIDOGREL 75 MG (PLAVIX) TABLET PO SCH (08:50)
[2020-01-07] MEDS: polyethylene glycoL POWDER 17 GM (MIRALAX) PACK PO SCH (08:51)
[2020-01-07] MEDS: DICLOFENAC 1% GEL 100 GM (VOLTAREN) TUBE TP SCH ×3 (08:51→20:55)
[2020-01-07] MEDS: SENNA W/DOCUSATE (SENOKOT S) TABLET PO SCH ×2 (08:51→20:10)
[2020-01-07] MEDS: DOCUSATE SODIUM 100 MG (COLACE) CAP PO SCH ×2 (08:51→20:09)
[2020-01-07] MEDS ORDERED: CEFDINIR 300 MG (OMNICEF) CAP PO SCH (09:00)
[2020-01-07] MEDS: ONDANSETRON 4 MG (ZOFRAN) ORAL DISSOLVE TAB PO PRN (10:17)
--- NOTE | 2020-01-07 10:20 | Physical Therapy Daily Note ---
PT Daily Note-Current Subjective Patient in bed pre tx, agrees to PT, has no complaints of pain at rest. Will be co-treating with OT due to poor patient mobility, strength, endurance, left hemiparesis, the need to coordinate UE and LE during activity. Appearance Patient in therapy gym post tx, will continue for a bit with OT. Mental Status Patient Orientation: Person, Place, Situation Transfers SCALE: Activities may be completed with or without assistive devices. 4-Onoocnrkfu-rylamth completes the activity by him/herself with no assistance from a helper. 5-Set-up or Clean-up Assistance-helper sets up or cleans up; patient completes activity. [place] assists only prior to or following the activity. 4-Supervision or Touching Assistance-helper provides verbal cues and/or touching/steadying and/or contact guard assistance as patient completes activity. Assistance may be provided throughout the activity or intermittently. 3-Partial/Moderate Assistance-helper does LESS THAN HALF the effort. [place] lifts, holds or supports trunk or limbs, but provides less than half the effort. 2-Substantial/Maximal Assistance-helper does MORE THAN HALF the effort. [place] lifts or holds trunk or limbs and provides more than half the effort. 9-Ahapaznhh-rrvhzc does ALL the effort. Patient does none of the effort to complete the activity. Or, the assistance of 2 or more helpers is required for the patient to complete the activity. If activity was not attempted, code reason: 7-Patient Refused. 9-Not Applicable-not attempted and the patient did not perform the activity before the current illness, exacerbation or injury. 10-Not Attempted due to Environmental Limitations-(lack of equipment, weather restraints, etc.). 88-Not Attempted due to Medical Conditions or Safety Concerns. Roll Left & Right (QC): 2 Lying to Sitting/Side of Bed(Q: 3 Sit to Stand (QC): 3 Chair/Xjt-ju-Neigh Xfer(QC): 3 mod assist for sit to stand and transfers, leans to the left side. Patient supine to sit, stand pivot transfer to , propel WC to shower room, stand to undress and sit in shower chair, showers, stand to dress again and transfer to . Propel WC to therapy gym, get into parallel bars and stand x3 to work on standing balance. Patient needs min assist during shower for sitting balance. Wheelchair Training Does the Pt Use a Wheelchair?: Yes Wheel 50 ft with 2 turns (QC): 3 Wheel 150 ft (QC): 3 Type of Wheelchair: Manual 150'x2 Treatments PT worked on bed mobility and transfers, WC mobility, sitting balance and standing during shower and dressing, standing balance training in parallel bars. OT worked on dressing and bathing, UE positioning and safety during activity. Assessment Current Status: Poor Progress no change in mobility PT Short Term Goals Short Term Goals Time Frame: Jan 08, 2020 Roll Left & Right: 3 Sit to lyin Lying to sitting on side of be: 3 Sit to stand: 3 Chair/iwg-zj-qttci transfer: 3 PT Intermediate Goals Intermediate Goals PT Marketing Systems Analyst Goals Time Frame: Jan 22, 2020 Roll Left & Right (QC): 3 (Татьяна) Sit to Lying (QC): 3 (Татьяна) Lying-Sitting on Side/Bed(QC): 3 (Татьяна) Sit to Stand (QC): 3 (Татьяна) Chair/Xyh-yv-Davzy Xfer(QC): 3 (Татьяна) Toilet Transfer (QC): 3 (Татьяна) Car Transfer (QC): 3 (Татьяна) Does the Patient Walk: No and Walking Goal IS indicated Walk 10 feet (QC): 3 (Татьяна) Walk 50ft with 2 Turns (QC): 88 Walk 150 ft (QC): 88 Walking 10ft on Uneven Surface: 88 1 Step (curb) (QC): 88 4 Steps (QC): 88 12 Steps (QC): 88 Picking up an Object (QC): 88 Wheel 50 feet with 2 turns (QC: 4 Type: Manual Wheel 150 feet: 4 Type: Manual PT Plan Problem List Problem List: Activity Tolerance, Functional Strength, Safety, Balance, Gait, Transfer, Bed Mobility, ROM Treatment/Plan Treatment Plan: Continue Plan of Care Treatment Plan: Bed Mobility, Education, Functional Activity [place], Functional Strength, Group Therapy, Gait, Safety, Therapeutic Exercise, Transfers Treatment Duration: Jan 21, 2020 Frequency: At least 5 of 7 days/Wk (IRF) Estimated Hrs Per Day: 1.5 hours per day Patient and/or Family Agrees t: Yes Safety Risks/Education Patient Education: Transfer Techniques, Correct Positioning, W/C Management, Safety Issues Teaching Recipient: Patient Teaching Methods: Demonstration, Discussion Response to Teaching: Reinforcement Needed Time/GCodes Time In: 0900 Time Out: 1000 Total Billed Treatment Time: 60 Total Billed Treatment 1 visit FA 45' NM 15' co-treated with OT for 60' DEON BAIRD PT Jan 07, 2020 10:20
--- NOTE | 2020-01-07 10:20 | NUR ---
PT LEFT FLOOR FOR PROCEDURE.
--- NOTE | 2020-01-07 10:32 | Occupational Ther Daily Note ---
OT Current Status-Daily Note Subjective Pt in bed upon arrival. Pt stated head was hurting. Pt agreed to therapy. Mental Status/Objective Patient Orientation: Person, Place, Time, Situation ADL-Treatment Co-treatment with PT ([id number]) skills of two clinicians required for skilled instruction and care due to transfers and safety concern. PT worked on standing balance, transfers. DE LA O work on ADLs, arm placement. Pt supine to EOB assists x2. Pt transferred from EOB to w/c Max A. Pt refused oral care. Pt propelled self to shower room. Pt transferred from w/c to shower chair with cut out Max A, PT assisted with stand and DE LA O switched chairs. See PT notes for transfers. Pt doff UE clothing Max A. Dependent for lower body dressing, PT assist to stand and DE LA O assist to manipulate clothing. Pt performed upper body washing Min A, DE LA O cleansed R arm for pt then performed lower body washing using LH sponge, verbal cues required, completed sitting on shower chair with cutout. Pt cleansed perineal area, buttocks by self while sitting, DE LA O monitored pt's efficiency with task. Pt transferred from shower chair to w/c by PT standing pt and DE LA O switching chairs. Pt performed upper body dressing Max A, threading arms/head into shirt. Pt performed lower body dressing dependent, assist x2, then Max A to thread feet into socks. Pt used PT to stabilize while DE LA O hiked pants over hips. Therapy Code Descriptions/Definitions Functional [place] Measure: 0=Not Assessed/NA 4=Minimal Assistance 1=Total Assistance 5=Supervision or Setup 2=Maximal Assistance 6=Modified [place] 3=Moderate Assistance 7=Complete IndependenceSCALE: Activities may be completed with or without assistive devices. 4-Dhulfytghh-ezpmbqw completes the activity by him/herself with no assistance from a helper. 5-Set-up or Clean-up Assistance-helper sets up or cleans up; patient completes activity. [place] assists only prior to or following the activity. 4-Supervision or Touching Assistance-helper provides verbal cues and/or touching/steadying and/or contact guard assistance as patient completes activity. Assistance may be provided throughout the activity or intermittently. 3-Partial/Moderate Assistance-helper does LESS THAN HALF the effort. [place] lifts, holds or supports trunk or limbs, but provides less than half the effort. 2-Substantial/Maximal Assistance-helper does MORE THAN HALF the effort. [place] lifts or holds trunk or limbs and provides more than half the effort. 9-Ahbemczup-zuymiu does ALL the effort. Patient does none of the effort to complete the activity. Or, the assistance of 2 or more helpers is required for the patient to complete the activity. If activity was not attempted, code reason: 7-Patient Refused. 9-Not Applicable-not attempted and the patient did not perform the activity before the current illness, exacerbation or injury. 10-Not Attempted due to Environmental Limitations-(lack of equipment, weather restraints, etc.). 88-Not Attempted due to Medical Conditions or Safety Concerns. Bathing Location: L Arm, L Upper Leg, R Upper Leg, L Lower Leg (including foot ), R Lower Leg (including foot), Chest, Abdomen, Buttocks, Perineal Area Shower/Bathe Self (QC): 3 Upper Body Dressing (QC): 2 Lower Body Dressing (QC): 1 On/Off Footwear: 2 Toileting Hygiene (QC): 1 Toilet Transfer (QC): 1 Other Treatment Pt propelled self to therapy gym. Pt worked on standing balance in parallel bars with PT. Initially pt was able to stay at midline while standing and sitting then as pt fatigued leaned to L side. Pt able to grasp parallel with L hand though required stabilization at elbow and wrist. Pt educated on how to use dispatch specialist to perform lower body dress. Pt demonstrated ability to thread pants on, verbal cues required. Pt was propelled back to room. Pt stated needing to use restroom. Pt transferred from w/c to toilet Max A. Pt used DE LA O to stabilize while second person cleansed buttocks area and manipulated clothing. Pt transferred from toilet to w/c Max A. Pt left in the care of radiology. All needs met. OT Short Term Goals Short Term Goals Time Frame: Jan 16, 2020 Eatin Oral hygiene: 5 Upper body dressin Lower body dressin OT Table Games Floor Supervisor Goals [place] Goals Time Frame: Jan 25, 2020 Eating (QC): 6 Oral Hygiene (QC): 6 Toileting Hygiene (QC): 4 Shower/Bathe Self (QC): 4 Upper Body Dressing (QC): 5 Lower Body Dressing (QC): 4 On/Off Footwear (QC): 3 Additional Goals: 1-Demonstrate ADL Tasks, 2-Verbalize Understanding, 3- ImproveStrength/[place] 1=Demonstrate adherence to instructed precautions during ADL tasks. 2=Patient will verbalize/demonstrate understanding of assistive marco antonio rajni/modifications for ADL. 3=Patient will improve strength/tolerance for activity to enable patient to perform ADL's. OT Education/Plan Problem List/Assessment Assessment: Decreased Activ Tolerance, Decreased UE Strength, Impaired Funct Balance, Impaired Self-Care Skills Discharge Recommendations Plan/Recommendations: Continue POC Treatment Plan/Plan of Care Patient would benefit from OT for education, treatment and training to promote independence in ADL's, mobility, safety and/or upper extremity function for ADL's. Plan of Care: ADL Retraining, Functional Mobility, Group Exercise/Act as Ind, UE Funct Exercise/Act, UE Neuromus Re-Ed/Coord, Visual/Perceptual Retrain, W/C Management Training Treatment Duration: Jan 25, 2020 Frequency: At least 5 of 7 days/Wk (IRF) Estimated Hrs Per Day: 1.5 hours per day Agreement: Yes Rehab Potential: Fair Time/GCodes Start Time: 09:00 Stop Time: 10:15 Total Time Billed (hr/min): 75 Billed Treatment Time 1 visit- ADL 4 (60 mins), FA (15 mins) Co-treatment ([id number]) ind- ([id number]) PAMELLA BURNETTE Jan 07, 2020 10:32
--- NOTE | 2020-01-07 10:47 | NUR ---
PT RETURNED TO FLOOR FROM CT.
--- NOTE | 2020-01-07 11:04 | Diagnostic Imaging Report ---
PROCEDURE: CT abdomen and pelvis without contrast. TECHNIQUE: Multiple contiguous axial images were obtained through the abdomen and pelvis without the use of intravenous contrast. Auto Exposure Controls were utilized during the CT exam to meet ALARA standards for radiation dose reduction. INDICATION: Evaluate for rectal vaginal fistula. Gastrografin contrast was infused in a retrograde fashion through a rectal tip. Axial imaging through the abdomen and pelvis was then performed. The lung bases are clear. Liver is unremarkable. Gallbladder surgically absent. No liver mass is identified. The pancreas and spleen are unremarkable. No adrenal mass is detected. Kidneys are without calculi or hydronephrosis. Aorta is non-aneurysmal. Bowel loops are non-dilated. There is contrast within the rectum and portions of the distal colon. No definite contrast is seen within the vagina. The uterus appears to be surgically absent. The bladder is decompressed. No free fluid in the abdomen or pelvis is seen. 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 There is sacral plasties involving the sacral alar bilaterally. No acute bony abnormality is detected. IMPRESSION: Unremarkable CT of abdomen and pelvis with rectal contrast. No definite contrast is seen within the vagina to suggest rectovaginal fistula. No acute features identified. Dictated by: Dictated on workstation # [id number]
--- NOTE | 2020-01-07 12:25 | Progress Note - Urology ---
Progress Note-Urology Progress Notes/Assess & Plan Progress/Assessment & Plan CONTINUES SAME. CT NEGATIVE. UC PROTEUS, STARTED ON CIPRO YESTERDAY Final Diagnosis RETENTION JAY NERI MD Jan 07, 2020 12:25
--- NOTE | 2020-01-07 12:47 | Speech Therapy Daily Note ---
Speech Daily Progress Note Subjective Date Seen by Provider: Jan 07, 2020 Time Seen by Provider: 00:30 Patient was resting in her bed waiting for a heart monitor to be hooked up. Objective Patient demo utilization of safe oral intake with upgraded diet at 80% with 10% verbal and/or visual cues. Assessment Assessment Current Status: Good Progress Treatment Plan Continue Plan of Care Speech Short Term Goals Short Term Goals Short Term Goals 1) Patient will tolerate the least restrictive diet level without s/s of aspiration at 90% or greater. 2) Patient will utilize compensatory strategies as trained for safe oral intake at 90% or greater. Speech Building Economist Goals Shelter Goals Patient will maintain adequate nutrition/hydration via safe effective swallow function. Speech-Plan Patient/Family Goals Patient/Family Goals: Patient plans on returning to her home where she lives with her . Treatment Plan Speech Therapy Treatment Plan: Continue Plan of Care Treatment Duration: Jan 11, 2020 Frequency: 4 times per week Estimated Hrs Per Day: .25 hour per day Rehab Potential: Fair Barriers to Learning: Patient's age, medical status Pt/Family Agrees to Plan: Yes Safety Risks/Education Teaching Recipient: Patient Teaching Methods: Demonstration, Discussion Response to Teaching: Verbalize Understanding, Return Demonstration Education Topics Provided: Continued utilization of safety strategies for intake Time Speech Therapy Time In: 11:00 Speech Therapy Time Out: 11:30 Total Billed Time: 30 Billed Treatment Time 1 ANNEL SPENCER [place] Jan 07, 2020 12:47
[2020-01-07] MEDS: ENOXAPARIN 40 MG/0.4 ML (LOVENOX) SYR SC SCH (13:57)
--- NOTE | 2020-01-07 14:24 | Physical Therapy Daily Note ---
PT Daily Note-Current Subjective Patient in bed pre tx, agrees to PT, has no complaints of pain. Appearance Patient in bed post tx with nurse call, phone, tray, all needs met. Mental Status Patient Orientation: Person, Place, Situation Transfers SCALE: Activities may be completed with or without assistive devices. 0-Mfadvgjvwq-kroufbf completes the activity by him/herself with no assistance from a helper. 5-Set-up or Clean-up Assistance-helper sets up or cleans up; patient completes activity. [place] assists only prior to or following the activity. 4-Supervision or Touching Assistance-helper provides verbal cues and/or touching/steadying and/or contact guard assistance as patient completes activity. Assistance may be provided throughout the activity or intermittently. 3-Partial/Moderate Assistance-helper does LESS THAN HALF the effort. [place] lifts, holds or supports trunk or limbs, but provides less than half the effort. 2-Substantial/Maximal Assistance-helper does MORE THAN HALF the effort. [place] lifts or holds trunk or limbs and provides more than half the effort. 3-Askuxkxbh-wyphno does ALL the effort. Patient does none of the effort to complete the activity. Or, the assistance of 2 or more helpers is required for the patient to complete the activity. If activity was not attempted, code reason: 7-Patient Refused. 9-Not Applicable-not attempted and the patient did not perform the activity before the current illness, exacerbation or injury. 10-Not Attempted due to Environmental Limitations-(lack of equipment, weather restraints, etc.). 88-Not Attempted due to Medical Conditions or Safety Concerns. Exercises Supine Ex: Heel Slides, Short Arc Quads, Straight leg raise, Hip abd/add Supine Reps: 20 (AAROM, almost just AROM) PROM/stretching of LLE in all planes, patient has increased muscle tone in LLE Treatments ROM/stretching Assessment Current Status: Fair Progress slowly improving strength PT Short Term Goals Short Term Goals Time Frame: Jan 08, 2020 Roll Left & Right: 3 Sit to lyin Lying to sitting on side of be: 3 Sit to stand: 3 Chair/vbx-ug-oesos transfer: 3 PT Skilled Nursing Goals Skilled Nursing Goals PT Skilled Nursing Goals Time Frame: Jan 22, 2020 Roll Left & Right (QC): 3 (Татьяна) Sit to Lying (QC): 3 (Татьяна) Lying-Sitting on Side/Bed(QC): 3 (Татьяна) Sit to Stand (QC): 3 (Татьяна) Chair/Phe-bm-Akwhq Xfer(QC): 3 (Татьяна) Toilet Transfer (QC): 3 (Татьяна) Car Transfer (QC): 3 (Татьяна) Does the Patient Walk: No and Walking Goal IS indicated Walk 10 feet (QC): 3 (Татьяна) Walk 50ft with 2 Turns (QC): 88 Walk 150 ft (QC): 88 Walking 10ft on Uneven Surface: 88 1 Step (curb) (QC): 88 4 Steps (QC): 88 12 Steps (QC): 88 Picking up an Object (QC): 88 Wheel 50 feet with 2 turns (QC: 4 Type: Manual Wheel 150 feet: 4 Type: Manual PT Plan Problem List Problem List: Activity Tolerance, Functional Strength, Safety, Balance, Gait, Transfer, Bed Mobility, ROM Treatment/Plan Treatment Plan: Continue Plan of Care Treatment Plan: Bed Mobility, Education, Functional Activity Benson, Functional Strength, Group Therapy, Gait, Safety, Therapeutic Exercise, Transfers Treatment Duration: Jan 21, 2020 Frequency: At least 5 of 7 days/Wk (IRF) Estimated Hrs Per Day: 1.5 hours per day Patient and/or Family Agrees t: Yes Safety Risks/Education Patient Education: Correct Positioning, Safety Issues Teaching Recipient: Patient Teaching Methods: Demonstration, Discussion Response to Teaching: Reinforcement Needed Time/GCodes Time In: 1330 Time Out: 1345 Total Billed Treatment Time: 15 Total Billed Treatment 1 visit EX DEON GUALLPA PT Jan 07, 2020 14:24
[2020-01-07] MEDS: TAMSULOSIN 0.4 MG (FLOMAX) CAP PO SCH (17:27)
[2020-01-07 18:28] VITALS: BP 130/60
[2020-01-07] MEDS: diphenhydrAMINE 25 MG TAB (BENADRYL) PO SCH (20:48)
[2020-01-07] MEDS: MELATONIN 3 MG TABLET PO SCH (20:49)
[2020-01-07] MEDS: ACETAMINOPHEN 500 MG TAB (TYLENOL) PO SCH (20:49)
[2020-01-08] MEDS: BETHANECHOL 25 MG (URECHOLINE) TAB PO SCH ×4 (06:28→20:19)
[2020-01-08] MEDS: LEVOTHYROXINE 100 MCG (LEVOTHROID) TAB PO SCH (06:28)
[2020-01-08] MEDS: oxyCODONE ER 10 MG (OxyCONTIN CR) TAB PO SCH ×2 (06:29→14:13)
[2020-01-08 06:37] VITALS: BP 151/66
--- NOTE | 2020-01-08 08:51 | PM&R Progress Note ---
Subjective HPI/CC On Admission Date Seen by Provider: Jan 08, 2020 Time Seen by Provider: 08:30 Subjective/Events-last exam 01/08/20: Bowels moving today Swab of the vagina was done by Dr. Jackson himself Appreciate Dr. Joseph update 01/07/20: Proteus urine culture, Dr. Nesbitt placed her on Cipro CT scan with rectal contrast has been completed, will evaluate for fistula Bowels moved today but she feels like it goes into her vagina 01/06/20: Spoke to Dr Cook after I assessed her symptoms again of the vaginal discharge and we need CT abd pelvis with rectal contrast to see if fistula is an issue Proteus on UC x but UA was normal which may be involved in this fistula issues Left arm is flaccid some movement in left foot Uterine prolapse noted when she was admitted 01/05/20: Brown vaginal discharge noted If continues will obtain TV USG and Bottle Packer consult No pain reported UA repeat normal Incontinence at night 01/04/20: Much improved status Bearden now out and voiding well Not sleeping well so added equivalent of Tylenol PM to night time to see if that helps her since she takes that at home on occasion Advanced diet Repeat UA via in/out cath DC Cleocin 01/03/20: Bearden out and has yet to void Dr Nesbitt and I conferred on the unit Oxycontin increased to 30mg BID she takes it at 0700 and 1330 so instructed pharmacy to put it in for that time slot Swallowing better 12/31/19 BM so laxatives given Pureed diet 01/02/20: Decreasing food intake Chest pain prompting EKG and cardiology evaluation Troponin will be checked Nausea noted Very difficult to manage with such chronic pain Appreciate Dr Nesbitt and Dr Johnson Pt settling in pretty well Having a lot of pain ankylosing spondylitis is very painful for her Will aggressively react bowels Remains with a catheter, I did consult urology Checked meds and labs Conferred with RN Reviewed therapy notes Review of Systems General: Fatigue, Malaise Neurological: Weakness, Incoordination Objective Exam Vital Signs Vital Signs Date Time Temp Pulse Resp B/P (MAP) Pulse Ox O2 Delivery O2 Flow Rate FiO2 01/08/20 20:20 Room Air 01/08/20 19:00 64 01/08/20 18:10 36.0 16 142/60 (87) 94 Capillary Refill : Less Than 3 Seconds General Appearance: No Apparent Distress, WD/WN HEENT: PERRL/EOMI, Normal ENT Inspection Neck: Normal Inspection, Supple Respiratory: Chest Non Tender, Lungs Clear, Normal Breath Sounds, No Accessory Muscle Use, No Respiratory Distress Cardiovascular: Regular Rate, Rhythm, No Edema Gastrointestinal: Normal Bowel Sounds, No Organomegaly, No Pulsatile Mass, Non Tender, Soft Back: Normal Inspection, No CVA Tenderness, No Vertebral Tenderness Extremity: Normal Inspection, No Calf Tenderness, No Pedal Edema Neurologic/Psychiatric: Alert, Oriented x3, Normal Mood/Affect, Motor Weakness (left sided weakness) Skin: Normal Color, Warm/Dry Lymphatic: No Adenopathy Results/Procedures Lab Patient resulted labs reviewed. FIM Transfers Therapy Code Descriptions/Definitions Functional [place] Measure: 0=Not Assessed/NA 4=Minimal Assistance 1=Total Assistance 5=Supervision or Setup 2=Maximal Assistance 6=Modified [place] 3=Moderate Assistance 7=Complete IndependenceSCALE: Activities may be completed with or without assistive devices. 9-Fuptuhbydq-oezwuad completes the activity by him/herself with no assistance from a helper. 5-Set-up or Clean-up Assistance-helper sets up or cleans up; patient completes activity. [place] assists only prior to or following the activity. 4-Supervision or Touching Assistance-helper provides verbal cues and/or touching/steadying and/or contact guard assistance as patient completes activity. Assistance may be provided throughout the activity or intermittently. 3-Partial/Moderate Assistance-helper does LESS THAN HALF the effort. [place] lifts, holds or supports trunk or limbs, but provides less than half the effort. 2-Substantial/Maximal Assistance-helper does MORE THAN HALF the effort. [place] lifts or holds trunk or limbs and provides more than half the effort. 2-Rjnwugjbd-phlxru does ALL the effort. Patient does none of the effort to com plete the activity. Or, the assistance of 2 or more helpers is required for the patient to complete the activity. If activity was not attempted, code reason: 7-Patient Refused. 9-Not Applicable-not attempted and the patient did not perform the activity before the current illness, exacerbation or injury. 10-Not Attempted due to Environmental Limitations-(lack of equipment, weather restraints, etc.). 88-Not Attempted due to Medical Conditions or Safety Concerns. Roll Left to Right (QC): 2 Sit to Lying (QC): 2 Sit to Stand (QC): 3 Chair/Ioo-ja-Tfnon Xfer(QC): 3 Car Transfer (QC): 1 Gait Training Walk 10 feet (QC): 88 Walk 50 ft with 2 Turns(QC): 88 Walk 150 ft (QC): 88 Walking 10ft/uneven surface-QC: 88 Wheelchair Training Does the Pt Use a Wheelchair?: Yes Distance: 50'x2 Wheel 50 ft with 2 turns (QC): 3 Wheel 150 ft (QC): 3 Type of Wheelchair: Manual Stair Training 1 Step (curb) (QC): 88 4 Steps (QC): 88 12 Steps (QC): 88 Balance Picking up an Object (QC): 1 ADL-Treatment Eating (QC): 5 (Based on clincial judgement, pt would require set up assistance with feeding) Oral Hygiene (QC): 2 Bathing Location: L Arm, L Upper Leg, R Upper Leg, L Lower Leg (including foot), R Lower Leg (including foot), Chest, Abdomen, Buttocks, Perineal Area Shower/Bathe Self (QC): 3 Upper Body Dressing (QC): 2 Lower Body Dressing (QC): 1 On/Off Footwear (QC): 2 Toileting Hygiene (QC): 1 Toilet Transfer (QC): 1 Assessment/Plan Assessment and Plan Assess & Plan/Chief Complaint Assessment: CVA Left sided weakness AK Hypothyroidism Chronic pain Narcotic dependent Narcotic bowel Osteoporosis Bearden cath in place Urinary retention UTI Plan: Dr Nesbitt IRF protocol Current meds 01/01/20: Pain management Dr Nesbitt consult for urinary retention Monitor for falls BM regimen 01/02/20: Pain management Cardiology and Urology consultation is appreciated 01/03/20: Urology appreciated Pain med increased to her home dose Pureed diet 01/04/20: Advanced diet Repeat UA inout cath Insomnia treatment 01/05/20: Vaginal discharge? May need TV USG and Bottle Packer consult 01/06/20: Fistula between rectum and vagina? CT scan and TV USG tomorrow 01/07/20: CT scan with rectal enema Bottle Packer consult Conferred with Dr Laz Buciox for Proteus 01/08/20: Appreciate Dr Jackson Vaginal swab UTI tx (1) CVA (cerebral vascular accident) (2) Ankylosing spondylitis (3) Acquired hypothyroidism (4) Chronic pain (5) Narcotic dependence (6) Narcotic bowel syndrome (7) Urinary retention (8) Bearden catheter in place (9) UTI (urinary tract infection) (10) Left-sided weakness (11) Psoriasis (12) Osteoporosis WILEY WRIGHT DO Jan 08, 2020 08:51
[2020-01-08 09:21] VITALS: BP 139/65
--- NOTE | 2020-01-08 09:48 | Occupational Ther Daily Note ---
OT Current Status-Daily Note Subjective Pt in bed upon arrival. Pt no c/o pain. Pt agreed to therapy. Mental Status/Objective Patient Orientation: Person, Place, Time, Situation ADL-Treatment Co-treatment PT () skills of two clinicans required for skilled instruction and care due to transfers and safety concerns. PT focused on transfers, standing balance, ambulation. DE [place] O worked on hand placement, ADLs, tracking. Pt sitting in bed to EOB x1 assist. Pt transferred to commode from EOB Max A, [place] O helped manipulate briefs. See PT notes for transfers. Pt don lower body clothing Max, [place] O helped pt thread legs into pants/briefs. Pt used PT to stabilize in standing, [place] O to cleanse buttocks, perineal area. [place] O hiked pants over hips for patient while PT helped stabilize pt in standing. Pt transferred to w/c from commode Max A. Therapy Code Descriptions/Definitions Functional [place] Measure: 0=Not Assessed/NA 4=Minimal Assistance 1=Total Assistance 5=Supervision or Setup 2=Maximal Assistance 6=Modified [place] 3=Moderate Assistance 7=Complete IndependenceSCALE: Activities may be completed with or without assistive devices. 8-Suvbtfhpyc-qiadfkp completes the activity by him/herself with no assistance from a helper. 5-Set-up or Clean-up Assistance-helper sets up or cleans up; patient completes activity. [place] assists only prior to or following the activity. 4-Supervision or Touching Assistance-helper provides verbal cues and/or touch ing/steadying and/or contact guard assistance as patient completes activity. Assistance may be provided throughout the activity or intermittently. 3-Partial/Moderate Assistance-helper does LESS THAN HALF the effort. [place] lifts, holds or supports trunk or limbs, but provides less than half the effort. 2-Substantial/Maximal Assistance-helper does MORE THAN HALF the effort. [place] lifts or holds trunk or limbs and provides more than half the effort. 2-Bknkfavsy-tyfcap does ALL the effort. Patient does none of the effort to complete the activity. Or, the assistance of 2 or more helpers is required for the patient to complete the activity. If activity was not attempted, code reason: 7-Patient Refused. 9-Not Applicable-not attempted and the patient did not perform the activity before the current illness, exacerbation or injury. 10-Not Attempted due to Environmental Limitations-(lack of equipment, weather restraints, etc.). 88-Not Attempted due to Medical Conditions or Safety Concerns. Lower Body Dressing (QC): 1 Toileting Hygiene (QC): 1 Toilet Transfer (QC): 1 Other Treatment Pt propelled self to therapy gym. Pt demonstrated ability to initiate lifting L arm to place on parallel bar. Pt worked with PT on ambulating in parallel bars, [place] O help with L hand placement/ stabilization during ambulation. Rest break required. Pt worked on visual tracking activity while working on standing balance. Pt demonstrated ability to grab 6/6 cones with R hand. Rest breaks required. Pt worked on crossing midline using R hand to grab 5/6 cones. Pt stated head hurting/dizziness rest break required. Left in care of PT. OT Short Term Goals Short Term Goals Time Frame: Jan 16, 2020 Eatin Oral hygiene: 5 Upper body dressin Lower body dressin OT Hammer Mill Operator Goals [place] Operator Goals Time Frame: Jan 25, 2020 Eating (QC): 6 Oral Hygiene (QC): 6 Toileting Hygiene (QC): 4 Shower/Bathe Self (QC): 4 Upper Body Dressing (QC): 5 Lower Body Dressing (QC): 4 On/Off Footwear (QC): 3 Additional Goals: 1-Demonstrate ADL Tasks, 2-Verbalize Understanding, 3- ImproveStrength/Benson 1=Demonstrate adherence to instructed precautions during ADL tasks. 2=Patient will verbalize/demonstrate understanding of assistive devices/modifications for ADL. 3=Patient will improve strength/tolerance for activity to enable patient to perform ADL's. OT Education/Plan Problem List/Assessment Assessment: Decreased Activ Tolerance, Decreased UE Strength, Impaired Funct Balance, Impaired Self-Care Skills Discharge Recommendations Plan/Recommendations: Continue POC Treatment Plan/Plan of Care Patient would benefit from OT for education, treatment and training to promote independence in ADL's, mobility, safety and/or upper extremity function for ADL's. Plan of Care: ADL Retraining, Functional Mobility, Group Exercise/Act as Ind, UE Funct Exercise/Act, UE Neuromus Re-Ed/Coord, Visual/Perceptual Retrain, W/C Management Training Treatment Duration: Jan 25, 2020 Frequency: At least 5 of 7 days/Wk (IRF) Estimated Hrs Per Day: 1.5 hours per day Agreement: Yes Rehab Potential: Fair Time/GCodes Start Time: 09:00 Stop Time: 09:45 Total Time Billed (hr/min): 45 Billed Treatment Time 1 visit- ADL (20 mins), FA 2 (25 mins) Co-treatment PT ([id number]) PAMELLA BURNETTE Jan 08, 2020 09:48
[2020-01-08] MEDS: CIPROFLOXACIN 500 MG (CIPRO) TABLET PO SCH ×2 (09:50→20:20)
[2020-01-08] MEDS: BACLOFEN 10 MG (LIORESAL) TAB PO SCH ×3 (09:50→20:19)
[2020-01-08] MEDS: ASPIRIN E.C. 81 MG (ECOTRIN) TAB PO SCH (09:50)
[2020-01-08] MEDS: LOSARTAN 25 MG (COZAAR) TAB PO SCH (09:50)
[2020-01-08] MEDS: DOCUSATE SODIUM 100 MG (COLACE) CAP PO SCH ×2 (09:50→19:46)
[2020-01-08] MEDS: VITAMIN D3 25 MCG (1,000 UNITS) TABLET PO SCH (09:50)
[2020-01-08] MEDS: PANTOPRAZOLE 40 MG (PROTONIX) TAB PO SCH (09:50)
[2020-01-08] MEDS: CLOPIDOGREL 75 MG (PLAVIX) TABLET PO SCH (09:50)
[2020-01-08] MEDS: polyethylene glycoL POWDER 17 GM (MIRALAX) PACK PO SCH (09:50)
[2020-01-08] MEDS: SENNA W/DOCUSATE (SENOKOT S) TABLET PO SCH ×2 (09:50→19:47)
[2020-01-08] MEDS: DICLOFENAC 1% GEL 100 GM (VOLTAREN) TUBE TP SCH ×3 (09:51→20:20)
--- NOTE | 2020-01-08 10:15 | Physical Therapy Daily Note ---
PT Daily Note-Current Subjective Patient in bed pre tx, agrees to PT, has no complaints of pain other than her neck but that is normal according to her, has to use the restroom and will get to bedside commode. Will be co-treating with OT due to poor patient mobility, strength, endurance, sitting and standing balance, left hemiparesis, the need to coordinate UE and LE during activity. Appearance Patient in recliner post tx with nurse call, phone, tray, all needs met. Mental Status Patient Orientation: Person, Place, Situation Transfers SCALE: Activities may be completed with or without assistive devices. 6-Vhseqczbcl-axibrlm completes the activity by him/herself with no assistance from a helper. 5-Set-up or Clean-up Assistance-helper sets up or cleans up; patient completes activity. [place] assists only prior to or following the activity. 4-Supervision or Touching Assistance-helper provides verbal cues and/or touching/steadying and/or contact guard assistance as patient completes activity. Assistance may be provided throughout the activity or intermittently. 3-Partial/Moderate Assistance-helper does LESS THAN HALF the effort. [place] lifts, holds or supports trunk or limbs, but provides less than half the effort. 2-Substantial/Maximal Assistance-helper does MORE THAN HALF the effort. [place] lifts or holds trunk or limbs and provides more than half the effort. 4-Uswhbbkxt-qyqrwe does ALL the effort. Patient does none of the effort to complete the activity. Or, the assistance of 2 or more helpers is required for the patient to complete the activity. If activity was not attempted, code reason: 7-Patient Refused. 9-Not Applicable-not attempted and the patient did not perform the activity before the current illness, exacerbation or injury. 10-Not Attempted due to Environmental Limitations-(lack of equipment, weather restraints, etc.). 88-Not Attempted due to Medical Conditions or Safety Concerns. Roll Left & Right (QC): 3 Lying to Sitting/Side of Bed(Q: 3 Sit to Stand (QC): 3 Chair/Ass-dk-Yduvv Xfer(QC): 3 Toilet Transfer (QC): 3 Supine to sit with min assist, sit to stand and transfer to commode with mod assist, OT takes down pants and brief on the way there. Patient uses the commode, stand with PT while patient and OT cleans and then transfer to , propel WC 150' to therapy gym with mod assist, go to parallel bars and ambulate 6'x3 with mod assist (patient is able to advance her own left leg but needs assist with balance and weight shifting). Propel WC back to room and transfer to recliner. Gait Training Distance: 3 Gait Persons Needed: 1 Gait Assistive Device: Parallel Bars 6'x3 Wheelchair Training Does the Pt Use a Wheelchair?: Yes Wheel 50 ft with 2 turns (QC): 3 Wheel 150 ft (QC): 3 Type of Wheelchair: Manual Treatments PT worked on bed mobility and transfers, ambulation, toilet transfers, WC mobility, OT worked on toileting, ADL's, UE positioning and safety during activity. Assessment Current Status: Fair Progress Patient was able to ambulate a short distance in the parallel bars with mod assist and was able to take steps with her left leg. PT Short Term Goals Short Term Goals Time Frame: Jan 08, 2020 Roll Left & Right: 3 Sit to lyin Lying to sitting on side of be: 3 Sit to stand: 3 Chair/cpf-ar-jmtcv transfer: 3 PT Pneumatic Tube Fitter Goals Correction Goals PT Pneumatic Tube Fitter Goals Time Frame: Jan 22, 2020 Roll Left & Right (QC): 3 (Татьяна) Sit to Lying (QC): 3 (Татьяна) Lying-Sitting on Side/Bed(QC): 3 (Татьяна) Sit to Stand (QC): 3 (Татьяна) Chair/Jgc-gw-Lgcbo Xfer(QC): 3 (Татьяна) Toilet Transfer (QC): 3 (Татьяна) Car Transfer (QC): 3 (Татьяна) Does the Patient Walk: No and Walking Goal IS indicated Walk 10 feet (QC): 3 (Татьяна) Walk 50ft with 2 Turns (QC): 88 Walk 150 ft (QC): 88 Walking 10ft on Uneven Surface: 88 1 Step (curb) (QC): 88 4 Steps (QC): 88 12 Steps (QC): 88 Picking up an Object (QC): 88 Wheel 50 feet with 2 turns (QC: 4 Type: Manual Wheel 150 feet: 4 Type: Manual PT Plan Problem List Problem List: Activity Tolerance, Functional Strength, Safety, Balance, Gait, Transfer, Bed Mobility, ROM Treatment/Plan Treatment Plan: Continue Plan of Care Treatment Plan: Bed Mobility, Education, Functional Activity [place], Functional Strength, Group Therapy, Gait, Safety, Therapeutic Exercise, Transfers Treatment Duration: Jan 21, 2020 Frequency: At least 5 of 7 days/Wk (IRF) Estimated Hrs Per Day: 1.5 hours per day Patient and/or Family Agrees t: Yes Safety Risks/Education Patient Education: Gait Training, Transfer Techniques, Correct Positioning, W/C Management, Safety Issues Teaching Recipient: Patient Teaching Methods: Demonstration, Discussion Response to Teaching: Reinforcement Needed Time/GCodes Time In: 0900 Time Out: 1000 Total Billed Treatment Time: 60 Total Billed Treatment 1 visit FA 60' co-treated with OT for 45' from [id number] DEON BAIRD PT Jan 08, 2020 10:15
--- NOTE | 2020-01-08 10:44 | Progress Note - Urology ---
Progress Note-Urology Progress Notes/Assess & Plan Progress/Assessment & Plan DOING FAIRLY WELL RECIO Final Diagnosis RETENTION JAY NERI MD Jan 08, 2020 10:44
[2020-01-08] MEDS: TERBINAFINE 1% CREAM 1 OZ (LamISIL) TUBE TP SCH ×2 (10:56→20:30)
[2020-01-08] MEDS ORDERED: fluCOnazole (DIFLUCAN) 100 MG TAB PO SCH (11:00)
[2020-01-08] MEDS: HYDROcodone/APAP 5 MG/325 MG (LORTAB) TAB PO PRN ×2 (11:09→20:20)
--- NOTE | 2020-01-08 12:11 | Speech Therapy Daily Note ---
Speech Daily Progress Note Subjective Date Seen by Provider: Jan 08, 2020 Time Seen by Provider: 00:30 Patient was resting in her bed, c/o headache. Objective Patient is utilizing compensatory strategies for oral intake at 90% without s/s of aspiration. Assessment Assessment Current Status: Good Progress Treatment Plan Continue Plan of Care Speech Short Term Goals Short Term Goals Short Term Goals 1) Patient will tolerate the least restrictive diet level without s/s of aspiration at 90% or greater. 2) Patient will utilize compensatory strategies as trained for safe oral intake at 90% or greater. Speech Machinist General Goals Machinist General Goals Patient will maintain adequate nutrition/hydration via safe effective swallow function. Speech-Plan Patient/Family Goals Patient/Family Goals: Patient plans on returning to her home where she lives with her . Treatment Plan Speech Therapy Treatment Plan: Continue Plan of Care Treatment Duration: Jan 11, 2020 Frequency: 4 times per week Estimated Hrs Per Day: .25 hour per day Rehab Potential: Fair Barriers to Learning: Patient's recent decline in health, age Pt/Family Agrees to Plan: Yes Safety Risks/Education Teaching Recipient: Patient Teaching Methods: Demonstration, Discussion Response to Teaching: Verbalize Understanding, Return Demonstration Education Topics Provided: Continued safety of oral intake Time Speech Therapy Time In: 11:30 Speech Therapy Time Out: 12:00 Total Billed Time: 30 Billed Treatment Time 1, SPENCER Lepe Jan 08, 2020 12:11
--- NOTE | 2020-01-08 13:11 | Progress Note - Surgery ---
LILLYNIKHIL LEYVA MED STUDENT 01/08/20 1311: Subjective Date Seen by a Provider: Jan 08, 2020 Time Seen by a Provider: 11:42 Subjective/Events-last exam Pt complaining of neck pain/headache, but denies abd pain. Had brown vaginal discharge this morning per nursing. Review of Systems General: No Chills, No Night Sweats, No Fatigue, No Malaise HEENT: Head Aches Pulmonary: No Dyspnea, No Cough Cardiovascular: No: Chest Pain Gastrointestinal: No: Nausea, Vomiting, Abdominal Pain Musculoskeletal: neck pain Focused Exam Time of Focused Exam: 11:42 Respiratory: Chest Non Tender, Lungs Clear, Normal Breath Sounds, No Accessory Muscle Use, No Respiratory Distress Cardiovascular: Regular Rate, Rhythm, No JVD Objective Exam Vital Signs Date Time Temp Pulse Resp B/P (MAP) Pulse Ox O2 Delivery O2 Flow Rate FiO2 01/08/20 12:42 67 01/08/20 09:21 76 139/65 (89) 98 01/08/20 06:37 36.2 60 14 151/66 (94) 96 Room Air 01/08/20 06:32 63 01/08/20 01:00 55 01/07/20 20:20 Room Air 01/07/20 19:00 77 01/07/20 18:28 36.0 65 16 130/60 (83) 96 Room Air 01/07/20 14:21 70 I & O 01/08/20 07:00 Intake Total 2440 ml Balance 2440 ml Capillary Refill : Less Than 3 Seconds General Appearance: No Apparent Distress Respiratory: Chest Non Tender, Lungs Clear, Normal Breath Sounds, No Accessory Muscle Use, No Respiratory Distress Cardiovascular: Regular Rate, Rhythm, No Edema Gastrointestinal: No guarding, No rebound Extremity: Normal Inspection Neurologic/Psychiatric: Alert, Oriented x3, Normal Mood/Affect, Motor Weakness (left sided weakness) Skin: Normal Color, Warm/Dry Results Lab Microbiology 01/08/20 Genital Culture, Resulted Pending 01/08/20 Wet Prep - Final, Resulted 01/06/20 Urine Culture - Preliminary, Resulted Proteus mirabilis Assessment/Plan Assessment/Plan Admission Diagonsis CVA Assessment/Plan CVA Left sided Weakness Vaginal D/C - r/o colovaginal fistula CT abd/pelvis showed no signs of colovaginal fistula, potentially due to poor ability of the pt to keep contrast in the rectum. Potential flexible sigmoidoscopy as outpt for further evaluation. Vaginal swab showed yeast cells, high WBC, normal vaginal anup, managed by primary care Clinical Quality Measures DVT/VTE Risk/Contraindication: Risk Factor Score Per Nursin RFS Level Per Nursing on Admit: 4+=Very High HAYLEY PAULSON DO 01/08/20 1417: Subjective Time Seen by a Provider: 11:42 Subjective/Events-last exam Pt seen and examined, no changes. Pt was seen by Dr. Jackson who did vaginal culture. Review of Systems General: No Chills, No Night Sweats; Fatigue, Malaise HEENT: Head Aches Pulmonary: No Dyspnea, No Cough Cardiovascular: No: Chest Pain Gastrointestinal: No: Nausea, Vomiting, Abdominal Pain Musculoskeletal: neck pain Objective Exam General Appearance: No Apparent Distress, Chronically ill Respiratory: Chest Non Tender, Lungs Clear, Normal Breath Sounds, No Accessory Muscle Use, No Respiratory Distress Cardiovascular: Regular Rate, Rhythm, No Murmur Gastrointestinal: non tender, soft, no organomegaly Neurologic/Psychiatric: Motor Weakness (left sided weakness) Assessment/Plan Assessment/Plan Assessment/Plan R/O Colovaginal fistula - so far nothing significant pointing towards this as an actual diagnosis. Vaginal culture failed to demonstrate fecal contamination. Will follow along, may still benefit from outpt pelvic exam and possible Flex Sig. CVA - continue PT/OT Supervisory-Addendum Brief Verification & Attestation Participated in pt care: history, MDM, physical Personally performed: exam, history, MDM Care discussed with: Medical Student Procedures: n/a Verification and Attestation of Medical Student E/M Service A medical student performed and documented this service in my presence. I reviewed and verified all information documented by the medical student and made modifications to such information, when appropriate. I personally performed the physical exam and medical decision making. Hayley Paulson, Jan 08, 2020,14:20 NIKHIL CARR MED STUDENT Jan 08, 2020 13:11 HAYLEY PAULSON DO Jan 08, 2020 14:17
[2020-01-08] MEDS ORDERED: MORP-68 PO (13:19)
[2020-01-08] MEDS ORDERED: HYDR-3817 PO (13:19)
[2020-01-08] MEDS ORDERED: CARV12.53 PO (13:22)
[2020-01-08] MEDS ORDERED: ACET-3075 PO (13:22)
[2020-01-08] MEDS ORDERED: ADAL40SY SQ (13:34)
--- NOTE | 2020-01-08 13:44 | Occupational Ther Daily Note ---
OT Current Status-Daily Note Subjective Pt in bed upon arrival. Pt stated head hurting. Pt agreed to therapy. Mental Status/Objective Patient Orientation: Person, Place, Time, Situation ADL-Treatment Therapy Code Descriptions/Definitions Functional [place] Measure: 0=Not Assessed/NA 4=Minimal Assistance 1=Total Assistance 5=Supervision or Setup 2=Maximal Assistance 6=Modified [place] 3=Moderate Assistance 7=Complete IndependenceSCALE: Activities may be completed with or without assistive devices. 5-Uieiwcyiok-qwxlfmy completes the activity by him/herself with no assistance from a helper. 5-Set-up or Clean-up Assistance-helper sets up or cleans up; patient completes activity. [place] assists only prior to or following the activity. 4-Supervision or Touching Assistance-helper provides verbal cues and/or touching/steadying and/or contact guard assistance as patient completes activity. Assistance may be provided throughout the activity or intermittently. 3-Partial/Moderate Assistance-helper does LESS THAN HALF the effort. [place] lifts, holds or supports trunk or limbs, but provides less than half the effort. 2-Substantial/Maximal Assistance-helper does MORE THAN HALF the effort. [place] lifts or holds trunk or limbs and provides more than half the effort. 6-Kuctzmmuk-yslmxq does ALL the effort. Patient does none of the effort to complete the activity. Or, the assistance of 2 or more helpers is required for the patient to complete the activity. If activity was not attempted, code reason: 7-Patient Refused. 9-Not Applicable-not attempted and the patient did not perform the activity before the current illness, exacerbation or injury. 10-Not Attempted due to Environmental Limitations-(lack of equipment, weather restraints, etc.). 88-Not Attempted due to Medical Conditions or Safety Concerns. Other Treatment Pt sitting up in bed to EOB assists x1. Pt transferred from EOB to w/c Max A. Pt propelled to therapy gym by DE LA O. Pt transferred from w/c to mat Max A. Pt EOB to supine on mat Max A to lay down. DE LA O worked on L arm ROM while pt was lying supine on mat. Pt demonstrated ability to initiate L arm shoulder flexion, elbow flexion/extension against gravity. [place] eliminated L shoulder adduction, pt increased tightness throughout L UE. Pt performed B UE stretching exercises while supine on mat. Pt took R hand to grasp L affected wrist while pulling L to R to work on scapular mobilization. Pt left in the care of PT. All needs met. OT Short Term Goals Short Term Goals Time Frame: Jan 16, 2020 Eatin Oral hygiene: 5 Upper body dressin Lower body dressin OT Virtual Reality Specialist Goals Care Home Goals Time Frame: Jan 25, 2020 Eating (QC): 6 Oral Hygiene (QC): 6 Toileting Hygiene (QC): 4 Shower/Bathe Self (QC): 4 Upper Body Dressing (QC): 5 Lower Body Dressing (QC): 4 On/Off Footwear (QC): 3 Additional Goals: 1-Demonstrate ADL Tasks, 2-Verbalize Understanding, 3- ImproveStrength/[place] 1=Demonstrate adherence to instructed precautions during ADL tasks. 2=Patient will verbalize/demonstrate understanding of assistive devices/modifications for ADL. 3=Patient will improve strength/tolerance for activity to enable patient to perform ADL's. OT Education/Plan Problem List/Assessment Assessment: Decreased Activ Tolerance, Decreased UE Strength, Impaired Funct Balance Discharge Recommendations Plan/Recommendations: Continue POC Treatment Plan/Plan of Care Patient would benefit from OT for education, treatment and training to promote independence in ADL's, mobility, safety and/or upper extremity function for ADL's. Plan of Care: ADL Retraining, Functional Mobility, Group Exercise/Act as Ind, UE Funct Exercise/Act, UE Neuromus Re-Ed/Coord, Visual/Perceptual Retrain, W/C Management Training Treatment Duration: Jan 25, 2020 Frequency: At least 5 of 7 days/Wk (IRF) Estimated Hrs Per Day: 1.5 hours per day Agreement: Yes Rehab Potential: Fair Time/GCodes Start Time: 13:00 Stop Time: 13:30 Total Time Billed (hr/min): 30 Billed Treatment Time 1 visit- NM 2 (30 mins) PAMELLA BURNETTE Jan 08, 2020 13:44
--- NOTE | 2020-01-08 14:11 | Physical Therapy Daily Note ---
PT Daily Note-Current Subjective Patient in therapy gym pre tx, agrees to PT, has unrated neck pain. Appearance Patient in bed post tx with nurse call, nurse in room. Mental Status Patient Orientation: Person, Place, Situation Transfers SCALE: Activities may be completed with or without assistive devices. 5-Wtdyrwqtsa-ouwdddv completes the activity by him/herself with no assistance from a helper. 5-Set-up or Clean-up Assistance-helper sets up or cleans up; patient completes activity. [place] assists only prior to or following the activity. 4-Supervision or Touching Assistance-helper provides verbal cues and/or touching/steadying and/or contact guard assistance as patient completes activity. Assistance may be provided throughout the activity or intermittently. 3-Partial/Moderate Assistance-helper does LESS THAN HALF the effort. [place] lifts, holds or supports trunk or limbs, but provides less than half the effort. 2-Substantial/Maximal Assistance-helper does MORE THAN HALF the effort. [place] lifts or holds trunk or limbs and provides more than half the effort. 4-Jqgetwvwj-tglxje does ALL the effort. Patient does none of the effort to complete the activity. Or, the assistance of 2 or more helpers is required for the patient to complete the activity. If activity was not attempted, code reason: 7-Patient Refused. 9-Not Applicable-not attempted and the patient did not perform the activity before the current illness, exacerbation or injury. 10-Not Attempted due to Environmental Limitations-(lack of equipment, weather restraints, etc.). 88-Not Attempted due to Medical Conditions or Safety Concerns. Roll Left & Right (QC): 3 Sit to Lying (QC): 2 Lying to Sitting/Side of Bed(Q: 3 Sit to Stand (QC): 3 Chair/Cmd-ts-Vumrf Xfer(QC): 3 Patient min assist supine to sit on therapy table, mod stand pivot transfer to and taken to parallel bars. Patient ambulated 6' in the parallel bars with mod assist (had more difficulty with balance but still able to take steps with left leg). Patient states she feels like she has to have a BM. Propelled WC back to her room and mod assist stand pivot to bed and max assist for sit to supine. Assist nurse roll to get bedpan under her. Treatments bed mobility and transfers, ambulation, WC mobility Assessment Current Status: Poor Progress worse ambulation, patient fatigued PT Short Term Goals Short Term Goals Time Frame: Jan 08, 2020 Roll Left & Right: 3 Sit to lyin Lying to sitting on side of be: 3 Sit to stand: 3 Chair/vbk-kx-gdarx transfer: 3 PT Commercial Energy Auditor Goals Commercial Energy Auditor Goals PT Senior Care Goals Time Frame: Jan 22, 2020 Roll Left & Right (QC): 3 (Татьяна) Sit to Lying (QC): 3 (Татьяна) Lying-Sitting on Side/Bed(QC): 3 (Татьяна) Sit to Stand (QC): 3 (Татьяна) Chair/Klq-ov-Qatbv Xfer(QC): 3 (Татьяна) Toilet Transfer (QC): 3 (Татьяна) Car Transfer (QC): 3 (Татьяна) Does the Patient Walk: No and Walking Goal IS indicated Walk 10 feet (QC): 3 (Татьяна) Walk 50ft with 2 Turns (QC): 88 Walk 150 ft (QC): 88 Walking 10ft on Uneven Surface: 88 1 Step (curb) (QC): 88 4 Steps (QC): 88 12 Steps (QC): 88 Picking up an Object (QC): 88 Wheel 50 feet with 2 turns (QC: 4 Type: Manual Wheel 150 feet: 4 Type: Manual PT Plan Problem List Problem List: Activity Tolerance, Functional Strength, Safety, Balance, Gait, Transfer, Bed Mobility, ROM Treatment/Plan Treatment Plan: Continue Plan of Care Treatment Plan: Bed Mobility, Education, Functional Activity [place], Functional Strength, Group Therapy, Gait, Safety, Therapeutic Exercise, Transfers Treatment Duration: Jan 21, 2020 Frequency: At least 5 of 7 days/Wk (IRF) Estimated Hrs Per Day: 1.5 hours per day Patient and/or Family Agrees t: Yes Safety Risks/Education Patient Education: Gait Training, Transfer Techniques, Correct Positioning, W/C Management, Safety Issues Teaching Recipient: Patient Teaching Methods: Demonstration, Discussion Response to Teaching: Reinforcement Needed Time/GCodes Time In: 1330 Time Out: 1345 Total Billed Treatment Time: 15 Total Billed Treatment 1 visit FA 15' CHRISTINEKAYDEON PT Jan 08, 2020 14:11
[2020-01-08] MEDS: ENOXAPARIN 40 MG/0.4 ML (LOVENOX) SYR SC SCH (14:14)
--- NOTE | 2020-01-08 14:29 | Progress Note - Cardiology ---
Cardiology SOAP Progress Note Subjective: Lying in bed. No c/o CP, palpitations or dyspnea. Objective: I&O/Vital Signs 01/09/20 06:36 Temp 35.8 Pulse 66 Resp 14 B/P (MAP) 144/64 (90) Pulse Ox 95 O2 Delivery Room Air 01/09/20 00:00 Intake Total 960 ml Balance 960 ml Constitutional: AAO x 3, well-developed, well-nourished Respiratory: No accessory muscle use, No respiratory distress; chest expansion is symmetric, chest is bilaterally symmetric, lungs clear to auscultation Cardiovascular: regular rate-rhythm; No JVD; S1 and S2 Gastrointestional: No tender; soft, round, audible bowel sounds Extremities: no lower extremity edema bilateral Neurologic/Psychiatric: other (left sided weakness with left sided facial droop) Results/Procedures: Labs Microbiology 01/08/20 Genital Culture - Preliminary, Resulted 01/08/20 Wet Prep - Final, Resulted 01/06/20 Urine Culture - Preliminary, Resulted Proteus mirabilis A/P: Assessment: Acute CVA on 12/16/2019, 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 MRI done at [facility] showing right frontal parietal lobe infarct. Reported hx of previous CVA in 2003. PAF - first diagnosed on tele of 01-07-2020 2D Echo done 12/18/2019 demonstrated LVH with normal EF per Dr. Johnson CTA Head and neck unremarkable. Continues to have left sided weakness. HTN HLP - statin UTI - management per medical services Hypothyroidism Ankylosing spondylitis Plan: PAF - first diagnosed on tele of 01-07-2020 Advise stopping Plavix and starting Eliquis 5mg BID Monitor lab Replace electrolytes as indicated Management of stroke per stroke team We have reviewed Dr. Johnson's progress notes RAHEEM MIRANDA Jan 08, 2020 14:29
--- NOTE | 2020-01-08 15:58 | NUR ---
"RD ASSESSMENT PMHx: hypercholesterolemia; HTN; stroke (2003, 12/16/2019) PT INTERACTION: Pt was awake and pleasant during nutrition follow-up. Pt states she has been eating okay since last assessment. Note avg PO intake 48% x4d, per chart review. Pt states some issues with constipation since last assessment. Note last BM was 01/07, and pt currently on bowel regimen of colace BID, senna BID, and miralax qd, per chart review. ABNORMAL NUTRITION-RELATED LAB VALUES LOW: Pro 6.2; HIGH: BUN 20; glu 107; AST 37 Est. kcal needs: 3403-7973 kcal | 20-25 kcal/kg Est. Pro needs: 80-96 g Pro | 1.0-1.2 g Pro/kg PES STATEMENT: Inadequate oral intake (NI-2.1) related to loss of appetite and constipation, as evidenced by pt interview, and avg PO intake 48% x4d. INTERVENTION: Continue with current diet order of DYS2 Mechanically Altered diet. Pt may benefit from nutrition supplementation. Encouraged pt to eat when able. Will continue to follow and reassess as pt needs, intake, and status change. Trina Verde MS RD LD [phone] cell"
--- NOTE | 2020-01-08 16:28 | Progress Note - Cardiology ---
Cardiology SOAP Progress Note Subjective: No cp or palp or syncope or shortness of breath at rest Gen weakness and malaise present Objective: I&O/Vital Signs 01/08/20 01/08/20 01/08/20 01/08/20 06:32 06:37 09:00 09:21 Temp 36.2 Pulse 63 60 76 Resp 14 B/P (MAP) 151/66 (94) 139/65 (89) Pulse Ox 96 98 O2 Delivery Room Air Room Air 01/08/20 12:42 Pulse 67 01/08/20 00:00 Intake Total 2040 ml Balance 2040 ml Constitutional: AAO x 3, well-developed, well-nourished Respiratory: No accessory muscle use, No respiratory distress; chest expansion is symmetric, chest is bilaterally symmetric, lungs clear to auscultation Cardiovascular: regular rate-rhythm; No JVD; S1 and S2 Gastrointestional: No tender; soft, round, audible bowel sounds Extremities: no lower extremity edema bilateral Neurologic/Psychiatric: other (left sided weakness with left sided facial droop) Results/Procedures: Labs Microbiology 01/08/20 Genital Culture, Resulted Pending 01/08/20 Wet Prep - Final, Resulted 01/06/20 Urine Culture - Preliminary, Resulted Proteus mirabilis A/P: Assessment: Acute CVA on 12/16/2019, 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 MRI done at [facility] showing right frontal parietal lobe infarct. Reported hx of previous CVA in 2003. PAF - first diagnosed on tele of 01-07-2020 2D Echo done 12/18/2019 demonstrated LVH with normal EF per Dr. Johnson CTA Head and neck unremarkable. Continues to have left sided weakness. HTN HLP - statin UTI - management per medical services Hypothyroidism Ankylosing spondylitis Plan: PAF - first diagnosed on tele of 01-07-2020 Advise stopping Plavix and starting Eliquis 5mg BID Monitor lab Replace electrolytes as indicated Management of stroke per stroke team We have reviewed Dr. Johnson's progress notes EDUIN LI MD FACP FAC CCDS Jan 08, 2020 16:28
[2020-01-08 18:10] VITALS: BP 142/60
[2020-01-08] MEDS: TAMSULOSIN 0.4 MG (FLOMAX) CAP PO SCH (18:41)
[2020-01-08] MEDS: APIXABAN 5 MG (ELIQUIS) TABLET PO SCH (20:19)
[2020-01-08] MEDS: MELATONIN 3 MG TABLET PO SCH (20:19)
[2020-01-08] MEDS: ACETAMINOPHEN 500 MG TAB (TYLENOL) PO SCH (20:19)
[2020-01-08] MEDS: ALPRAZolam 0.25 MG (XANAX) TAB PO PRN (20:19)
[2020-01-08] MEDS: diphenhydrAMINE 25 MG TAB (BENADRYL) PO SCH (20:20)
--- NOTE | 2020-01-09 05:57 | PM&R Progress Note ---
Subjective HPI/CC On Admission Date Seen by Provider: Jan 09, 2020 Time Seen by Provider: 09:00 Subjective/Events-last exam 01/09/20: Urine issues showing some residual and retention Bowels moved today Vaginal culture is normal anup Cipro for protease Eliquis started for AF Discontinue Lovenox 01/08/20: Bowels moving today Swab of the vagina was done by Dr. Jackson himself Appreciate Dr. Joseph update 01/07/20: Proteus urine culture, Dr. Nesbitt placed her on Cipro CT scan with rectal contrast has been completed, will evaluate for fistula Bowels moved today but she feels like it goes into her vagina 01/06/20: Spoke to Dr Cook after I assessed her symptoms again of the vaginal discharge and we need CT abd pelvis with rectal contrast to see if fistula is an issue Proteus on UC x but UA was normal which may be involved in this fistula issues Left arm is flaccid some movement in left foot Uterine prolapse noted when she was admitted 01/05/20: Brown vaginal discharge noted If continues will obtain TV USG and Protection Analyst consult No pain reported UA repeat normal Incontinence at night 01/04/20: Much improved status Bearden now out and voiding well Not sleeping well so added equivalent of Tylenol PM to night time to see if that helps her since she takes that at home on occasion Advanced diet Repeat UA via in/out cath DC Cleocin 01/03/20: Bearden out and has yet to void Dr Nesbitt and I conferred on the unit Oxycontin increased to 30mg BID she takes it at 0700 and 1330 so instructed pharmacy to put it in for that time slot Swallowing better 12/31/19 BM so laxatives given Pureed diet 01/02/20: Decreasing food intake Chest pain prompting EKG and cardiology evaluation Troponin will be checked Nausea noted Very difficult to manage with such chronic pain Appreciate Dr Nesbitt and Dr Johnson Pt settling in pretty well Having a lot of pain ankylosing spondylitis is very painful for her Will aggressively react bowels Remains with a catheter, I did consult urology Checked meds and labs Conferred with RN Reviewed therapy notes Review of Systems General: Fatigue, Malaise Neurological: Weakness Focused Exam Time of Focused Exam: 11:42 Objective Exam Vital Signs Vital Signs Date Time Temp Pulse Resp B/P (MAP) Pulse Ox O2 Delivery O2 Flow Rate FiO2 01/09/20 17:26 36.3 66 18 144/50 (81) 94 Room Air Capillary Refill : Less Than 3 Seconds General Appearance: No Apparent Distress, WD/WN HEENT: PERRL/EOMI, Normal ENT Inspection Neck: Normal Inspection, Supple Respiratory: Chest Non Tender, Lungs Clear, Normal Breath Sounds, No Accessory Muscle Use, No Respiratory Distress Cardiovascular: Regular Rate, Rhythm, No Edema Gastrointestinal: Normal Bowel Sounds, No Organomegaly, No Pulsatile Mass, Non Tender, Soft Back: Normal Inspection, No CVA Tenderness, No Vertebral Tenderness Extremity: Normal Inspection, No Calf Tenderness, No Pedal Edema Neurologic/Psychiatric: Alert, Oriented x3, Normal Mood/Affect, Motor Weakness (left sided weakness) Skin: Normal Color, Warm/Dry Lymphatic: No Adenopathy Results/Procedures Lab Patient resulted labs reviewed. FIM Transfers Therapy Code Descriptions/Definitions Functional [place] Measure: 0=Not Assessed/NA 4=Minimal Assistance 1=Total Assistance 5=Supervision or Setup 2=Maximal Assistance 6=Modified [place] 3=Moderate Assistance 7=Complete IndependenceSCALE: Activities may be completed with or without assistive devices. 1-Twbjluesrd-bfvwbqx completes the activity by him/herself with no assistance from a helper. 5-Set-up or Clean-up Assistance-helper sets up or cleans up; patient completes activity. [place] assists only prior to or following the activity. 4-Supervision or Touching Assistance-helper provides verbal cues and/or touching/steadying and/or contact guard assistance as patient completes activity. Assistance may be provided throughout the activity or intermittently. 3-Partial/Moderate Assistance-helper does LESS THAN HALF the effort. [place] lifts, holds or supports trunk or limbs, but provides less than half the effort. 2-Substantial/Maximal Assistance-helper does MORE THAN HALF the effort. [place] lifts or holds trunk or limbs and provides more than half the effort. 6-Ccplxgwqj-wcmnmj does ALL the effort. Patient does none of the effort to complete the activity. Or, the assistance of 2 or more helpers is required for the patient to complete the activity. If activity was not attempted, code reason: 7-Patient Refused. 9-Not Applicable-not attempted and the patient did not perform the activity before the current illness, exacerbation or injury. 10-Not Attempted due to Environmental Limitations-(lack of equipment, weather restraints, etc.). 88-Not Attempted due to Medical Conditions or Safety Concerns. Roll Left to Right (QC): 3 Sit to Lying (QC): 2 Sit to Stand (QC): 3 Chair/Rje-dp-Cnahw Xfer(QC): 3 Car Transfer (QC): 1 Gait Training Distance: 3 Walk 10 feet (QC): 88 Walk 50 ft with 2 Turns(QC): 88 Walk 150 ft (QC): 88 Walking 10ft/uneven surface-QC: 88 Gait Persons Needed: 1 Gait Assistive Device: Parallel Bars Wheelchair Training Does the Pt Use a Wheelchair?: Yes Distance: 50'x2 Wheel 50 ft with 2 turns (QC): 3 Wheel 150 ft (QC): 3 Type of Wheelchair: Manual Stair Training 1 Step (curb) (QC): 88 4 Steps (QC): 88 12 Steps (QC): 88 Balance Picking up an Object (QC): 1 ADL-Treatment Eating (QC): 5 (Based on clincial judgement, pt would require set up assistance with feeding) Oral Hygiene (QC): 2 Bathing Location: L Arm, L Upper Leg, R Upper Leg, L Lower Leg (including foot), R Lower Leg (including foot), Chest, Abdomen, Buttocks, Perineal Area Shower/Bathe Self (QC): 3 Upper Body Dressing (QC): 2 Lower Body Dressing (QC): 1 On/Off Footwear (QC): 2 Toileting Hygiene (QC): 1 Toilet Transfer (QC): 1 Assessment/Plan Assessment and Plan Assess & Plan/Chief Complaint Assessment: CVA Left sided weakness AK Hypothyroidism Chronic pain Narcotic dependent Narcotic bowel Osteoporosis Bearden cath in place Urinary retention UTI Plan: Dr Nesbitt IRF protocol Current meds 01/01/20: Pain management Dr Nesbitt consult for urinary retention Monitor for falls BM regimen 01/02/20: Pain management Cardiology and Urology consultation is appreciated 01/03/20: Urology appreciated Pain med increased to her home dose Pureed diet 01/04/20: Advanced diet Repeat UA inout cath Insomnia treatment 01/05/20: Vaginal discharge? May need TV USG and Protection Analyst consult 01/06/20: Fistula between rectum and vagina? CT scan and TV USG tomorrow 01/07/20: CT scan with rectal enema Protection Analyst consult Conferred with Dr Laz Farr for Proteus 01/08/20: Appreciate Dr Jackson Vaginal swab UTI tx 01/09/20: Monitor weakness Pain control UTI tx (1) CVA (cerebral vascular accident) (2) Ankylosing spondylitis (3) Acquired hypothyroidism (4) Chronic pain (5) Narcotic dependence (6) Narcotic bowel syndrome (7) Urinary retention (8) Bearden catheter in place (9) UTI (urinary tract infection) (10) Left-sided weakness (11) Psoriasis (12) Osteoporosis WILEY WRIGHT DO Jan 09, 2020 05:57
[2020-01-09] MEDS: BETHANECHOL 25 MG (URECHOLINE) TAB PO SCH ×4 (06:16→20:38)
[2020-01-09] MEDS: LEVOTHYROXINE 100 MCG (LEVOTHROID) TAB PO SCH (06:16)
[2020-01-09] MEDS: oxyCODONE ER 10 MG (OxyCONTIN CR) TAB PO SCH ×2 (06:17→14:30)
[2020-01-09 06:36] VITALS: BP 144/64
--- NOTE | 2020-01-09 08:54 | History & Physical ---
History and Physical Date Seen by Provider: Jan 08, 2020 Time Seen by Provider: 12:[address] Bentley for vaginal discharge. Patient is in room 231 Pt was admitted inpatient rehab on 12/30 after CVA on 12/15. Patient is under the care of Dr. Bentley as well as Dr. Murillo and Dr. Cook for other issues. I was consult due to persistent discolored vaginal discharge. Apparently there is concern for a possible colovaginal fistula that is being pursued by Drs. Cook and Laz. CT has been ordered and those results are pending at the time of my consultation. This patient reports having a persistent vaginal discharge for several months with some vaginal itching and irritation. She denies vaginal bleeding. She does feel like she has a bladder infection and currently is on antibiotic for a confirmed urinary tract infection with Proteus mirabilis under the care of Dr. Murillo. Patient denies vaginal or pelvic pain. Her history is significant for a hysterectomy in the . This patient has reported feeling that she passes gas through the vagina on a co uple of occasions but that does not happen routinely when she passes gas. There has been concern for passing stool for the vagina. I have discussed with patient need for pelvic exam wet prep and cultures - and she agrees to allow the exam. Allergies and Home Medications Allergies Coded Allergies: green pepper (Verified Allergy, Severe, Anaphylaxis, 12/31/19) Sulfa (Sulfonamide Antibiotics) (Verified Allergy, Unknown, 12/31/19) Home Medications Acetaminophen 325 Mg Capsule, 650 MG PO Q6H PRN for PAIN-MILD (1-4) OR TEMPATURE, (Reported) Aspirin 81 Mg Tablet.dr, 81 MG PO DAILY, (Reported) Atorvastatin Calcium 40 Mg Tablet, 80 MG PO HS, (Reported) TAKES 2 (40MG) TABS Baclofen 10 Mg Tablet, 10 MG PO TID, (Reported) Bisacodyl 5 Mg Tablet.dr, 5 MG PO HS PRN for CONSTIPATION-4TH LINE, (Reported) Bisacodyl 10 Mg Supp.rect, 10 MG RC DAILY PRN for CONSTIPATION-4TH LINE, (Reported) Cholecalciferol (Vitamin D3) 25 Mcg Capsule, 25 MCG PO DAILY, (Reported) Clindamycin HCl 150 Mg Capsule, 300 MG PO BID, (Reported) TAKES 2 (150MG) CAPS NO DURATION LISTED ON DISCHARGE Clopidogrel Bisulfate 75 Mg Tablet, 75 MG PO DAILY, (Reported) Diclofenac Sodium 100 Gm Gel..gram., 2 GM TP TID, (Reported) Docusate Sodium 100 Mg Capsule, 100 MG PO BID PRN for CONSTIPATION-1ST LINE, (Reported) Hydrocodone/Acetaminophen 1 Each Tablet, 1 EACH PO BID, (Reported) Lactulose 10 Gm/15 Ml Solution, 15 ML PO DAILY PRN for CONSTIPATION-3RD LINE, (Reported) Levothyroxine Sodium 100 Mcg Tablet, 100 MCG PO DAILY, (Reported) Losartan Potassium 25 Mg Tablet, 25 MG PO DAILY, (Reported) Mag Hydrox/Al Hydrox/Simeth 30 Ml Oral.susp, 15 ML PO QID PRN for HEARTBURN/INDIGESTION, (Reported) Ondansetron HCl 4 Mg Tablet, 4 MG PO TID PRN for NAUSEA/VOMITING-1ST LINE, (Reported) Oxycodone HCl 10 Mg Tab.er.12h, 20 MG PO Q12H, (Reported) Pantoprazole Sodium 40 Mg Tablet.dr, 40 MG PO DAILY, (Reported) Phenyleph/Mineral Oil/Petrolat 28 Gm Oint.appl, 1 APPLIC RC PRN PRN for HEMMORRHOID DISCOMFORT, (Reported) Polyethylene Glycol 3350 17 Gm Powd.pack, 17 GM PO DAILY, (Reported) Past Sfsttmg-Ckdgeh-Wuqjgf Hx Patient Social History Alcohol Use: Denies Use Recreational Drug Use: No Smoking Status: Never a Smoker Recent Foreign Travel: No Contact w/Someone Who Travel: No Recent Infectious Disease Expo: No Recent Hopitalizations: No Physical Abuse Screen: No Sexual Abuse: No Immunizations Up To Date PED Vaccines UTD: Yes Date of Pneumonia Vaccine: Nov 10, 2019 Date of Influenza Vaccine: Nov 10, 2019 Seasonal Allergies Seasonal Allergies: No Surgeries Surgeries: Appendectomy, Gallbladder, Hysterectomy, Orthopedic Respiratory History of Respiratory Disorde: No Cardiovascular History of Cardiac Disorders: No Cardiac Disorders: High Cholesterol, Hypertension Neurological History of Neurological Disord: Yes Neurological Disorders: Stroke (2003 and 12/16/19) Genitourinary History of Genitourinary Disor: No Gastrointestinal History of Gastrointestinal Di: Yes Gastrointestinal Disorders: Gall Bladder Disease Musculoskeletal History of Musculoskeletal Dis: Yes (BACK SX, HIP SX X2,) Musculoskeletal Disorders: Osteoporosis Endocrine History of Endocrine Disorders: Yes HEENT History of HEENT Disorders: Yes HEENT Disorders: Cataract, Double Vision Loss of Vision: Left Hearing Impairment: Denies Cancer History of Cancer: No Psychosocial History of Psychiatric Problem: No Integumentary History of Skin or Integumenta: Yes Skin/Integumentary Disorders: Psoriasis Blood Transfusions History of Blood Disorders: No Adverse Reaction to a Blood Tr: No Review of Systems-General Constitutional: No chills, No fever EENTM: No blurred vision, No double vision Respiratory: No cough, No short of breath Cardiovascular: No chest pain, No palpitations Gastrointestinal: No abdominal pain; nausea; No vomiting Genitourinary: No dysuria, No hematuria Musculoskeletal: other (left-sided weakness, chronic neck and back pain) Skin: No change in color, No change in hair/nails Psychiatric/Neurological: Denies Headache; Pre-Existing Deficit 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 Physical Exam Vital Signs Vital Signs - First Documented 12/31/19 14:35 Temp 35.8 Pulse 58 Resp 20 B/P (MAP) 178/78 Pulse Ox 94 O2 Delivery Room Air General Appearance: WD/WN, no apparent distress HARP REPAIRER exam is performed Patient's abdomen is soft nontender nondistended. No guarding rebound or rigidity. There are no palpable masses The external genitalia are atrophic in appearance but there are no overt lesions There is diffuse clear to castillo discharge from the vagina - there is no overt odor Is no blood in the vagina or on the labia The vaginal nance are quite atrophic - the vagina appears somewhat stenotic Swab for wet prep as well as aerobic culture possible anaerobic and possible fungal culture is obtained Bimanual exam is deferred Rectovaginal exam is deferred Patient tolerated the HARP REPAIRER exam well Data Review Labs Laboratory Tests 01/06/20 13:00: Urine Color YELLOW, Urine Clarity CLEAR, Urine pH >=9.0, Urine Specific [place] 1.015L, Urine Protein NEGATIVE, Urine Glucose (UA) NEGATIVE, Urine Ketones N EGATIVE, Urine Nitrite POSITIVEH, Urine Bilirubin NEGATIVE, Urine Urobilinogen 0.2, Urine Leukocyte Esterase 2+H, Urine RBC (Auto) NEGATIVE, Urine RBC NONE, Urine WBC 5-10H, Urine Crystals PRESENTH, Urine Triple Phosphate Crystals LARGEH , Urine Amorphous Sediment MOD MARYJANE URATESH, Urine Bacteria LARGEH, Urine Casts NONE, Urine Mucus NEGATIVE, Urine Culture Indicated CULTURE PENDING Microbiology 11/27/20 Urine Culture - Preliminary, Resulted Proteus mirabilis Assessment/Plan Assessment/Plan Assessment/Plan - gynecology Patient has a persistent vaginal discharge. Wet prep and cultures are pending and I will follow up those results. I would be concern for fungal vaginitis but also for possible bacterial infection. Her history and exam are less concerning to me for rectovaginal fistula although that will be ruled out for confirming by other workup. I am available if I can be of further assistance. Thank you for the consultation Reason for consultation vaginal discharge Allergies and Home Medications Allergies Coded Allergies: green pepper (Verified Allergy, Severe, Anaphylaxis, 12/31/19) Sulfa (Sulfonamide Antibiotics) (Verified Allergy, Unknown, 12/31/19) Home Medications Acetaminophen/Diphenhydramine 1 Each Tablet, 1-2 EACH PO HS PRN for SLEEP, (Reported) Adalimumab 40 Mg/0.4 Ml Syringekit, 40 MG SQ EVERY 2 WEEKS, (Reported) Baclofen 10 Mg Tablet, 10 MG PO TID, (Reported) Carvedilol 12.5 Mg Tablet, 18.75 MG PO BID, (Reported) TAKES 1 & (12.5MG) TABS Cholecalciferol (Vitamin D3) 25 Mcg Capsule, 25 MCG PO DAILY, (Reported) Docusate Sodium 100 Mg Capsule, 100 MG PO HS, (Reported) Hydrocodone/Acetaminophen 1 Each Tablet, 1 EA PO Q6H PRN for PAIN-MODERATE (5- 7), (Reported) Levothyroxine Sodium 100 Mcg Tablet, 100 MCG PO DAILY, (Reported) Losartan Potassium 25 Mg Tablet, 25 MG PO DAILY, (Reported) Mag Hydrox/Al Hydrox/Simeth 30 Ml Oral.susp, 15 ML PO QID PRN for HEARTBURN/INDIGESTION, (Reported) Morphine Sulfate 15 Mg Tablet.er, 30 MG PO BID, (Reported) TAKES 2 (15MG) TABS Patient Home Medication List Home Medication List Reviewed: No Clinical Quality Measures DVT/VTE Risk/Contraindication: Risk Factor Score Per Nursin RFS Level Per Nursing on Admit: 4+=Very High LUCA HENDRICKSON MD Jan 09, 2020 08:54
[2020-01-09] MEDS: VITAMIN D3 25 MCG (1,000 UNITS) TABLET PO SCH (08:55)
[2020-01-09] MEDS: APIXABAN 5 MG (ELIQUIS) TABLET PO SCH ×2 (08:55→20:39)
[2020-01-09] MEDS: PANTOPRAZOLE 40 MG (PROTONIX) TAB PO SCH (08:55)
[2020-01-09] MEDS: LOSARTAN 25 MG (COZAAR) TAB PO SCH (08:55)
[2020-01-09] MEDS: CIPROFLOXACIN 500 MG (CIPRO) TABLET PO SCH ×2 (08:55→20:39)
[2020-01-09] MEDS: BACLOFEN 10 MG (LIORESAL) TAB PO SCH ×3 (08:55→20:39)
[2020-01-09] MEDS: DOCUSATE SODIUM 100 MG (COLACE) CAP PO SCH ×2 (08:55→20:39)
[2020-01-09] MEDS: ASPIRIN E.C. 81 MG (ECOTRIN) TAB PO SCH (08:55)
[2020-01-09] MEDS: SENNA W/DOCUSATE (SENOKOT S) TABLET PO SCH ×2 (08:55→20:39)
[2020-01-09] MEDS: TERBINAFINE 1% CREAM 1 OZ (LamISIL) TUBE TP SCH ×2 (08:56→20:40)
[2020-01-09] MEDS: DICLOFENAC 1% GEL 100 GM (VOLTAREN) TUBE TP SCH ×3 (08:56→20:40)
[2020-01-09] MEDS: polyethylene glycoL POWDER 17 GM (MIRALAX) PACK PO SCH (08:57)
--- NOTE | 2020-01-09 08:59 | Progress Note ---
Standard Progress Note Progress Notes/Assess & Plan Date Seen by a Provider: Jan 09, 2020 Time Seen by a Provider: 08:05 Progress/Assessment & Plan Patient remains in room 231 This is follow-up from consultation yesterday Patient reports vaginal itching and irritation and discharge seemed to have improved. She was started on Terazol vaginal cream yesterday on findings of yeast on the wet prep. 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 I am available if I can be of further assistance Final Diagnosis Fungal vaginitis Focused Exam Time of Focused Exam: 11:42 LUCA HENDRICKSON MD Jan 09, 2020 08:59
--- NOTE | 2020-01-09 09:09 | Progress Note - Urology ---
Progress Note-Urology Progress Notes/Assess & Plan Progress/Assessment & Plan STATUS QUO KRISTINE RECIO Final Diagnosis RETENTION JAY NERI MD Jan 09, 2020 09:09
--- NOTE | 2020-01-09 10:38 | Speech Therapy Daily Note ---
Speech Daily Progress Note Subjective Date Seen by Provider: Jan 09, 2020 Time Seen by Provider: 00:30 Patient was resting in her bed, states she is feeling better. Objective Patient completed late breakfast with utilization of safety strategies as trained at 90% with 10% cues. Assessment Assessment Current Status: Good Progress Treatment Plan Continue Plan of Care Speech Short Term Goals Short Term Goals Short Term Goals 1) Patient will tolerate the least restrictive diet level without s/s of aspiration at 90% or greater. 2) Patient will utilize compensatory strategies as trained for safe oral intake at 90% or greater. Speech Nursing Home Goals Nursing Home Goals Patient will maintain adequate nutrition/hydration via safe effective swallow function. Speech-Plan Patient/Family Goals Patient/Family Goals: Patient plans on returning to her home where she lives with her . Treatment Plan Speech Therapy Treatment Plan: Continue Plan of Care Treatment Duration: Jan 11, 2020 Frequency: 4 times per week Estimated Hrs Per Day: .25 hour per day Rehab Potential: Fair Barriers to Learning: None identified Pt/Family Agrees to Plan: Yes Safety Risks/Education Teaching Recipient: Patient Teaching Methods: Demonstration, Discussion Response to Teaching: Verbalize Understanding, Return Demonstration Education Topics Provided: Continued safety of oral intake with compensatory strategies. Time Speech Therapy Time In: 10:00 Speech Therapy Time Out: 10:30 Total Billed Time: 30 Billed Treatment Time [address] Jan 09, 2020 10:38
[2020-01-09] MEDS: HYDROcodone/APAP 5 MG/325 MG (LORTAB) TAB PO PRN ×2 (12:10→20:38)
--- NOTE | 2020-01-09 12:11 | Occupational Ther Daily Note ---
OT Current Status-Daily Note Subjective Pt in bed upon arrival. Pt no c/o pain. Pt agreed to therapy. Mental Status/Objective Patient Orientation: Person, Place, Time, Situation ADL-Treatment Pt sitting in bed to EOB assists x1. Pt transfers from EOB to w/c Max A. Pt propelled self to shower room R arm to push, R foot to guide. Pt used grab bars and DE LA O to stabilize while second person replaced w/c with shower chair. Pt doff upper body clothing with Min A to undress affected R arm. Pt doff lower body clothing using DE LA O and grab bars to stabilize in standing while second person hiked pants/briefs over hips. Pt performed upper body washing Min A required to wash R arm. Pt performed lower body washing using LH sponge to reach lower legs/feet. Co-treatment PT ([id number]) skills of two clincans required for skilled instruction and care due to transfers and safety concerns. PT focused on standing balance, transfers. DE LA O focused ADLs, hand placement. Pt don upper body clothing Min A to thread affected R arm into shirt. Pt don lower body clothing Max A to thread feet into pants/briefs. PT stabilized pt in standing while DE LA O hiked pants/briefs over hips. Pt Max A to thread socks on to feet. Pt transferred into w/c from shower chair Max A. See PT notes for transfers. Therapy Code Descriptions/Definitions Functional [place] Measure: 0=Not Assessed/NA 4=Minimal Assistance 1=Total Assistance 5=Supervision or Setup 2=Maximal Assistance 6=Modified [place] 3=Moderate Assistance 7=Complete IndependenceSCALE: Activities may be completed with or without assistive devices. 3-Ahdwowfvpd-orkkplh completes the activity by him/herself with no assistance from a helper. 5-Set-up or Clean-up Assistance-helper sets up or cleans up; patient completes activity. [place] assists only prior to or following the activity. 4-Supervision or Touching Assistance-helper provides verbal cues and/or touching/steadying and/or contact guard assistance as patient completes ac tivity. Assistance may be provided throughout the activity or intermittently. 3-Partial/Moderate Assistance-helper does LESS THAN HALF the effort. [place] lifts, holds or supports trunk or limbs, but provides less than half the effort. 2-Substantial/Maximal Assistance-helper does MORE THAN HALF the effort. [place] lifts or holds trunk or limbs and provides more than half the effort. 2-Sqlkqgkqn-zpfxim does ALL the effort. Patient does none of the effort to complete the activity. Or, the assistance of 2 or more helpers is required for the patient to complete the activity. If activity was not attempted, code reason: 7-Patient Refused. 9-Not Applicable-not attempted and the patient did not perform the activity before the current illness, exacerbation or injury. 10-Not Attempted due to Environmental Limitations-(lack of equipment, weather restraints, etc.). 88-Not Attempted due to Medical Conditions or Safety Concerns. Bathing Location: L Arm, L Upper Leg, R Upper Leg, L Lower Leg (including foot), R Lower Leg (including foot), Chest, Abdomen, Buttocks, Perineal Area Shower/Bathe Self (QC): 4 Upper Body Dressing (QC): 2 Lower Body Dressing (QC): 1 On/Off Footwear: 2 Toileting Hygiene (QC): 1 Toilet Transfer (QC): 2 Other Treatment Pt propelled self to therapy gym. Pt worked with PT on standing balance in parallel bars. Rest breaks required. Pt worked on sitting balance, visual tracking in w/c for daily functional task. Pt used pipe and test supervisor to gather bags on L side and lean to R side placing bags in bucket. Pt propelled back to room by DE LA O. Pt transferred from w/c to commode Max A. DE LA O stabilized pt in standing while second person cleansed buttocks area. Pt transferred from commode to EOB. EOB to lying supine Max A. Call light/phone in reach. All needs met. OT Short Term Goals Short Term Goals Time Frame: Jan 16, 2020 Eatin Oral hygiene: 5 Upper body dressin Lower body dressin OT Press Officer Goals Senior Living Goals Time Frame: Jan 25, 2020 Eating (QC): 6 Oral Hygiene (QC): 6 Toileting Hygiene (QC): 4 Shower/Bathe Self (QC): 4 Upper Body Dressing (QC): 5 Lower Body Dressing (QC): 4 On/Off Footwear (QC): 3 Additional Goals: 1-Demonstrate ADL Tasks, 2-Verbalize Understanding, 3- ImproveStrength/[place] 1=Demonstrate adherence to instructed precautions during ADL tasks. 2=Patient will verbalize/demonstrate understanding of assistive devices/modifications for ADL. 3=Patient will improve strength/tolerance for activity to enable patient to perform ADL's. OT Education/Plan Problem List/Assessment Assessment: Decreased Activ Tolerance, Decreased UE Strength, Impaired Funct Balance, Impaired Self-Care Skills Discharge Recommendations Plan/Recommendations: Continue POC Treatment Plan/Plan of Care Patient would benefit from OT for education, treatment and training to promote independence in ADL's, mobility, safety and/or upper extremity function for ADL's. Plan of Care: ADL Retraining, Functional Mobility, Group Exercise/Act as Ind, UE Funct Exercise/Act, UE Neuromus Re-Ed/Coord, Visual/Perceptual Retrain, W/C Management Training Treatment Duration: Jan 25, 2020 Frequency: At least 5 of 7 days/Wk (IRF) Estimated Hrs Per Day: 1.5 hours per day Agreement: Yes Rehab Potential: Fair Time/GCodes Start Time: 10:30 Stop Time: 12:00 Total Time Billed (hr/min): 90 Billed Treatment Time 1 visit- ADL 4 (60 mins), FA 2 (30 mins) co-treatment ([id number]) ind- ([id number]) PAMELLA BURNETTE Jan 09, 2020 12:11
--- NOTE | 2020-01-09 12:23 | Progress Note - Cardiology ---
Cardiology SOAP Progress Note Subjective: In bed. C/O VALENTINE. No c/o CP, palpitations, dyspnea. Objective: I&O/Vital Signs 01/10/20 06:58 Temp 36.1 Pulse 59 Resp 14 B/P (MAP) 109/51 (70) Pulse Ox 93 O2 Delivery Room Air 01/10/20 00:00 Intake Total 720 ml Output Total 100 ml Balance 620 ml Constitutional: AAO x 3, well-developed, well-nourished Respiratory: No accessory muscle use, No respiratory distress; chest expansion is symmetric, chest is bilaterally symmetric, lungs clear to auscultation Cardiovascular: regular rate-rhythm; No JVD; S1 and S2 Gastrointestional: No tender; soft, round, audible bowel sounds Extremities: no lower extremity edema bilateral Neurologic/Psychiatric: other (left sided weakness with left sided facial droop) Results/Procedures: Labs Microbiology 01/08/20 Genital Culture - Preliminary, Resulted Usual Vaginal Marilin 01/08/20 Wet Prep - Final, Resulted 01/06/20 Urine Culture - Preliminary, Resulted Proteus mirabilis A/P: Assessment: Acute CVA on 12/16/2019, 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 MRI done at [facility] showing right frontal parietal lobe infarct. Reported hx of previous CVA in 2004. PAF - first diagnosed on tele of 01-07-2020 2D Echo done 12/18/2019 demonstrated LVH with normal EF per Dr. Johnson CTA Head and neck unremarkable. Continues to have left sided weakness. HTN HLP - statin UTI - management per medical services Hypothyroidism Ankylosing spondylitis Plan: PAF - first diagnosed on tele of 01-07-2020 Continue OAC with Eliquis Monitor lab Replace electrolytes as indicated Management of stroke per stroke team RAHEEM MIRANDA Jan 09, 2020 12:23
--- NOTE | 2020-01-09 12:30 | Physical Therapy Daily Note ---
PT Daily Note-Current Subjective Pt working with OT on shower upon arrival. Pt agrees to PT/OT co-treat. Pain Location Body Site: Head Pain Description: Ache Comment: Pt reports headache on & off during tx. Mental Status Patient Orientation: Person, Place, Situation Transfers SCALE: Activities may be completed with or without assistive devices. 8-Yqfcbjijtk-preswbi completes the activity by him/herself with no assistance from a helper. 5-Set-up or Clean-up Assistance-helper sets up or cleans up; patient completes activity. [place] assists only prior to or following the activity. 4-Supervision or Touching Assistance-helper provides verbal cues and/or touching/steadying and/or contact guard assistance as patient completes activity. Assistance may be provided throughout the activity or intermittently. 3-Partial/Moderate Assistance-helper does LESS THAN HALF the effort. [place] lifts, holds or supports trunk or limbs, but provides less than half the effort. 2-Substantial/Maximal Assistance-helper does MORE THAN HALF the effort. [place] lifts or holds trunk or limbs and provides more than half the effort. 8-Hcjdzchhi-qbanig does ALL the effort. Patient does none of the effort to compl ete the activity. Or, the assistance of 2 or more helpers is required for the patient to complete the activity. If activity was not attempted, code reason: 7-Patient Refused. 9-Not Applicable-not attempted and the patient did not perform the activity before the current illness, exacerbation or injury. 10-Not Attempted due to Environmental Limitations-(lack of equipment, weather restraints, etc.). 88-Not Attempted due to Medical Conditions or Safety Concerns. Roll Left & Right (QC): 2 Sit to Lying (QC): 2 Lying to Sitting/Side of Bed(Q: 2 Sit to Stand (QC): 2 Chair/Fka-jy-Wvzgg Xfer(QC): 2 Toilet Transfer (QC): 2 Weight Bearing Full Weight Bearing Full Weight Bearing Wheelchair Training Does the Pt Use a Wheelchair?: Yes Wheel 50 ft with 2 turns (QC): 4 Wheel 150 ft (QC): 4 Type of Wheelchair: Manual Exercises Seated Therapy Exercises: Sit to stand Treatments Co-treatment PT ([id number]) skills of two clinicians required for skilled instruction and care due to transfers and safety concerns. PT focused on standing balance, transfers. [place] focused ADLs, hand placement. Pt don upper body clothing Min A to thread affected R arm into shirt. Pt don lower body clothing Max A to thread feet into pants/briefs. Pt Max A to thread socks on to feet. Pt used PT to stabilize while DE [place] O hiked pants/briefs over hips. Pt transferred into w/c from shower chair Max A. Pt propels [facility] in hallway and to Therapy Gym. Pt performs 3 sit to stands for approx. 30" each before having to rest. Pt also works with kindergarten instructional assistant to practice dynamic sitting balance as well as prevention of neglect for L side. Pt returns to [facility] and returns to room to rest at end of tx. All needs met, call light in hand. Assessment Current Status: Good Progress PT Short Term Goals Short Term Goals Time Frame: Jan 08, 2020 Roll Left & Right: 3 Sit to lyin Lying to sitting on side of be: 3 Sit to stand: 3 Chair/nfe-gh-krces transfer: 3 PT Retirement Goals Retirement Goals PT X Ray Technician Goals Time Frame: Jan 22, 2020 Roll Left & Right (QC): 3 (Татьяна) Sit to Lying (QC): 3 (Татьяан) Lying-Sitting on Side/Bed(QC): 3 (Татьяна) Sit to Stand (QC): 3 (Татьяна) Chair/Fml-zl-Wkwrs Xfer(QC): 3 (Татьяна) Toilet Transfer (QC): 3 (Татьяна) Car Transfer (QC): 3 (Татьяна) Does the Patient Walk: No and Walking Goal IS indicated Walk 10 feet (QC): 3 (Татьяна) Walk 50ft with 2 Turns (QC): 88 Walk 150 ft (QC): 88 Walking 10ft on Uneven Surface: 88 1 Step (curb) (QC): 88 4 Steps (QC): 88 12 Steps (QC): 88 Picking up an Object (QC): 88 Wheel 50 feet with 2 turns (QC: 4 Type: Manual Wheel 150 feet: 4 Type: Manual PT Plan Problem List Problem List: Activity Tolerance, Functional Strength, Safety, Balance, Transfer Treatment/Plan Treatment Plan: Continue Plan of Care Treatment Plan: Bed Mobility, Education, Functional Activity Benson, Functional Strength, Group Therapy, Gait, Safety, Therapeutic Exercise, Transfers Treatment Duration: Jan 21, 2020 Frequency: At least 5 of 7 days/Wk (IRF) Estimated Hrs Per Day: 1.5 hours per day Patient and/or Family Agrees t: Yes Safety Risks/Education Patient Education: Transfer Techniques, Correct Positioning, Safety Issues Teaching Recipient: Patient Teaching Methods: Discussion Response to Teaching: Verbalize Understanding Time/GCodes Time In: 1100 Time Out: 1200 Total Billed Treatment Time: 60 Total Billed Treatment 1, FA x2 (30m), [facility] (15m) & EX (15m) JAVON OJEDA PTA Jan 09, 2020 12:30
--- NOTE | 2020-01-09 15:15 | Progress Note - Cardiology ---
Cardiology SOAP Progress Note Subjective: No cp or palp or syncope No shortness of breath at rest Gen malaise No n/v/d Objective: I&O/Vital Signs 01/09/20 06:36 Temp 35.8 Pulse 66 Resp 14 B/P (MAP) 144/64 (90) Pulse Ox 95 O2 Delivery Room Air 01/09/20 00:00 Intake Total 960 ml Balance 960 ml Constitutional: AAO x 3, well-developed, well-nourished Respiratory: No accessory muscle use, No respiratory distress; chest expansion is symmetric, chest is bilaterally symmetric, lungs clear to auscultation Cardiovascular: regular rate-rhythm; No JVD; S1 and S2 Gastrointestional: No tender; soft, round, audible bowel sounds Extremities: no lower extremity edema bilateral Neurologic/Psychiatric: other (left sided weakness with left sided facial droop) Results/Procedures: Labs Microbiology 01/08/20 Genital Culture - Preliminary, Resulted 01/08/20 Wet Prep - Final, Resulted 01/06/20 Urine Culture - Preliminary, Resulted Proteus mirabilis A/P: Assessment: Acute CVA on 12/16/2019, 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 MRI done at [facility] showing right frontal parietal lobe infarct. Reported hx of previous CVA in 2004. PAF - first diagnosed on tele of 01-07-2020 2D Echo done 12/18/2019 demonstrated LVH with normal EF per Dr. Johnson CTA Head and neck unremarkable. Continues to have left sided weakness. HTN HLP - statin UTI - management per medical services Hypothyroidism Ankylosing spondylitis Plan: Continue OAC with Eliquis Monitor lab Replace electrolytes as indicated Management of stroke per stroke team EDUIN LI MD FACP FAC CCDS Jan 09, 2020 15:15
[2020-01-09 17:26] VITALS: BP 144/50
[2020-01-09] MEDS: TAMSULOSIN 0.4 MG (FLOMAX) CAP PO SCH (19:32)
[2020-01-09] MEDS: ALPRAZolam 0.25 MG (XANAX) TAB PO PRN (20:38)
[2020-01-09] MEDS: MELATONIN 3 MG TABLET PO SCH (20:38)
[2020-01-09] MEDS: diphenhydrAMINE 25 MG TAB (BENADRYL) PO SCH (20:39)
[2020-01-09] MEDS: ACETAMINOPHEN 500 MG TAB (TYLENOL) PO SCH (20:39)
[2020-01-10] MEDS: BETHANECHOL 25 MG (URECHOLINE) TAB PO SCH ×4 (06:53→20:00)
[2020-01-10] MEDS: LEVOTHYROXINE 100 MCG (LEVOTHROID) TAB PO SCH (06:53)
[2020-01-10] MEDS: oxyCODONE ER 10 MG (OxyCONTIN CR) TAB PO SCH ×2 (06:53→13:31)
[2020-01-10 06:58] VITALS: BP 109/51
[2020-01-10] MEDS: APIXABAN 5 MG (ELIQUIS) TABLET PO SCH ×2 (07:36→20:00)
[2020-01-10] MEDS: SENNA W/DOCUSATE (SENOKOT S) TABLET PO SCH ×2 (07:36→20:06)
[2020-01-10] MEDS: ASPIRIN E.C. 81 MG (ECOTRIN) TAB PO SCH (07:36)
[2020-01-10] MEDS: CIPROFLOXACIN 500 MG (CIPRO) TABLET PO SCH ×2 (07:36→20:00)
[2020-01-10] MEDS: BACLOFEN 10 MG (LIORESAL) TAB PO SCH ×3 (07:36→20:00)
[2020-01-10] MEDS: PANTOPRAZOLE 40 MG (PROTONIX) TAB PO SCH (07:37)
[2020-01-10] MEDS: HYDROcodone/APAP 5 MG/325 MG (LORTAB) TAB PO PRN ×2 (07:37→13:30)
[2020-01-10] MEDS: DOCUSATE SODIUM 100 MG (COLACE) CAP PO SCH ×2 (07:37→20:06)
[2020-01-10] MEDS: VITAMIN D3 25 MCG (1,000 UNITS) TABLET PO SCH (07:37)
[2020-01-10] MEDS: LOSARTAN 25 MG (COZAAR) TAB PO SCH (07:37)
[2020-01-10] MEDS: polyethylene glycoL POWDER 17 GM (MIRALAX) PACK PO SCH (07:38)
[2020-01-10] MEDS: TERBINAFINE 1% CREAM 1 OZ (LamISIL) TUBE TP SCH (07:38)
[2020-01-10] MEDS: DICLOFENAC 1% GEL 100 GM (VOLTAREN) TUBE TP SCH ×3 (07:38→20:03)
--- NOTE | 2020-01-10 10:07 | Progress Note - Urology ---
Progress Note-Urology Progress Notes/Assess & Plan Progress/Assessment & Plan NO STRAIGHT CATH NEEDED Final Diagnosis RETENTION JAY NERI MD Jan 10, 2020 10:07
--- NOTE | 2020-01-10 11:38 | Progress Note - Cardiology ---
Cardiology SOAP Progress Note Subjective: Up with PT No c/o CP, palpitations or SOB Objective: I&O/Vital Signs 01/11/20 01/11/20 06:33 07:15 Temp 36.0 Pulse 59 72 Resp 20 B/P (MAP) 124/56 (78) 137/82 (100) Pulse Ox 93 O2 Delivery Room Air 01/11/20 00:00 Intake Total 750 ml Balance 750 ml Constitutional: AAO x 3, well-developed, well-nourished Respiratory: No accessory muscle use, No respiratory distress; chest expansion is symmetric, chest is bilaterally symmetric, lungs clear to auscultation Cardiovascular: regular rate-rhythm; No JVD; S1 and S2 Gastrointestional: No tender; soft, round, audible bowel sounds Extremities: no lower extremity edema bilateral Neurologic/Psychiatric: other (left sided weakness with left sided facial droop) Results/Procedures: Labs Microbiology 01/08/20 Genital Culture - Preliminary, Resulted YEAST Usual Vaginal Marilin 01/08/20 Wet Prep - Final, Resulted 01/06/20 Urine Culture - Preliminary, Resulted Proteus mirabilis A/P: Assessment: Acute CVA on 12/16/2019, 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 MRI done at [facility] showing right frontal parietal lobe infarct. Reported hx of previous CVA in 2003. PAF - first diagnosed on tele of 01-07-2020 2D Echo done 12/18/2019 demonstrated LVH with normal EF per Dr. Johnson CTA Head and neck unremarkable. Continues to have left sided weakness. HTN HLP - statin UTI - management per medical services Hypothyroidism Ankylosing spondylitis Plan: Continue OAC with Eliquis Monitor lab Replace electrolytes as indicated Management of stroke per stroke team RAHEEM MIRANDA Jan 10, 2020 11:38
--- NOTE | 2020-01-10 11:53 | Occupational Ther Daily Note ---
OT Current Status-Daily Note Subjective Pt sitting on EOB. Pt no c/o pain. Pt agreed to therapy. Mental Status/Objective Patient Orientation: Person, Place, Time, Situation ADL-Treatment Nursing in the room. Pt transferred from EOB to commode x2 assists. Pt used DE LA O to stabilize while second person cleansed buttocks area and hiked pants over hips. Pt transferred from commode to w/c Max A. Therapy Code Descriptions/Definitions Functional [place] Measure: 0=Not Assessed/NA 4=Minimal Assistance 1=Total Assistance 5=Supervision or Setup 2=Maximal Assistance 6=Modified [place] 3=Moderate Assistance 7=Complete IndependenceSCALE: Activities may be completed with or without assistive devices. 7-Qgegdiwgtr-uttyypn completes the activity by him/herself with no assistance from a helper. 5-Set-up or Clean-up Assistance-helper sets up or cleans up; patient completes activity. [place] assists only prior to or following the activity. 4-Supervision or Touching Assistance-helper provides verbal cues and/or touching/steadying and/or contact guard assistance as patient completes activity. Assistance may be provided throughout the activity or intermittently. 3-Partial/Moderate Assistance-helper does LESS THAN HALF the effort. [place] lifts, holds or supports trunk or limbs, but provides less than half the effort. 2-Substantial/Maximal Assistance-helper does MORE THAN HALF the effort. [place] lifts or holds trunk or limbs and provides more than half the effort. 5-Rgqmlaqxk-zupgeu does ALL the effort. Patient does none of the effort to complete the activity. Or, the assistance of 2 or more helpers is required for the patient to complete the activity. If activity was not attempted, code reason: 7-Patient Refused. 9-Not Applicable-not attempted and the patient did not perform the activity before the current illness, exacerbation or injury. 10-Not Attempted due to Environmental Limitations-(lack of equipment, weather restraints, etc.). 88-Not Attempted due to Medical Conditions or Safety Concerns. Toileting Hygiene (QC): 1 Toilet Transfer (QC): 1 Other Treatment Co-treatment PT ([id number]) skills of two clinicians required for skilled in struction and care due to transfers and safety concern. PT focused on transfers, standing balance, LE exercises. DE [place] focused on ADLs, hand placement, UE exercises. Pt propelled self to therapy gym. Pt worked with PT on standing balance in parallel bars. Rest breaks required. Pt demonstrated ability to initiate L arm horizontal shoulder abduction to place on bar. Pt performed B UE exercise working on AROM shld abduction/adduction, PROM shld flexion, PROM shld horizontal adduction, and PROM shld extension for daily functional task. Pt demonstrated ability to stabilize L arm with R hand completing 4 exercises 2 sets of 15 reps. PT worked with pt on seated LE exercises. Pt propelled self back to room. Pt transferred from w/c to bed Max A. Pt EOB to supine in bed Max A x2 assists. PT guided feet, [place] guided head. Pt call light/phone in reach. All needs met. OT Short Term Goals Short Term Goals Time Frame: Jan 16, 2020 Eatin Oral hygiene: 5 Upper body dressin Lower body dressin OT Ui Application Developer Goals Ui Application Developer Goals Time Frame: Jan 25, 2020 Eating (QC): 6 Oral Hygiene (QC): 6 Toileting Hygiene (QC): 4 Shower/Bathe Self (QC): 4 Upper Body Dressing (QC): 5 Lower Body Dressing (QC): 4 On/Off Footwear (QC): 3 Additional Goals: 1-Demonstrate ADL Tasks, 2-Verbalize Understanding, 3-ImproveStrength/Benson 1=Demonstrate adherence to instructed precautions during ADL tasks. 2=Patient will verbalize/demonstrate understanding of assistive devices/modifications for ADL. 3=Patient will improve strength/tolerance for activity to enable patient to per form ADL's. OT Education/Plan Problem List/Assessment Assessment: Decreased Activ Tolerance, Decreased UE Strength, Impaired Funct Balance, Impaired Self-Care Skills Discharge Recommendations Plan/Recommendations: Continue POC Treatment Plan/Plan of Care Patient would benefit from OT for education, treatment and training to promote independence in ADL's, mobility, safety and/or upper extremity function for ADL's. Plan of Care: ADL Retraining, Functional Mobility, Group Exercise/Act as Ind, UE Funct Exercise/Act, UE Neuromus Re-Ed/Coord, Visual/Perceptual Retrain, W/C Management Training Treatment Duration: Jan 25, 2020 Frequency: At least 5 of 7 days/Wk (IRF) Estimated Hrs Per Day: 1.5 hours per day Agreement: Yes Rehab Potential: Fair Time/GCodes Start Time: 10:30 Stop Time: 11:45 Total Time Billed (hr/min): 75 Billed Treatment Time 1 visit- ADL (15mins), EX 2 (30 mins), FA 2 (30 mins) Co-treatment ([id number]) Ind- ([id number]) PAMELLA BURNETTE Jan 10, 2020 11:53
--- NOTE | 2020-01-10 12:19 | Physical Therapy Daily Note ---
PT Daily Note-Current Subjective Pt sitting in [facility] with OT as POULTRY PROCESSOR arrives. Pt agrees to PT/OT co-treat. Pain Location: Right Location Body Site: Arm Pain Description: Ache Comment: Pt reports pain in L UE but does not rate. Mental Status Patient Orientation: Person, Place Transfers SCALE: Activities may be completed with or without assistive devices. 1-Eqfazadfcy-ifcvwlk completes the activity by him/herself with no assistance from a helper. 5-Set-up or Clean-up Assistance-helper sets up or cleans up; patient completes activity. [place] assists only prior to or following the activity. 4-Supervision or Touching Assistance-helper provides verbal cues and/or to uching/steadying and/or contact guard assistance as patient completes activity. Assistance may be provided throughout the activity or intermittently. 3-Partial/Moderate Assistance-helper does LESS THAN HALF the effort. [place] lifts, holds or supports trunk or limbs, but provides less than half the effort. 2-Substantial/Maximal Assistance-helper does MORE THAN HALF the effort. [place] lifts or holds trunk or limbs and provides more than half the effort. 8-Ulbfqvsll-bmohkk does ALL the effort. Patient does none of the effort to complete the activity. Or, the assistance of 2 or more helpers is required for the patient to complete the activity. If activity was not attempted, code reason: 7-Patient Refused. 9-Not Applicable-not attempted and the patient did not perform the activity before the current illness, exacerbation or injury. 10-Not Attempted due to Environmental Limitations-(lack of equipment, weather restraints, etc.). 88-Not Attempted due to Medical Conditions or Safety Concerns. Sit to Lying (QC): 2 Lying to Sitting/Side of Bed(Q: 2 Sit to Stand (QC): 2 Weight Bearing Full Weight Bearing Full Weight Bearing Wheelchair Training Does the Pt Use a Wheelchair?: Yes Wheel 50 ft with 2 turns (QC): 4 Wheel 150 ft (QC): 4 Type of Wheelchair: Manual POULTRY PROCESSOR guides [facility] as pt propels due to pt's difficulty with weakness in L side. Exercises Seated Therapy Exercises: Ankle pumps, Long arc quads, Hip flexion, Kicking activity Seated Reps: 15 Treatments Co-treatment PT ([id number]) skills of two clinicians required for skilled instruction and care due to transfers and safety concern. PT focused on transfers, standing balance, LE exercises. [place] focused on ADLs, hand placement, UE exercises. Pt propelled self to therapy gym. Pt worked with PT on standing balance in parallel bars. Rest breaks required. Pt demonstrated ability to initiate L arm horizontal shoulder abduction to place on bar. Pt performed B UE exercise working on AROM shld abduction/adduction, PROM shld flexion, PROM shld horizontal adduction, and PROM shld extension for daily functional task. Pt demonstrated ability to stabilize L arm with R hand completing 4 exercises 2 sets of 15 reps. PT worked with pt on seated LE exercises. Pt propelled self back to room. Pt transferred from w/c to bed Max A. Pt EOB to supine in bed Max A x2 assists. PT guideded feet, [place] guided head. Pt call light/phone in reach. All needs met. Assessment Current Status: Fair Progress Pt's L knee dayana as well as L UE weakness while standing. PT Short Term Goals Short Term Goals Time Frame: Jan 08, 2020 Roll Left & Right: 3 Sit to lyin Lying to sitting on side of be: 3 Sit to stand: 3 Chair/ejk-nz-epqxs transfer: 3 PT Custodial Goals Custodial Goals PT Custodial Goals Time Frame: Jan 22, 2020 Roll Left & Right (QC): 3 (Татьяна) Sit to Lying (QC): 3 (Татьяна) Lying-Sitting on Side/Bed(QC): 3 (Татьяна) Sit to Stand (QC): 3 (Татьяна) Chair/Amt-rf-Uiaem Xfer(QC): 3 (Татьяна) Toilet Transfer (QC): 3 (Татьяна) Car Transfer (QC): 3 (Татьяна) Does the Patient Walk: No and Walking Goal IS indicated Walk 10 feet (QC): 3 (Татьяна) Walk 50ft with 2 Turns (QC): 88 Walk 150 ft (QC): 88 Walking 10ft on Uneven Surface: 88 1 Step (curb) (QC): 88 4 Steps (QC): 88 12 Steps (QC): 88 Picking up an Object (QC): 88 Wheel 50 feet with 2 turns (QC: 4 Type: Manual Wheel 150 feet: 4 Type: Manual PT Plan Problem List Problem List: Activity Tolerance, Functional Strength, Safety, Balance, Transfer Treatment/Plan Treatment Plan: Continue Plan of Care Treatment Plan: Bed Mobility, Education, Functional Activity Benson, Functional Strength, Group Therapy, Gait, Safety, Therapeutic Exercise, Transfers Treatment Duration: Jan 21, 2020 Frequency: At least 5 of 7 days/Wk (IRF) Estimated Hrs Per Day: 1.5 hours per day Patient and/or Family Agrees t: Yes Safety Risks/Education Patient Education: Transfer Techniques, Correct Positioning, Safety Issues Teaching Recipient: Patient Teaching Methods: Discussion Response to Teaching: Verbalize Understanding Time/GCodes Time In: 1045 Time Out: 1145 Total Billed Treatment Time: 60 Total Billed Treatment 1, [facility] x2 (25m) & EX x2 (35m) JAVON OJEDA PTA Jan 10, 2020 12:19
--- NOTE | 2020-01-10 12:51 | PM&R Progress Note ---
Subjective HPI/CC On Admission Date Seen by Provider: Jan 10, 2020 Time Seen by Provider: 05:10 Subjective/Events-last exam 01/10/20: Tolerating antibiotic Bowels are moving pretty well Vaginal discharge is about the same Mysterious situation with the vaginal discharge Appreciate gynecology and urology 01/09/20: Urine issues showing some residual and retention Bowels moved today Vaginal culture is normal anup Cipro for protease Eliquis started for AF Discontinue Lovenox 01/08/20: Bowels moving today Swab of the vagina was done by Dr. Jackson himself Appreciate Dr. Joseph update 01/07/20: Proteus urine culture, Dr. Nesbitt placed her on Cipro CT scan with rectal contrast has been completed, will evaluate for fistula Bowels moved today but she feels like it goes into her vagina 01/06/20: Spoke to Dr Cook after I assessed her symptoms again of the vaginal discharge and we need CT abd pelvis with rectal contrast to see if fistula is an issue Proteus on UC x but UA was normal which may be involved in this fistula issues Left arm is flaccid some movement in left foot Uterine prolapse noted when she was admitted 01/05/20: Brown vaginal discharge noted If continues will obtain TV USG and Application Support Administrator consult No pain reported UA repeat normal Incontinence at night 01/04/20: Much improved status Bearden now out and voiding well Not sleeping well so added equivalent of Tylenol PM to night time to see if that helps her since she takes that at home on occasion Advanced diet Repeat UA via in/out cath DC Cleocin 01/03/20: Bearden out and has yet to void Dr Nesbitt and I conferred on the unit Oxycontin increased to 30mg BID she takes it at 0700 and 1330 so instructed pharmacy to put it in for that time slot Swallowing better 12/31/19 BM so laxatives given Pureed diet 01/02/20: Decreasing food intake Chest pain prompting EKG and cardiology evaluation Troponin will be checked Nausea noted Very difficult to manage with such chronic pain Appreciate Dr Nesbitt and Dr Johnson Pt settling in pretty well Having a lot of pain ankylosing spondylitis is very painful for her Will aggressively react bowels Remains with a catheter, I did consult urology Checked meds and labs Conferred with RN Reviewed therapy notes Review of Systems Neurological: Weakness, Incoordination Focused Exam Time of Focused Exam: 11:42 Objective Exam Vital Signs Vital Signs Date Time Temp Pulse Resp B/P (MAP) Pulse Ox O2 Delivery O2 Flow Rate FiO2 01/10/20 17:13 36.4 53 16 137/60 (85) 95 Room Air Capillary Refill : Less Than 3 Seconds General Appearance: No Apparent Distress, WD/WN HEENT: PERRL/EOMI, Normal ENT Inspection Neck: Normal Inspection, Supple Respiratory: Chest Non Tender, Lungs Clear, Normal Breath Sounds, No Accessory Muscle Use, No Respiratory Distress Cardiovascular: Regular Rate, Rhythm, No Edema Gastrointestinal: Normal Bowel Sounds, No Organomegaly, No Pulsatile Mass, Non Tender, Soft Back: Normal Inspection, No CVA Tenderness, No Vertebral Tenderness Extremity: Normal Inspection, No Calf Tenderness, No Pedal Edema Neurologic/Psychiatric: Alert, Oriented x3, Normal Mood/Affect, Motor Weakness (left sided weakness) Skin: Normal Color, Warm/Dry Lymphatic: No Adenopathy Results/Procedures Lab Patient resulted labs reviewed. FIM Transfers Therapy Code Descriptions/Definitions Functional [place] Measure: 0=Not Assessed/NA 4=Minimal Assistance 1=Total Assistance 5=Supervision or Setup 2=Maximal Assistance 6=Modified [place] 3=Moderate Assistance 7=Complete IndependenceSCALE: Activities may be completed with or without assistive devices. 9-Zcbnbibzvn-gwhcfts completes the activity by him/herself with no assistance from a helper. 5-Set-up or Clean-up Assistance-helper sets up or cleans up; patient completes activity. [place] assists only prior to or following the activity. 4-Supervision or Touching Assistance-helper provides verbal cues and/or touching/steadying and/or contact guard assistance as patient completes acti vity. Assistance may be provided throughout the activity or intermittently. 3-Partial/Moderate Assistance-helper does LESS THAN HALF the effort. [place] lifts, holds or supports trunk or limbs, but provides less than half the effort. 2-Substantial/Maximal Assistance-helper does MORE THAN HALF the effort. [place] lifts or holds trunk or limbs and provides more than half the effort. 0-Enbyqnuny-qwtudc does ALL the effort. Patient does none of the effort to complete the activity. Or, the assistance of 2 or more helpers is required for the patient to complete the activity. If activity was not attempted, code reason: 7-Patient Refused. 9-Not Applicable-not attempted and the patient did not perform the activity before the current illness, exacerbation or injury. 10-Not Attempted due to Environmental Limitations-(lack of equipment, weather restraints, etc.). 88-Not Attempted due to Medical Conditions or Safety Concerns. Roll Left to Right (QC): 2 Sit to Lying (QC): 2 Sit to Stand (QC): 2 Chair/Ybt-un-Aifzv Xfer(QC): 2 Car Transfer (QC): 1 Gait Training Distance: 3 Walk 10 feet (QC): 88 Walk 50 ft with 2 Turns(QC): 88 Walk 150 ft (QC): 88 Walking 10ft/uneven surface-QC: 88 Gait Persons Needed: 1 Gait Assistive Device: Parallel Bars Wheelchair Training Does the Pt Use a Wheelchair?: Yes Distance: 50'x2 Wheel 50 ft with 2 turns (QC): 4 Wheel 150 ft (QC): 4 Type of Wheelchair: Manual Stair Training 1 Step (curb) (QC): 88 4 Steps (QC): 88 12 Steps (QC): 88 Balance Picking up an Object (QC): 1 ADL-Treatment Eating (QC): 5 (Based on clincial judgement, pt would require set up assistance with feeding) Oral Hygiene (QC): 2 Bathing Location: L Arm, L Upper Leg, R Upper Leg, L Lower Leg (including foot), R Lower Leg (including foot), Chest, Abdomen, Buttocks, Perineal Area Shower/Bathe Self (QC): 4 Upper Body Dressing (QC): 2 Lower Body Dressing (QC): 1 On/Off Footwear (QC): 2 Toileting Hygiene (QC): 1 Toilet Transfer (QC): 1 Assessment/Plan Assessment and Plan Assess & Plan/Chief Complaint Assessment: CVA Left sided weakness AK Hypothyroidism Chronic pain Narcotic dependent Narcotic bowel Osteoporosis Bearden cath in place Urinary retention UTI Plan: Dr Nesbitt IRF protocol Current meds 01/01/20: Pain management Dr Nesbitt consult for urinary retention Monitor for falls BM regimen 01/02/20: Pain management Cardiology and Urology consultation is appreciated 01/03/20: Urology appreciated Pain med increased to her home dose Pureed diet 01/04/20: Advanced diet Repeat UA inout cath Insomnia treatment 01/05/20: Vaginal discharge? May need TV USG and Application Support Administrator consult 01/06/20: Fistula between rectum and vagina? CT scan and TV USG tomorrow 01/07/20: CT scan with rectal enema Application Support Administrator consult Conferred with Dr Laz Farr for Proteus 01/08/20: Appreciate Dr Jackson Vaginal swab UTI tx 01/09/20: Monitor weakness Pain control UTI tx 01/10/20: Tolerating abx Monitor voiding (1) CVA (cerebral vascular accident) (2) Ankylosing spondylitis (3) Acquired hypothyroidism (4) Chronic pain (5) Narcotic dependence (6) Narcotic bowel syndrome (7) Urinary retention (8) Bearden catheter in place (9) UTI (urinary tract infection) (10) Left-sided weakness (11) Psoriasis (12) Osteoporosis WILEY WRIGHT DO Jan 10, 2020 12:51
--- NOTE | 2020-01-10 13:10 | NUR ---
CM/SS PATIENT CARE CONFERENCE Reviewed Summary with patient and she is in agreement to continued admission and care plan with next team assessment January 15. Patient reports her spouse is discussing building a ramp at home, telegraphic typewriter installer encouraged her to proceed since she has been primarily using wheelchair here for ambulation. She reports she is just starting to take some steps at this time. Patient's goal remains to return home with her spouse. Her son from [place] is coming home January 16 if that needs to be considered for a target family training and/or discharge window. Otherwise, spouse is primary caregiver aside from private pay assistance. Barriers to discharge continue to be insured Medicare only, decline in level of functioning due to stroke and pain, assist of two/max assist, spouse only caregiver in the home. DME: Anticipate wheelchair, Tub Transfer Bench, Hip Kit.
--- NOTE | 2020-01-10 13:41 | Speech Therapy Daily Note ---
Speech Daily Progress Note Subjective Date Seen by Provider: Jan 10, 2020 Time Seen by Provider: 00:30 Patient was resting in her bed following her other therapy. She states she is feeling a little better than yesterday. Objective Patient utilizes compensatory strategies as trained at 85% with 10% verbal cuing for all oral intake. She is progressing well with intake on the Dysphagia II diet. Assessment Assessment Current Status: Good Progress Treatment Plan Continue Plan of Care Speech Short Term Goals Short Term Goals Short Term Goals 1) Patient will tolerate the least restrictive diet level without s/s of aspiration at 90% or greater. 2) Patient will utilize compensatory strategies as trained for safe oral intake at 90% or greater. Speech Longterm Goals Supply Chain Director Goals Patient will maintain adequate nutrition/hydration via safe effective swallow function. Speech-Plan Patient/Family Goals Patient/Family Goals: Patient plans on returning to her home where she lives with her . Treatment Plan Speech Therapy Treatment Plan: Continue Plan of Care Treatment Duration: Jan 18, 2020 Frequency: 4 times per week Estimated Hrs Per Day: .25 hour per day Rehab Potential: Fair Barriers to Learning: Patient's recent CVA, age Pt/Family Agrees to Plan: Yes Safety Risks/Education Teaching Recipient: Patient Teaching Methods: Demonstration, Discussion Response to Teaching: Verbalize Understanding, Return Demonstration Education Topics Provided: Safety of oral intake, utilization of compensatory strategies Time Speech Therapy Time In: 10:00 Speech Therapy Time Out: 10:30 Total Billed Time: 30 Billed Treatment Time 1, SPENCER Lepe Jan 10, 2020 13:41
--- NOTE | 2020-01-10 15:15 | Physical Therapy Daily Note ---
PT Daily Note-Current Subjective Pt L sidelying upon arrival. DOOR REPAIRMAN wakes pt and pt asks to use BSC. Pain Location: No Pain Reported Mental Status Patient Orientation: Person, Place, Situation Transfers SCALE: Activities may be completed with or without assistive devices. 9-Snnstegcro-iqxypmg completes the activity by him/herself with no assistance from a helper. 5-Set-up or Clean-up Assistance-helper sets up or cleans up; patient completes activity. [place] assists only prior to or following the activity. 4-Supervision or Touching Assistance-helper provides verbal cues and/or touching/steadying and/or contact guard assistance as patient completes activity. Assistance may be provided throughout the activity or intermittently. 3-Partial/Moderate Assistance-helper does LESS THAN HALF the effort. [place] lifts, holds or supports trunk or limbs, but provides less than half the effort. 2-Substantial/Maximal Assistance-helper does MORE THAN HALF the effort. [place] lifts or holds trunk or limbs and provides more than half the effort. 8-Tedqmvejx-qjjhkx does ALL the effort. Patient does none of the effort to com plete the activity. Or, the assistance of 2 or more helpers is required for the patient to complete the activity. If activity was not attempted, code reason: 7-Patient Refused. 9-Not Applicable-not attempted and the patient did not perform the activity before the current illness, exacerbation or injury. 10-Not Attempted due to Environmental Limitations-(lack of equipment, weather restraints, etc.). 88-Not Attempted due to Medical Conditions or Safety Concerns. Roll Left & Right (QC): 2 Sit to Lying (QC): 2 Lying to Sitting/Side of Bed(Q: 2 Sit to Stand (QC): 2 Chair/Lyw-iq-Qpwlp Xfer(QC): 2 Toilet Transfer (QC): 2 Weight Bearing Full Weight Bearing Full Weight Bearing Treatments TF from L sidelying to EOB then to standing & SPT to BSC. After finishing, CAMPUS SECURITY OFFICER assists with pericare as DOOR REPAIRMAN stands pt. TF back to bed to L sidelying pos itioned with pillow. All needs met, call light in hand. Assessment Current Status: Fair Progress Weakness limits pt with transfers and mobility. PT Short Term Goals Short Term Goals Time Frame: Jan 08, 2020 Roll Left & Right: 3 Sit to lyin Lying to sitting on side of be: 3 Sit to stand: 3 Chair/gfj-hh-psjpz transfer: 3 PT Half-Way Goals Half-Way Goals PT Storm Sash Maker Goals Time Frame: Jan 22, 2020 Roll Left & Right (QC): 3 (Татьяна) Sit to Lying (QC): 3 (Татьяна) Lying-Sitting on Side/Bed(QC): 3 (Татьяна) Sit to Stand (QC): 3 (Татьяна) Chair/Csz-ia-Itaxp Xfer(QC): 3 (Татьяна) Toilet Transfer (QC): 3 (Татьяна) Car Transfer (QC): 3 (Татьяна) Does the Patient Walk: No and Walking Goal IS indicated Walk 10 feet (QC): 3 (Татьяна) Walk 50ft with 2 Turns (QC): 88 Walk 150 ft (QC): 88 Walking 10ft on Uneven Surface: 88 1 Step (curb) (QC): 88 4 Steps (QC): 88 12 Steps (QC): 88 Picking up an Object (QC): 88 Wheel 50 feet with 2 turns (QC: 4 Type: Manual Wheel 150 feet: 4 Type: Manual PT Plan Problem List Problem List: Activity Tolerance, Functional Strength, Safety, Balance, Transfer Treatment/Plan Treatment Plan: Continue Plan of Care Treatment Plan: Bed Mobility, Education, Functional Activity Benson, Functional Strength, Group Therapy, Gait, Safety, Therapeutic Exercise, Transfers Treatment Duration: Jan 21, 2020 Frequency: At least 5 of 7 days/Wk (IRF) Estimated Hrs Per Day: 1.5 hours per day Patient and/or Family Agrees t: Yes Safety Risks/Education Patient Education: Transfer Techniques, Correct Positioning, Safety Issues Teaching Recipient: Patient Teaching Methods: Discussion Response to Teaching: Reinforcement Needed Time/GCodes Time In: 1400 Time Out: 1430 Total Billed Treatment Time: 30 Total Billed Treatment 1, FA x2 (30m) JAVON OJEDA PTA Jan 10, 2020 15:15
[2020-01-10] MEDS: TAMSULOSIN 0.4 MG (FLOMAX) CAP PO SCH (17:01)
[2020-01-10 17:13] VITALS: BP 137/60
--- NOTE | 2020-01-10 19:36 | Progress Note - Cardiology ---
Cardiology SOAP Progress Note Subjective: Gen malaise and weakness No shortness of breath No cp or palp or syncope No n/v/d Objective: I&O/Vital Signs 01/10/20 01/10/20 09:00 17:13 Temp 36.4 Pulse 53 Resp 16 B/P (MAP) 137/60 (85) Pulse Ox 95 O2 Delivery Room Air Room Air 01/09/20 23:59 Intake Total 720 ml Output Total 100 ml Balance 620 ml Constitutional: AAO x 3, well-developed, well-nourished Respiratory: No accessory muscle use, No respiratory distress; chest expansion is symmetric, chest is bilaterally symmetric, lungs clear to auscultation Cardiovascular: regular rate-rhythm; No JVD; S1 and S2 Gastrointestional: No tender; soft, round, audible bowel sounds Extremities: no lower extremity edema bilateral Neurologic/Psychiatric: other (left sided weakness with left sided facial droop) Results/Procedures: Labs Microbiology 01/08/20 Genital Culture - Preliminary, Resulted YEAST Usual Vaginal Marilin 01/08/20 Wet Prep - Final, Resulted 01/06/20 Urine Culture - Preliminary, Resulted Proteus mirabilis A/P: Assessment: Acute CVA on 12/16/2019, 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 [facility] done [facility] showing right frontal parietal lobe infarct. Reported hx of previous CVA in 2003. PAF - first diagnosed on tele of 01-07-2020 2D Echo done 12/18/2019 demonstrated LVH with normal EF per Dr. Johnson CTA Head and neck unremarkable. Continues to have left sided weakness. HTN HLP - statin UTI - management per medical services Hypothyroidism Ankylosing spondylitis Plan: Continue OAC with Eliquis Monitor lab Replace electrolytes as indicated Management of stroke per stroke team EDUIN LI MD FACP FAC CCDS Jan 10, 2020 19:36
[2020-01-10] MEDS: diphenhydrAMINE 25 MG TAB (BENADRYL) PO SCH (19:59)
[2020-01-10] MEDS: MELATONIN 3 MG TABLET PO SCH (19:59)
[2020-01-10] MEDS: ALPRAZolam 0.25 MG (XANAX) TAB PO PRN (19:59)
[2020-01-10] MEDS: ACETAMINOPHEN 500 MG TAB (TYLENOL) PO SCH (20:00)
[2020-01-11] MEDS: HYDROcodone/APAP 5 MG/325 MG (LORTAB) TAB PO PRN ×2 (04:12→20:15)
[2020-01-11] MEDS: BETHANECHOL 25 MG (URECHOLINE) TAB PO SCH ×4 (06:26→20:59)
[2020-01-11] MEDS: LEVOTHYROXINE 100 MCG (LEVOTHROID) TAB PO SCH (06:26)
[2020-01-11] MEDS: oxyCODONE ER 10 MG (OxyCONTIN CR) TAB PO SCH ×2 (06:26→14:12)
[2020-01-11 06:33] VITALS: BP 124/56
[2020-01-11 07:15] VITALS: BP 137/82
[2020-01-11] MEDS: ALPRAZolam 0.25 MG (XANAX) TAB PO PRN (07:20)
[2020-01-11] MEDS: DOCUSATE SODIUM 100 MG (COLACE) CAP PO SCH ×2 (07:31→21:00)
[2020-01-11] MEDS: polyethylene glycoL POWDER 17 GM (MIRALAX) PACK PO SCH (07:31)
[2020-01-11] MEDS: SENNA W/DOCUSATE (SENOKOT S) TABLET PO SCH ×2 (07:31→21:00)
[2020-01-11] MEDS: ASPIRIN E.C. 81 MG (ECOTRIN) TAB PO SCH (08:14)
[2020-01-11] MEDS: PANTOPRAZOLE 40 MG (PROTONIX) TAB PO SCH (08:15)
[2020-01-11] MEDS: BACLOFEN 10 MG (LIORESAL) TAB PO SCH ×3 (08:15→21:00)
[2020-01-11] MEDS: LOSARTAN 25 MG (COZAAR) TAB PO SCH (08:15)
[2020-01-11] MEDS: APIXABAN 5 MG (ELIQUIS) TABLET PO SCH ×2 (08:15→21:00)
[2020-01-11] MEDS: VITAMIN D3 25 MCG (1,000 UNITS) TABLET PO SCH (08:15)
[2020-01-11] MEDS: CIPROFLOXACIN 500 MG (CIPRO) TABLET PO SCH ×2 (08:15→20:59)
[2020-01-11] MEDS: DICLOFENAC 1% GEL 100 GM (VOLTAREN) TUBE TP SCH ×3 (08:19→21:01)
--- NOTE | 2020-01-11 09:59 | Physical Therapy Daily Note ---
PT Daily Note-Current Subjective Pt. in shower with OT. Pt. agrees to Rx, stating she has pain in her neck which she has had for some time due to ankylosing spondylitis. Mental Status Patient Orientation: Normal For Age Attachments: Other-See Comments (mask while out of room) Transfers SCALE: Activities may be completed with or without assistive devices. 9-Qxvsiasalp-lqdhtrb completes the activity by him/herself with no assistance from a helper. 5-Set-up or Clean-up Assistance-helper sets up or cleans up; patient completes activity. [place] assists only prior to or following the activity. 4-Supervision or Touching Assistance-helper provides verbal cues and/or touching/steadying and/or contact guard assistance as patient completes activity. Assistance may be provided throughout the activity or intermittently. 3-Partial/Moderate Assistance-helper does LESS THAN HALF the effort. [place] lifts, holds or supports trunk or limbs, but provides less than half the effort. 2-Substantial/Maximal Assistance-helper does MORE THAN HALF the effort. [place] lifts or holds trunk or limbs and provides more than half the effort. 0-Hywbnnlws-ytezpk does ALL the effort. Patient does none of the effort to complete the activity. Or, the assistance of 2 or more helpers is required for the patient to complete the activity. If activity was not attempted, code reason: 7-Patient Refused. 9-Not Applicable-not attempted and the patient did not perform the activity before the current illness, exacerbation or injury. 10-Not Attempted due to Environmental Limitations-(lack of equipment, weather restraints, etc.). 88-Not Attempted due to Medical Conditions or Safety Concerns. Roll Left & Right (QC): 3 Sit to Lying (QC): 3 Lying to Sitting/Side of Bed(Q: 3 Sit to Stand (QC): 3 Chair/Sup-zj-Tvahl Xfer(QC): 3 Weight Bearing Full Weight Bearing Full Weight Bearing Wheelchair Training Does the Pt Use a Wheelchair?: Yes Wheel 50 ft with 2 turns (QC): 2 Type of Wheelchair: Manual needs assist to brake, propel and turn Exercises Supine Ex: Bridging, Ankle pumps, Quad Set, Rolling, Glut sets, Heel Slides, Scooting, Straight leg raise, Hip abd/add Supine Reps: 15 (asssited LLE) Treatments PT OT co Rx : OT managing and instructing LUE for TRFs and showering and leslie ssing , PT managing and instructing pt in LE and trunk during TRFs as well as LLE facilitation of Left. These focuses were orchestrated together for Rx. Sitting balance , sit to stands and standing all with mirror feedback and alignment and wt bearing focus Assessment Current Status: Good Progress gives full effort PT Short Term Goals Short Term Goals Time Frame: Jan 08, 2020 Roll Left & Right: 3 Sit to lyin Lying to sitting on side of be: 3 Sit to stand: 3 Chair/olf-jd-wqsub transfer: 3 PT Oracle Adf Developer Goals Chcf Goals PT Chcf Goals Time Frame: Jan 22, 2020 Roll Left & Right (QC): 3 (Татьяна) Sit to Lying (QC): 3 (Татьяна) Lying-Sitting on Side/Bed(QC): 3 (аТтьяна) Sit to Stand (QC): 3 (Татьяна) Chair/Azs-ez-Vffvr Xfer(QC): 3 (Татьяна) Toilet Transfer (QC): 3 (Татьяна) Car Transfer (QC): 3 (Татьяна) Does the Patient Walk: No and Walking Goal IS indicated Walk 10 feet (QC): 3 (Татьяна) Walk 50ft with 2 Turns (QC): 88 Walk 150 ft (QC): 88 Walking 10ft on Uneven Surface: 88 1 Step (curb) (QC): 88 4 Steps (QC): 88 12 Steps (QC): 88 Picking up an Object (QC): 88 Wheel 50 feet with 2 turns (QC: 4 Type: Manual Wheel 150 feet: 4 Type: Manual PT Plan Treatment/Plan Treatment Plan: Continue Plan of Care Treatment Plan: Bed Mobility, Education, Functional Activity Benson, Functional Strength, Group Therapy, Gait, Safety, Therapeutic Exercise, Transfers Treatment Duration: Jan 21, 2020 Frequency: At least 5 of 7 days/Wk (IRF) Estimated Hrs Per Day: 1.5 hours per day Patient and/or Family Agrees t: Yes Safety Risks/Education Patient Education: Transfer Techniques, Correct Positioning, W/C Management, Disease Process, Safety Issues Teaching Recipient: Patient Teaching Methods: Demonstration, Discussion Response to Teaching: Verbalize Understanding, Return Demonstration, Reinforcement Needed Time/GCodes Time In: 900 Time Out: 1000 Total Billed Treatment Time: 60 Total Billed Treatment 1,FA35,WC10m,EX15m RUBEN BARNES MOTOR HOTEL MANAGER Jan 11, 2020 09:59
--- NOTE | 2020-01-11 10:08 | Occupational Ther Daily Note ---
OT Current Status-Daily Note Subjective Pt in bed upon arrival. Pt no c/o pain. Pt agreed to therapy. Mental Status/Objective Patient Orientation: Person, Place, Time, Situation ADL-Treatment Pt placed dentures in mouth, verbal cues required. Pt sitting in bed to EOB Max A. Pt transferred from EOB to w/c Max A. Pt was propelled to shower room by DE LA O. Pt transferred from w/c to shower chair, pt used grab bars to help pull self up, DE LA O helped stabilize pt in standing while second person exchanged w/c for shower chair. Pt doff upper body clothing Mod A to undress affected arm and over head. Pt stabilized by DE LA O in standing while second person hiked pants/briefs over hips. Pt performed upper body washing Min A to cleanse R arm. Pt performed lower body washing using LH sponge to reach lower legs and feet. Pt cleansed perineal, buttocks area by self while sitting on open shower chair. Co- treatment PT ([id number]) skills of two clinicians required for skilled instruction and care due to decreased mobility and safety concern. PT focused on LE exercises, transfers, standing balance. DE LA O focused on UE stretching, hand placement, ADLs. Pt don upper body clothing Max A to thread arm into shirt and hand assembler for puller over head. Pt don lower body clothing Max A to thread feet into pants/briefs. DE LA O stabilized pt in standing while second person hiked pants/briefs over hips. Pt Max A to thread socks on to feet. Therapy Code Descriptions/Definitions Functional [place] Measure: 0=Not Assessed/NA 4=Minimal Assistance 1=Total Assistance 5=Supervision or Setup 2=Maximal Assistance 6=Modified [place] 3=Moderate Assistance 7=Complete IndependenceSCALE: Activities may be completed with or without assistive devices. 2-Btbldtgmor-qwincob completes the activity by him/herself with no assistance from a helper. 5-Set-up or Clean-up Assistance-helper sets up or cleans up; patient completes activity. [place] assists only prior to or following the activity. 4-Supervision or Touching Assistance-helper provides verbal cues and/or touching/steadying and/or contact guard assistance as patient completes activi ty. Assistance may be provided throughout the activity or intermittently. 3-Partial/Moderate Assistance-helper does LESS THAN HALF the effort. [place] lifts, holds or supports trunk or limbs, but provides less than half the effort. 2-Substantial/Maximal Assistance-helper does MORE THAN HALF the effort. [place] lifts or holds trunk or limbs and provides more than half the effort. 8-Mgmawbscd-buwsvp does ALL the effort. Patient does none of the effort to complete the activity. Or, the assistance of 2 or more helpers is required for the patient to complete the activity. If activity was not attempted, code reason: 7-Patient Refused. 9-Not Applicable-not attempted and the patient did not perform the activity before the current illness, exacerbation or injury. 10-Not Attempted due to Environmental Limitations-(lack of equipment, weather restraints, etc.). 88-Not Attempted due to Medical Conditions or Safety Concerns. Bathing Location: L Arm, L Upper Leg, R Upper Leg, L Lower Leg (including foot), R Lower Leg (including foot), Chest, Abdomen, Buttocks, Perineal Area Shower/Bathe Self (QC): 3 Upper Body Dressing (QC): 2 Lower Body Dressing (QC): 1 On/Off Footwear: 2 Other Treatment Pt propelled self to therapy gym. PT transferred pt from w/c to mat. See PT notes for transfers. Pt from EOB to supine on mat, PT guided feet while DE LA O guided head. PT worked on LE exercises. DE LA O worked on L UE stretching, guiding pt arm in horizontal abduction/adduction, Shoulder flexion for daily functional task. Pt showed increase tightness in bicep, shoulder. Pt supine to EOB, PT guided feet while DE LA O guided head. Pt performed standing balance in front of mirror assists x2 to work on alignment when standing for daily functional task. Pt required verbal cues when leaning to L side. Pt required stabilization in L hand placement while weightbearing. Pt transferred to w/c Max A. Pt propelled back to room by PT. Pt transferred from w/c to EOB. Pt EOB to supine DE LA O guided feet, while PT guided head. Call light/phone in reach. All needs met. OT Short Term Goals Short Term Goals Time Frame: Jan 16, 2020 Eatin Oral hygiene: 5 Upper body dressin Lower body dressin OT Business Analytics Faculty Member Goals Business Analytics Faculty Member Goals Time Frame: Jan 25, 2020 Eating (QC): 6 Oral Hygiene (QC): 6 Toileting Hygiene (QC): 4 Shower/Bathe Self (QC): 4 Upper Body Dressing (QC): 5 Lower Body Dressing (QC): 4 On/Off Footwear (QC): 3 Additional Goals: 1-Demonstrate ADL Tasks, 2-Verbalize Understanding, 3- ImproveStrength/Benson 1=Demonstrate adherence to instructed precautions during ADL tasks. 2=Patient will verbalize/demonstrate understanding of assistive devices/modifications for ADL. 3=Patient will improve strength/tolerance for activity to enable patient to perform ADL's. OT Education/Plan Problem List/Assessment Assessment: Decreased Activ Tolerance, Decreased UE Strength, Impaired Funct Balance, Impaired Self-Care Skills Discharge Recommendations Plan/Recommendations: Continue POC Treatment Plan/Plan of Care Patient would benefit from OT for education, treatment and training to promote independence in ADL's, mobility, safety and/or upper extremity function for ADL's. Plan of Care: ADL Retraining, Functional Mobility, Group Exercise/Act as Ind, UE Funct Exercise/Act, UE Neuromus Re-Ed/Coord, Visual/Perceptual Retrain, W/C Management Training Treatment Duration: Jan 25, 2020 Frequency: At least 5 of 7 days/Wk (IRF) Estimated Hrs Per Day: 1.5 hours per day Agreement: Yes Rehab Potential: Fair Time/GCodes Start Time: 08:45 Stop Time: 10:00 Total Time Billed (hr/min): 75 Billed Treatment Time 1 visit- ADL 3 (45 mins), NM 2 (30 mins) Co-treatment PT ([id number]) Ind- ([id number]) PAMELLA BURNETTE Jan 11, 2020 10:08
--- NOTE | 2020-01-11 11:24 | Progress Note - Cardiology ---
Cardiology SOAP Progress Note Subjective: Lying in bed No c/o CP or palpitations or dyspnea C/O "muscle soreness" following PT Objective: I&O/Vital Signs 01/15/20 01/15/20 05:22 09:00 Temp 36.0 Pulse 64 Resp 18 B/P (MAP) 122/59 (80) Pulse Ox 94 O2 Delivery Room Air Room Air 01/15/20 00:00 Intake Total 740 ml Balance 740 ml Constitutional: AAO x 3, well-developed, well-nourished Respiratory: No accessory muscle use, No respiratory distress; chest expansion is symmetric, chest is bilaterally symmetric, lungs clear to auscultation Cardiovascular: regular rate-rhythm; No JVD; S1 and S2 Gastrointestional: No tender; soft, round, audible bowel sounds Extremities: no lower extremity edema bilateral Neurologic/Psychiatric: other (left sided weakness with left sided facial droop) Results/Procedures: Labs Microbiology 01/08/20 Genital Culture - Final, Complete YEAST Usual Vaginal Marilin 01/08/20 Wet Prep - Final, Complete 01/06/20 Urine Culture - Final, Complete Proteus mirabilis A/P: Assessment: Acute CVA on 12/16/2019, 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 MRI done at [facility] showing right frontal parietal lobe infarct. Reported hx of previous CVA in 2003. PAF - first diagnosed on tele of 01-07-2020 2D Echo done 12/18/2019 demonstrated LVH with normal EF per Dr. Johnson CTA Head and neck unremarkable. Continues to have left sided weakness. HTN HLP - statin UTI - management per medical services Hypothyroidism Ankylosing spondylitis Plan: Continue OAC with Eliquis Monitor lab Replace electrolytes as indicated Management of stroke per stroke team There is no cardiology coverage over the weekend. Refer to primary care attending. If emergent cardiac services are need will require transfer to tertiary care facility, to be decided by primary care attending. RAHEEM MIRANDA Jan 11, 2020 11:24
--- NOTE | 2020-01-11 12:05 | Physical Therapy Daily Note ---
PT Daily Note-Current Subjective Pt. in bed and c/o she feels she has soiled her brief and maybe her pants. Requests change etc Pain Location: No Pain Reported Transfers SCALE: Activities may be completed with or without assistive devices. 7-Ctrciajclu-ocelqdq completes the activity by him/herself with no assistance from a helper. 5-Set-up or Clean-up Assistance-helper sets up or cleans up; patient completes activity. [place] assists only prior to or following the activity. 4-Supervision or Touching Assistance-helper provides verbal cues and/or touching/steadying and/or contact guard assistance as patient completes activity. Assistance may be provided throughout the activity or intermittently. 3-Partial/Moderate Assistance-helper does LESS THAN HALF the effort. [place] lifts, holds or supports trunk or limbs, but provides less than half the effort. 2-Substantial/Maximal Assistance-helper does MORE THAN HALF the effort. [place] lifts or holds trunk or limbs and provides more than half the effort. 8-Mmriwywbg-dhyyzx does ALL the effort. Patient does none of the effort to complete the activity. Or, the assistance of 2 or more helpers is required for the patient to complete the activity. If activity was not attempted, code reason: 7-Patient Refused. 9-Not Applicable-not attempted and the patient did not perform the activity before the current illness, exacerbation or injury. 10-Not Attempted due to Environmental Limitations-(lack of equipment, weather restraints, etc.). 88-Not Attempted due to Medical Conditions or Safety Concerns. pt. seen for assist for rolling left and right and bridging for removal of slacks and brief, pt. was guided to use bath cleanser to clean dragan area needing min assist, further rolling for application of clean brief and repositioning on left side with pillow support, Weight Bearing Full Weight Bearing Full Weight Bearing Exercises Supine Ex: Bridging, Heel Slides, Hip abd/add Supine Reps: 8 Assessment Current Status: Good Progress pt. cooperative and gives full effort PT Short Term Goals Short Term Goals Time Frame: Jan 08, 2020 Roll Left & Right: 3 Sit to lyin Lying to sitting on side of be: 3 Sit to stand: 3 Chair/mch-ys-yxfqy transfer: 3 PT Customer Service Manager Goals Customer Service Manager Goals PT Customer Service Manager Goals Time Frame: Jan 22, 2020 Roll Left & Right (QC): 3 (Татьяна) Sit to Lying (QC): 3 (Татьяна) Lying-Sitting on Side/Bed(QC): 3 (Татьяна) Sit to Stand (QC): 3 (Татьяна) Chair/Npx-on-Zjdgj Xfer(QC): 3 (Татьяна) Toilet Transfer (QC): 3 (Татьяна) Car Transfer (QC): 3 (Татьяна) Does the Patient Walk: No and Walking Goal IS indicated Walk 10 feet (QC): 3 (Татьяна) Walk 50ft with 2 Turns (QC): 88 Walk 150 ft (QC): 88 Walking 10ft on Uneven Surface: 88 1 Step (curb) (QC): 88 4 Steps (QC): 88 12 Steps (QC): 88 Picking up an Object (QC): 88 Wheel 50 feet with 2 turns (QC: 4 Type: Manual Wheel 150 feet: 4 Type: Manual PT Plan Treatment/Plan Treatment Plan: Continue Plan of Care Treatment Plan: Bed Mobility, Education, Functional Activity [place], Functional Strength, Group Therapy, Gait, Safety, Therapeutic Exercise, Transfers Treatment Duration: Jan 21, 2020 Frequency: At least 5 of 7 days/Wk (IRF) Estimated Hrs Per Day: 1.5 hours per day Patient and/or Family Agrees t: Yes Safety Risks/Education Patient Education: Transfer Techniques, Correct Positioning, Disease Process Teaching Recipient: Patient Teaching Methods: Demonstration, Discussion Response to Teaching: Verbalize Understanding, Return Demonstration, Reinf orcement Needed Time/GCodes Time In: 1145 Time Out: 1200 Total Billed Treatment Time: 15 Total Billed Treatment 1,FA15m RUBEN BARNES PTA Jan 11, 2020 12:05
--- NOTE | 2020-01-11 12:16 | PM&R Progress Note ---
Subjective HPI/CC On Admission Date Seen by Provider: Jan 11, 2020 Time Seen by Provider: 05:45 Subjective/Events-last exam 01/11/20: Completing antibiotic Reports the vaginal discharge has returned Unsure of the source of that We will try to confer with gynecology about that Check meds and labs 01/10/20: Tolerating antibiotic Bowels are moving pretty well Vaginal discharge is about the same Mysterious situation with the vaginal discharge Appreciate gynecology and urology 01/09/20: Urine issues showing some residual and retention Bowels moved today Vaginal culture is normal anup Cipro for protease Eliquis started for AF Discontinue Lovenox 01/08/20: Bowels moving today Swab of the vagina was done by Dr. Jackson himself Appreciate Dr. Joseph update 01/07/20: Proteus urine culture, Dr. Nesbitt placed her on Cipro CT scan with rectal contrast has been completed, will evaluate for fistula Bowels moved today but she feels like it goes into her vagina 01/06/20: Spoke to Dr Cook after I assessed her symptoms again of the vaginal discharge and we need CT abd pelvis with rectal contrast to see if fistula is an issue Proteus on UC x but UA was normal which may be involved in this fistula issues Left arm is flaccid some movement in left foot Uterine prolapse noted when she was admitted 01/05/20: Brown vaginal discharge noted If continues will obtain TV USG and Windows Phone Developer consult No pain reported UA repeat normal Incontinence at night 01/04/20: Much improved status Bearden now out and voiding well Not sleeping well so added equivalent of Tylenol PM to night time to see if that helps her since she takes that at home on occasion Advanced diet Repeat UA via in/out cath DC Cleocin 01/03/20: Bearden out and has yet to void Dr Nesbitt and I conferred on the unit Oxycontin increased to 30mg BID she takes it at 0700 and 1330 so instructed pharmacy to put it in for that time slot Swallowing better 12/31/19 BM so laxatives given Pureed diet 01/02/20: Decreasing food intake Chest pain prompting EKG and cardiology evaluation Troponin will be checked Nausea noted Very difficult to manage with such chronic pain Appreciate Dr Nesbitt and Dr Johnson Pt settling in pretty well Having a lot of pain ankylosing spondylitis is very painful for her Will aggressively react bowels Remains with a catheter, I did consult urology Checked meds and labs Conferred with RN Reviewed therapy notes Review of Systems General: Fatigue Focused Exam Time of Focused Exam: 11:42 Objective Exam Vital Signs Vital Signs Date Time Temp Pulse Resp B/P (MAP) Pulse Ox O2 Delivery O2 Flow Rate FiO2 01/11/20 17:55 36.4 63 16 106/62 (77) 94 Room Air Capillary Refill : Less Than 3 Seconds General Appearance: No Apparent Distress, WD/WN HEENT: PERRL/EOMI, Normal ENT Inspection Neck: Normal Inspection, Supple Respiratory: Chest Non Tender, Lungs Clear, Normal Breath Sounds, No Accessory Muscle Use, No Respiratory Distress Cardiovascular: Regular Rate, Rhythm, No Edema Gastrointestinal: Normal Bowel Sounds, No Organomegaly, No Pulsatile Mass, Non Tender, Soft Back: Normal Inspection, No CVA Tenderness, No Vertebral Tenderness Extremity: Normal Inspection, No Calf Tenderness, No Pedal Edema Neurologic/Psychiatric: Alert, Oriented x3, Normal Mood/Affect, Motor Weakness (left sided weakness) Skin: Normal Color, Warm/Dry Lymphatic: No Adenopathy Results/Procedures Lab Patient resulted labs reviewed. FIM Transfers Therapy Code Descriptions/Definitions Functional [place] Measure: 0=Not Assessed/NA 4=Minimal Assistance 1=Total Assistance 5=Supervision or Setup 2=Maximal Assistance 6=Modified [place] 3=Moderate Assistance 7=Complete IndependenceSCALE: Activities may be completed with or without assistive devices. 3-Ukaoyhjaua-mrihebq completes the activity by him/herself with no assistance from a helper. 5-Set-up or Clean-up Assistance-helper sets up or cleans up; patient completes activity. [place] assists only prior to or following the activity. 4-Supervision or Touching Assistance-helper provides verbal cues and/or touching/steadying and/or contact guard assistance as patient completes activity. Assistance may be provided throughout the activity or intermittently. 3-Partial/Moderate Assistance-helper does LESS THAN HALF the effort. [place] lifts, holds or supports trunk or limbs, but provides less than half the effort. 2-Substantial/Maximal Assistance-helper does MORE THAN HALF the effort. [place] lifts or holds trunk or limbs and provides more than half the effort. 8-Okfzjwydv-rumlwn does ALL the effort. Patient does none of the effort to complete the activity. Or, the assistance of 2 or more helpers is required for the patient to complete the activity. If activity was not attempted, code reason: 7-Patient Refused. 9-Not Applicable-not attempted and the patient did not perform the activity before the current illness, exacerbation or injury. 10-Not Attempted due to Environmental Limitations-(lack of equipment, weather restraints, etc.). 88-Not Attempted due to Medical Conditions or Safety Concerns. Roll Left to Right (QC): 3 Sit to Lying (QC): 3 Sit to Stand (QC): 3 Chair/Mik-qc-Aiddh Xfer(QC): 3 Car Transfer (QC): 1 Gait Training Distance: 3 Walk 10 feet (QC): 88 Walk 50 ft with 2 Turns(QC): 88 Walk 150 ft (QC): 88 Walking 10ft/uneven surface-QC: 88 Gait Persons Needed: 1 Gait Assistive Device: Parallel Bars Wheelchair Training Does the Pt Use a Wheelchair?: Yes Distance: 50'x2 Wheel 50 ft with 2 turns (QC): 2 Wheel 150 ft (QC): 4 Type of Wheelchair: Manual Stair Training 1 Step (curb) (QC): 88 4 Steps (QC): 88 12 Steps (QC): 88 Balance Picking up an Object (QC): 1 ADL-Treatment Eating (QC): 5 (Based on clincial judgement, pt would require set up assistance with feeding) Oral Hygiene (QC): 2 Bathing Location: L Arm, L Upper Leg, R Upper Leg, L Lower Leg (including foot), R Lower Leg (including foot), Chest, Abdomen, Buttocks, Perineal Area Shower/Bathe Self (QC): 3 Upper Body Dressing (QC): 2 Lower Body Dressing (QC): 1 On/Off Footwear (QC): 2 Toileting Hygiene (QC): 1 Toilet Transfer (QC): 1 Assessment/Plan Assessment and Plan Assess & Plan/Chief Complaint Assessment: CVA Left sided weakness [place] Hypothyroidism Chronic pain Narcotic dependent Narcotic bowel Osteoporosis Bearden cath in place Urinary retention UTI Plan: Dr Nesbitt IRF protocol Current meds 01/01/20: Pain management Dr Nesbitt consult for urinary retention Monitor for falls BM regimen 01/02/20: Pain management Cardiology and Urology consultation is appreciated 01/03/20: Urology appreciated Pain med increased to her home dose Pureed diet 01/04/20: Advanced diet Repeat UA inout cath Insomnia treatment 01/05/20: Vaginal discharge? May need TV USG and Windows Phone Developer consult 01/06/20: Fistula between rectum and vagina? CT scan and TV USG tomorrow 01/07/20: CT scan with rectal enema Windows Phone Developer consult Conferred with Dr Nesbitt Abx for Proteus 01/08/20: Appreciate Dr Jackson Vaginal swab UTI tx 01/09/20: Monitor weakness Pain control UTI tx 01/10/20: Tolerating abx Monitor voiding 01/11/2020: Pain control Bowel regimen Monitor vaginal discharge (1) CVA (cerebral vascular accident) (2) Ankylosing spondylitis (3) Acquired hypothyroidism (4) Chronic pain (5) Narcotic dependence (6) Narcotic bowel syndrome (7) Urinary retention (8) Bearden catheter in place (9) UTI (urinary tract infection) (10) Left-sided weakness (11) Psoriasis (12) Osteoporosis WILEY WRIGHT DO Jan 11, 2020 12:16
--- NOTE | 2020-01-11 15:09 | Speech Therapy Daily Note ---
Speech Daily Progress Note Subjective Date Seen by Provider: Jan 11, 2020 Time Seen by Provider: 00:30 Patient was laying in her bed when I entered her room. She states she hasn't been feeling that well today. Objective Patient demo utilization of compensatory strategies with oral intake including small sips/bites and alternation of food:drink of 2:1 with minimal cues. Assessment Assessment Current Status: Good Progress Treatment Plan Continue Plan of Care Speech Short Term Goals Short Term Goals Short Term Goals 1) Patient will tolerate the least restrictive diet level without s/s of aspiration at 90% or greater. 2) Patient will utilize compensatory strategies as trained for safe oral intake at 90% or greater. Speech Hogshead Cooper Goals Hogshead Cooper Goals Patient will maintain adequate nutrition/hydration via safe effective swallow function. Speech-Plan Patient/Family Goals Patient/Family Goals: Patient plans on returning to her home where she lives with her . Treatment Plan Speech Therapy Treatment Plan: Continue Plan of Care Treatment Duration: Jan 18, 2020 Frequency: 4 times per week Estimated Hrs Per Day: .25 hour per day Rehab Potential: Fair Barriers to Learning: Patient's recent CVA, age Pt/Family Agrees to Plan: Yes Safety Risks/Education Teaching Recipient: Patient Teaching Methods: Demonstration, Discussion Response to Teaching: Verbalize Understanding, Return Demonstration Education Topics Provided: Continued safety with oral intake Time Speech Therapy Time In: 11:00 Speech Therapy Time Out: 11:30 Total Billed Time: 30 Billed Treatment Time RafaANNEL BETHANIA ST Jan 11, 2020 15:09
--- NOTE | 2020-01-11 16:59 | Progress Note - Cardiology ---
Cardiology SOAP Progress Note Subjective: Malaise present No cp or palp or syncope or shortness of breath No n/v/d Objective: I&O/Vital Signs 01/11/20 01/11/20 01/11/20 06:33 07:15 08:00 Temp 36.0 Pulse 59 72 Resp 20 B/P (MAP) 124/56 (78) 137/82 (100) Pulse Ox 93 O2 Delivery Room Air Room Air 01/11/20 00:00 Intake Total 750 ml Balance 750 ml Constitutional: AAO x 3, well-developed, well-nourished Respiratory: No accessory muscle use, No respiratory distress; chest expansion is symmetric, chest is bilaterally symmetric, lungs clear to auscultation Cardiovascular: regular rate-rhythm; No JVD; S1 and S2 Gastrointestional: No tender; soft, round, audible bowel sounds Extremities: no lower extremity edema bilateral Neurologic/Psychiatric: other (left sided weakness with left sided facial droop) Results/Procedures: Labs Microbiology 01/08/20 Genital Culture - Final, Complete YEAST Usual Vaginal Marilin 01/08/20 Wet Prep - Final, Complete 01/06/20 Urine Culture - Final, Complete Proteus mirabilis A/P: Assessment: Acute CVA on 12/16/2019, 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 MRI done at [facility] showing right frontal parietal lobe infarct. Reported hx of previous CVA in 2003. PAF - first diagnosed on tele of 01-07-2020 2D Echo done 12/18/2019 demonstrated LVH with normal EF per Dr. Johnson CTA Head and neck unremarkable. Continues to have left sided weakness. HTN HLP - statin UTI - management per medical services Hypothyroidism Ankylosing spondylitis Plan: Continue OAC with Eliquis Monitor lab Replace electrolytes as indicated Management of stroke per stroke team There is no cardiology coverage over the weekend. Refer to primary care attending. If emergent cardiac services are needed, will require transfer to tertiary care facility, to be decided by primary care attending. EDUIN LI MD FACP FAC CCDS Jan 11, 2020 16:59
[2020-01-11] MEDS: TAMSULOSIN 0.4 MG (FLOMAX) CAP PO SCH (17:09)
[2020-01-11 17:55] VITALS: BP 106/62
[2020-01-11] MEDS: diphenhydrAMINE 25 MG TAB (BENADRYL) PO SCH (20:59)
[2020-01-11] MEDS: ACETAMINOPHEN 500 MG TAB (TYLENOL) PO SCH (21:00)
[2020-01-11] MEDS: MELATONIN 3 MG TABLET PO SCH (21:00)
[2020-01-12] MEDS: HYDROcodone/APAP 5 MG/325 MG (LORTAB) TAB PO PRN ×2 (02:10→19:42)
[2020-01-12 05:16] VITALS: BP 110/50
[2020-01-12] MEDS: oxyCODONE ER 10 MG (OxyCONTIN CR) TAB PO SCH ×2 (06:01→12:34)
[2020-01-12] MEDS: LEVOTHYROXINE 100 MCG (LEVOTHROID) TAB PO SCH (06:01)
[2020-01-12] MEDS: BETHANECHOL 25 MG (URECHOLINE) TAB PO SCH ×4 (06:01→19:43)
--- NOTE | 2020-01-12 06:09 | PM&R Progress Note ---
Subjective HPI/CC On Admission Date Seen by Provider: Jan 12, 2020 Time Seen by Provider: 06:00 Subjective/Events-last exam 01/12/2020: Reports vaginal discharge started again I personally do not have an answer and she will need outpatient treatment by gynecology Denies any significant new pain Pain is well controlled on extended release narcotics No shortness of breath Participating in therapy 01/11/20: Completing antibiotic Reports the vaginal discharge has returned Unsure of the source of that We will try to confer with gynecology about that Check meds and labs 01/10/20: Tolerating antibiotic Bowels are moving pretty well Vaginal discharge is about the same Mysterious situation with the vaginal discharge Appreciate gynecology and urology 01/09/20: Urine issues showing some residual and retention Bowels moved today Vaginal culture is normal anup Cipro for protease Eliquis started for AF Discontinue Lovenox 01/08/20: Bowels moving today Swab of the vagina was done by Dr. Jackson himself Appreciate Dr. Joseph update 01/07/20: Proteus urine culture, Dr. Nesbitt placed her on Cipro CT scan with rectal contrast has been completed, will evaluate for fistula Bowels moved today but she feels like it goes into her vagina 01/06/20: Spoke to Dr Cook after I assessed her symptoms again of the vaginal discharge and we need CT abd pelvis with rectal contrast to see if fistula is an issue Proteus on UC x but UA was normal which may be involved in this fistula issues Left arm is flaccid some movement in left foot Uterine prolapse noted when she was admitted 01/05/20: Brown vaginal discharge noted If continues will obtain TV USG and [employer] consult No pain reported UA repeat normal Incontinence at night 01/04/20: Much improved status Bearden now out and voiding well Not sleeping well so added equivalent of Tylenol PM to night time to see if that helps her since she takes that at home on occasion Advanced diet Repeat UA via in/out cath DC Cleocin 01/03/20: Bearden out and has yet to void Dr Nesbitt and I conferred on the unit Oxycontin increased to 30mg BID she takes it at 0700 and 1330 so instructed pharmacy to put it in for that time slot Swallowing better 12/31/19 BM so laxatives given Pureed diet 01/02/20: Decreasing food intake Chest pain prompting EKG and cardiology evaluation Troponin will be checked Nausea noted Very difficult to manage with such chronic pain Appreciate Dr Nesbitt and Dr Johnson Pt settling in pretty well Having a lot of pain ankylosing spondylitis is very painful for her Will aggressively react bowels Remains with a catheter, I did consult urology Checked meds and labs Conferred with RN Reviewed therapy notes Review of Systems General: Fatigue Neurological: Weakness, Incoordination Focused Exam Time of Focused Exam: 11:42 Objective Exam Vital Signs Vital Signs Date Time Temp Pulse Resp B/P (MAP) Pulse Ox O2 Delivery O2 Flow Rate FiO2 01/12/20 05:16 36.2 60 16 110/50 (70) 94 Room Air Capillary Refill : Less Than 3 Seconds General Appearance: No Apparent Distress, WD/WN HEENT: PERRL/EOMI, Normal ENT Inspection Neck: Normal Inspection, Supple Respiratory: Chest Non Tender, Lungs Clear, Normal Breath Sounds, No Accessory Muscle Use, No Respiratory Distress Cardiovascular: Regular Rate, Rhythm, No Edema Gastrointestinal: Normal Bowel Sounds, No Organomegaly, No Pulsatile Mass, Non Tender, Soft Back: Normal Inspection, No CVA Tenderness, No Vertebral Tenderness Extremity: Normal Inspection, No Calf Tenderness, No Pedal Edema Neurologic/Psychiatric: Alert, Oriented x3, Normal Mood/Affect, Motor Weakness (left sided weakness) Skin: Normal Color, Warm/Dry Lymphatic: No Adenopathy Results/Procedures Lab Patient resulted labs reviewed. FIM Transfers Therapy Code Descriptions/Definitions Functional [place] Measure: 0=Not Assessed/NA 4=Minimal Assistance 1=Total Assistance 5=Supervision or Setup 2=Maximal Assistance 6=Modified [place] 3=Moderate Assistance 7=Complete IndependenceSCALE: Activities may be completed with or without assistive devices. 6-Lxigdzogys-frxtmpm completes the activity by him/herself with no assistance from a helper. 5-Set-up or Clean-up Assistance-helper sets up or cleans up; patient completes activity. [place] assists only prior to or following the activity. 4-Supervision or Touching Assistance-helper provides verbal cues and/or touching/steadying and/or contact guard assistance as patient completes activity. Assistance may be provided throughout the activity or intermittently. 3-Partial/Moderate Assistance-helper does LESS THAN HALF the effort. [place] lifts, holds or supports trunk or limbs, but provides less than half the effort. 2-Substantial/Maximal Assistance-helper does MORE THAN HALF the effort. [place] lifts or holds trunk or limbs and provides more than half the effort. 7-Sabdetgpn-dczbzq does ALL the effort. Patient does none of the effort to complete the activity. Or, the assistance of 2 or more helpers is required for the patient to complete the activity. If activity was not attempted, code reason: 7-Patient Refused. 9-Not Applicable-not attempted and the patient did not perform the activity before the current illness, exacerbation or injury. 10-Not Attempted due to Environmental Limitations-(lack of equipment, weather restraints, etc.). 88-Not Attempted due to Medical Conditions or Safety Concerns. Roll Left to Right (QC): 3 Sit to Lying (QC): 3 Sit to Stand (QC): 3 Chair/Gfe-uz-Zeywp Xfer(QC): 3 Car Transfer (QC): 1 Gait Training Distance: 3 Walk 10 feet (QC): 88 Walk 50 ft with 2 Turns(QC): 88 Walk 150 ft (QC): 88 Walking 10ft/uneven surface-QC: 88 Gait Persons Needed: 1 Gait Assistive Device: Parallel Bars Wheelchair Training Does the Pt Use a Wheelchair?: Yes Distance: 50'x2 Wheel 50 ft with 2 turns (QC): 2 Wheel 150 ft (QC): 4 Type of Wheelchair: Manual Stair Training 1 Step (curb) (QC): 88 4 Steps (QC): 88 12 Steps (QC): 88 Balance Picking up an Object (QC): 1 ADL-Treatment Eating (QC): 5 (Based on clincial judgement, pt would require set up assistance with feeding) Oral Hygiene (QC): 2 Bathing Location: L Arm, L Upper Leg, R Upper Leg, L Lower Leg (including foot), R Lower Leg (including foot), Chest, Abdomen, Buttocks, Perineal Area Shower/Bathe Self (QC): 3 Upper Body Dressing (QC): 2 Lower Body Dressing (QC): 1 On/Off Footwear (QC): 2 Toileting Hygiene (QC): 1 Toilet Transfer (QC): 1 Assessment/Plan Assessment and Plan Assess & Plan/Chief Complaint Assessment: CVA Left sided weakness AK Hypothyroidism Chronic pain Narcotic dependent Narcotic bowel Osteoporosis Bearden cath in place Urinary retention UTI PAF on Tely 01/07/20 placed on OAC Plan: Dr Nesbitt IRF protocol Current meds 01/01/20: Pain management Dr Nesbitt consult for urinary retention Monitor for falls BM regimen 01/02/20: Pain management Cardiology and Urology consultation is appreciated 01/03/20: Urology appreciated Pain med increased to her home dose Pureed diet 01/04/20: Advanced diet Repeat UA inout cath Insomnia treatment 01/05/20: Vaginal discharge? May need TV USG and [employer] consult 01/06/20: Fistula between rectum and vagina? CT scan and TV USG tomorrow 01/07/20: CT scan with rectal enema [employer] consult Conferred with Dr Nesbitt Abx for Proteus 01/08/20: Appreciate Dr Jackson Vaginal swab UTI tx 01/09/20: Monitor weakness Pain control UTI tx 01/10/20: Tolerating abx Monitor voiding 01/11/2020: Pain control Bowel regimen Monitor vaginal discharge 01/12/20: OAC Monitor closely (1) CVA (cerebral vascular accident) (2) Ankylosing spondylitis (3) Acquired hypothyroidism (4) Chronic pain (5) Narcotic dependence (6) Narcotic bowel syndrome (7) Urinary retention (8) Bearden catheter in place (9) UTI (urinary tract infection) (10) Left-sided weakness (11) Psoriasis (12) Osteoporosis WILEY WRIGHT DO Jan 12, 2020 06:09
[2020-01-12] MEDS: VITAMIN D3 25 MCG (1,000 UNITS) TABLET PO SCH (09:22)
[2020-01-12] MEDS: ASPIRIN E.C. 81 MG (ECOTRIN) TAB PO SCH (09:22)
[2020-01-12] MEDS: PANTOPRAZOLE 40 MG (PROTONIX) TAB PO SCH (09:23)
[2020-01-12] MEDS: LOSARTAN 25 MG (COZAAR) TAB PO SCH (09:23)
[2020-01-12] MEDS: BACLOFEN 10 MG (LIORESAL) TAB PO SCH ×3 (09:23→19:43)
[2020-01-12] MEDS: CIPROFLOXACIN 500 MG (CIPRO) TABLET PO SCH ×2 (09:23→19:43)
[2020-01-12] MEDS: APIXABAN 5 MG (ELIQUIS) TABLET PO SCH ×2 (09:23→19:43)
[2020-01-12] MEDS: DOCUSATE SODIUM 100 MG (COLACE) CAP PO SCH ×2 (09:31→19:43)
[2020-01-12] MEDS: polyethylene glycoL POWDER 17 GM (MIRALAX) PACK PO SCH (09:32)
[2020-01-12] MEDS: SENNA W/DOCUSATE (SENOKOT S) TABLET PO SCH ×2 (09:32→19:43)
[2020-01-12] MEDS: DICLOFENAC 1% GEL 100 GM (VOLTAREN) TUBE TP SCH ×3 (09:33→19:44)
[2020-01-12] MEDS: ONDANSETRON 4 MG (ZOFRAN) ORAL DISSOLVE TAB PO PRN (11:07)
--- NOTE | 2020-01-12 11:08 | Physical Therapy Daily Note ---
PT Daily Note-Current Subjective Pt. in bed and agrees to Rx, Pt. initially requested to toilet , then hoping to work on stance and balance. On BSC pt c/o dizziness and was TRFd back to bed . AT bedside pt vomited x 2 small amounts. Pain Location: No Pain Reported Transfers SCALE: Activities may be completed with or without assistive devices. 9-Bbdhueivfs-axkealz completes the activity by him/herself with no assistance from a helper. 5-Set-up or Clean-up Assistance-helper sets up or cleans up; patient completes activity. [place] assists only prior to or following the activity. 4-Supervision or Touching Assistance-helper provides verbal cues and/or touching/steadying and/or contact guard assistance as patient completes activity. Assistance may be provided throughout the activity or intermittently. 3-Partial/Moderate Assistance-helper does LESS THAN HALF the effort. [place] lifts, holds or supports trunk or limbs, but provides less than half the effort. 2-Substantial/Maximal Assistance-helper does MORE THAN HALF the effort. [place] lifts or holds trunk or limbs and provides more than half the effort. 3-Vlkpycbhg-eviwvm does ALL the effort. Patient does none of the effort to complete the activity. Or, the assistance of 2 or more helpers is required for the patient to complete the activity. If activity was not attempted, code reason: 7-Patient Refused. 9-Not Applicable-not attempted and the patient did not perform the activity before the current illness, exacerbation or injury. 10-Not Attempted due to Environmental Limitations-(lack of equipment, weather restraints, etc.). 88-Not Attempted due to Medical Conditions or Safety Concerns. Sit to Lying (QC): 3 Lying to Sitting/Side of Bed(Q: 3 Sit to Stand (QC): 3 Chair/Rqw-uh-Hbmnb Xfer(QC): 3 Toilet Transfer (QC): 2 pt. requires 1-2 mod to max at times as left LE melts , no stability benji during stance for cleaning after toileting and pants up down. TRF to Land R require mod to max Weight Bearing Full Weight Bearing Full Weight Bearing Treatments sit to stand and TRF left to right as well as sitting balance EOB with min assist, pt. with flexed stance buries head in therapists shoulder/chest and had difficulty with with alignment, pt. incont of urine and BM sat on BSC and required clean up assist of 2 then dizziness c/o requiring back to bed. Assessment Current Status: Fair Progress dizziness and N&V limited Rx today. Pt. dependent for all mobility PT Short Term Goals Short Term Goals Time Frame: Jan 08, 2020 Roll Left & Right: 3 Sit to lyin Lying to sitting on side of be: 3 Sit to stand: 3 Chair/lcu-gj-coyud transfer: 3 PT Packing House Supervisor Goals Assisted Goals PT Assisted Goals Time Frame: Jan 22, 2020 Roll Left & Right (QC): 3 (Татьяна) Sit to Lying (QC): 3 (Татьяна) Lying-Sitting on Side/Bed(QC): 3 (Татьяна) Sit to Stand (QC): 3 (Татьяна) Chair/Vnb-oq-Xxacc Xfer(QC): 3 (Татьяна) Toilet Transfer (QC): 3 (Татьяна) Car Transfer (QC): 3 (Татьяна) Does the Patient Walk: No and Walking Goal IS indicated Walk 10 feet (QC): 3 (Татьяна) Walk 50ft with 2 Turns (QC): 88 Walk 150 ft (QC): 88 Walking 10ft on Uneven Surface: 88 1 Step (curb) (QC): 88 4 Steps (QC): 88 12 Steps (QC): 88 Picking up an Object (QC): 88 Wheel 50 feet with 2 turns (QC: 4 Type: Manual Wheel 150 feet: 4 Type: Manual PT Plan Treatment/Plan Treatment Plan: Continue Plan of Care Treatment Plan: Bed Mobility, Education, Functional Activity Benson, Functional Strength, Group Therapy, Gait, Safety, Therapeutic Exercise, Transfers Treatment Duration: Jan 21, 2020 Frequency: At least 5 of 7 days/Wk (IRF) Estimated Hrs Per Day: 1.5 hours per day Patient and/or Family Agrees t: Yes Safety Risks/Education Patient Education: Transfer Techniques, Correct Positioning, Disease Process, Safety Issues Teaching Recipient: Patient Teaching Methods: Demonstration, Discussion Response to Teaching: Verbalize Understanding, Return Demonstration, Reinforcement Needed Time/GCodes Time In: 930 Time Out: 1010 Total Billed Treatment Time: 40 Total Billed Treatment 1,FA40m RUBEN BARNES STRATEGIC SOURCING SPECIALIST Jan 12, 2020 11:08
[2020-01-12] MEDS: ZINC OXIDE 16% OINT (BUTT PASTE) 57 GM TUBE TOP PRN (11:09)
[2020-01-12] MEDS: ANTACID SUSP 30 ML UDC (MYLANTA) PO PRN (12:26)
[2020-01-12] MEDS: ALPRAZolam 0.25 MG (XANAX) TAB PO PRN (12:26)
[2020-01-12 16:25] VITALS: BP 119/79
[2020-01-12] MEDS: TAMSULOSIN 0.4 MG (FLOMAX) CAP PO SCH (17:32)
[2020-01-12] MEDS: MELATONIN 3 MG TABLET PO SCH (19:42)
[2020-01-12] MEDS: ACETAMINOPHEN 500 MG TAB (TYLENOL) PO SCH (19:42)
[2020-01-12] MEDS: diphenhydrAMINE 25 MG TAB (BENADRYL) PO SCH (19:42)
--- NOTE | 2020-01-13 02:44 | NUR ---
Ailin is a 79 yo female patient who is currently present on ARU post CVA on December 15. Patient has severe left sided flaccidity/weakness present. She is alert and orientated X4 and able to answer questions appropriately. Patient has reported concerns to this nurse about her currently being at home alone. She reported her son is coming into town on the from [place] to assist /decision making. Ailin is currently having some noted vaginal discharge present. Dr. Jackson is following case however she will need to follow up on an outpatient basis once discharged from rehab. This evening patient has been incont of urine and is unable to assist with brief changing. No further issues noted with patient. She has been resting comfortable most of the night and allows staff to turn q1-2 hours. This nurse will continue to monitor closely throughout shift.
[2020-01-13] MEDS: HYDROcodone/APAP 5 MG/325 MG (LORTAB) TAB PO PRN ×2 (04:01→20:27)
[2020-01-13 05:18] VITALS: BP 103/39
[2020-01-13] MEDS: BETHANECHOL 25 MG (URECHOLINE) TAB PO SCH ×4 (06:00→20:27)
[2020-01-13] MEDS: LEVOTHYROXINE 100 MCG (LEVOTHROID) TAB PO SCH (06:00)
--- NOTE | 2020-01-13 06:14 | PM&R Progress Note ---
Subjective HPI/CC On Admission Date Seen by Provider: Jan 13, 2020 Time Seen by Provider: 06:20 Subjective/Events-last exam 01/13/20: Patient still talks about vaginal discharge so will need PHYSICAL SECURITY MANAGER appt as outpatient No pain reported BM+ Fall risk 01/12/2020: Reports vaginal discharge started again I personally do not have an answer and she will need outpatient treatment by gynecology Denies any significant new pain Pain is well controlled on extended release narcotics No shortness of breath Participating in therapy 01/11/20: Completing antibiotic Reports the vaginal discharge has returned Unsure of the source of that We will try to confer with gynecology about that Check meds and labs 01/10/20: Tolerating antibiotic Bowels are moving pretty well Vaginal discharge is about the same Mysterious situation with the vaginal discharge Appreciate gynecology and urology 01/09/20: Urine issues showing some residual and retention Bowels moved today Vaginal culture is normal anup Cipro for protease Eliquis started for AF Discontinue Lovenox 01/08/20: Bowels moving today Swab of the vagina was done by Dr. Jackson himself Appreciate Dr. Joseph update 01/07/20: Proteus urine culture, Dr. Nesbitt placed her on Cipro CT scan with rectal contrast has been completed, will evaluate for fistula Bowels moved today but she feels like it goes into her vagina 01/06/20: Spoke to Dr Cook after I assessed her symptoms again of the vaginal discharge and we need CT abd pelvis with rectal contrast to see if fistula is an issue Proteus on UC x but UA was normal which may be involved in this fistula issues Left arm is flaccid some movement in left foot Uterine prolapse noted when she was admitted 01/05/20: Brown vaginal discharge noted If continues will obtain TV USG and Banquet Coordinator consult No pain reported UA repeat normal Incontinence at night 01/04/20: Much improved status Bearden now out and voiding well Not sleeping well so added equivalent of Tylenol PM to night time to see if that helps her since she takes that at home on occasion Advanced diet Repeat UA via in/out cath DC Cleocin 01/03/20: Bearden out and has yet to void Dr Nesbitt and I conferred on the unit Oxycontin increased to 30mg BID she takes it at 0700 and 1330 so instructed pharmacy to put it in for that time slot Swallowing better 12/31/19 BM so laxatives given Pureed diet 01/02/20: Decreasing food intake Chest pain prompting EKG and cardiology evaluation Troponin will be checked Nausea noted Very difficult to manage with such chronic pain Appreciate Dr Nesbitt and Dr Johnson Pt settling in pretty well Having a lot of pain ankylosing spondylitis is very painful for her Will aggressively react bowels Remains with a catheter, I did consult urology Checked meds and labs Conferred with RN Reviewed therapy notes Review of Systems General: Fatigue, Malaise Neurological: Weakness Focused Exam Time of Focused Exam: 11:42 Objective Exam Vital Signs Vital Signs Date Time Temp Pulse Resp B/P (MAP) Pulse Ox O2 Delivery O2 Flow Rate FiO2 01/13/20 05:18 36.2 51 16 103/39 (60) 92 Room Air Capillary Refill : Less Than 3 Seconds General Appearance: No Apparent Distress, WD/WN HEENT: PERRL/EOMI, Normal ENT Inspection Neck: Normal Inspection, Supple Respiratory: Chest Non Tender, Lungs Clear, Normal Breath Sounds, No Accessory Muscle Use, No Respiratory Distress Cardiovascular: Regular Rate, Rhythm, No Edema Gastrointestinal: Normal Bowel Sounds, No Organomegaly, No Pulsatile Mass, Non Tender, Soft Back: Normal Inspection, No CVA Tenderness, No Vertebral Tenderness Extremity: Normal Inspection, No Calf Tenderness, No Pedal Edema Neurologic/Psychiatric: Alert, Oriented x3, Normal Mood/Affect, Motor Weakness (left sided weakness) Skin: Normal Color, Warm/Dry Lymphatic: No Adenopathy Results/Procedures Lab Patient resulted labs reviewed. FIM Transfers Therapy Code Descriptions/Definitions Functional [place] Measure: 0=Not Assessed/NA 4=Minimal Assistance 1=Total Assistance 5=Supervision or Setup 2=Maximal Assistance 6=Modified [place] 3=Moderate Assistance 7=Complete IndependenceSCALE: Activities may be completed with or without assistive devices. 0-Lziyuqahjg-rbkivij completes the activity by him/herself with no assistance from a helper. 5-Set-up or Clean-up Assistance-helper sets up or cleans up; patient completes activity. [place] assists only prior to or following the activity. 4-Supervision or Touching Assistance-helper provides verbal cues and/or touching/steadying and/or contact guard assistance as patient completes activity. Assistance may be provided throughout the activity or intermittently. 3-Partial/Moderate Assistance-helper does LESS THAN HALF the effort. [place] lifts, holds or supports trunk or limbs, but provides less than half the effort. 2-Substantial/Maximal Assistance-helper does MORE THAN HALF the effort. [place] lifts or holds trunk or limbs and provides more than half the effort. 5-Yvtnlehbs-dqkbrm does ALL the effort. Patient does none of the effort to complete the activity. Or, the assistance of 2 or more helpers is required for the patient to complete the activity. If activity was not attempted, code reason: 7-Patient Refused. 9-Not Applicable-not attempted and the patient did not perform the activity before the current illness, exacerbation or injury. 10-Not Attempted due to Environmental Limitations-(lack of equipment, weather restraints, etc.). 88-Not Attempted due to Medical Conditions or Safety Concerns. Roll Left to Right (QC): 3 Sit to Lying (QC): 3 Sit to Stand (QC): 3 Chair/Uyg-nd-Jiysr Xfer(QC): 3 Car Transfer (QC): 1 Gait Training Distance: 3 Walk 10 feet (QC): 88 Walk 50 ft with 2 Turns(QC): 88 Walk 150 ft (QC): 88 Walking 10ft/uneven surface-QC: 88 Gait Persons Needed: 1 Gait Assistive Device: Parallel Bars Wheelchair Training Does the Pt Use a Wheelchair?: Yes Distance: 50'x2 Wheel 50 ft with 2 turns (QC): 2 Wheel 150 ft (QC): 4 Type of Wheelchair: Manual Stair Training 1 Step (curb) (QC): 88 4 Steps (QC): 88 12 Steps (QC): 88 Balance Picking up an Object (QC): 1 ADL-Treatment Eating (QC): 5 (Based on clincial judgement, pt would require set up assistance with feeding) Oral Hygiene (QC): 2 Bathing Location: L Arm, L Upper Leg, R Upper Leg, L Lower Leg (including foot), R Lower Leg (including foot), Chest, Abdomen, Buttocks, Perineal Area Shower/Bathe Self (QC): 3 Upper Body Dressing (QC): 2 Lower Body Dressing (QC): 1 On/Off Footwear (QC): 2 Toileting Hygiene (QC): 1 Toilet Transfer (QC): 1 Assessment/Plan Assessment and Plan Assess & Plan/Chief Complaint Assessment: CVA Left sided weakness [place] Hypothyroidism Chronic pain Narcotic dependent Narcotic bowel Osteoporosis Bearden cath in place Urinary retention UTI PAF on Tely 01/07/20 placed on OAC Plan: Dr Nesbitt IRF protocol Current meds 01/01/20: Pain management Dr Nesbitt consult for urinary retention Monitor for falls BM regimen 01/02/20: Pain management Cardiology and Urology consultation is appreciated 01/03/20: Urology appreciated Pain med increased to her home dose Pureed diet 01/04/20: Advanced diet Repeat UA inout cath Insomnia treatment 01/05/20: Vaginal discharge? May need TV USG and Banquet Coordinator consult 01/06/20: Fistula between rectum and vagina? CT scan and TV USG tomorrow 01/07/20: CT scan with rectal enema Banquet Coordinator consult Conferred with Dr Nesbitt Abx for Proteus 01/08/20: Appreciate Dr Jackson Vaginal swab UTI tx 01/09/20: Monitor weakness Pain control UTI tx 01/10/20: Tolerating abx Monitor voiding 01/11/2020: Pain control Bowel regimen Monitor vaginal discharge 01/12/20: OAC Monitor closely 01/13/20: Continue abx for UTI Banquet Coordinator appt at [facility] Needs skilled care if deficits remain severe (1) CVA (cerebral vascular accident) (2) Ankylosing spondylitis (3) Acquired hypothyroidism (4) Chronic pain (5) Narcotic dependence (6) Narcotic bowel syndrome (7) Urinary retention (8) Bearden catheter in place (9) UTI (urinary tract infection) (10) Left-sided weakness (11) Psoriasis (12) Osteoporosis WILEY WRIGHT DO Jan 13, 2020 06:14
[2020-01-13] MEDS: oxyCODONE ER 10 MG (OxyCONTIN CR) TAB PO SCH ×2 (07:10→14:01)
[2020-01-13] MEDS: ASPIRIN E.C. 81 MG (ECOTRIN) TAB PO SCH (10:10)
[2020-01-13] MEDS: VITAMIN D3 25 MCG (1,000 UNITS) TABLET PO SCH (10:10)
[2020-01-13] MEDS: CIPROFLOXACIN 500 MG (CIPRO) TABLET PO SCH ×2 (10:10→20:26)
[2020-01-13] MEDS: ALPRAZolam 0.25 MG (XANAX) TAB PO PRN ×2 (10:10→20:27)
[2020-01-13] MEDS: polyethylene glycoL POWDER 17 GM (MIRALAX) PACK PO SCH (10:11)
[2020-01-13] MEDS: APIXABAN 5 MG (ELIQUIS) TABLET PO SCH ×2 (10:11→20:26)
[2020-01-13] MEDS: BACLOFEN 10 MG (LIORESAL) TAB PO SCH ×3 (10:11→20:27)
[2020-01-13] MEDS: LOSARTAN 25 MG (COZAAR) TAB PO SCH (10:11)
[2020-01-13] MEDS: PANTOPRAZOLE 40 MG (PROTONIX) TAB PO SCH (10:11)
[2020-01-13] MEDS: DOCUSATE SODIUM 100 MG (COLACE) CAP PO SCH ×2 (10:11→20:48)
[2020-01-13] MEDS: DICLOFENAC 1% GEL 100 GM (VOLTAREN) TUBE TP SCH ×3 (10:12→20:35)
[2020-01-13] MEDS: SENNA W/DOCUSATE (SENOKOT S) TABLET PO SCH ×2 (10:12→20:48)
[2020-01-13] MEDS: TAMSULOSIN 0.4 MG (FLOMAX) CAP PO SCH (17:43)
[2020-01-13 18:25] VITALS: BP 117/68
--- NOTE | 2020-01-13 19:18 | NUR ---
Bedside report received from SARAH BOJORQUEZ, assume care of pt
[2020-01-13] MEDS: diphenhydrAMINE 25 MG TAB (BENADRYL) PO SCH (20:26)
[2020-01-13] MEDS: MELATONIN 3 MG TABLET PO SCH (20:27)
--- NOTE | 2020-01-13 20:27 | NUR ---
PT refused Colace, Miralax Senokot, c/o anxiety & pain Lortab 5 1 tab & Xanax 0.25mg given in yogurt, pain level 9/10 on numeric scale
[2020-01-13] MEDS: ACETAMINOPHEN 500 MG TAB (TYLENOL) PO SCH (20:28)
[2020-01-13] MEDS: ZINC OXIDE 16% OINT (BUTT PASTE) 57 GM TUBE TOP PRN (20:48)
--- NOTE | 2020-01-13 21:20 | NUR ---
Resting quietly in bed, pain level 0/10 on CNPI scale
--- NOTE | 2020-01-14 05:45 | PM&R Progress Note ---
Subjective HPI/CC On Admission Date Seen by Provider: Jan 14, 2020 Time Seen by Provider: 05:45 Subjective/Events-last exam 01/14/20: Labs reviewed Vaginal discharge discussed in-depth Outpatient appt with Dr Hanna will be set up 01/13/20: Patient still talks about vaginal discharge so will need ORNAMENTAL METAL WORKER appt as outpatient No pain reported BM+ Fall risk 01/12/2020: Reports vaginal discharge started again I personally do not have an answer and she will need outpatient treatment by gynecology Denies any significant new pain Pain is well controlled on extended release narcotics No shortness of breath Participating in therapy 01/11/20: Completing antibiotic Reports the vaginal discharge has returned Unsure of the source of that We will try to confer with gynecology about that Check meds and labs 01/10/20: Tolerating antibiotic Bowels are moving pretty well Vaginal discharge is about the same Mysterious situation with the vaginal discharge Appreciate gynecology and urology 01/09/20: Urine issues showing some residual and retention Bowels moved today Vaginal culture is normal anup Cipro for protease Eliquis started for AF Discontinue Lovenox 01/08/20: Bowels moving today Swab of the vagina was done by Dr. Jackson himself Appreciate Dr. Joseph update 01/07/20: Proteus urine culture, Dr. Nesbitt placed her on Cipro CT scan with rectal contrast has been completed, will evaluate for fistula Bowels moved today but she feels like it goes into her vagina 01/06/20: Spoke to Dr Cook after I assessed her symptoms again of the vaginal discharge and we need CT abd pelvis with rectal contrast to see if fistula is an issue Proteus on UC x but UA was normal which may be involved in this fistula issues Left arm is flaccid some movement in left foot Uterine prolapse noted when she was admitted 01/05/20: Brown vaginal discharge noted If continues will obtain TV USG and Train Operations Supervisor consult No pain reported UA repeat normal Incontinence at night 01/04/20: Much improved status Bearden now out and voiding well Not sleeping well so added equivalent of Tylenol PM to night time to see if that helps her since she takes that at home on occasion Advanced diet Repeat UA via in/out cath DC Cleocin 01/03/20: Bearden out and has yet to void Dr Nesbitt and I conferred on the unit Oxycontin increased to 30mg BID she takes it at 0700 and 1330 so instructed pharmacy to put it in for that time slot Swallowing better 12/31/19 BM so laxatives given Pureed diet 01/02/20: Decreasing food intake Chest pain prompting EKG and cardiology evaluation Troponin will be checked Nausea noted Very difficult to manage with such chronic pain Appreciate Dr Nesbitt and Dr Johnson Pt settling in pretty well Having a lot of pain ankylosing spondylitis is very painful for her Will aggressively react bowels Remains with a catheter, I did consult urology Checked meds and labs Conferred with RN Reviewed therapy notes Review of Systems Neurological: Weakness, Incoordination Focused Exam Time of Focused Exam: 11:42 Objective Exam Vital Signs Vital Signs Date Time Temp Pulse Resp B/P (MAP) Pulse Ox O2 Delivery O2 Flow Rate FiO2 01/14/20 20:25 Room Air 01/14/20 16:00 36.2 60 16 118/56 (76) 95 Capillary Refill : Less Than 3 Seconds General Appearance: No Apparent Distress, WD/WN HEENT: PERRL/EOMI, Normal ENT Inspection Neck: Normal Inspection, Supple Respiratory: Chest Non Tender, Lungs Clear, Normal Breath Sounds, No Accessory Muscle Use, No Respiratory Distress Cardiovascular: Regular Rate, Rhythm, No Edema Gastrointestinal: Normal Bowel Sounds, No Organomegaly, No Pulsatile Mass, Non Tender, Soft Back: Normal Inspection, No CVA Tenderness, No Vertebral Tenderness Extremity: Normal Inspection, No Calf Tenderness, No Pedal Edema Neurologic/Psychiatric: Alert, Oriented x3, Normal Mood/Affect, Motor Weakness Skin: Normal Color, Warm/Dry Lymphatic: No Adenopathy Results/Procedures Lab Laboratory Tests 01/14/20 06:18 Patient resulted labs reviewed. FIM Transfers Therapy Code Descriptions/Definitions Functional [place] Measure: 0=Not Assessed/NA 4=Minimal Assistance 1=Total Assistance 5=Supervision or Setup 2=Maximal Assistance 6=Modified [place] 3=Moderate Assistance 7=Complete IndependenceSCALE: Activities may be completed with or without assistive devices. 5-Hfecytkbbp-jclbjfk completes the activity by him/herself with no assistance from a helper. 5-Set-up or Clean-up Assistance-helper sets up or cleans up; patient completes activity. [place] assists only prior to or following the activity. 4-Supervision or Touching Assistance-helper provides verbal cues and/or touching/steadying and/or contact guard assistance as patient completes activity. Assistance may be provided throughout the activity or intermittently. 3-Partial/Moderate Assistance-helper does LESS THAN HALF the effort. [place] lifts, holds or supports trunk or limbs, but provides less than half the effort. 2-Substantial/Maximal Assistance-helper does MORE THAN HALF the effort. [place] lifts or holds trunk or limbs and provides more than half the effort. 8-Msceybrkh-uajvdp does ALL the effort. Patient does none of the effort to complete the activity. Or, the assistance of 2 or more helpers is required for the patient to complete the activity. If activity was not attempted, code reason: 7-Patient Refused. 9-Not Applicable-not attempted and the patient did not perform the activity before the current illness, exacerbation or injury. 10-Not Attempted due to Environmental Limitations-(lack of equipment, weather restraints, etc.). 88-Not Attempted due to Medical Conditions or Safety Concerns. Roll Left to Right (QC): 3 Sit to Lying (QC): 3 Sit to Stand (QC): 3 Chair/Hfw-sz-Bjseg Xfer(QC): 3 Car Transfer (QC): 1 Gait Training Distance: 3 Walk 10 feet (QC): 88 Walk 50 ft with 2 Turns(QC): 88 Walk 150 ft (QC): 88 Walking 10ft/uneven surface-QC: 88 Gait Persons Needed: 1 Gait Assistive Device: Parallel Bars Wheelchair Training Does the Pt Use a Wheelchair?: Yes Distance: 50'x2 Wheel 50 ft with 2 turns (QC): 2 Wheel 150 ft (QC): 4 Type of Wheelchair: Manual Stair Training 1 Step (curb) (QC): 88 4 Steps (QC): 88 12 Steps (QC): 88 Balance Picking up an Object (QC): 1 ADL-Treatment Eating (QC): 5 (Based on clincial judgement, pt would require set up assistance with feeding) Oral Hygiene (QC): 2 Bathing Location: L Arm, L Upper Leg, R Upper Leg, L Lower Leg (including foot), R Lower Leg (including foot), Chest, Abdomen, Buttocks, Perineal Area Shower/Bathe Self (QC): 3 Upper Body Dressing (QC): 2 Lower Body Dressing (QC): 1 On/Off Footwear (QC): 2 Toileting Hygiene (QC): 1 Toilet Transfer (QC): 1 Assessment/Plan Assessment and Plan Assess & Plan/Chief Complaint Assessment: CVA Left sided weakness AK Hypothyroidism Chronic pain Narcotic dependent Narcotic bowel Osteoporosis Bearden cath in place Urinary retention UTI PAF on Tely 01/07/20 placed on OAC Plan: Dr Nesbitt IRF protocol Current meds 01/01/20: Pain management Dr Nesbitt consult for urinary retention Monitor for falls BM regimen 01/02/20: Pain management Cardiology and Urology consultation is appreciated 01/03/20: Urology appreciated Pain med increased to her home dose Pureed diet 01/04/20: Advanced diet Repeat UA inout cath Insomnia treatment 01/05/20: Vaginal discharge? May need TV USG and Train Operations Supervisor consult 01/06/20: Fistula between rectum and vagina? CT scan and TV USG tomorrow 01/07/20: CT scan with rectal enema Train Operations Supervisor consult Conferred with Dr Nesbitt Abx for Proteus 01/08/20: Appreciate Dr Jackson Vaginal swab UTI tx 01/09/20: Monitor weakness Pain control UTI tx 01/10/20: Tolerating abx Monitor voiding 01/11/2020: Pain control Bowel regimen Monitor vaginal discharge 01/12/20: OAC Monitor closely 01/13/20: Continue abx for UTI Train Operations Supervisor appt at OR Needs skilled care if deficits remain severe 01/14/20: Labs reviewed Manage pain issues (1) CVA (cerebral vascular accident) (2) Ankylosing spondylitis (3) Acquired hypothyroidism (4) Chronic pain (5) Narcotic dependence (6) Narcotic bowel syndrome (7) Urinary retention (8) Bearden catheter in place (9) UTI (urinary tract infection) (10) Left-sided weakness (11) Psoriasis (12) Osteoporosis WILEY WRIGHT DO Jan 14, 2020 05:45
[2020-01-14 06:03] VITALS: BP 120/58
[2020-01-14] MEDS: LEVOTHYROXINE 100 MCG (LEVOTHROID) TAB PO SCH (06:07)
[2020-01-14] MEDS: BETHANECHOL 25 MG (URECHOLINE) TAB PO SCH ×4 (06:07→20:18)
[2020-01-14] MEDS: oxyCODONE ER 10 MG (OxyCONTIN CR) TAB PO SCH ×2 (06:08→13:12)
--- NOTE | 2020-01-14 06:08 | NUR ---
given scheduled pain med OxyContin 30mg, rates pain level 9/10 on numeric scale
[2020-01-14 06:47] LABS: ALBUMIN 3.6 GM/DL (3.2-4.5); POTASSIUM 4.4 MMOL/L (3.6-5.0)
--- NOTE | 2020-01-14 06:50 | NUR ---
Rates pain level 5/10 on numeric scale
[2020-01-14 06:52] LABS: BILIRUBIN,TOTAL 0.6 MG/DL (0.1-1.0)
[2020-01-14 06:53] LABS: CREATININE SERUM 0.92 MG/DL (0.60-1.30)
[2020-01-14 06:59] LABS: BASOPHILS # (AUTO) 0.1 10^3/uL (0.0-0.1); BASOPHILS % (AUTO) 1 % (0-10); EOSINOPHILS # (AUTO) 0.3 10^3/uL (0.0-0.3); EOSINOPHILS % (AUTO) 5 % (0-10); HEMATOCRIT 38 % (35-52); HEMOGLOBIN 11.8 g/dL (11.5-16.0); LYMPHOCYTES # (AUTO) 2.3 10^3/uL (1.0-4.0); LYMPHOCYTES % (AUTO) 32 % (12-44); MEAN CORPUSCULAR HEMOGLOBIN 30 pg (25-34); MEAN CORPUSCULAR HGB CONC 31 g/dL (32-36); MEAN CORPUSCULAR VOLUME 96 fL (80-99); MEAN PLATELET VOLUME 10.7 fL (9.0-12.2); MONOCYTES # (AUTO) 0.5 10^3/uL (0.0-1.0); MONOCYTES % (AUTO) 7 % (0-12); NEUTROPHILS # (AUTO) 3.9 10^3/uL (1.8-7.8); NEUTROPHILS % (AUTO) 55 % (42-75); PLATELET COUNT 261 10^3/uL (130-400); WHITE BLOOD COUNT 7.1 10^3/uL (4.3-11.0)
[2020-01-14] MEDS: LOSARTAN 25 MG (COZAAR) TAB PO SCH (08:05)
[2020-01-14] MEDS: CIPROFLOXACIN 500 MG (CIPRO) TABLET PO SCH ×2 (08:05→20:17)
[2020-01-14] MEDS: BACLOFEN 10 MG (LIORESAL) TAB PO SCH ×3 (08:05→20:17)
[2020-01-14] MEDS: APIXABAN 5 MG (ELIQUIS) TABLET PO SCH ×2 (08:05→20:17)
[2020-01-14] MEDS: ASPIRIN E.C. 81 MG (ECOTRIN) TAB PO SCH (08:05)
[2020-01-14] MEDS: PANTOPRAZOLE 40 MG (PROTONIX) TAB PO SCH (08:05)
[2020-01-14] MEDS: VITAMIN D3 25 MCG (1,000 UNITS) TABLET PO SCH (08:05)
[2020-01-14] MEDS: DICLOFENAC 1% GEL 100 GM (VOLTAREN) TUBE TP SCH ×3 (08:06→20:24)
[2020-01-14] MEDS: polyethylene glycoL POWDER 17 GM (MIRALAX) PACK PO SCH (09:00)
[2020-01-14] MEDS: DOCUSATE SODIUM 100 MG (COLACE) CAP PO SCH ×2 (09:00→20:22)
[2020-01-14] MEDS: SENNA W/DOCUSATE (SENOKOT S) TABLET PO SCH ×2 (09:00→20:22)
--- NOTE | 2020-01-14 10:04 | Physical Therapy Daily Note ---
PT Daily Note-Current Subjective Pt. in bed agrees to PT OT co Rx, comments that she continues to have vaginal discharge issues and may have to wait until she is discharged to fully address this issue Pain Numeric Pain Scale: 5-Moderate Pain Location: Right Pain Description: Pressure Mental Status Patient Orientation: Normal For Age Transfers SCALE: Activities may be completed with or without assistive devices. 0-Fjwvrjagzo-akywusb completes the activity by him/herself with no assistance from a helper. 5-Set-up or Clean-up Assistance-helper sets up or cleans up; patient completes activity. [place] assists only prior to or following the activity. 4-Supervision or Touching Assistance-helper provides verbal cues and/or touching/steadying and/or contact guard assistance as patient completes activity. Assistance may be provided throughout the activity or intermittently. 3-Partial/Moderate Assistance-helper does LESS THAN HALF the effort. [place] lifts, holds or supports trunk or limbs, but provides less than half the effort. 2-Substantial/Maximal Assistance-helper does MORE THAN HALF the effort. [place] lifts or holds trunk or limbs and provides more than half the effort. 9-Nimwixyyk-ygugje does ALL the effort. Patient does none of the effort to complete the activity. Or, the assistance of 2 or more helpers is required for the patient to complete the activity. If activity was not attempted, code reason: 7-Patient Refused. 9-Not Applicable-not attempted and the patient did not perform the activity before the current illness, exacerbation or injury. 10-Not Attempted due to Environmental Limitations-(lack of equipment, weather restraints, etc.). 88-Not Attempted due to Medical Conditions or Safety Concerns. Roll Left & Right (QC): 4 Lying to Sitting/Side of Bed(Q: 3 Sit to Stand (QC): 3 Chair/Ges-af-Vmiwa Xfer(QC): 3 Toilet Transfer (QC): 3 Weight Bearing Full Weight Bearing Full Weight Bearing Wheelchair Training Does the Pt Use a Wheelchair?: Yes Wheel 50 ft with 2 turns (QC): 3 Wheel 150 ft (QC): 3 Type of Wheelchair: Manual Pt. requires assist and instruction for turning, propelling and braking Exercises NuStep Minutes: 8 NuStep Workload: 2 Treatments Nustep allowed and facilitated U&L extremity reciprocal movement, this required assitance, pt. then did leg presses on NUstep as well x 12. 2 skilled clinicians necessary to accommodate pts TRFs and mobility training and ADLs for balance, alignment and coordination of L U&L extremity facilitation, numerous standing trials for balance and alignment and wt bearing through LLE with much assist Assessment Current Status: Fair Progress TRFs toward right side better, less pushing, continues dependent for all mobility, incont of urine and BM. PT Short Term Goals Short Term Goals Time Frame: Jan 08, 2020 Roll Left & Right: 3 Sit to lyin Lying to sitting on side of be: 3 Sit to stand: 3 Chair/her-rf-pcztr transfer: 3 PT Usp Goals Newspaper Publisher Goals PT Usp Goals Time Frame: Jan 22, 2020 Roll Left & Right (QC): 3 (Татьяна) Sit to Lying (QC): 3 (Татьяна) Lying-Sitting on Side/Bed(QC): 3 (Татьяна) Sit to Stand (QC): 3 (Татьяна) Chair/Iiu-qu-Iprri Xfer(QC): 3 (Татьяна) Toilet Transfer (QC): 3 (Татьяна) Car Transfer (QC): 3 (Татьяна) Does the Patient Walk: No and Walking Goal IS indicated Walk 10 feet (QC): 3 (Татьяна) Walk 50ft with 2 Turns (QC): 88 Walk 150 ft (QC): 88 Walking 10ft on Uneven Surface: 88 1 Step (curb) (QC): 88 4 Steps (QC): 88 12 Steps (QC): 88 Picking up an Object (QC): 88 Wheel 50 feet with 2 turns (QC: 4 Type: Manual Wheel 150 feet: 4 Type: Manual PT Plan Treatment/Plan Treatment Plan: Continue Plan of Care Treatment Plan: Bed Mobility, Education, Functional Activity Benson, Functional Strength, Group Therapy, Gait, Safety, Therapeutic Exercise, Transfers Treatment Duration: Jan 21, 2020 Frequency: At least 5 of 7 days/Wk (IRF) Estimated Hrs Per Day: 1.5 hours per day Patient and/or Family Agrees t: Yes Safety Risks/Education Patient Education: Transfer Techniques, Correct Positioning, W/C Management, Disease Process, Safety Issues Teaching Recipient: Patient Response to Teaching: Reinforcement Needed Time/GCodes Time In: 900 Time Out: 1000 Total Billed Treatment Time: 60 Total Billed Treatment 1,FA35m,WC 10m,EX15m RUBEN BARNES COBOL APPLICATION DEVELOPER Jan 14, 2020 10:04
--- NOTE | 2020-01-14 10:51 | Occupational Ther Daily Note ---
OT Current Status-Daily Note Subjective Pt in bed upon arrival. Pt no c/o pain. Pt agreed to therapy. Mental Status/Objective Patient Orientation: Person, Place, Time, Situation ADL-Treatment Co-treatment PT ([id number]) skills of two clinicians required for skilled instruction and care due to transfers and safety concerns. Pt placed dentures in mouth, verbal cues required. PT focused on transfers, LE exercises. OT focused on ADLs, hand placement, UE exercises. Pt lying supine in bed. Pt supine to EOB assists x2. Pt transferred from EOB to commode Max A. Pt agreed to taking sponge bath. Pt doff upper body clothing Max A. Pt doff lower body clothing Max A, PT stabilized pt in standing while OT pulled pants down over hips. Pt performed upper body washing Min A to wash R arm. Pt performed lower body washing using LH sponge to reach lower legs/feet. Pt cleansed front perineal area by self while sitting on commode. Pt donned upper body clothing Max A to thread arms into shirt and crop puller head. Pt donned lower body clothing Max A to thread feet into pants/socks. Pt used PT to stabilize in standing while OT cleansed buttocks and hike pants over hips. Pt transferred from commode to w/c Max A. See PT notes for transfers. Therapy Code Descriptions/Definitions Functional [place] Measure: 0=Not Assessed/NA 4=Minimal Assistance 1=Total Assistance 5=Supervision or Setup 2=Maximal Assistance 6=Modified [place] 3=Moderate Assistance 7=Complete IndependenceSCALE: Activities may be completed with or without assistive devices. 3-Acbjulhjgi-wovpqnv completes the activity by him/herself with no assistance from a helper. 5-Set-up or Clean-up Assistance-helper sets up or cleans up; patient completes activity. [place] assists only prior to or following the activity. 4-Supervision or Touching Assistance-helper provides verbal cues and/or touching/steadying and/or contact guard assistance as patient completes activity. Assistance may be provided throughout the activity or intermittently. 3-Partial/Moderate Assistance-helper does LESS THAN HALF the effort. [place] lifts, holds or supports trunk or limbs, but provides less than half the effort. 2-Substantial/Maximal Assistance-helper does MORE THAN HALF the effort. [place] lifts or holds trunk or limbs and provides more than half the effort. 3-Dyevejjuq-sxjhjc does ALL the effort. Patient does none of the effort to complete the activity. Or, the assistance of 2 or more helpers is required for the patient to complete the activity. If activity was not attempted, code reason: 7-Patient Refused. 9-Not Applicable-not attempted and the patient did not perform the activity before the current illness, exacerbation or injury. 10-Not Attempted due to Environmental Limitations-(lack of equipment, weather restraints, etc.). 88-Not Attempted due to Medical Conditions or Safety Concerns. Oral Hygiene (QC): 4 Bathing Location: L Arm, L Upper Leg, R Upper Leg, L Lower Leg (including foot), R Lower Leg (including foot), Chest, Abdomen, Perineal Area Shower/Bathe Self (QC): 1 Upper Body Dressing (QC): 2 Lower Body Dressing (QC): 2 On/Off Footwear: 2 Toileting Hygiene (QC): 1 Toilet Transfer (QC): 1 Other Treatment Pt propelled self to therapy gym. Pt worked with PT on LE exercises. OT provided gentle stretch to L UE. Noted increased tightness in left bicep, pectoral muscle, and tricep. Facilitated joint compressions to left shoulder with passive stretch, to pt.'s tolerated range. Pt. able to tolerate approximately 90 degrees shoulder flexion, with horizontal abduction. Pt. would indicated that she had discomfort with any prolonged stretch. Pt. able to verbalize understanding of self ranging exercises, and reports that she has been completing them in bed. Pt propelled self to room. Pt transferred from w/c to EOB Max A. Pt EOB to supine Max A while OT guided head, second person guided feet. Call light/phone in reach. All needs met. ` OT Short Term Goals Short Term Goals Time Frame: Jan 16, 2020 Eatin Oral hygiene: 5 Upper body dressin Lower body dressin OT Tonguer Goals Tonguer Goals Time Frame: Jan 25, 2020 Eating (QC): 6 Oral Hygiene (QC): 6 Toileting Hygiene (QC): 4 Shower/Bathe Self (QC): 4 Upper Body Dressing (QC): 5 Lower Body Dressing (QC): 4 On/Off Footwear (QC): 3 Additional Goals: 1-Demonstrate ADL Tasks, 2-Verbalize Understanding, 3-Impr oveStrength/Benson 1=Demonstrate adherence to instructed precautions during ADL tasks. 2=Patient will verbalize/demonstrate understanding of assistive devices/modifications for ADL. 3=Patient will improve strength/tolerance for activity to enable patient to perform ADL's. OT Education/Plan Problem List/Assessment Assessment: Decreased Activ Tolerance, Decreased UE Strength, Impaired Funct Balance, Impaired Self-Care Skills Discharge Recommendations Plan/Recommendations: Continue POC Therapy Discharge Recommendati: 24 Hour Supervision, Post Acute OT Treatment Plan/Plan of Care Treatment,Training & Education: Yes Patient would benefit from OT for education, treatment and training to promote independence in ADL's, mobility, safety and/or upper extremity function for ADL's. Plan of Care: ADL Retraining, Functional Mobility, Group Exercise/Act as Ind, UE Funct Exercise/Act, UE Neuromus Re-Ed/Coord, Visual/Perceptual Retrain, W/C Management Training Treatment Duration: Jan 25, 2020 Frequency: At least 5 of 7 days/Wk (IRF) Estimated Hrs Per Day: 1.5 hours per day Agreement: Yes Rehab Potential: Fair Time/GCodes Start Time: 09:00 Stop Time: 10:15 Total Time Billed (hr/min): 75 Billed Treatment Time 1 visit- ADL 3 (45 mins), EX (15mins), NM (15 mins) Co-treatment- ([id number]) Ind- ([id number]) Please see above note for designated roles. DELMER DENIS OT Jan 14, 2020 10:51
--- NOTE | 2020-01-14 12:26 | Speech Therapy Daily Note ---
Speech Daily Progress Note Subjective Date Seen by Provider: Jan 14, 2020 Time Seen by Provider: 00:30 Patient was resting in her bed following her PT. Patient states she feels she is getting stronger. Objective Patient demo utilization of safe oral intake strategies as trained at 80% with minimal cues. Assessment Assessment Current Status: Good Progress Treatment Plan Continue Plan of Care Speech Short Term Goals Short Term Goals Short Term Goals 1) Patient will tolerate the least restrictive diet level without s/s of aspiration at 90% or greater. 2) Patient will utilize compensatory strategies as trained for safe oral intake at 90% or greater. Speech General Dentist Goals Penitentiary Goals Patient will maintain adequate nutrition/hydration via safe effective swallow function. Speech-Plan Patient/Family Goals Patient/Family Goals: Patient plans on returning to her home where she lives with her . Treatment Plan Speech Therapy Treatment Plan: Continue Plan of Care Patient states she would like to have bread. Patient educated on diet levels. Clinician to complete regular diet level trial with patient on 01/15/2020 Treatment Duration: Jan 18, 2020 Frequency: 4 times per week Estimated Hrs Per Day: .25 hour per day Rehab Potential: Fair Barriers to Learning: Patient's recent CVA, age Pt/Family Agrees to Plan: Yes Safety Risks/Education Teaching Recipient: Patient Teaching Methods: Demonstration, Discussion Response to Teaching: Verbalize Understanding, Return Demonstration Education Topics Provided: Diet levels, safety of oral intake, sequencing for oral intake Time Speech Therapy Time In: 11:00 Speech Therapy Time Out: 11:30 Total Billed Time: 30 Billed Treatment Time 1, ANNEL SPENCER [place] Jan 14, 2020 12:26
--- NOTE | 2020-01-14 13:37 | Physical Therapy Daily Note ---
PT Daily Note-Current Subjective Pt. supine in bed, agrees to exercise, shares her history of ankylosing spondylitis Pain Location: No Pain Reported Mental Status Patient Orientation: Normal For Age Transfers SCALE: Activities may be completed with or without assistive devices. 0-Pmvsxkxeqg-isgyxlp completes the activity by him/herself with no assistance from a helper. 5-Set-up or Clean-up Assistance-helper sets up or cleans up; patient completes activity. [place] assists only prior to or following the activity. 4-Supervision or Touching Assistance-helper provides verbal cues and/or touching/steadying and/or contact guard assistance as patient completes activity. Assistance may be provided throughout the activity or intermittently. 3-Partial/Moderate Assistance-helper does LESS THAN HALF the effort. [place] lifts, holds or supports trunk or limbs, but provides less than half the effort. 2-Substantial/Maximal Assistance-helper does MORE THAN HALF the effort. [place] lifts or holds trunk or limbs and provides more than half the effort. 2-Qajbzqhye-pmjsbq does ALL the effort. Patient does none of the effort to complete the activity. Or, the assistance of 2 or more helpers is required for the patient to complete the activity. If activity was not attempted, code reason: 7-Patient Refused. 9-Not Applicable-not attempted and the patient did not perform the activity before the current illness, exacerbation or injury. 10-Not Attempted due to Environmental Limitations-(lack of equipment, weather restraints, etc.). 88-Not Attempted due to Medical Conditions or Safety Concerns. Weight Bearing Full Weight Bearing Full Weight Bearing Exercises Supine Ex: Bridging, Ankle pumps, Quad Set, Glut sets, Heel Slides, Short Arc Quads, Straight leg raise, Hip abd/add Supine Reps: 10 (x2) Assessment Current Status: Good Progress improved DF left , increased Q set and quad strength, discussed use of Quads for left knee extension in stance to improve stability PT Short Term Goals Short Term Goals Time Frame: Jan 08, 2020 Roll Left & Right: 3 Sit to lyin Lying to sitting on side of be: 3 Sit to stand: 3 Chair/trl-bl-qpogz transfer: 3 PT Prison Goals Prison Goals PT Inshore Undersea Warfare Officer Goals Time Frame: Jan 22, 2020 Roll Left & Right (QC): 3 (Татьяна) Sit to Lying (QC): 3 (Татьяна) Lying-Sitting on Side/Bed(QC): 3 (Татьяна) Sit to Stand (QC): 3 (Татьяна) Chair/Ooe-au-Ibktv Xfer(QC): 3 (Татьяна) Toilet Transfer (QC): 3 (Татьяна) Car Transfer (QC): 3 (Татьяна) Does the Patient Walk: No and Walking Goal IS indicated Walk 10 feet (QC): 3 (Татьяна) Walk 50ft with 2 Turns (QC): 88 Walk 150 ft (QC): 88 Walking 10ft on Uneven Surface: 88 1 Step (curb) (QC): 88 4 Steps (QC): 88 12 Steps (QC): 88 Picking up an Object (QC): 88 Wheel 50 feet with 2 turns (QC: 4 Type: Manual Wheel 150 feet: 4 Type: Manual PT Plan Treatment/Plan Treatment Plan: Continue Plan of Care Treatment Plan: Bed Mobility, Education, Functional Activity Benson, Functional Strength, Group Therapy, Gait, Safety, Therapeutic Exercise, Transfers Treatment Duration: Jan 21, 2020 Frequency: At least 5 of 7 days/Wk (IRF) Estimated Hrs Per Day: 1.5 hours per day Patient and/or Family Agrees t: Yes Safety Risks/Education Patient Education: Correct Positioning, Disease Process Teaching Recipient: Patient Teaching Methods: Discussion Response to Teaching: Verbalize Understanding, Return Demonstration, Reinforcement Needed Time/GCodes Time In: 115 Time Out: 130 Total Billed Treatment Time: 15 Total Billed Treatment 1,EX15m RUBEN BARNES TRACK DRESSER Jan 14, 2020 13:37
--- NOTE | 2020-01-14 14:52 | Cardiology Progress Note ---
Subjective Date Seen by Provider: Jan 14, 2020 Time Seen by Provider: 08:55 Subjective/Events-last exam Patient is in bed, continues to complain of some nausea. Denies any chest pain or palpitations. Review of Systems General: No Chills, No Night Sweats, No Fatigue, No Malaise, No Appetite, No Other HEENT: No Head Aches, No Visual Changes, No Eye Pain, No Ear Pain, No Dysphasia, No Sinus Congestion, No Post Nasal Drip, No Sore Throat, No Other Pulmonary: No Dyspnea, No Cough, No Pleuritic Chest Pain, No Other Cardiovascular: No: Chest Pain, Palpitations, Orthopnea, Paroxysmal Noc. Dyspnea, Edema, Lt Headedness, Other Focused Exam Time of Focused Exam: 11:42 Objective-Cardiology Exam Last Set of Vital Signs Vital Signs 01/14/20 01/14/20 06:03 08:26 Temp 36.1 Pulse 56 Resp 20 B/P (MAP) 120/58 (78) Pulse Ox 93 O2 Delivery Room Air Capillary Refill : Less Than 3 Seconds I&O Intake and Output 01/14/20 00:00 Intake Total 900 ml Balance 900 ml Intake Oral 900 ml # Voids 8 # Bowel Movements 4 General: Alert, Oriented X3, Cooperative HEENT: Atraumatic, PERRLA Neck: Supple, No JVD, No Thyromegaly Lungs: Clear to Auscultation, Normal Air Movement Heart: Regular Rate, Normal S1, Normal S2, No Murmurs Abdomen: Soft, Other (ttp) Extremities: No Clubbing, No Cyanosis, No Edema, Normal Pulses Skin: No Rashes, No Significant Lesion Neuro: Normal Speech Psych/Mental Status: Mental Status NL, Mood NL Results Lab Laboratory Tests 01/14/20 06:18 A/P-Cardiology Admission Diagnosis CVA HTN Hypothyroidism Ankylosing spondylitis Assessment/Plan 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 MRI done at [facility] showing right frontal parietal lobe infarct. 2D Echo done 12/18/2019 demonstrated LVH with normal EF. CTA Head and neck unremarkable. Continues to have left sided weakness. Reports hx of previous CVA in 2004. Continue on ASA and Plavix. HTN, continue to monitor HLP, recently started on statin, continue to monitor UTI, Management per Dr. Bentley and Dr. Cook. Hypothyroidism Ankylosing spondylitis Epigastric pain, resolved. Will s/o at this time, f/u with patient's primary civilian technician in 2-4 weeks after discharge. Please reconsult if needed. Patient was seen and evaluated with Inna, examination performed, management plan was discussed, agree with the current scribed note, I made few changes to the note using Italic font Patient was seen and evaluated, sitting comfortably, denied any active pain Continue on current medication and monitor, no changes are recommended Arrange for follow-up with Dr. Loco in 2-4 weeks I will sign off at this point and reconsult if needed. Clinical Quality Measures DVT/VTE Risk/Contraindication: Risk Factor Score Per Nursin RFS Level Per Nursing on Admit: 4+=Very High INNA OCHOA Jan 14, 2020 2:52 pm CLIFFORD PETER MD Jan 14, 2020 5:23 pm
[2020-01-14 16:00] VITALS: BP 118/56
[2020-01-14] MEDS: TAMSULOSIN 0.4 MG (FLOMAX) CAP PO SCH (17:14)
[2020-01-14] MEDS: ANTACID SUSP 30 ML UDC (MYLANTA) PO PRN (18:23)
--- NOTE | 2020-01-14 19:11 | NUR ---
Bedside report received from FRANCIA BOJORQUEZ, assume care of pt
[2020-01-14] MEDS: ACETAMINOPHEN 500 MG TAB (TYLENOL) PO SCH (19:42)
[2020-01-14] MEDS: HYDROcodone/APAP 5 MG/325 MG (LORTAB) TAB PO PRN (19:42)
--- NOTE | 2020-01-14 19:42 | NUR ---
C/O pain to neck & arm level 9/10 on numeric scale, Lortab 5 1 tab given with yogurt
[2020-01-14] MEDS: ALPRAZolam 0.25 MG (XANAX) TAB PO PRN (20:17)
[2020-01-14] MEDS: MELATONIN 3 MG TABLET PO SCH (20:17)
[2020-01-14] MEDS: diphenhydrAMINE 25 MG TAB (BENADRYL) PO SCH (20:17)
--- NOTE | 2020-01-14 20:25 | NUR ---
Refused Colace, & Senokot with yogurt
--- NOTE | 2020-01-14 20:35 | NUR ---
Rates pain level 5/10 on numeric scale
[2020-01-15 05:22] VITALS: BP 122/59
[2020-01-15] MEDS: oxyCODONE ER 10 MG (OxyCONTIN CR) TAB PO SCH ×2 (06:11→13:55)
[2020-01-15] MEDS: LEVOTHYROXINE 100 MCG (LEVOTHROID) TAB PO SCH (06:11)
[2020-01-15] MEDS: BETHANECHOL 25 MG (URECHOLINE) TAB PO SCH ×3 (06:11→16:33)
[2020-01-15] MEDS: ANTACID SUSP 30 ML UDC (MYLANTA) PO PRN (07:15)
--- NOTE | 2020-01-15 07:15 | NUR ---
mylanta 15ml given after c/o epigastric discomfort, advised eat good breakfast with giving scheduled pain meds
[2020-01-15] MEDS: ASPIRIN E.C. 81 MG (ECOTRIN) TAB PO SCH (08:14)
[2020-01-15] MEDS: PANTOPRAZOLE 40 MG (PROTONIX) TAB PO SCH (08:14)
[2020-01-15] MEDS: VITAMIN D3 25 MCG (1,000 UNITS) TABLET PO SCH (08:14)
[2020-01-15] MEDS: BACLOFEN 10 MG (LIORESAL) TAB PO SCH ×3 (08:14→20:38)
[2020-01-15] MEDS: APIXABAN 5 MG (ELIQUIS) TABLET PO SCH ×2 (08:14→20:38)
[2020-01-15] MEDS: LOSARTAN 25 MG (COZAAR) TAB PO SCH (08:14)
[2020-01-15] MEDS: DICLOFENAC 1% GEL 100 GM (VOLTAREN) TUBE TP SCH ×3 (08:14→20:45)
[2020-01-15] MEDS: ONDANSETRON 4 MG (ZOFRAN) ORAL DISSOLVE TAB PO PRN ×2 (09:19→13:31)
[2020-01-15] MEDS: SENNA W/DOCUSATE (SENOKOT S) TABLET PO SCH ×2 (09:57→20:48)
[2020-01-15] MEDS: DOCUSATE SODIUM 100 MG (COLACE) CAP PO SCH ×2 (09:57→20:48)
[2020-01-15] MEDS: polyethylene glycoL POWDER 17 GM (MIRALAX) PACK PO SCH (09:57)
--- NOTE | 2020-01-15 09:58 | NUR ---
CM/SS CONCURRENT DOCUMENTATION Reviewed patient current level of performance, therapy documentation reflects patient continues to be dependent for all mobility and is incontinent of bowel/bladder. Spoke with her spouse Donavon Beauchamp (Bill) by phone. He has had conversation with their PCP Dr. Rodrigez who evidently recommended that Anant have an additional person in their home to provide caregiving for patient. Discussed cost which seems out of reach for them; however, Anant does not want her to go to a jail. Inquired about group home care insurance, Anant stated that patient had been the one to manage all their paperwork and that he does not know if they have this or not. Encouraged him to visit with patient by phone regarding this, and he intends to review paperwork at the [facility]. Otherwise, a future option could be Medicaid and/or division of assets for her to qualify. Their son Twin is scheduled to come from [place] soon but this is a visit and he should not be considered an additional caregiver. Partner with Mr. Beauchamp for next steps.
--- NOTE | 2020-01-15 10:13 | PM&R Progress Note ---
Subjective HPI/CC On Admission Date Seen by Provider: Jan 15, 2020 Time Seen by Provider: 10:30 Subjective/Events-last exam 01/15/20: Pt vomited a little bit this morning Maalox given for GERD issues Vaginal discharge is still a discussion Pt has a lot of somatic complaints will try to continue supporting and improving anything we can 01/14/20: Labs reviewed Vaginal discharge discussed in-depth Outpatient appt with Dr Hanna will be set up 01/13/20: Patient still talks about vaginal discharge so will need PROCESS IMPROVEMENT ENGINEER appt as outpatient No pain reported BM+ Fall risk 01/12/2020: Reports vaginal discharge started again I personally do not have an answer and she will need outpatient treatment by gynecology Denies any significant new pain Pain is well controlled on extended release narcotics No shortness of breath Participating in therapy 01/11/20: Completing antibiotic Reports the vaginal discharge has returned Unsure of the source of that We will try to confer with gynecology about that Check meds and labs 01/10/20: Tolerating antibiotic Bowels are moving pretty well Vaginal discharge is about the same Mysterious situation with the vaginal discharge Appreciate gynecology and urology 01/09/20: Urine issues showing some residual and retention Bowels moved today Vaginal culture is normal anup Cipro for protease Eliquis started for AF Discontinue Lovenox 01/08/20: Bowels moving today Swab of the vagina was done by Dr. Jackson himself Appreciate Dr. Joseph update 01/07/20: Proteus urine culture, Dr. Nesbitt placed her on Cipro CT scan with rectal contrast has been completed, will evaluate for fistula Bowels moved today but she feels like it goes into her vagina 01/06/20: Spoke to Dr Cook after I assessed her symptoms again of the vaginal discharge and we need CT abd pelvis with rectal contrast to see if fistula is an issue Proteus on UC x but UA was normal which may be involved in this fistula issues Left arm is flaccid some movement in left foot Uterine prolapse noted when she was admitted 01/05/20: Brown vaginal discharge noted If continues will obtain TV USG and Computer Lab Para Professional consult No pain reported UA repeat normal Incontinence at night 01/04/20: Much improved status Bearden now out and voiding well Not sleeping well so added equivalent of Tylenol PM to night time to see if that helps her since she takes that at home on occasion Advanced diet Repeat UA via in/out cath DC Cleocin 01/03/20: Bearden out and has yet to void Dr Nesbitt and I conferred on the unit Oxycontin increased to 30mg BID she takes it at 0700 and 1330 so instructed pharmacy to put it in for that time slot Swallowing better 12/31/19 BM so laxatives given Pureed diet 01/02/20: Decreasing food intake Chest pain prompting EKG and cardiology evaluation Troponin will be checked Nausea noted Very difficult to manage with such chronic pain Appreciate Dr Nesbitt and Dr Johnson Pt settling in pretty well Having a lot of pain ankylosing spondylitis is very painful for her Will aggressively react bowels Remains with a catheter, I did consult urology Checked meds and labs Conferred with RN Reviewed therapy notes Review of Systems General: Fatigue, Malaise Neurological: Weakness, Incoordination Focused Exam Time of Focused Exam: 11:42 Objective Exam Vital Signs Vital Signs Date Time Temp Pulse Resp B/P (MAP) Pulse Ox O2 Delivery O2 Flow Rate FiO2 01/15/20 20:50 Room Air 01/15/20 16:00 35.8 62 16 118/60 (79) 93 Capillary Refill : Less Than 3 Seconds General Appearance: No Apparent Distress, WD/WN HEENT: PERRL/EOMI, Normal ENT Inspection Neck: Normal Inspection, Supple Respiratory: Chest Non Tender, Lungs Clear, Normal Breath Sounds, No Accessory Muscle Use, No Respiratory Distress Cardiovascular: Regular Rate, Rhythm, No Edema Gastrointestinal: Normal Bowel Sounds, No Organomegaly, No Pulsatile Mass, Non Tender, Soft Back: Normal Inspection, No CVA Tenderness, No Vertebral Tenderness Extremity: Normal Inspection, No Calf Tenderness, No Pedal Edema Neurologic/Psychiatric: Alert, Oriented x3, Normal Mood/Affect, Motor Weakness Skin: Normal Color, Warm/Dry Lymphatic: No Adenopathy Results/Procedures Lab Patient resulted labs reviewed. FIM Transfers Therapy Code Descriptions/Definitions Functional [place] Measure: 0=Not Assessed/NA 4=Minimal Assistance 1=Total Assistance 5=Supervision or Setup 2=Maximal Assistance 6=Modified [place] 3=Moderate Assistance 7=Complete IndependenceSCALE: Activities may be completed with or without assistive devices. 5-Stmqvlusjp-eixqlfm completes the activity by him/herself with no assistance from a helper. 5-Set-up or Clean-up Assistance-helper sets up or cleans up; patient completes activity. [place] assists only prior to or following the activity. 4-Supervision or Touching Assistance-helper provides verbal cues and/or touching/steadying and/or contact guard assistance as patient completes activity. Assistance may be provided throughout the activity or intermittently. 3-Partial/Moderate Assistance-helper does LESS THAN HALF the effort. [place] lifts, holds or supports trunk or limbs, but provides less than half the effort. 2-Substantial/Maximal Assistance-helper does MORE THAN HALF the effort. [place] lifts or holds trunk or limbs and provides more than half the effort. 2-Llqpgrldc-qtbwlo does ALL the effort. Patient does none of the effort to c omplete the activity. Or, the assistance of 2 or more helpers is required for the patient to complete the activity. If activity was not attempted, code reason: 7-Patient Refused. 9-Not Applicable-not attempted and the patient did not perform the activity before the current illness, exacerbation or injury. 10-Not Attempted due to Environmental Limitations-(lack of equipment, weather restraints, etc.). 88-Not Attempted due to Medical Conditions or Safety Concerns. Roll Left to Right (QC): 4 Sit to Lying (QC): 3 Sit to Stand (QC): 3 Chair/Dqq-ar-Umudg Xfer(QC): 3 Car Transfer (QC): 1 Gait Training Distance: 3 Walk 10 feet (QC): 88 Walk 50 ft with 2 Turns(QC): 88 Walk 150 ft (QC): 88 Walking 10ft/uneven surface-QC: 88 Gait Persons Needed: 1 Gait Assistive Device: Parallel Bars Wheelchair Training Does the Pt Use a Wheelchair?: Yes Distance: 50'x2 Wheel 50 ft with 2 turns (QC): 3 Wheel 150 ft (QC): 3 Type of Wheelchair: Manual Stair Training 1 Step (curb) (QC): 88 4 Steps (QC): 88 12 Steps (QC): 88 Balance Picking up an Object (QC): 1 ADL-Treatment Eating (QC): 5 (Based on clincial judgement, pt would require set up assistance with feeding) Oral Hygiene (QC): 4 Bathing Location: L Arm, L Upper Leg, R Upper Leg, L Lower Leg (including foot), R Lower Leg (including foot), Chest, Abdomen, Perineal Area Shower/Bathe Self (QC): 1 Upper Body Dressing (QC): 2 Lower Body Dressing (QC): 2 On/Off Footwear (QC): 2 Toileting Hygiene (QC): 1 Toilet Transfer (QC): 1 Assessment/Plan Assessment and Plan Assess & Plan/Chief Complaint Assessment: CVA Left sided weakness AK Hypothyroidism Chronic pain Narcotic dependent Narcotic bowel Osteoporosis Bearden cath in place Urinary retention UTI PAF on Tely 01/07/20 placed on OAC Plan: Dr Nesbitt IRF protocol Current meds 01/01/20: Pain management Dr Nesbitt consult for urinary retention Monitor for falls BM regimen 01/02/20: Pain management Cardiology and Urology consultation is appreciated 01/03/20: Urology appreciated Pain med increased to her home dose Pureed diet 01/04/20: Advanced diet Repeat UA inout cath Insomnia treatment 01/05/20: Vaginal discharge? May need TV USG and Computer Lab Para Professional consult 01/06/20: Fistula between rectum and vagina? CT scan and TV USG tomorrow 01/07/20: CT scan with rectal enema Computer Lab Para Professional consult Conferred with Dr Nesbitt Abx for Proteus 01/08/20: Appreciate Dr Jackson Vaginal swab UTI tx 01/09/20: Monitor weakness Pain control UTI tx 01/10/20: Tolerating abx Monitor voiding 01/11/2020: Pain control Bowel regimen Monitor vaginal discharge 01/12/20: OAC Monitor closely 01/13/20: Continue abx for UTI Computer Lab Para Professional appt at [place] Needs skilled care if deficits remain severe 01/14/20: Labs reviewed Manage pain issues 01/15/20: Chronic vaginal discharge No pain reported as long as chronic narcs given (1) CVA (cerebral vascular accident) (2) Ankylosing spondylitis (3) Acquired hypothyroidism (4) Chronic pain (5) Narcotic dependence (6) Narcotic bowel syndrome (7) Urinary retention (8) Bearden catheter in place (9) UTI (urinary tract infection) (10) Left-sided weakness (11) Psoriasis (12) Osteoporosis WILEY WRIGHT DO Jan 15, 2020 10:13
--- NOTE | 2020-01-15 11:21 | Occupational Ther Daily Note ---
OT Current Status-Daily Note Subjective Pt in recliner upon arrival. Pt no c/o pain. Pt agreed to therapy. Mental Status/Objective Patient Orientation: Person, Place, Time, Situation ADL-Treatment Pt place dentures in mouth, minimal verbal cues required. [facility] OT stabilized pt in standing while second person pulled pants down over hips. Pt Doffed UE clothing Max A to undress affected L arm and over head. Pt doffed LE clothing Max A to thread pants/briefs off legs. OT stabilized pt in standing while second person cleansed buttocks area. Pt. required max assistance to don brief and pants over feet, and then max assist in stance with max assistance of another person to don over hips. [facility] Therapy Code Descriptions/Definitions Functional [place] Measure: 0=Not Assessed/NA 4=Minimal Assistance 1=Total Assistance 5=Supervision or Setup 2=Maximal Assistance 6=Modified [place] 3=Moderate Assistance 7=Complete IndependenceSCALE: Activities may be completed with or without assistive devices. 1-Fqvkcneszc-itcwwfw completes the activity by him/herself with no assistance from a helper. 5-Set-up or Clean-up Assistance-helper sets up or cleans up; patient completes activity. [place] assists only prior to or following the activity. 4-Supervision or Touching Assistance-helper provides verbal cues and/or touching/steadying and/or contact guard assistance as patient completes a ctivity. Assistance may be provided throughout the activity or intermittently. 3-Partial/Moderate Assistance-helper does LESS THAN HALF the effort. [place] lifts, holds or supports trunk or limbs, but provides less than half the effort. 2-Substantial/Maximal Assistance-helper does MORE THAN HALF the effort. [place] lifts or holds trunk or limbs and provides more than half the effort. 4-Xlmezaqio-whglmr does ALL the effort. Patient does none of the effort to complete the activity. Or, the assistance of 2 or more helpers is required for the patient to complete the activity. If activity was not attempted, code reason: 7-Patient Refused. 9-Not Applicable-not attempted and the patient did not perform the activity before the current illness, exacerbation or injury. 10-Not Attempted due to Environmental Limitations-(lack of equipment, weather restraints, etc.). 88-Not Attempted due to Medical Conditions or Safety Concerns. Oral Hygiene (QC): 4 Upper Body Dressing (QC): 2 Lower Body Dressing (QC): 1 On/Off Footwear: 2 Toileting Hygiene (QC): 1 Toilet Transfer (QC): 1 Other Treatment Pt propelled self to therapy gym. Pt worked on standing balance at parallel bars in front of mirror to focus on body alignment for daily functional task. Pt used parallel bars to help pull self up max x2 in standing. Rest breaks required due to fatigue and dizziness. OT encouraged upright posture and balance with cues to weight shift and put appropriate weight through right side. Pt worked on sitting balance in w/c leaning L to R to be aware of body placement for daily functional tasks. Pt initiated L affected arm in elbow flexion/extension with muscle tapping at muscle belly. Noted elbow flexion/extension with active assist. Rest breaks required due to dizziness and nausea. BP taken and is 131/59. Pt propelled back to room by OT to use restroom. Pt transferred to commode from w/c x2 assists. Pt used OT to stabilize in standing while second person cleansed buttocks area. Pt stated needing to sit again to use restroom and was nauseated. Left in care of nursing. All needs met. Education OT Patient Education: Correct positioning, Exercise program, Modified ADL techniques, Progress toward Goal/Update tx plan, Purpose of tx/functional activities, Reviewed precautions, Rehab process, Transfer techniques, W/C management Teaching Recipient: Patient Teaching Methods: Demonstration, Discussion Response to Teaching: Verbalize Understanding, Return Demonstration, Reinforcement Needed OT Short Term Goals Short Term Goals Time Frame: Jan 16, 2020 Eatin Oral hygiene: 5 Upper body dressin Lower body dressin OT Nursing Home Goals Lapper Goals Time Frame: Jan 25, 2020 Eating (QC): 6 Oral Hygiene (QC): 6 Toileting Hygiene (QC): 4 Shower/Bathe Self (QC): 4 Upper Body Dressing (QC): 5 Lower Body Dressing (QC): 4 On/Off Footwear (QC): 3 Additional Goals: 1-Demonstrate ADL Tasks, 2-Verbalize Understanding, 3- ImproveStrength/Benson 1=Demonstrate adherence to instructed precautions during ADL tasks. 2=Patient will verbalize/demonstrate understanding of assistive devices/modif ications for ADL. 3=Patient will improve strength/tolerance for activity to enable patient to perform ADL's. OT Education/Plan Problem List/Assessment Assessment: Decreased Activ Tolerance, Decreased UE Strength, Dependent Transfers, Impaired Coordination, Impaired Funct Balance, Impaired Self-Care Skills, Restricted Funct UE ROM Discharge Recommendations Plan/Recommendations: Continue POC Therapy Discharge Recommendati: 24 Hour Supervision Comment Equipment needs and discharge location to be determined. Treatment Plan/Plan of Care Treatment,Training & Education: Yes Patient would benefit from OT for education, treatment and training to promote independence in ADL's, mobility, safety and/or upper extremity function for ADL's. Plan of Care: ADL Retraining, Functional Mobility, Group Exercise/Act as Ind, UE Funct Exercise/Act, UE Neuromus Re-Ed/Coord, Visual/Perceptual Retrain, W/C Management Training Treatment Duration: Jan 25, 2020 Frequency: At least 5 of 7 days/Wk (IRF) Estimated Hrs Per Day: 1.5 hours per day Agreement: Yes Rehab Potential: Fair Time/GCodes Start Time: 08:15 Stop Time: 09:30 Total Time Billed (hr/min): 75 Billed Treatment Time 1 visit- ADL 4 (60 mins), FA (15 mins) DELMER DENIS OT Jan 15, 2020 11:21
--- NOTE | 2020-01-15 12:29 | Physical Therapy Daily Note ---
PT Daily Note-Current Subjective Pt laying R sidelying in bed upon arrival. Pt agrees to PT but reports not feeling well. Nurse reports pt has vomited and had BM this morning that has left pt feeling sick. Pain Numeric Pain Scale: 5-Moderate Pain Location: Left Location Body Site: Thigh Pain Description: Ache Mental Status Patient Orientation: Person, Place, Situation Transfers SCALE: Activities may be completed with or without assistive devices. 8-Uiekkdutey-utummuz completes the activity by him/herself with no assistance from a helper. 5-Set-up or Clean-up Assistance-helper sets up or cleans up; patient completes activity. [place] assists only prior to or following the activity. 4-Supervision or Touching Assistance-helper provides verbal cues and/or touching/steadying and/or contact guard assistance as patient completes activity. Assistance may be provided throughout the activity or intermittently. 3-Partial/Moderate Assistance-helper does LESS THAN HALF the effort. [place] lifts, holds or supports trunk or limbs, but provides less than half the effort. 2-Substantial/Maximal Assistance-helper does MORE THAN HALF the effort. [place] lifts or holds trunk or limbs and provides more than half the effort. 4-Ddvbhummy-hrpncg does ALL the effort. Patient does none of the effort to com plete the activity. Or, the assistance of 2 or more helpers is required for the patient to complete the activity. If activity was not attempted, code reason: 7-Patient Refused. 9-Not Applicable-not attempted and the patient did not perform the activity before the current illness, exacerbation or injury. 10-Not Attempted due to Environmental Limitations-(lack of equipment, weather restraints, etc.). 88-Not Attempted due to Medical Conditions or Safety Concerns. Weight Bearing Full Weight Bearing Full Weight Bearing Exercises Supine Ex: Ankle pumps, Quad Set, Heel Slides Supine Reps: 15 Treatments Pt completes Supine Ex as well as pt educ. with ALTITUDE CHAMBER TECHNICIAN. Discusses proper positioning and assists pt as necessary to comfort. Pt's Sp calls and has questions regarding tx after DC from [facility]. ALTITUDE CHAMBER TECHNICIAN advises will pass info for [facility] to and she will be in contact. Pt is concerned w/nausea, headaches, pain, BM and discharge when using BR. Pt resting at end of tx with all needs met, call light in hand. Afternoon tx: Pt is repositioned and written HEP for Supine & Seated Ex reviewed. Pt resting & has all needs met, call light in hand. Assessment Current Status: Fair Progress Sick feeling limited tx today. PT will try again tomorrow. PT Short Term Goals Short Term Goals Time Frame: Jan 08, 2020 Roll Left & Right: 3 Sit to lyin Lying to sitting on side of be: 3 Sit to stand: 3 Chair/iqn-tl-tffxr transfer: 3 PT Fpc Goals Fpc Goals PT Fpc Goals Time Frame: Jan 22, 2020 Roll Left & Right (QC): 3 (Татьяна) Sit to Lying (QC): 3 (Татьяна) Lying-Sitting on Side/Bed(QC): 3 (Татьяна) Sit to Stand (QC): 3 (Татьяна) Chair/Kun-vt-Micet Xfer(QC): 3 (Татьяна) Toilet Transfer (QC): 3 (Татьяна) Car Transfer (QC): 3 (Татьяна) Does the Patient Walk: No and Walking Goal IS indicated Walk 10 feet (QC): 3 (Татьяна) Walk 50ft with 2 Turns (QC): 88 Walk 150 ft (QC): 88 Walking 10ft on Uneven Surface: 88 1 Step (curb) (QC): 88 4 Steps (QC): 88 12 Steps (QC): 88 Picking up an Object (QC): 88 Wheel 50 feet with 2 turns (QC: 4 Type: Manual Wheel 150 feet: 4 Type: Manual PT Plan Problem List Problem List: Activity Tolerance, Functional Strength, Transfer Treatment/Plan Treatment Plan: Continue Plan of Care Treatment Plan: Bed Mobility, Education, Functional Activity Benson, Functional Strength, Group Therapy, Gait, Safety, Therapeutic Exercise, Transfers Treatment Duration: Jan 21, 2020 Frequency: At least 5 of 7 days/Wk (IRF) Estimated Hrs Per Day: 1.5 hours per day Patient and/or Family Agrees t: Yes Time/GCodes Time In: 1000 Time Out: 1100 Total Billed Treatment Time: 60 Total Billed Treatment 1, FA x3 (40m) & EX (20m) Afternoon tx: [id number] 1, FA (15m) JAVON OJEDA ALTITUDE CHAMBER TECHNICIAN Jan 15, 2020 12:29
--- NOTE | 2020-01-15 12:54 | Speech Therapy Daily Note ---
Speech Daily Progress Note Subjective Date Seen by Provider: Jan 15, 2020 Time Seen by Provider: 00:30 Patient was resting in her bed with c/o nausea. Nursing states she had not eaten when she took her pain pill which has made her nauseated. Objective Patient was given regular texture meal this noon meal with minimal eaten, however no difficulty or s/s of aspiration were noted. Assessment Assessment Current Status: Good Progress Treatment Plan Continue Plan of Care Speech Short Term Goals Short Term Goals Short Term Goals 1) Patient will tolerate the least restrictive diet level without s/s of aspiration at 90% or greater. 2) Patient will utilize compensatory strategies as trained for safe oral intake at 90% or greater. Speech Saw Tailer Goals Fpc Goals Patient will maintain adequate nutrition/hydration via safe effective swallow function. Speech-Plan Patient/Family Goals Patient/Family Goals: Patient plans on returning to her home where she lives with her . Treatment Plan Speech Therapy Treatment Plan: Continue Plan of Care Patient will be upgraded to a regular diet level. Treatment Duration: Jan 18, 2020 Frequency: 4 times per week Estimated Hrs Per Day: .25 hour per day Rehab Potential: Fair Barriers to Learning: Patient's recent CVA and previous health issues Pt/Family Agrees to Plan: Yes Safety Risks/Education Teaching Recipient: Patient Teaching Methods: Demonstration, Discussion Response to Teaching: Verbalize Understanding, Return Demonstration Education Topics Provided: Continued safety strategies for oral intake Time Speech Therapy Time In: 12:00 Speech Therapy Time Out: 12:30 Total Billed Time: 30 Billed Treatment Time 1ANNEL MILOSPENCER MENDOZA Jan 15, 2020 12:54
[2020-01-15 16:00] VITALS: BP 118/60
--- NOTE | 2020-01-15 16:01 | NUR ---
"RD ASSESSMENT PMHx: hypercholesterolemia; HTN; stroke (2003; 12/16/2019) PT INTERACTION: Pt was awake and pleasant during nutrition follow-up. Pt states she has been eating okay since last assessment. Note avg PO intake 64% x4d, per chart review. Pt states some issues with nausea, vomiting, and diarrhea since last assessment. Note last BM was 01/13, and pt currently on bowel regimen of miralax qd; senna BID, and colace BID, per chart review. Pt also had concerns about her diagnosis of ankylosing spondylitis and diet. ABNORMAL NUTRITION-RELATED LAB VALUES LOW: Pro 6.0; HIGH: BUN 25; Est. kcal needs: 2118-9516 kcal | 20-25 kcal/kg Est. Pro needs: 61-76 g Pro | 0.8-1.0 g Pro/kg PES STATEMENT: Inadequate oral intake (NI-2.1) related to loss of appetite, nausea, vomiting, and diarrhea, as evidenced by pt interview, and avg PO intake 64% x4d. INTERVENTION: Continue with current diet order of Regular diet. Pt may benefit from nutrition supplementation if PO intake declines. Discussed with pt concerns of nutrition with ankylosing spondylitis. Will continue to follow and reassess as pt needs, intake, and status change. Tanvir FRANCIS, RD LD [phone] cell"
[2020-01-15] MEDS: TAMSULOSIN 0.4 MG (FLOMAX) CAP PO SCH (18:20)
[2020-01-15] MEDS: HYDROcodone/APAP 5 MG/325 MG (LORTAB) TAB PO PRN (18:21)
--- NOTE | 2020-01-15 19:12 | NUR ---
Bedside report received from FRANCIA BOJORQUEZ, assume care of pt
[2020-01-15] MEDS: ALPRAZolam 0.25 MG (XANAX) TAB PO PRN (20:38)
[2020-01-15] MEDS: MELATONIN 3 MG TABLET PO SCH (20:38)
[2020-01-15] MEDS: diphenhydrAMINE 25 MG TAB (BENADRYL) PO SCH (20:38)
[2020-01-15] MEDS: ACETAMINOPHEN 500 MG TAB (TYLENOL) PO SCH (20:43)
--- NOTE | 2020-01-15 20:45 | NUR ---
Pt refused Colace & Senokot, c/o anxiety Xanax 0.25mg given
[2020-01-15] MEDS: ZINC OXIDE 16% OINT (BUTT PASTE) 57 GM TUBE TOP PRN (22:20)
[2020-01-16 05:55] VITALS: BP 111/55
[2020-01-16] MEDS: BETHANECHOL 25 MG (URECHOLINE) TAB PO SCH ×3 (06:35→16:51)
[2020-01-16] MEDS: oxyCODONE ER 10 MG (OxyCONTIN CR) TAB PO SCH ×2 (06:35→13:25)
[2020-01-16] MEDS: LEVOTHYROXINE 100 MCG (LEVOTHROID) TAB PO SCH (06:35)
[2020-01-16] MEDS: DOCUSATE SODIUM 100 MG (COLACE) CAP PO SCH ×2 (09:24→20:29)
[2020-01-16] MEDS: BACLOFEN 10 MG (LIORESAL) TAB PO SCH ×3 (09:24→20:29)
[2020-01-16] MEDS: APIXABAN 5 MG (ELIQUIS) TABLET PO SCH ×2 (09:24→20:30)
[2020-01-16] MEDS: DICLOFENAC 1% GEL 100 GM (VOLTAREN) TUBE TP SCH ×3 (09:25→16:51)
[2020-01-16] MEDS: PANTOPRAZOLE 40 MG (PROTONIX) TAB PO SCH (09:25)
[2020-01-16] MEDS: HYDROcodone/APAP 5 MG/325 MG (LORTAB) TAB PO PRN ×2 (09:25→13:25)
[2020-01-16] MEDS: VITAMIN D3 25 MCG (1,000 UNITS) TABLET PO SCH (09:25)
[2020-01-16] MEDS: ASPIRIN E.C. 81 MG (ECOTRIN) TAB PO SCH (09:25)
[2020-01-16] MEDS: polyethylene glycoL POWDER 17 GM (MIRALAX) PACK PO SCH (09:26)
[2020-01-16] MEDS: SENNA W/DOCUSATE (SENOKOT S) TABLET PO SCH ×2 (09:26→20:28)
[2020-01-16] MEDS: LOSARTAN 25 MG (COZAAR) TAB PO SCH (09:29)
[2020-01-16 09:30] VITALS: BP 118/62
--- NOTE | 2020-01-16 10:27 | Speech Therapy Daily Note ---
Speech Daily Progress Note Subjective Date Seen by Provider: Jan 16, 2020 Time Seen by Provider: 00:30 Patient was sitting up in her recliner following breakfast. Patient states she is feeling better today. Objective Patient demo utilization safe strategies with regular diet without s/s of aspir ation. Patient consumed 95% of her breakfast. Assessment Assessment Current Status: Good Progress Treatment Plan Continue Plan of Care Speech Short Term Goals Short Term Goals Short Term Goals 1) Patient will tolerate the least restrictive diet level without s/s of aspiration at 90% or greater. 2) Patient will utilize compensatory strategies as trained for safe oral intake at 90% or greater. Speech Snf Goals Field Aide Goals Patient will maintain adequate nutrition/hydration via safe effective swallow function. Speech-Plan Patient/Family Goals Patient/Family Goals: Patient plans on returning to her home where she lives with her . Treatment Plan Speech Therapy Treatment Plan: Continue Plan of Care Treatment Duration: Jan 18, 2020 Frequency: 4 times per week Estimated Hrs Per Day: .25 hour per day Rehab Potential: Fair Barriers to Learning: Patient's recent CVA and other health issues Pt/Family Agrees to Plan: Yes Safety Risks/Education Teaching Recipient: Patient Teaching Methods: Demonstration, Discussion Response to Teaching: Verbalize Understanding, Return Demonstration Education Topics Provided: Continued safety with her oral intake Time Speech Therapy Time In: 08:30 Speech Therapy Time Out: 09:00 Total Billed Time: 30 Billed Treatment Time 1ANNEL [address] ST Jan 16, 2020 10:27
--- NOTE | 2020-01-16 10:34 | PM&R Progress Note ---
Subjective HPI/CC On Admission Date Seen by Provider: Jan 16, 2020 Time Seen by Provider: 10:30 Subjective/Events-last exam 01/16/20: Decreasing Urocholine since she is voiding pretty well Will need to go to a group home DC is planned for 01/23/20 Vaginal discharge continues but she was having this issue before her stroke Post void residual looks good 01/15/20: Pt vomited a little bit this morning Maalox given for GERD issues Vaginal discharge is still a discussion Pt has a lot of somatic complaints will try to continue supporting and improving anything we can 01/14/20: Labs reviewed Vaginal discharge discussed in-depth Outpatient appt with Dr Hanna will be set up 01/13/20: Patient still talks about vaginal discharge so will need CLINICAL PRODUCT SPECIALIST appt as outpatient No pain reported BM+ Fall risk 01/12/2020: Reports vaginal discharge started again I personally do not have an answer and she will need outpatient treatment by gynecology Denies any significant new pain Pain is well controlled on extended release narcotics No shortness of breath Participating in therapy 01/11/20: Completing antibiotic Reports the vaginal discharge has returned Unsure of the source of that We will try to confer with gynecology about that Check meds and labs 01/10/20: Tolerating antibiotic Bowels are moving pretty well Vaginal discharge is about the same Mysterious situation with the vaginal discharge Appreciate gynecology and urology 01/09/20: Urine issues showing some residual and retention Bowels moved today Vaginal culture is normal anup Cipro for protease Eliquis started for AF Discontinue Lovenox 01/08/20: Bowels moving today Swab of the vagina was done by Dr. Jackson himself Appreciate Dr. Joseph update 01/07/20: Proteus urine culture, Dr. Nesbitt placed her on Cipro CT scan with rectal contrast has been completed, will evaluate for fistula Bowels moved today but she feels like it goes into her vagina 01/06/20: Spoke to Dr Cook after I assessed her symptoms again of the vaginal discharge and we need CT abd pelvis with rectal contrast to see if fistula is an issue Proteus on UC x but UA was normal which may be involved in this fistula issues Left arm is flaccid some movement in left foot Uterine prolapse noted when she was admitted 01/05/20: Brown vaginal discharge noted If continues will obtain TV [facility] and Hospital Fellow consult No pain reported UA repeat normal Incontinence at night 01/04/20: Much improved status Bearden now out and voiding well Not sleeping well so added equivalent of Tylenol PM to night time to see if that helps her since she takes that at home on occasion Advanced diet Repeat UA via in/out cath DC Cleocin 01/03/20: Bearden out and has yet to void Dr Nesbitt and I conferred on the unit Oxycontin increased to 30mg BID she takes it at 0700 and 1330 so instructed pharmacy to put it in for that time slot Swallowing better 12/31/19 BM so laxatives given Pureed diet 01/02/20: Decreasing food intake Chest pain prompting EKG and cardiology evaluation Troponin will be checked Nausea noted Very difficult to manage with such chronic pain Appreciate Dr Nesbitt and Dr Johnson Pt settling in pretty well Having a lot of pain ankylosing spondylitis is very painful for her Will aggressively react bowels Remains with a catheter, I did consult urology Checked meds and labs Conferred with RN Reviewed therapy notes Review of Systems Neurological: Weakness, Incoordination Focused Exam Time of Focused Exam: 11:42 Objective Exam Vital Signs Vital Signs Date Time Temp Pulse Resp B/P (MAP) Pulse Ox O2 Delivery O2 Flow Rate FiO2 01/16/20 20:30 98 Room Air 01/16/20 17:11 36.4 70 18 112/56 (74) Capillary Refill : Less Than 3 Seconds General Appearance: No Apparent Distress, WD/WN HEENT: PERRL/EOMI, Normal ENT Inspection Neck: Normal Inspection, Supple Respiratory: Chest Non Tender, Lungs Clear, Normal Breath Sounds, No Accessory Muscle Use, No Respiratory Distress Cardiovascular: Regular Rate, Rhythm, No Edema Gastrointestinal: Normal Bowel Sounds, No Organomegaly, No Pulsatile Mass, Non Tender, Soft Back: Normal Inspection, No CVA Tenderness, No Vertebral Tenderness Extremity: Normal Inspection, No Calf Tenderness, No Pedal Edema Neurologic/Psychiatric: Alert, Oriented x3, Normal Mood/Affect, Motor Weakness Skin: Normal Color, Warm/Dry Lymphatic: No Adenopathy Results/Procedures Lab Patient resulted labs reviewed. FIM Transfers Therapy Code Descriptions/Definitions Functional [place] Measure: 0=Not Assessed/NA 4=Minimal Assistance 1=Total Assistance 5=Supervision or Setup 2=Maximal Assistance 6=Modified [place] 3=Moderate Assistance 7=Complete IndependenceSCALE: Activities may be completed with or without assistive devices. 6-Eywsxcrhhn-lezkmcz completes the activity by him/herself with no assistance from a helper. 5-Set-up or Clean-up Assistance-helper sets up or cleans up; patient completes activity. [place] assists only prior to or following the activity. 4-Supervision or Touching Assistance-helper provides verbal cues and/or touching/steadying and/or contact guard assistance as patient completes activity. Assistance may be provided throughout the activity or intermittently. 3-Partial/Moderate Assistance-helper does LESS THAN HALF the effort. [place] lifts, holds or supports trunk or limbs, but provides less than half the effort. 2-Substantial/Maximal Assistance-helper does MORE THAN HALF the effort. [place] lifts or holds trunk or limbs and provides more than half the effort. 7-Vmkisyhzv-dxnqax does ALL the effort. Patient does none of the effort to complete the activity. Or, the assistance of 2 or more helpers is required for the patient to complete the activity. If activity was not attempted, code reason: 7-Patient Refused. 9-Not Applicable-not attempted and the patient did not perform the activity before the current illness, exacerbation or injury. 10-Not Attempted due to Environmental Limitations-(lack of equipment, weather restraints, etc.). 88-Not Attempted due to Medical Conditions or Safety Concerns. Roll Left to Right (QC): 4 Sit to Lying (QC): 3 Sit to Stand (QC): 3 Chair/Zea-mf-Asclt Xfer(QC): 3 Car Transfer (QC): 1 Gait Training Distance: 3 Walk 10 feet (QC): 88 Walk 50 ft with 2 Turns(QC): 88 Walk 150 ft (QC): 88 Walking 10ft/uneven surface-QC: 88 Gait Persons Needed: 1 Gait Assistive Device: Parallel Bars Wheelchair Training Does the Pt Use a Wheelchair?: Yes Distance: 50'x2 Wheel 50 ft with 2 turns (QC): 3 Wheel 150 ft (QC): 3 Type of Wheelchair: Manual Stair Training 1 Step (curb) (QC): 88 4 Steps (QC): 88 12 Steps (QC): 88 Balance Picking up an Object (QC): 1 ADL-Treatment Eating (QC): 5 (Based on clincial judgement, pt would require set up assistance with feeding) Oral Hygiene (QC): 4 Bathing Location: L Arm, L Upper Leg, R Upper Leg, L Lower Leg (including foot), R Lower Leg (including foot), Chest, Abdomen, Perineal Area Shower/Bathe Self (QC): 1 Upper Body Dressing (QC): 2 Lower Body Dressing (QC): 1 On/Off Footwear (QC): 2 Toileting Hygiene (QC): 1 Toilet Transfer (QC): 1 Assessment/Plan Assessment and Plan Assess & Plan/Chief Complaint Assessment: CVA Left sided weakness AK Hypothyroidism Chronic pain Narcotic dependent Narcotic bowel Osteoporosis Bearden cath in place Urinary retention UTI PAF on Tely 01/07/20 placed on OAC Plan: Dr Nesbitt IRF protocol Current meds 01/01/20: Pain management Dr Nesbitt consult for urinary retention Monitor for falls BM regimen 01/02/20: Pain management Cardiology and Urology consultation is appreciated 01/03/20: Urology appreciated Pain med increased to her home dose Pureed diet 01/04/20: Advanced diet Repeat UA inout cath Insomnia treatment 01/05/20: Vaginal discharge? May need TV [facility] and Hospital Fellow consult 01/06/20: Fistula between rectum and vagina? CT scan and TV [facility] tomorrow 01/07/20: CT scan with rectal enema Hospital Fellow consult Conferred with Dr Nesbitt Abx for Proteus 01/08/20: Appreciate Dr Jackson Vaginal swab UTI tx 01/09/20: Monitor weakness Pain control UTI tx 01/10/20: Tolerating abx Monitor voiding 01/11/2020: Pain control Bowel regimen Monitor vaginal discharge 01/12/20: OAC Monitor closely 01/13/20: Continue abx for UTI Hospital Fellow appt at CT Needs skilled care if deficits remain severe 01/14/20: Labs reviewed Manage pain issues 01/15/20: Chronic vaginal discharge No pain reported as long as chronic narcs given 01/16/20: CLIN[facility] PRODUCT SPECIALIST appt as outpatient Needs NH placement (1) CVA (cerebral vascular accident) (2) Ankylosing spondylitis (3) Acquired hypothyroidism (4) Chronic pain (5) Narcotic dependence (6) Narcotic bowel syndrome (7) Urinary retention (8) Bearden catheter in place (9) UTI (urinary tract infection) (10) Left-sided weakness (11) Psoriasis (12) Osteoporosis WILEY WRIGHT DO Jan 16, 2020 10:34
--- NOTE | 2020-01-16 10:46 | Progress Note - Urology ---
Progress Note-Urology Progress Notes/Assess & Plan Progress/Assessment & Plan CONTINUES VOIDING WELL. Final Diagnosis RETENTION JAY NERI MD Jan 16, 2020 10:46
--- NOTE | 2020-01-16 11:17 | NUR ---
VOIDED MOD AMT. YELLOW URINE. BLADDER SCAN DONE 1CC NOTED
--- NOTE | 2020-01-16 11:31 | Occupational Ther Daily Note ---
OT Current Status-Daily Note Subjective Pt in w/c upon arrival. Pt no c/o pain. Pt agreed to therapy. Mental Status/Objective Patient Orientation: Person, Place, Time, Situation ADL-Treatment Pt was in w/c. Nursing came to give pt medication. Pt was propelled to shower room by OT. Pt used grab bars to help pull self up. Required max assist. OT stabilized pt in standing while second person switch w/c for shower chair and pulled pants/briefs down. Pt doffed UE clothing Mod A to undress L affected arm. Pt doffed LE clothing Max A to doff briefs/pants down and off legs. Pt performed upper body washing with Min A to wash R arm. Pt performed lower body washing using LH sponge to reach lower legs/feet. Pt cleansed perineal, buttocks area by self while seating on open shower chair. Pt donned UE Mod A to thread L affected arm into shirt. Pt donned LE clothing Max A to thread feet into pants/socks. OT stabilized pt in standing while second person hiked pants over hips and switched shower chair for w/c. Therapy Code Descriptions/Definitions Functional [place] Measure: 0=Not Assessed/NA 4=Minimal Assistance 1=Total Assistance 5=Supervision or Setup 2=Maximal Assistance 6=Modified M[place]at 3=Moderate Assistance 7=Complete IndependenceSCALE: Activities may be completed with or without assistive devices. 7-Afslxaolgk-qdptuuz completes the activity by him/herself with no assistance from a helper. 5-Set-up or Clean-up Assistance-helper sets up or cleans up; patient completes activity. [place] assists only prior to or following the activity. 4-Supervision or Touching Assistance-helper provides verbal cues and/or touching/steadying and/or contact guard assistance as patient completes activity. Assistance may be provided throughout the activity or intermittently. 3-Partial/Moderate Assistance-helper does LESS THAN HALF the effort. [place] lifts, holds or supports trunk or limbs, but provides less than half the effort. 2-Substantial/Maximal Assistance-helper does MORE THAN HALF the effort. [place] lifts or holds trunk or limbs and provides more than half the effort. 1-Qujltlpgt-kvqqip does ALL the effort. Patient does none of the effort to complete the activity. Or, the assistance of 2 or more helpers is required for the patient to complete the activity. If activity was not attempted, code reason: 7-Patient Refused. 9-Not Applicable-not attempted and the patient did not perform the activity before the current illness, exacerbation or injury. 10-Not Attempted due to Environmental Limitations-(lack of equipment, weather restraints, etc.). 88-Not Attempted due to Medical Conditions or Safety Concerns. Bathing Location: L Arm, L Upper Leg, R Upper Leg, L Lower Leg (including foot), R Lower Leg (including foot), Chest, Abdomen, Buttocks, Perineal Area Shower/Bathe Self (QC): 3 Upper Body Dressing (QC): 2 Lower Body Dressing (QC): 1 On/Off Footwear: 2 Other Treatment Pt propelled self to therapy gym, verbal cues required due to pt veering toward wall on left side. Pt transferred from w/c to mat Max A. Pt sat on edge of mat to focus on weight shifting activity leaning side to side/ forward for daily functional task, mirror placed in front of pt to focus on body alignment. Pt. has difficulty with leaning outside of comfort zone. Rest breaks required due to fatigue and dizziness. Completed balloon bat with encouragement and then AAROM of left UE. However, this was not working for pt. and so she would use her right UE only. Pt transferred from mat to w/c Max A. Pt propelled to room by OT. Pt transferred from w/c to EOB Max A. EOB to supine in bed Max A, OT guided feet while second person guided head. Call light/phone in reach. All needs met. Education OT Patient Education: Correct positioning, Energy conservation, Modified ADL techniques, Progress toward Goal/Update tx plan, Purpose of tx/functional activities, Reviewed precautions, Rehab process, Transfer techniques, W/C management Teaching Recipient: Patient Teaching Methods: Demonstration, Discussion Response to Teaching: Verbalize Understanding, Return Demonstration, Reinforcement Needed OT Short Term Goals Short Term Goals Time Frame: Jan 16, 2020 Eatin Oral hygiene: 5 Upper body dressin Lower body dressin OT Senior Designer/Art Director Goals Shelter Goals Time Frame: Jan 25, 2020 Eating (QC): 6 Oral Hygiene (QC): 6 Toileting Hygiene (QC): 4 Shower/Bathe Self (QC): 4 Upper Body Dressing (QC): 5 Lower Body Dressing (QC): 4 On/Off Footwear (QC): 3 Additional Goals: 1-Demonstrate ADL Tasks, 2-Verbalize Understanding, 3- ImproveStrength/Benson 1=Demonstrate adherence to instructed precautions during ADL tasks. 2=Patient will verbalize/demonstrate understanding of assistive devices/modifications for ADL. 3=Patient will improve strength/tolerance for activity to enable patient to perform ADL's. OT Education/Plan Problem List/Assessment Assessment: Decreased Activ Tolerance, Decreased UE Strength, Dependent Transfers, Impaired Bed Mobility, Impaired Funct Balance, Impaired I ADL's, Impaired Self-Care Skills, Restricted Funct UE ROM, Visual-Perceptual Deficit Discharge Recommendations Plan/Recommendations: Continue POC Therapy Discharge Recommendati: 24 Hour Supervision Treatment Plan/Plan of Care Treatment,Training & Education: Yes Patient would benefit from OT for education, treatment and training to promote independence in ADL's, mobility, safety and/or upper extremity function for ADL's. Plan of Care: ADL Retraining, Functional Mobility, Group Exercise/Act as Ind, UE Funct Exercise/Act, UE Neuromus Re-Ed/Coord, Visual/Perceptual Retrain, W/C Management Training Treatment Duration: Jan 25, 2020 Frequency: At least 5 of 7 days/Wk (IRF) Estimated Hrs Per Day: 1.5 hours per day Agreement: Yes Rehab Potential: Fair Time/GCodes Start Time: 09:45 Stop Time: 11:00 Total Time Billed (hr/min): 75 Billed Treatment Time 1 visit- ADL 3 (45 mins), FA 2 (30 mins) DELMER DENIS OT Jan 16, 2020 11:31
[2020-01-16] MEDS: ALPRAZolam 0.25 MG (XANAX) TAB PO PRN (11:49)
--- NOTE | 2020-01-16 12:09 | Physical Therapy Daily Note ---
PT Daily Note-Current Subjective Pt sitting up in recliner upon arrival. Pt agrees to PT and reports feeling better today. Pain Numeric Pain Scale: 5-Moderate Pain Location: Dorsal Location Body Site: Neck Pain Description: Ache Mental Status Patient Orientation: Person, Place, Situation Attachments: Other-See Comments (Glasses) Transfers SCALE: Activities may be completed with or without assistive devices. 4-Uttjmdxrie-vnrziiv completes the activity by him/herself with no assistance from a helper. 5-Set-up or Clean-up Assistance-helper sets up or cleans up; patient completes activity. [place] assists only prior to or following the activity. 4-Supervision or Touching Assistance-helper provides verbal cues and/or touching/steadying and/or contact guard assistance as patient completes activity. Assistance may be provided throughout the activity or intermittently. 3-Partial/Moderate Assistance-helper does LESS THAN HALF the effort. [place] lifts, holds or supports trunk or limbs, but provides less than half the effort. 2-Substantial/Maximal Assistance-helper does MORE THAN HALF the effort. [place] lifts or holds trunk or limbs and provides more than half the effort. 2-Mhvspbjfm-alflda does ALL the effort. Patient does none of the effort to complete the activity. Or, the assistance of 2 or more helpers is required for the patient to complete the activity. If activity was not attempted, code reason: 7-Patient Refused. 9-Not Applicable-not attempted and the patient did not perform the activity before the current illness, exacerbation or injury. 10-Not Attempted due to Environmental Limitations-(lack of equipment, weather restraints, etc.). 88-Not Attempted due to Medical Conditions or Safety Concerns. Sit to Stand (QC): 2 Chair/Bum-ua-Verrw Xfer(QC): 2 Weight Bearing Full Weight Bearing Full Weight Bearing Wheelchair Training Does the Pt Use a Wheelchair?: Yes Wheel 50 ft with 2 turns (QC): 3 Wheel 150 ft (QC): 3 Type of Wheelchair: Manual Exercises Supine Ex: Ankle pumps, Quad Set, Glut sets, Heel Slides, Straight leg raise, Hip abd/add Supine Reps: 15 Seated Therapy Exercises: Ankle pumps, Long arc quads, Hip flexion, Kicking activity, Hip abd/add, Glut set Seated Reps: 15 Treatments WAREHOUSER assists with donning pants. TF from recliner to [facility] via SPT at Max A. Pt propels [facility] with assistance so pt does not run into anything due to use of only R side. Pt completes Seated Ex before propelling back to room. Pt is met by OT. All needs met. Afternoon: Pt completes Supine Ex with RB as needed. Pt is repositioned to comfort with pillows L sidelying. All needs met, call light in hand. Assessment Current Status: Fair Progress Pt is gaining strength but pain and weakness still limit tx. PT Short Term Goals Short Term Goals Time Frame: Jan 08, 2020 Roll Left & Right: 3 Sit to lyin Lying to sitting on side of be: 3 Sit to stand: 3 Chair/dfc-gy-eldmu transfer: 3 PT Detention Goals Wage And Salary Administrator Goals PT Wage And Salary Administrator Goals Time Frame: Jan 22, 2020 Roll Left & Right (QC): 3 (Татьяна) Sit to Lying (QC): 3 (Татьяна) Lying-Sitting on Side/Bed(QC): 3 (Татьяна) Sit to Stand (QC): 3 (Татьяна) Chair/Yhi-jp-Cwlll Xfer(QC): 3 (Татьяна) Toilet Transfer (QC): 3 (Татьяна) Car Transfer (QC): 3 (Татьяна) Does the Patient Walk: No and Walking Goal IS indicated Walk 10 feet (QC): 3 (Татьяна) Walk 50ft with 2 Turns (QC): 88 Walk 150 ft (QC): 88 Walking 10ft on Uneven Surface: 88 1 Step (curb) (QC): 88 4 Steps (QC): 88 12 Steps (QC): 88 Picking up an Object (QC): 88 Wheel 50 feet with 2 turns (QC: 4 Type: Manual Wheel 150 feet: 4 Type: Manual PT Plan Problem List Problem List: Activity Tolerance, Functional Strength, Balance, Transfer Treatment/Plan Treatment Plan: Continue Plan of Care Treatment Plan: Bed Mobility, Education, Functional Activity Benson, Functional Strength, Group Therapy, Gait, Safety, Therapeutic Exercise, Transfers Treatment Duration: Jan 21, 2020 Frequency: At least 5 of 7 days/Wk (IRF) Estimated Hrs Per Day: 1.5 hours per day Patient and/or Family Agrees t: Yes Safety Risks/Education Patient Education: Transfer Techniques, Correct Positioning, W/C Management, Safety Issues Teaching Recipient: Patient Teaching Methods: Discussion Response to Teaching: Verbalize Understanding Time/GCodes Time In: 900 Time Out: 945 Total Billed Treatment Time: 45 Total Billed Treatment 1, [facility] (20m), FA (10m) & EX (15m) Afternoon: [id number] (30m) 1, EX x2 (30m) JAVON OJEDA PTA Jan 16, 2020 12:09
--- NOTE | 2020-01-16 16:21 | NUR ---
CM/SS PATIENT CARE CONFERENCE Reviewed Summary with patient, she is pleased about a target discharge of January 22. We have not finalized her post hospital plan, her spouse Anant is coming tomorrow for observation, education, training regarding current level of functioning and needs for care. Patient and spouse both desire patient to return home. Bill stated today in followup to our earlier conversation that his insurance does not cover 1x1 caregivers for patient. Will confer with patient/spouse tomorrow after the education session regarding what they will commit to doing in the home relative to patient's care needs.
[2020-01-16 17:11] VITALS: BP 112/56
[2020-01-16] MEDS: TAMSULOSIN 0.4 MG (FLOMAX) CAP PO SCH (17:17)
[2020-01-16] MEDS: MELATONIN 3 MG TABLET PO SCH (20:28)
[2020-01-16] MEDS: ACETAMINOPHEN 500 MG TAB (TYLENOL) PO SCH (20:34)
[2020-01-16] MEDS: diphenhydrAMINE 25 MG TAB (BENADRYL) PO SCH (20:35)
[2020-01-17 05:52] VITALS: BP 99/46
[2020-01-17] MEDS: BETHANECHOL 25 MG (URECHOLINE) TAB PO SCH ×3 (06:39→15:52)
[2020-01-17] MEDS: oxyCODONE ER 10 MG (OxyCONTIN CR) TAB PO SCH ×2 (06:39→14:04)
[2020-01-17] MEDS: LEVOTHYROXINE 100 MCG (LEVOTHROID) TAB PO SCH (06:39)
[2020-01-17] MEDS: PANTOPRAZOLE 40 MG (PROTONIX) TAB PO SCH (08:26)
[2020-01-17] MEDS: HYDROcodone/APAP 5 MG/325 MG (LORTAB) TAB PO PRN ×2 (08:26→14:04)
[2020-01-17] MEDS: BACLOFEN 10 MG (LIORESAL) TAB PO SCH ×3 (08:26→21:40)
[2020-01-17] MEDS: VITAMIN D3 25 MCG (1,000 UNITS) TABLET PO SCH (08:26)
[2020-01-17] MEDS: ASPIRIN E.C. 81 MG (ECOTRIN) TAB PO SCH (08:26)
[2020-01-17] MEDS: DICLOFENAC 1% GEL 100 GM (VOLTAREN) TUBE TP SCH ×3 (08:27→21:42)
[2020-01-17] MEDS: polyethylene glycoL POWDER 17 GM (MIRALAX) PACK PO SCH (08:27)
[2020-01-17] MEDS: DOCUSATE SODIUM 100 MG (COLACE) CAP PO SCH ×2 (08:27→21:39)
[2020-01-17] MEDS: APIXABAN 5 MG (ELIQUIS) TABLET PO SCH ×2 (08:27→21:40)
[2020-01-17] MEDS: SENNA W/DOCUSATE (SENOKOT S) TABLET PO SCH ×2 (08:28→21:39)
[2020-01-17 08:54] VITALS: BP 121/68
[2020-01-17] MEDS: LOSARTAN 25 MG (COZAAR) TAB PO SCH (08:54)
--- NOTE | 2020-01-17 10:56 | Physical Therapy Daily Note ---
PT Daily Note-Current Subjective Pt sitting in recliner upon arrival. Pt agrees to PT. Pt reports sad since family could not make Family Training today due to their Flu. Pain Numeric Pain Scale: 5-Moderate Pain Location Body Site: Neck Mental Status Patient Orientation: Person, Place, Situation Transfers SCALE: Activities may be completed with or without assistive devices. 0-Yrqqjiqecs-wtvwnzp completes the activity by him/herself with no assistance from a helper. 5-Set-up or Clean-up Assistance-helper sets up or cleans up; patient completes activity. [place] assists only prior to or following the activity. 4-Supervision or Touching Assistance-helper provides verbal cues and/or touching/steadying and/or contact guard assistance as patient completes activity. Assistance may be provided throughout the activity or intermittently. 3-Partial/Moderate Assistance-helper does LESS THAN HALF the effort. [place] lifts, holds or supports trunk or limbs, but provides less than half the effort. 2-Substantial/Maximal Assistance-helper does MORE THAN HALF the effort. [place] lifts or holds trunk or limbs and provides more than half the effort. 5-Jdflvrese-jlxrtz does ALL the effort. Patient does none of the effort to complete the activity. Or, the assistance of 2 or more helpers is required for the patient to complete the activity. If activity was not attempted, code reason: 7-Patient Refused. 9-Not Applicable-not attempted and the patient did not perform the activity before the current illness, exacerbation or injury. 10-Not Attempted due to Environmental Limitations-(lack of equipment, weather restraints, etc.). 88-Not Attempted due to Medical Conditions or Safety Concerns. Sit to Stand (QC): 1 Chair/Cjw-fy-Eyjoy Xfer(QC): 1 Weight Bearing Full Weight Bearing Full Weight Bearing Wheelchair Training Does the Pt Use a Wheelchair?: Yes Wheel 50 ft with 2 turns (QC): 3 Wheel 150 ft (QC): 3 Type of Wheelchair: Manual NATURAL RESOURCE TECHNICIAN assists with guidance to prevent pt from running into objects. Pt propels very slowly. Exercises Seated Therapy Exercises: Ankle pumps, Long arc quads, Hip flexion, Kicking activity, Glut set Seated Reps: 20 Treatments Completes Seated Ex at recliner then dons pants with NATURAL RESOURCE TECHNICIAN assistance. SPT from recliner to [facility] after donning pants. Pt propels [facility] in hallway as OT arrives. All needs met. Assessment Current Status: Fair Progress Pt is gaining strength as seen in independence of EX although still Max A for TF. PT Short Term Goals Short Term Goals Time Frame: Jan 08, 2020 Roll Left & Right: 3 Sit to lyin Lying to sitting on side of be: 3 Sit to stand: 3 Chair/zvw-cl-bpain transfer: 3 PT Online Producer Goals Online Producer Goals PT Online Producer Goals Time Frame: Jan 22, 2020 Roll Left & Right (QC): 3 (Татьяна) Sit to Lying (QC): 3 (Татьяна) Lying-Sitting on Side/Bed(QC): 3 (Татьяна) Sit to Stand (QC): 3 (Татьяна) Chair/Pzj-wb-Pttje Xfer(QC): 3 (Татьяна) Toilet Transfer (QC): 3 (Татьяна) Car Transfer (QC): 3 (Татьяна) Does the Patient Walk: No and Walking Goal IS indicated Walk 10 feet (QC): 3 (Татьяна) Walk 50ft with 2 Turns (QC): 88 Walk 150 ft (QC): 88 Walking 10ft on Uneven Surface: 88 1 Step (curb) (QC): 88 4 Steps (QC): 88 12 Steps (QC): 88 Picking up an Object (QC): 88 Wheel 50 feet with 2 turns (QC: 4 Type: Manual Wheel 150 feet: 4 Type: Manual PT Plan Problem List Problem List: Activity Tolerance, Functional Strength, Safety, Balance, Transfer Treatment/Plan Treatment Plan: Continue Plan of Care Treatment Plan: Bed Mobility, Education, Functional Activity Benson, Functional Strength, Group Therapy, Gait, Safety, Therapeutic Exercise, Transfers Treatment Duration: Jan 21, 2020 Frequency: At least 5 of 7 days/Wk (IRF) Estimated Hrs Per Day: 1.5 hours per day Patient and/or Family Agrees t: Yes Safety Risks/Education Patient Education: Transfer Techniques, Correct Positioning, W/C Management, Safety Issues Teaching Recipient: Patient Teaching Methods: Discussion Response to Teaching: Verbalize Understanding Time/GCodes Time In: 900 Time Out: 945 Total Billed Treatment Time: 45 Total Billed Treatment 1, EX (20m), FA (10m) & WCH (15m) JAVON OJEDA NATURAL RESOURCE TECHNICIAN Jan 17, 2020 10:56
--- NOTE | 2020-01-17 11:27 | PM&R Progress Note ---
Subjective HPI/CC On Admission Date Seen by Provider: Jan 17, 2020 Time Seen by Provider: 11:30 Subjective/Events-last exam 01/17/20: Talks about vaginal issue every day and I tell her the same information every day BM loose today Family training delayed due to with flu 01/16/20: Decreasing Urocholine since she is voiding pretty well Will need to go to a senior living DC is planned for 01/23/20 Vaginal discharge continues but she was having this issue before her stroke Post void residual looks good 01/15/20: Pt vomited a little bit this morning Maalox given for GERD issues Vaginal discharge is still a discussion Pt has a lot of somatic complaints will try to continue supporting and improving anything we can 01/14/20: Labs reviewed Vaginal discharge discussed in-depth Outpatient appt with Dr Hanna will be set up 01/13/20: Patient still talks about vaginal discharge so will need MATH TEACHER appt as outpatient No pain reported BM+ Fall risk 01/12/2020: Reports vaginal discharge started again I personally do not have an answer and she will need outpatient treatment by gynecology Denies any significant new pain Pain is well controlled on extended release narcotics No shortness of breath Participating in therapy 01/11/20: Completing antibiotic Reports the vaginal discharge has returned Unsure of the source of that We will try to confer with gynecology about that Check meds and labs 01/10/20: Tolerating antibiotic Bowels are moving pretty well Vaginal discharge is about the same Mysterious situation with the vaginal discharge Appreciate gynecology and urology 01/09/20: Urine issues showing some residual and retention Bowels moved today Vaginal culture is normal anup Cipro for protease Eliquis started for AF Discontinue Lovenox 01/08/20: Bowels moving today Swab of the vagina was done by Dr. Jackson himself Appreciate Dr. Joseph update 01/07/20: Proteus urine culture, Dr. Nesbitt placed her on Cipro CT scan with rectal contrast has been completed, will evaluate for fistula Bowels moved today but she feels like it goes into her vagina 01/06/20: Spoke to Dr Cook after I assessed her symptoms again of the vaginal discharge and we need CT abd pelvis with rectal contrast to see if fistula is an issue Proteus on UC x but UA was normal which may be involved in this fistula issues Left arm is flaccid some movement in left foot Uterine prolapse noted when she was admitted 01/05/20: Brown vaginal discharge noted If continues will obtain TV USG and Shank Cementer Hand consult No pain reported UA repeat normal Incontinence at night 01/04/20: Much improved status Bearden now out and voiding well Not sleeping well so added equivalent of Tylenol PM to night time to see if that helps her since she takes that at home on occasion Advanced diet Repeat UA via in/out cath DC Cleocin 01/03/20: Bearden out and has yet to void Dr Nesbitt and I conferred on the unit Oxycontin increased to 30mg BID she takes it at 0700 and 1330 so instructed pharmacy to put it in for that time slot Swallowing better 12/31/19 BM so laxatives given Pureed diet 01/02/20: Decreasing food intake Chest pain prompting EKG and cardiology evaluation Troponin will be checked Nausea noted Very difficult to manage with such chronic pain Appreciate Dr Nesbitt and Dr Johnson Pt settling in pretty well Having a lot of pain ankylosing spondylitis is very painful for her Will aggressively react bowels Remains with a catheter, I did consult urology Checked meds and labs Conferred with RN Reviewed therapy notes Review of Systems General: Fatigue, Malaise Pulmonary: Dyspnea Focused Exam Time of Focused Exam: 11:42 Objective Exam Vital Signs Vital Signs Date Time Temp Pulse Resp B/P (MAP) Pulse Ox O2 Delivery O2 Flow Rate FiO2 01/17/20 20:30 94 Room Air 01/17/20 16:54 36.4 109 16 110/59 (76) Capillary Refill : Less Than 3 Seconds General Appearance: No Apparent Distress, WD/WN HEENT: PERRL/EOMI, Normal ENT Inspection Neck: Normal Inspection, Supple Respiratory: Chest Non Tender, Lungs Clear, Normal Breath Sounds, No Accessory Muscle Use, No Respiratory Distress Cardiovascular: Regular Rate, Rhythm, No Edema Gastrointestinal: Normal Bowel Sounds, No Organomegaly, No Pulsatile Mass, Non Tender, Soft Back: Normal Inspection, No CVA Tenderness, No Vertebral Tenderness Extremity: Normal Inspection, No Calf Tenderness, No Pedal Edema Neurologic/Psychiatric: Alert, Oriented x3, Normal Mood/Affect, Motor Weakness Skin: Normal Color, Warm/Dry Lymphatic: No Adenopathy Results/Procedures Lab Patient resulted labs reviewed. FIM Transfers Therapy Code Descriptions/Definitions Functional [place] Measure: 0=Not Assessed/NA 4=Minimal Assistance 1=Total Assistance 5=Supervision or Setup 2=Maximal Assistance 6=Modified [place] 3=Moderate Assistance 7=Complete IndependenceSCALE: Activities may be completed with or without assistive devices. 3-Xzkblbtnqv-sjzksbt completes the activity by him/herself with no assistance from a helper. 5-Set-up or Clean-up Assistance-helper sets up or cleans up; patient completes activity. [place] assists only prior to or following the activity. 4-Supervision or Touching Assistance-helper provides verbal cues and/or touching/steadying and/or contact guard assistance as patient completes activity. Assistance may be provided throughout the activity or intermittently. 3-Partial/Moderate Assistance-helper does LESS THAN HALF the effort. [place] lifts, holds or supports trunk or limbs, but provides less than half the effort. 2-Substantial/Maximal Assistance-helper does MORE THAN HALF the effort. [place] lifts or holds trunk or limbs and provides more than half the effort. 5-Rnagzrkvm-fenzkr does ALL the effort. Patient does none of the effort to complete the activity. Or, the assistance of 2 or more helpers is required for the patient to complete the activity. If activity was not attempted, code reason: 7-Patient Refused. 9-Not Applicable-not attempted and the patient did not perform the activity b efore the current illness, exacerbation or injury. 10-Not Attempted due to Environmental Limitations-(lack of equipment, weather restraints, etc.). 88-Not Attempted due to Medical Conditions or Safety Concerns. Roll Left to Right (QC): 4 Sit to Lying (QC): 3 Sit to Stand (QC): 2 Chair/Cnx-lm-Pwlbt Xfer(QC): 2 Car Transfer (QC): 1 Gait Training Distance: 3 Walk 10 feet (QC): 88 Walk 50 ft with 2 Turns(QC): 88 Walk 150 ft (QC): 88 Walking 10ft/uneven surface-QC: 88 Gait Persons Needed: 1 Gait Assistive Device: Parallel Bars Wheelchair Training Does the Pt Use a Wheelchair?: Yes Distance: 50'x2 Wheel 50 ft with 2 turns (QC): 3 Wheel 150 ft (QC): 3 Type of Wheelchair: Manual Stair Training 1 Step (curb) (QC): 88 4 Steps (QC): 88 12 Steps (QC): 88 Balance Picking up an Object (QC): 1 ADL-Treatment Eating (QC): 5 (Based on clincial judgement, pt would require set up assistance with feeding) Oral Hygiene (QC): 4 Bathing Location: L Arm, L Upper Leg, R Upper Leg, L Lower Leg (including foot), R Lower Leg (including foot), Chest, Abdomen, Buttocks, Perineal Area Shower/Bathe Self (QC): 3 Upper Body Dressing (QC): 2 Lower Body Dressing (QC): 1 On/Off Footwear (QC): 2 Toileting Hygiene (QC): 1 Toilet Transfer (QC): 1 Assessment/Plan Assessment and Plan Assess & Plan/Chief Complaint Assessment: CVA Left sided weakness AK Hypothyroidism Chronic pain Narcotic dependent Narcotic bowel Osteoporosis Bearden cath in place Urinary retention UTI PAF on Tely 01/07/20 placed on OAC Plan: Dr Nesbitt IRF protocol Current meds 01/01/20: Pain management Dr Nesbitt consult for urinary retention Monitor for falls BM regimen 01/02/20: Pain management Cardiology and Urology consultation is appreciated 01/03/20: Urology appreciated Pain med increased to her home dose Pureed diet 01/04/20: Advanced diet Repeat UA inout cath Insomnia treatment 01/05/20: Vaginal discharge? May need TV USG and Shank Cementer Hand consult 01/06/20: Fistula between rectum and vagina? CT scan and TV USG tomorrow 01/07/20: CT scan with rectal enema Shank Cementer Hand consult Conferred with Dr Nesbitt Abx for Proteus 01/08/20: Appreciate Dr Jackson Vaginal swab UTI tx 01/09/20: Monitor weakness Pain control UTI tx 01/10/20: Tolerating abx Monitor voiding 01/11/2020: Pain control Bowel regimen Monitor vaginal discharge 01/12/20: OAC Monitor closely 01/13/20: Continue abx for UTI Shank Cementer Hand appt at [place] Needs skilled care if deficits remain severe 01/14/20: Labs reviewed Manage pain issues 01/15/20: Chronic vaginal discharge No pain reported as long as chronic narcs given 01/16/20: MATH TEACHER appt as outpatient Needs NH placement 01/17/20: Monitor bowel function Monitor pain (1) CVA (cerebral vascular accident) (2) Ankylosing spondylitis (3) Acquired hypothyroidism (4) Chronic pain (5) Narcotic dependence (6) Narcotic bowel syndrome (7) Urinary retention (8) Bearden catheter in place (9) UTI (urinary tract infection) (10) Left-sided weakness (11) Psoriasis (12) Osteoporosis WILEY WRIGHT DO Jan 17, 2020 11:27
--- NOTE | 2020-01-17 12:06 | Occupational Ther Daily Note ---
OT Current Status-Daily Note Subjective Pt in w/c propelling self to therapy gym. Pt stated her neck was hurting. Pt agreed to therapy. Nursing giving medication. Mental Status/Objective Patient Orientation: Person, Place, Time, Situation ADL-Treatment Therapy Code Descriptions/Definitions Functional [place] Measure: 0=Not Assessed/NA 4=Minimal Assistance 1=Total Assistance 5=Supervision or Setup 2=Maximal Assistance 6=Modified [place] 3=Moderate Assistance 7=Complete IndependenceSCALE: Activities may be completed with or without assistive devices. 6-Rwcpytpffj-pygxuwx completes the activity by him/herself with no assistance from a helper. 5-Set-up or Clean-up Assistance-helper sets up or cleans up; patient completes activity. [place] assists only prior to or following the activity. 4-Supervision or Touching Assistance-helper provides verbal cues and/or touching/steadying and/or contact guard assistance as patient completes activity. Assistance may be provided throughout the activity or intermittently. 3-Partial/Moderate Assistance-helper does LESS THAN HALF the effort. [place] lifts, holds or supports trunk or limbs, but provides less than half the effort. 2-Substantial/Maximal Assistance-helper does MORE THAN HALF the effort. [place] lifts or holds trunk or limbs and provides more than half the effort. 4-Yamqxwmeq-nkjzyj does ALL the effort. Patient does none of the effort to complete the activity. Or, the assistance of 2 or more helpers is required for the patient to complete the activity. If activity was not attempted, code reason: 7-Patient Refused. 9-Not Applicable-not attempted and the patient did not perform the activity before the current illness, exacerbation or injury. 10-Not Attempted due to Environmental Limitations-(lack of equipment, weather restraints, etc.). 88-Not Attempted due to Medical Conditions or Safety Concerns. Other Treatment Co-treatment PT ([id number]) skills of two clinicians required for skilled instruction and care due to transfers and safety concern. PT focused on transfer, w/c management. OT focused on cognition, hand strengthening. Pt propelling self to therapy gym, verbal cues required. Pt focused on fine motor skills activity working on finger manipulation, sequencing, crossing midline for functional daily task. Pt was able to complete 2/2 patterns on peg board, while gathering pegs from L side. Verbal cues required to place pegs L to R across peg board. Pt performed sequencing rubber band activity and worked on finger strengthening, crossing midline, sequencing, memory for daily functional task. Pt was able to complete 5/5 patterns, verbal cues required. Pt propelled self back to room, pt had to have verbal cues for w/c placement when not noticing pulling L. Pt transferred from w/c to EOB Max A. EOB to supine x 2 assists, OT guided head while second person guided feet. Call light/phone in reach. All needs met. Education OT Patient Education: Correct positioning, Energy conservation, Exercise program, Modified ADL techniques, Progress toward Goal/Update tx plan, Purpose of tx/functional activities, Transfer techniques Teaching Recipient: Patient Teaching Methods: Demonstration, Discussion Response to Teaching: Verbalize Understanding, Return Demonstration, Rein forcement Needed OT Short Term Goals Short Term Goals Time Frame: Jan 16, 2020 Eatin Oral hygiene: 5 Upper body dressin Lower body dressin OT Chainstitch Seat Joiner Goals Chainstitch Seat Joiner Goals Time Frame: Jan 25, 2020 Eating (QC): 6 Oral Hygiene (QC): 6 Toileting Hygiene (QC): 4 Shower/Bathe Self (QC): 4 Upper Body Dressing (QC): 5 Lower Body Dressing (QC): 4 On/Off Footwear (QC): 3 Additional Goals: 1-Demonstrate ADL Tasks, 2-Verbalize Understanding, 3- ImproveStrength/Benson 1=Demonstrate adherence to instructed precautions during ADL tasks. 2=Patient will verbalize/demonstrate understanding of assistive devices/modifications for ADL. 3=Patient will improve strength/tolerance for activity to enable patient to perform ADL's. OT Education/Plan Problem List/Assessment Assessment: Decreased Activ Tolerance, Decreased UE Strength, Dependent Transfers, Impaired Funct Balance, Restricted Funct UE ROM, Visual-Perceptual Deficit Discharge Recommendations Plan/Recommendations: Continue POC Therapy Discharge Recommendati: 24 Hour Supervision Treatment Plan/Plan of Care Treatment,Training & Education: Yes Patient would benefit from OT for education, treatment and training to promote independence in ADL's, mobility, safety and/or upper extremity function for ADL's. Plan of Care: ADL Retraining, Functional Mobility, Group Exercise/Act as Ind, UE Funct Exercise/Act, UE Neuromus Re-Ed/Coord, Visual/Perceptual Retrain, W/C Management Training Treatment Duration: Jan 25, 2020 Frequency: At least 5 of 7 days/Wk (IRF) Estimated Hrs Per Day: 1.5 hours per day Agreement: Yes Rehab Potential: Fair Time/GCodes Start Time: 09:30 Stop Time: 10:45 Total Time Billed (hr/min): 75 Billed Treatment Time 1 visit- FA 5 (75 mins) Co-treatment PT ([id number]) Ind- ([id number]) See above note for designated roles. DELMER DENIS OT Jan 17, 2020 12:06
--- NOTE | 2020-01-17 13:45 | Speech Therapy Daily Note ---
Speech Daily Progress Note Subjective Date Seen by Provider: Jan 17, 2020 Time Seen by Provider: 00:30 Patient was sitting up in her recliner and states she feels she is doing better every day. She was disappointed that her and son both were ill and the family training had been postponed. Objective The patient demo good utilization of compensatory strategies with the regular diet texture without s/s of aspiration. Assessment Assessment Current Status: Good Progress Treatment Plan Continue Plan of Care Speech Short Term Goals Short Term Goals Short Term Goals 1) Patient will tolerate the least restrictive diet level without s/s of aspiration at 90% or greater. 2) Patient will utilize compensatory strategies as trained for safe oral intake at 90% or greater. Speech Longterm Goals Longterm Goals Patient will maintain adequate nutrition/hydration via safe effective swallow function. Speech-Plan Patient/Family Goals Patient/Family Goals: Patient plans on returning to her home upon discharge with family support. Treatment Plan Speech Therapy Treatment Plan: Continue Plan of Care Treatment Duration: Jan 18, 2020 Frequency: 4 times per week Estimated Hrs Per Day: .25 hour per day Rehab Potential: Fair Barriers to Learning: Patient's recent CVA Pt/Family Agrees to Plan: Yes Safety Risks/Education Teaching Recipient: Patient Teaching Methods: Demonstration, Discussion Response to Teaching: Verbalize Understanding, Return Demonstration Education Topics Provided: Continued safety upon her return home Time Speech Therapy Time In: 08:30 Speech Therapy Time Out: 09:00 Total Billed Time: 30 Billed Treatment Time 1, SPENCER Lepe Jan 17, 2020 13:45
--- NOTE | 2020-01-17 14:51 | NUR ---
CM/SS CONCURRENT DOCUMENTATION Patient's spouse Bill was scheduled for education/training this a.m. but cancelled due to a positive flu diagnosis. Patient was alert and oriented during commercial insurance underwriter visit, she explained that Dr. Rodrigez called her spouse last night with the results. Patient's goal remains to return home, will attempt for Bill to come early next week once he has had time to hopefully recover. Neither patient nor spouse have entertained any alternate discharge plan. Her son plans to come from [place] once he, too, is well and his truck is running better. Complex due to lack of financial resources to match their plan for care in the home and for disinterest to explore anything other than home.
--- NOTE | 2020-01-17 14:53 | Physical Therapy Daily Note ---
PT Daily Note-Current Subjective Pt R sidelying in bed upon arrival. Pt agrees to PT and asks to be repositioned L sidelying due to sacral discomfort. Pain Numeric Pain Scale: 4 Location Body Site: Sacrum Pain Description: Ache Mental Status Patient Orientation: Person, Place, Situation Transfers SCALE: Activities may be completed with or without assistive devices. 7-Sermwwcgnq-arqzgdp completes the activity by him/herself with no assistance from a helper. 5-Set-up or Clean-up Assistance-helper sets up or cleans up; patient completes activity. [place] assists only prior to or following the activity. 4-Supervision or Touching Assistance-helper provides verbal cues and/or touching/steadying and/or contact guard assistance as patient completes activity. Assistance may be provided throughout the activity or intermittently. 3-Partial/Moderate Assistance-helper does LESS THAN HALF the effort. [place] lifts, holds or supports trunk or limbs, but provides less than half the effort. 2-Substantial/Maximal Assistance-helper does MORE THAN HALF the effort. [place] l ifts or holds trunk or limbs and provides more than half the effort. 5-Pmxyszgct-dowmeh does ALL the effort. Patient does none of the effort to complete the activity. Or, the assistance of 2 or more helpers is required for the patient to complete the activity. If activity was not attempted, code reason: 7-Patient Refused. 9-Not Applicable-not attempted and the patient did not perform the activity before the current illness, exacerbation or injury. 10-Not Attempted due to Environmental Limitations-(lack of equipment, weather restraints, etc.). 88-Not Attempted due to Medical Conditions or Safety Concerns. Roll Left & Right (QC): 4 Weight Bearing Full Weight Bearing Full Weight Bearing Exercises Supine Ex: Ankle pumps, Quad Set, Glut sets, Heel Slides, Short Arc Quads, Straight leg raise, Hip abd/add Supine Reps: 20 Treatments Pt completes Supine Ex in bed then is repositioned with EXPLOSIVE ORDNANCE DISPOSAL MANAGER's assistance. Pt resting in bed L sidelying with pillow positioning. All needs met, call light in hand. Assessment Current Status: Fair Progress Pt is gaining strength but remains very stiff and still weak so Max A for transfers. PT Short Term Goals Short Term Goals Time Frame: Jan 08, 2020 Roll Left & Right: 3 Sit to lyin Lying to sitting on side of be: 3 Sit to stand: 3 Chair/sbj-pz-sxarf transfer: 3 PT Senior Care Goals Senior Care Goals PT Check Totaler Goals Time Frame: Jan 22, 2020 Roll Left & Right (QC): 3 (Татьяна) Sit to Lying (QC): 3 (Татьяна) Lying-Sitting on Side/Bed(QC): 3 (Татьяна) Sit to Stand (QC): 3 (Татьяна) Chair/Wqm-gv-Mbemk Xfer(QC): 3 (Татьяна) Toilet Transfer (QC): 3 (Татьяна) Car Transfer (QC): 3 (Татьяна) Does the Patient Walk: No and Walking Goal IS indicated Walk 10 feet (QC): 3 (Татьяна) Walk 50ft with 2 Turns (QC): 88 Walk 150 ft (QC): 88 Walking 10ft on Uneven Surface: 88 1 Step (curb) (QC): 88 4 Steps (QC): 88 12 Steps (QC): 88 Picking up an Object (QC): 88 Wheel 50 feet with 2 turns (QC: 4 Type: Manual Wheel 150 feet: 4 Type: Manual PT Plan Problem List Problem List: Activity Tolerance, Functional Strength, Transfer Treatment/Plan Treatment Plan: Continue Plan of Care Treatment Plan: Bed Mobility, Education, Functional Activity [place], Functional Strength, Group Therapy, Gait, Safety, Therapeutic Exercise, Transfers Treatment Duration: Jan 21, 2020 Frequency: At least 5 of 7 days/Wk (IRF) Estimated Hrs Per Day: 1.5 hours per day Patient and/or Family Agrees t: Yes Safety Risks/Education Patient Education: Transfer Techniques, Correct Positioning, Safety Issues Teaching Recipient: Patient Teaching Methods: Discussion Response to Teaching: Verbalize Understanding Time/GCodes Time In: 1315 Time Out: 1345 Total Billed Treatment Time: 30 Total Billed Treatment 1, EX x2 (30m) JAVON OJEDA EXPLOSIVE ORDNANCE DISPOSAL MANAGER Jan 17, 2020 14:53
[2020-01-17] MEDS: ALPRAZolam 0.25 MG (XANAX) TAB PO PRN (15:52)
[2020-01-17 16:54] VITALS: BP 110/59
[2020-01-17] MEDS: TAMSULOSIN 0.4 MG (FLOMAX) CAP PO SCH (17:30)
[2020-01-17] MEDS: MELATONIN 3 MG TABLET PO SCH (21:39)
[2020-01-17] MEDS: diphenhydrAMINE 25 MG TAB (BENADRYL) PO SCH (21:39)
[2020-01-17] MEDS: ACETAMINOPHEN 500 MG TAB (TYLENOL) PO SCH (21:40)
[2020-01-18] MEDS: oxyCODONE ER 10 MG (OxyCONTIN CR) TAB PO SCH ×2 (05:29→13:25)
[2020-01-18] MEDS: BETHANECHOL 25 MG (URECHOLINE) TAB PO SCH ×3 (05:29→20:43)
[2020-01-18] MEDS: LEVOTHYROXINE 100 MCG (LEVOTHROID) TAB PO SCH (05:30)
[2020-01-18 05:50] VITALS: BP 127/58
[2020-01-18] MEDS: DOCUSATE SODIUM 100 MG (COLACE) CAP PO SCH ×2 (08:20→20:42)
[2020-01-18] MEDS: PANTOPRAZOLE 40 MG (PROTONIX) TAB PO SCH (08:24)
[2020-01-18] MEDS: VITAMIN D3 25 MCG (1,000 UNITS) TABLET PO SCH (08:24)
[2020-01-18] MEDS: polyethylene glycoL POWDER 17 GM (MIRALAX) PACK PO SCH (08:24)
[2020-01-18] MEDS: ASPIRIN E.C. 81 MG (ECOTRIN) TAB PO SCH (08:24)
[2020-01-18] MEDS: BACLOFEN 10 MG (LIORESAL) TAB PO SCH ×3 (08:24→20:42)
[2020-01-18] MEDS: APIXABAN 5 MG (ELIQUIS) TABLET PO SCH ×2 (08:24→20:42)
[2020-01-18] MEDS: LOSARTAN 25 MG (COZAAR) TAB PO SCH (08:24)
[2020-01-18] MEDS: SENNA W/DOCUSATE (SENOKOT S) TABLET PO SCH ×2 (08:24→20:42)
[2020-01-18] MEDS: DICLOFENAC 1% GEL 100 GM (VOLTAREN) TUBE TP SCH ×3 (08:25→20:42)
--- NOTE | 2020-01-18 10:17 | PM&R Progress Note ---
Subjective HPI/CC On Admission Date Seen by Provider: Jan 18, 2020 Time Seen by Provider: 10:30 Subjective/Events-last exam 01/18/20: Vaginal discharge discussed again as we do every day No pain reported Working with PT OT 01/17/20: Talks about vaginal issue every day and I tell her the same information every day BM loose today Family training delayed due to with flu 01/16/20: Decreasing Urocholine since she is voiding pretty well Will need to go to a prison DC is planned for 01/23/20 Vaginal discharge continues but she was having this issue before her stroke Post void residual looks good 01/15/20: Pt vomited a little bit this morning Maalox given for GERD issues Vaginal discharge is still a discussion Pt has a lot of somatic complaints will try to continue supporting and improving anything we can 01/14/20: Labs reviewed Vaginal discharge discussed in-depth Outpatient appt with Dr Hanna will be set up 01/13/20: Patient still talks about vaginal discharge so will need [facility] appt as outpatient No pain reported BM+ Fall risk 01/12/2020: Reports vaginal discharge started again I personally do not have an answer and she will need outpatient treatment by gy necology Denies any significant new pain Pain is well controlled on extended release narcotics No shortness of breath Participating in therapy 01/11/20: Completing antibiotic Reports the vaginal discharge has returned Unsure of the source of that We will try to confer with gynecology about that Check meds and labs 01/10/20: Tolerating antibiotic Bowels are moving pretty well Vaginal discharge is about the same Mysterious situation with the vaginal discharge Appreciate gynecology and urology 01/09/20: Urine issues showing some residual and retention Bowels moved today Vaginal culture is normal anup Cipro for protease Eliquis started for AF Discontinue Lovenox 01/08/20: Bowels moving today Swab of the vagina was done by Dr. Jackson himself Appreciate Dr. Joseph update 01/07/20: Proteus urine culture, Dr. Nesbitt placed her on Cipro CT scan with rectal contrast has been completed, will evaluate for fistula Bowels moved today but she feels like it goes into her vagina 01/06/20: Spoke to Dr Cook after I assessed her symptoms again of the vaginal discharge and we need CT abd pelvis with rectal contrast to see if fistula is an issue Proteus on UC x but UA was normal which may be involved in this fistula issues Left arm is flaccid some movement in left foot Uterine prolapse noted when she was admitted 01/05/20: Brown vaginal discharge noted If continues will obtain TV USG and Palm Gatherer consult No pain reported UA repeat normal Incontinence at night 01/04/20: Much improved status Bearden now out and voiding well Not sleeping well so added equivalent of Tylenol PM to night time to see if that helps her since she takes that at home on occasion Advanced diet Repeat UA via in/out cath DC Cleocin 01/03/20: Bearden out and has yet to void Dr Nesbitt and I conferred on the unit Oxycontin increased to 30mg BID she takes it at 0700 and 1330 so instructed pharmacy to put it in for that time slot Swallowing better 12/31/19 BM so laxatives given Pureed diet 01/02/20: Decreasing food intake Chest pain prompting EKG and cardiology evaluation Troponin will be checked Nausea noted Very difficult to manage with such chronic pain Appreciate Dr Nesbitt and Dr Johnson Pt settling in pretty well Having a lot of pain ankylosing spondylitis is very painful for her Will aggressively react bowels Remains with a catheter, I did consult urology Checked meds and labs Conferred with RN Reviewed therapy notes Review of Systems General: Fatigue, Malaise Musculoskeletal: neck pain, back pain Focused Exam Time of Focused Exam: 11:42 Objective Exam Vital Signs Vital Signs Date Time Temp Pulse Resp B/P (MAP) Pulse Ox O2 Delivery O2 Flow Rate FiO2 01/19/20 05:22 36.1 57 16 104/52 (69) 95 Room Air Capillary Refill : Less Than 3 Seconds General Appearance: No Apparent Distress, WD/WN, Chronically ill HEENT: PERRL/EOMI, Normal ENT Inspection Neck: Normal Inspection, Supple Respiratory: Chest Non Tender, Lungs Clear, Normal Breath Sounds, No Accessory Muscle Use, No Respiratory Distress Cardiovascular: Regular Rate, Rhythm, No Edema Gastrointestinal: Normal Bowel Sounds, No Organomegaly, No Pulsatile Mass, Non Tender, Soft Back: Normal Inspection, No CVA Tenderness, No Vertebral Tenderness Extremity: Normal Inspection, No Calf Tenderness, No Pedal Edema Neurologic/Psychiatric: Alert, Oriented x3, Normal Mood/Affect, Motor Weakness Skin: Normal Color, Warm/Dry Lymphatic: No Adenopathy Results/Procedures Lab Patient resulted labs reviewed. FIM Transfers Therapy Code Descriptions/Definitions Functional Warden Measure: 0=Not Assessed/NA 4=Minimal Assistance 1=Total Assistance 5=Supervision or Setup 2=Maximal Assistance 6=Modified Warden 3=Moderate Assistance 7=Complete IndependenceSCALE: Activities may be completed with or without assistive devices. 0-Kjcklwfkex-fxykaki completes the activity by him/herself with no assistance from a helper. 5-Set-up or Clean-up Assistance-helper sets up or cleans up; patient completes activity. [place] assists only prior to or following the activity. 4-Supervision or Touching Assistance-helper provides verbal cues and/or touching/steadying and/or contact guard assistance as patient completes activity. Assistance may be provided throughout the activity or intermittently. 3-Partial/Moderate Assistance-helper does LESS THAN HALF the effort. [place] lifts, holds or supports trunk or limbs, but provides less than half the effort. 2-Substantial/Maximal Assistance-helper does MORE THAN HALF the effort. [place] lifts or holds trunk or limbs and provides more than half the effort. 8-Lroondtzn-nbevje does ALL the effort. Patient does none of the effort to complete the activity. Or, the assistance of 2 or more helpers is required for the patient to complete the activity. If activity was not attempted, code reason: 7-Patient Refused. 9-Not Applicable-not attempted and the patient did not perform the activity before the current illness, exacerbation or injury. 10-Not Attempted due to Environmental Limitations-(lack of equipment, weather restraints, etc.). 88-Not Attempted due to Medical Conditions or Safety Concerns. Roll Left to Right (QC): 4 Sit to Lying (QC): 3 Sit to Stand (QC): 1 Chair/Rie-li-Karkx Xfer(QC): 1 Car Transfer (QC): 1 Gait Training Distance: 3 Walk 10 feet (QC): 88 Walk 50 ft with 2 Turns(QC): 88 Walk 150 ft (QC): 88 Walking 10ft/uneven surface-QC: 88 Gait Persons Needed: 1 Gait Assistive Device: Parallel Bars Wheelchair Training Does the Pt Use a Wheelchair?: Yes Distance: 50'x2 Wheel 50 ft with 2 turns (QC): 3 Wheel 150 ft (QC): 3 Type of Wheelchair: Manual Stair Training 1 Step (curb) (QC): 88 4 Steps (QC): 88 12 Steps (QC): 88 Balance Picking up an Object (QC): 1 ADL-Treatment Eating (QC): 5 (Based on clincial judgement, pt would require set up assistance with feeding) Oral Hygiene (QC): 4 Bathing Location: L Arm, L Upper Leg, R Upper Leg, L Lower Leg (including foot), R Lower Leg (including foot), Chest, Abdomen, Buttocks, Perineal Area Shower/Bathe Self (QC): 3 Upper Body Dressing (QC): 2 Lower Body Dressing (QC): 1 On/Off Footwear (QC): 2 Toileting Hygiene (QC): 1 Toilet Transfer (QC): 1 Assessment/Plan Assessment and Plan Assess & Plan/Chief Complaint Assessment: CVA Left sided weakness AK Hypothyroidism Chronic pain Narcotic dependent Narcotic bowel Osteoporosis Bearden cath in place Urinary retention UTI PAF on Tely 01/07/20 placed on OAC Plan: Dr Nesbitt IRF protocol Current meds 01/01/20: Pain management Dr Nesbitt consult for urinary retention Monitor for falls BM regimen 01/02/20: Pain management Cardiology and Urology consultation is appreciated 01/03/20: Urology appreciated Pain med increased to her home dose Pureed diet 01/04/20: Advanced diet Repeat UA inout cath Insomnia treatment 01/05/20: Vaginal discharge? May need TV USG and Palm Gatherer consult 01/06/20: Fistula between rectum and vagina? CT scan and TV USG tomorrow 01/07/20: CT scan with rectal enema Palm Gatherer consult Conferred with Dr Nesbitt Abx for Proteus 01/08/20: Appreciate Dr Jackson Vaginal swab UTI tx 01/09/20: Monitor weakness Pain control UTI tx 01/10/20: Tolerating abx Monitor voiding 01/11/2020: Pain control Bowel regimen Monitor vaginal discharge 01/12/20: OAC Monitor closely 01/13/20: Continue abx for UTI Palm Gatherer appt at [place] Needs skilled care if deficits remain severe 01/14/20: Labs reviewed Manage pain issues 01/15/20: Chronic vaginal discharge No pain reported as long as chronic narcs given 01/16/20: [facility] appt as outpatient Needs NH placement 01/17/20: Monitor bowel function Monitor pain 01/18/20: Vaginal discharge management as outpatient Pain control (1) CVA (cerebral vascular accident) (2) Ankylosing spondylitis (3) Acquired hypothyroidism (4) Chronic pain (5) Narcotic dependence (6) Narcotic bowel syndrome (7) Urinary retention (8) Bearden catheter in place (9) UTI (urinary tract infection) (10) Left-sided weakness (11) Psoriasis (12) Osteoporosis WILEY WRIGHT DO Jan 18, 2020 10:17
--- NOTE | 2020-01-18 10:24 | Physical Therapy Daily Note ---
PT Daily Note-Current Subjective Pt. up in room, states she just had BM and feels better but it wore her out. Agrees to Rx, OT PT co Rx 30 mins in to Rx. Pain Location: No Pain Reported Mental Status Patient Orientation: Person, Place, Time, Situation Attachments: Other-See Comments (mask) Transfers SCALE: Activities may be completed with or without assistive devices. 7-Kjovaccvav-dpolgtm completes the activity by him/herself with no assistance from a helper. 5-Set-up or Clean-up Assistance-helper sets up or cleans up; patient completes activity. [place] assists only prior to or following the activity. 4-Supervision or Touching Assistance-helper provides verbal cues and/or touching/steadying and/or contact guard assistance as patient completes activity. Assistance may be provided throughout the activity or intermittently. 3-Partial/Moderate Assistance-helper does LESS THAN HALF the effort. [place] lifts, holds or supports trunk or limbs, but provides less than half the effort. 2-Substantial/Maximal Assistance-helper does MORE THAN HALF the effort. [place] lifts or holds trunk or limbs and provides more than half the effort. 4-Yzakywqpb-jraofb does ALL the effort. Patient does none of the effort to complete the activity. Or, the assistance of 2 or more helpers is required for the patient to complete the activity. If activity was not attempted, code reason: 7-Patient Refused. 9-Not Applicable-not attempted and the patient did not perform the activity bef ore the current illness, exacerbation or injury. 10-Not Attempted due to Environmental Limitations-(lack of equipment, weather r estraints, etc.). 88-Not Attempted due to Medical Conditions or Safety Concerns. Sit to Stand (QC): 3 Chair/Hpw-hm-Lwwit Xfer(QC): 3 Toilet Transfer (QC): 3 Pt. requires assist of 2 for toileting as she needs mod to max assist to stand and to maintain stance as well as max assist to clean and manage pants up or down etc. Pt. needs much direction and assist to manage TRF without pushing with RUE, needs instruction to use RUE proficiently for TRF Weight Bearing Full Weight Bearing Full Weight Bearing Gait Training Does the Patient Walk?: No and Walking Goal IS indicated Wheelchair Training Does the Pt Use a Wheelchair?: Yes Wheel 50 ft with 2 turns (QC): 3 Type of Wheelchair: Manual much work this day on braking on right side and propelling using right hand and R LE to propel and guide w/c. This is very challenging for pt. as vision on left is low and pt. doesnt see when she is veering left Exercises Seated Therapy Exercises: Ankle pumps, Sit to stand, Long arc quads, Hip flexion, Hip abd/add Seated Reps: 12 (x3) NuStep Minutes: 10 NuStep Workload: 2 Treatments pt.requires assist for Nustep to maintain nuetral at left hip and for utilizing L hand to puch/pull, Co Rx on mat for sitting balance coordinated with OT for reaching while engaging abs and control for reaching etc. mirror feedback utilized Assessment Current Status: Good Progress pt. frustrated, fatigued and tearful today PT Short Term Goals Short Term Goals Time Frame: Jan 08, 2020 Roll Left & Right: 3 Sit to lyin Lying to sitting on side of be: 3 Sit to stand: 3 Chair/drs-vc-tupal transfer: 3 PT Manager Business Goals Fdc Goals PT Fdc Goals Time Frame: Jan 22, 2020 Roll Left & Right (QC): 3 (Татьяна) Sit to Lying (QC): 3 (Татьяна) Lying-Sitting on Side/Bed(QC): 3 (Татьяна) Sit to Stand (QC): 3 (Татьяна) Chair/Jzc-us-Mrlln Xfer(QC): 3 (Татьяна) Toilet Transfer (QC): 3 (Татьяна) Car Transfer (QC): 3 (Татьяна) Does the Patient Walk: No and Walking Goal IS indicated Walk 10 feet (QC): 3 (Татьяна) Walk 50ft with 2 Turns (QC): 88 Walk 150 ft (QC): 88 Walking 10ft on Uneven Surface: 88 1 Step (curb) (QC): 88 4 Steps (QC): 88 12 Steps (QC): 88 Picking up an Object (QC): 88 Wheel 50 feet with 2 turns (QC: 4 Type: Manual Wheel 150 feet: 4 Type: Manual PT Plan Treatment/Plan Treatment Plan: Continue Plan of Care Treatment Plan: Bed Mobility, Education, Functional Activity [place], Functional Strength, Group Therapy, Gait, Safety, Therapeutic Exercise, Transfers Treatment Duration: Jan 21, 2020 Frequency: At least 5 of 7 days/Wk (IRF) Estimated Hrs Per Day: 1.5 hours per day Patient and/or Family Agrees t: Yes Safety Risks/Education Patient Education: Transfer Techniques, Correct Positioning, W/C Management, Disease Process, Safety Issues Teaching Recipient: Patient Teaching Methods: Demonstration, Discussion Response to Teaching: Verbalize Understanding, Return Demonstration, Reinforcement Needed Time/GCodes Time In: 900 Time Out: 1015 Total Billed Treatment Time: 75 Total Billed Treatment 1, WC15m,FA45m,EX15m (co Rx 45m) [facility] NURSE LICENSED PRACTICAL Jan 18, 2020 10:24
[2020-01-18] MEDS: ALPRAZolam 0.25 MG (XANAX) TAB PO PRN (11:44)
--- NOTE | 2020-01-18 12:09 | Occupational Ther Daily Note ---
OT Current Status-Daily Note Subjective Pt in therapy gym with PT. Pt no c/o pain. Pt agreed to therapy. Mental Status/Objective Patient Orientation: Person, Place, Time, Situation ADL-Treatment Therapy Code Descriptions/Definitions Functional Lares Measure: 0=Not Assessed/NA 4=Minimal Assistance 1=Total Assistance 5=Supervision or Setup 2=Maximal Assistance 6=Modified Lares 3=Moderate Assistance 7=Complete IndependenceSCALE: Activities may be completed with or without assistive devices. 6-Bmicwcfnrh-rudkyrj completes the activity by him/herself with no assistance from a helper. 5-Set-up or Clean-up Assistance-helper sets up or cleans up; patient completes activity. [place] assists only prior to or following the activity. 4-Supervision or Touching Assistance-helper provides verbal cues and/or touching/steadying and/or contact guard assistance as patient completes activity. Assistance may be provided throughout the activity or intermittently. 3-Partial/Moderate Assistance-helper does LESS THAN HALF the effort. [place] lifts, holds or supports trunk or limbs, but provides less than half the effort. 2-Substantial/Maximal Assistance-helper does MORE THAN HALF the effort. [place] lifts or holds trunk or limbs and provides more than half the effort. 4-Mdrqthcug-erijez does ALL the effort. Patient does none of the effort to complete the activity. Or, the assistance of 2 or more helpers is required for the patient to complete the activity. If activity was not attempted, code reason: 7-Patient Refused. 9-Not Applicable-not attempted and the patient did not perform the activity before the current illness, exacerbation or injury. 10-Not Attempted due to Environmental Limitations-(lack of equipment, weather restraints, etc.). 88-Not Attempted due to Medical Conditions or Safety Concerns. Upper Body Dressing (QC): 2 Other Treatment Pt in therapy gym with PT. Co-treatment with PT ([id number]) skills of two clinicians required for skilled instruction and care due to transfers and safety concerns. PT focuses on LE exercise, sitting balance. OT focused on UE exercise, ADLs, hand placement. Pt working with PT at bike while OT was working with L affected arm placing it in elbow flexion/extension. Pt propelled self to mat. Pt transferred from w/c to mat Max A. Pt focused on sitting balance while weight shifting from L to R and front to back in front of mirror for correct body alignment. Pt able to correct body positioning when leaning from side to side and front to back. Pt transferred from mat to w/c Max A x2. Pt propelled self back to room, verbal cues/guidance with w/c required when pulling to the L. Pt doffed UE clothing Mod A to undress affected L arm. Pt donned UE clothing Max A to thread affected L arm and manipulate clothing. Pt transferred from w/c to EOB Max A. Pt EOB to supine Mod A while OT guided feet. OT stretched L affected arm performed elbow flexion/extension, horizontal shoulder abduction/adduction, and shoulder flexion. OT gave pt red sponge to work on hand filter cleaner. OT talked with pt regarding home set up, spouses ability to take care of pt. Pt seemed to not full understand severity of going home. Call light/phone in reach. All needs met. Education OT Patient Education: Correct positioning, Energy conservation, Exercise program, Modified ADL techniques, Progress toward Goal/Update tx plan, Purpose of tx/functional activities, Transfer techniques Teaching Recipient: Patient Teaching Methods: Demonstration, Discussion Response to Teaching: Verbalize Understanding, Return Demonstration OT Short Term Goals Short Term Goals Time Frame: Jan 16, 2020 Eatin Oral hygiene: 5 Upper body dressin Lower body dressin OT Med Spec Goals [facility] Goals Time Frame: Jan 25, 2020 Eating (QC): 6 Oral Hygiene (QC): 6 Toileting Hygiene (QC): 4 Shower/Bathe Self (QC): 4 Upper Body Dressing (QC): 5 Lower Body Dressing (QC): 4 On/Off Footwear (QC): 3 Additional Goals: 1-Demonstrate ADL Tasks, 2-Verbalize Understanding, 3- ImproveStrength/Benson 1=Demonstrate adherence to instructed precautions during ADL tasks. 2=Patient will verbalize/demonstrate understanding of assistive devices/modifications for ADL. 3=Patient will improve strength/tolerance for activity to enable patient to perform ADL's. OT Education/Plan Problem List/Assessment Assessment: Decreased Activ Tolerance, Decreased UE Strength, Dependent Transfers, Impaired Funct Balance, Impaired Self-Care Skills Discharge Recommendations Plan/Recommendations: Continue POC Therapy Discharge Recommendati: 24 Hour Supervision Treatment Plan/Plan of Care Patient would benefit from OT for education, treatment and training to promote independence in ADL's, mobility, safety and/or upper extremity function for ADL's. Plan of Care: ADL Retraining, Functional Mobility, Group Exercise/Act as Ind, UE Funct Exercise/Act, UE Neuromus Re-Ed/Coord, Visual/Perceptual Retrain, W/C Management Training Treatment Duration: Jan 25, 2020 Frequency: At least 5 of 7 days/Wk (IRF) Estimated Hrs Per Day: 1.5 hours per day Agreement: Yes Rehab Potential: Fair Time/GCodes Start Time: 09:30 Stop Time: 10:45 Total Time Billed (hr/min): 75 Billed Treatment Time 1 visit- ADL (15 mins), FA 2 (30 mins), EX 2 (30 mins) Co-treatment PT ([id number]) Ind- ([id number]) See above note for designated roles. DELMER DENIS OT Jan 18, 2020 12:09
[2020-01-18] MEDS: HYDROcodone/APAP 5 MG/325 MG (LORTAB) TAB PO PRN (13:25)
--- NOTE | 2020-01-18 13:52 | Speech Therapy Daily Note ---
Speech Daily Progress Note Subjective Date Seen by Provider: Jan 18, 2020 Time Seen by Provider: 00:30 Patient was resting in her bed following her other therapy. Objective Patient completed intake of a snack with utilization of compensatory strategies as trained at 90% with minimal cues. Assessment Assessment Current Status: Good Progress Treatment Plan Continue Plan of Care Speech Short Term Goals Short Term Goals Short Term Goals 1) Patient will tolerate the least restrictive diet level without s/s of aspiration at 90% or greater. 2) Patient will utilize compensatory strategies as trained for safe oral intake at 90% or greater. Speech Nursing Home Goals Nursing Home Goals Patient will maintain adequate nutrition/hydration via safe effective swallow function. Speech-Plan Patient/Family Goals Patient/Family Goals: Patient plans on returning home where she lives with her . Treatment Plan Speech Therapy Treatment Plan: Continue Plan of Care Treatment Duration: Jan 18, 2020 Frequency: 4 times per week Estimated Hrs Per Day: .25 hour per day Rehab Potential: Fair Barriers to Learning: Patient's recent CVA Pt/Family Agrees to Plan: Yes Safety Risks/Education Teaching Recipient: Patient Teaching Methods: Demonstration, Discussion Response to Teaching: Verbalize Understanding, Return Demonstration Education Topics Provided: Continued safety with oral intake Time Speech Therapy Time In: 13:30 Speech Therapy Time Out: 14:00 Total Billed Time: 30 Billed Treatment Time 1, DYST SPENCER [place] Jan 18, 2020 13:51
--- NOTE | 2020-01-18 13:59 | NUR ---
RECEIVED NEW ORDERS FROM DR. NERI TO DECREASE URECHOLINE TO BID, & FOR BLADDER SCAN
[2020-01-18] MEDS: TAMSULOSIN 0.4 MG (FLOMAX) CAP PO SCH (17:23)
[2020-01-18 18:00] VITALS: BP 115/57
[2020-01-18] MEDS: MELATONIN 3 MG TABLET PO SCH (20:42)
[2020-01-18] MEDS: diphenhydrAMINE 25 MG TAB (BENADRYL) PO SCH (20:42)
[2020-01-18] MEDS: ACETAMINOPHEN 500 MG TAB (TYLENOL) PO SCH (20:42)
[2020-01-19] MEDS: HYDROcodone/APAP 5 MG/325 MG (LORTAB) TAB PO PRN ×2 (03:33→20:26)
[2020-01-19] MEDS: ALPRAZolam 0.25 MG (XANAX) TAB PO PRN ×2 (04:05→22:39)
[2020-01-19 05:22] VITALS: BP 104/52
[2020-01-19] MEDS: oxyCODONE ER 10 MG (OxyCONTIN CR) TAB PO SCH ×2 (06:08→13:33)
[2020-01-19] MEDS: LEVOTHYROXINE 100 MCG (LEVOTHROID) TAB PO SCH (06:08)
--- NOTE | 2020-01-19 07:08 | PM&R Progress Note ---
Subjective HPI/CC On Admission Date Seen by Provider: Jan 19, 2020 Time Seen by Provider: 12:30 Subjective/Events-last exam 01/19/20: No major issues BM normal now She intends to go home but she is a 2 person assist 01/18/20: Vaginal discharge discussed again as we do every day No pain reported Working with PT OT 01/17/20: Talks about vaginal issue every day and I tell her the same information every day BM loose today Family training delayed due to with flu 01/16/20: Decreasing Urocholine since she is voiding pretty well Will need to go to a half-way DC is planned for 01/23/20 Vaginal discharge continues but she was having this issue before her stroke Post void residual looks good 01/15/20: Pt vomited a little bit this morning Maalox given for GERD issues Vaginal discharge is still a discussion Pt has a lot of somatic complaints will try to continue supporting and improving anything we can 01/14/20: Labs reviewed Vaginal discharge discussed in-depth Outpatient appt with Dr Hanna will be set up 01/13/20: Patient still talks about vaginal discharge so will need GEOGRAPHY FACULTY MEMBER appt as outpatient No pain reported BM+ Fall risk 01/12/2020: Reports vaginal discharge started again I personally do not have an answer and she will need outpatient treatment by gynecology Denies any significant new pain Pain is well controlled on extended release narcotics No shortness of breath Participating in therapy 01/11/20: Completing antibiotic Reports the vaginal discharge has returned Unsure of the source of that We will try to confer with gynecology about that Check meds and labs 01/10/20: Tolerating antibiotic Bowels are moving pretty well Vaginal discharge is about the same Mysterious situation with the vaginal discharge Appreciate gynecology and urology 01/09/20: Urine issues showing some residual and retention Bowels moved today Vaginal culture is normal anup Cipro for protease Eliquis started for AF Discontinue Lovenox 01/08/20: Bowels moving today Swab of the vagina was done by Dr. Jackson himself Appreciate Dr. Joseph update 01/07/20: Proteus urine culture, Dr. Nesbitt placed her on Cipro CT scan with rectal contrast has been completed, will evaluate for fistula Bowels moved today but she feels like it goes into her vagina 01/06/20: Spoke to Dr Cook after I assessed her symptoms again of the vaginal discharge and we need CT abd pelvis with rectal contrast to see if fistula is an issue Proteus on UC x but UA was normal which may be involved in this fistula issues Left arm is flaccid some movement in left foot Uterine prolapse noted when she was admitted 01/05/20: Brown vaginal discharge noted If continues will obtain TV USG and [employer] Hands Painter consult No pain reported UA repeat normal Incontinence at night 01/04/20: Much improved status Bearden now out and voiding well Not sleeping well so added equivalent of Tylenol PM to night time to see if that helps her since she takes that at home on occasion Advanced diet Repeat UA via in/out cath DC Cleocin 01/03/20: Bearden out and has yet to void Dr Nesbitt and I conferred on the unit Oxycontin increased to 30mg BID she takes it at 0700 and 1330 so instructed pharmacy to put it in for that time slot Swallowing better 12/31/19 BM so laxatives given Pureed diet 01/02/20: Decreasing food intake Chest pain prompting EKG and cardiology evaluation Troponin will be checked Nausea noted Very difficult to manage with such chronic pain Appreciate Dr Nesbitt and Dr Johnson Pt settling in pretty well Having a lot of pain ankylosing spondylitis is very painful for her Will aggressively react bowels Remains with a catheter, I did consult urology Checked meds and labs Conferred with RN Reviewed therapy notes Review of Systems Neurological: Weakness, Incoordination Focused Exam Time of Focused Exam: 11:42 Objective Exam Vital Signs Vital Signs Date Time Temp Pulse Resp B/P (MAP) Pulse Ox O2 Delivery O2 Flow Rate FiO2 01/20/20 05:21 36.0 61 16 109/53 (71) 96 Room Air Capillary Refill : Less Than 3 Seconds General Appearance: No Apparent Distress, WD/WN, Chronically ill HEENT: PERRL/EOMI, Normal ENT Inspection Neck: Normal Inspection, Supple Respiratory: Chest Non Tender, Lungs Clear, Normal Breath Sounds, No Accessory Muscle Use, No Respiratory Distress Cardiovascular: Regular Rate, Rhythm, No Edema Gastrointestinal: Normal Bowel Sounds, No Organomegaly, No Pulsatile Mass, Non Tender, Soft Back: Normal Inspection, No CVA Tenderness, No Vertebral Tenderness Extremity: Normal Inspection, No Calf Tenderness, No Pedal Edema Neurologic/Psychiatric: Alert, Oriented x3, Normal Mood/Affect, Motor Weakness Skin: Normal Color, Warm/Dry Lymphatic: No Adenopathy Results/Procedures Lab Patient resulted labs reviewed. FIM Transfers Therapy Code Descriptions/Definitions Functional [place] Measure: 0=Not Assessed/NA 4=Minimal Assistance 1=Total Assistance 5=Supervision or Setup 2=Maximal Assistance 6=Modified [place] 3=Moderate Assistance 7=Complete IndependenceSCALE: Activities may be completed with or without assistive devices. 6-Wkcdrznvrl-yqelmjj completes the activity by him/herself with no assistance from a helper. 5-Set-up or Clean-up Assistance-helper sets up or cleans up; patient completes activity. [place] assists only prior to or following the activity. 4-Supervision or Touching Assistance-helper provides verbal cues and/or touch ing/steadying and/or contact guard assistance as patient completes activity. Assistance may be provided throughout the activity or intermittently. 3-Partial/Moderate Assistance-helper does LESS THAN HALF the effort. May lifts, holds or supports trunk or limbs, but provides less than half the effort. 2-Substantial/Maximal Assistance-helper does MORE THAN HALF the effort. May lifts or holds trunk or limbs and provides more than half the effort. 3-Puvabvzbk-uhznom does ALL the effort. Patient does none of the effort to complete the activity. Or, the assistance of 2 or more helpers is required for the patient to complete the activity. If activity was not attempted, code reason: 7-Patient Refused. 9-Not Applicable-not attempted and the patient did not perform the activity before the current illness, exacerbation or injury. 10-Not Attempted due to Environmental Limitations-(lack of equipment, weather restraints, etc.). 88-Not Attempted due to Medical Conditions or Safety Concerns. Roll Left to Right (QC): 4 Sit to Lying (QC): 3 Sit to Stand (QC): 3 Chair/Inh-rw-Xcskg Xfer(QC): 3 Car Transfer (QC): 1 Gait Training Does the Patient Walk?: No and Walking Goal IS indicated Distance: 3 Walk 10 feet (QC): 88 Walk 50 ft with 2 Turns(QC): 88 Walk 150 ft (QC): 88 Walking 10ft/uneven surface-QC: 88 Gait Persons Needed: 1 Gait Assistive Device: Parallel Bars Wheelchair Training Does the Pt Use a Wheelchair?: Yes Distance: 50'x2 Wheel 50 ft with 2 turns (QC): 3 Wheel 150 ft (QC): 3 Type of Wheelchair: Manual Stair Training 1 Step (curb) (QC): 88 4 Steps (QC): 88 12 Steps (QC): 88 Balance Picking up an Object (QC): 1 ADL-Treatment Eating (QC): 5 (Based on clincial judgement, pt would require set up assistance with feeding) Oral Hygiene (QC): 4 Bathing Location: L Arm, L Upper Leg, R Upper Leg, L Lower Leg (including foot), R Lower Leg (including foot), Chest, Abdomen, Buttocks, Perineal Area Shower/Bathe Self (QC): 3 Upper Body Dressing (QC): 2 Lower Body Dressing (QC): 1 On/Off Footwear (QC): 2 Toileting Hygiene (QC): 1 Toilet Transfer (QC): 1 Assessment/Plan Assessment and Plan Assess & Plan/Chief Complaint Assessment: CVA Left sided weakness AK Hypothyroidism Chronic pain Narcotic dependent Narcotic bowel Osteoporosis Bearden cath in place Urinary retention UTI PAF on Tely 01/07/20 placed on OAC Plan: Dr Nesbitt IRF protocol Current meds 01/01/20: Pain management Dr Nesbitt consult for urinary retention Monitor for falls BM regimen 01/02/20: Pain management Cardiology and Urology consultation is appreciated 01/03/20: Urology appreciated Pain med increased to her home dose Pureed diet 01/04/20: Advanced diet Repeat UA inout cath Insomnia treatment 01/05/20: Vaginal discharge? May need TV USG and [employer] Painter consult 01/06/20: Fistula between rectum and vagina? CT scan and TV USG tomorrow 01/07/20: CT scan with rectal enema [employer] Painter consult Conferred with Dr Nesbitt Abx for Proteus 01/08/20: Appreciate Dr Jackson Vaginal swab UTI tx 01/09/20: Monitor weakness Pain control UTI tx 01/10/20: Tolerating abx Monitor voiding 01/11/2020: Pain control Bowel regimen Monitor vaginal discharge 01/12/20: OAC Monitor closely 01/13/20: Continue abx for UTI [employer] Painter appt at ID Needs skilled care if deficits remain severe 01/14/20: Labs reviewed Manage pain issues 01/15/20: Chronic vaginal discharge No pain reported as long as chronic narcs given 01/16/20: GEOGRAPHY FACULTY MEMBER appt as outpatient Needs NH placement 01/17/20: Monitor bowel function Monitor pain 01/18/20: Vaginal discharge management as outpatient Pain control 01/19/20: Pain control Monitor BM (1) CVA (cerebral vascular accident) (2) Ankylosing spondylitis (3) Acquired hypothyroidism (4) Chronic pain (5) Narcotic dependence (6) Narcotic bowel syndrome (7) Urinary retention (8) Bearden catheter in place (9) UTI (urinary tract infection) (10) Left-sided weakness (11) Psoriasis (12) Osteoporosis WILEY WRIGHT DO Jan 19, 2020 07:08
[2020-01-19] MEDS: BETHANECHOL 25 MG (URECHOLINE) TAB PO SCH (08:54)
[2020-01-19] MEDS: ASPIRIN E.C. 81 MG (ECOTRIN) TAB PO SCH (08:54)
[2020-01-19] MEDS: LOSARTAN 25 MG (COZAAR) TAB PO SCH (08:54)
[2020-01-19] MEDS: PANTOPRAZOLE 40 MG (PROTONIX) TAB PO SCH (08:54)
[2020-01-19] MEDS: VITAMIN D3 25 MCG (1,000 UNITS) TABLET PO SCH (08:55)
[2020-01-19] MEDS: BACLOFEN 10 MG (LIORESAL) TAB PO SCH ×3 (08:55→20:26)
[2020-01-19] MEDS: DICLOFENAC 1% GEL 100 GM (VOLTAREN) TUBE TP SCH ×3 (08:55→20:25)
[2020-01-19] MEDS: APIXABAN 5 MG (ELIQUIS) TABLET PO SCH ×2 (08:55→20:25)
[2020-01-19] MEDS: DOCUSATE SODIUM 100 MG (COLACE) CAP PO SCH ×2 (08:55→20:26)
[2020-01-19] MEDS: polyethylene glycoL POWDER 17 GM (MIRALAX) PACK PO SCH (09:00)
[2020-01-19] MEDS: SENNA W/DOCUSATE (SENOKOT S) TABLET PO SCH ×2 (09:00→20:26)
--- NOTE | 2020-01-19 10:26 | Physical Therapy Daily Note ---
PT Daily Note-Current Subjective Pt in bed upon arrival; agrees to PT tx. Pain Numeric Pain Scale: 9 Location: Posterior Location Body Site: Neck Pain Description: Chronic Mental Status Patient Orientation: Person, Place, Situation Transfers SCALE: Activities may be completed with or without assistive devices. 7-Dvkexoyqvr-wzvskau completes the activity by him/herself with no assistance from a helper. 5-Set-up or Clean-up Assistance-helper sets up or cleans up; patient completes activity. [place] assists only prior to or following the activity. 4-Supervision or Touching Assistance-helper provides verbal cues and/or touching/steadying and/or contact guard assistance as patient completes activity. Assistance may be provided throughout the activity or intermittently. 3-Partial/Moderate Assistance-helper does LESS THAN HALF the effort. [place] lifts, holds or supports trunk or limbs, but provides less than half the effort. 2-Substantial/Maximal Assistance-helper does MORE THAN HALF the effort. [place] lifts or holds trunk or limbs and provides more than half the effort. 7-Pdxgjubgp-kzqttc does ALL the effort. Patient does none of the effort to complete the activity. Or, the assistance of 2 or more helpers is required for the patient to complete the activity. If activity was not attempted, code reason: 7-Patient Refused. 9-Not Applicable-not attempted and the patient did not perform the activity before the current illness, exacerbation or injury. 10-Not Attempted due to Environmental Limitations-(lack of equipment, weather restraints, etc.). 88-Not Attempted due to Medical Conditions or Safety Concerns. Roll Left & Right (QC): 2 Lying to Sitting/Side of Bed(Q: 2 Sit to Stand (QC): 3 Chair/Odl-ho-Svwmj Xfer(QC): 3 D/t safety precautions, PIGMENT MIXER requests WORKERS' COMPENSATION MAGISTRATE to assit w/ sit<>stand and chair<>chair transfer. Weight Bearing Full Weight Bearing Full Weight Bearing Exercises Seated Therapy Exercises: Ankle pumps, Long arc quads, Hip flexion, Kicking activity, Hip abd/add, Glut set Seated Reps: 12 (x2) Treatments Worked on bed mobility, supine to sit and transfers. Pt completes seated ex in recliner. Pt remains in recliner w/ bedside table and call light w/in reach and all needs met, at end of tx. Assessment Current Status: Good Progress Pt requires encouragement when completing ex's d/t pt becoming frustrated w/ lack of control w/ LLE. PT Short Term Goals Short Term Goals Time Frame: Jan 08, 2020 Roll Left & Right: 3 Sit to lyin Lying to sitting on side of be: 3 Sit to stand: 3 Chair/eyb-wq-vlojo transfer: 3 PT Group Home Goals Group Home Goals PT Filters Assembler Goals Time Frame: Jan 22, 2020 Roll Left & Right (QC): 3 (Татьяна) Sit to Lying (QC): 3 (Татьяна) Lying-Sitting on Side/Bed(QC): 3 (Татьяна) Sit to Stand (QC): 3 (Татьяна) Chair/Lfs-io-Dqpre Xfer(QC): 3 (Татьяна) Toilet Transfer (QC): 3 (Татьяна) Car Transfer (QC): 3 (Татьяна) Does the Patient Walk: No and Walking Goal IS indicated Walk 10 feet (QC): 3 (Татьяна) Walk 50ft with 2 Turns (QC): 88 Walk 150 ft (QC): 88 Walking 10ft on Uneven Surface: 88 1 Step (curb) (QC): 88 4 Steps (QC): 88 12 Steps (QC): 88 Picking up an Object (QC): 88 Wheel 50 feet with 2 turns (QC: 4 Type: Manual Wheel 150 feet: 4 Type: Manual PT Plan Problem List Problem List: Activity Tolerance, Functional Strength, Safety, Balance, Transfer, Bed Mobility, ROM Treatment/Plan Treatment Plan: Continue Plan of Care Treatment Plan: Bed Mobility, Education, Functional Activity Benson, Functional Strength, Group Therapy, Gait, Safety, Therapeutic Exercise, Transfers Treatment Duration: Jan 21, 2020 Frequency: At least 5 of 7 days/Wk (IRF) Estimated Hrs Per Day: 1.5 hours per day Patient and/or Family Agrees t: Yes Safety Risks/Education Patient Education: Transfer Techniques, Correct Positioning, Safety Issues Teaching Recipient: Patient Teaching Methods: Discussion Response to Teaching: Verbalize Understanding Time/GCodes Time In: 0808 Time Out: 08 Total Billed Treatment Time: 30 Total Billed Treatment 1, FA x1 (15m), Ex x1 (15m) STEPHANIE MALDONADO PIGMENT MIXER Jan 19, 2020 10:26
[2020-01-19 17:07] VITALS: BP 138/64
[2020-01-19] MEDS: TAMSULOSIN 0.4 MG (FLOMAX) CAP PO SCH (17:11)
[2020-01-19] MEDS: diphenhydrAMINE 25 MG TAB (BENADRYL) PO SCH (20:25)
[2020-01-19] MEDS: MELATONIN 3 MG TABLET PO SCH (20:25)
[2020-01-19] MEDS: ACETAMINOPHEN 500 MG TAB (TYLENOL) PO SCH (20:26)
[2020-01-20 05:21] VITALS: BP 109/53
[2020-01-20] MEDS: LEVOTHYROXINE 100 MCG (LEVOTHROID) TAB PO SCH (06:07)
[2020-01-20] MEDS: oxyCODONE ER 10 MG (OxyCONTIN CR) TAB PO SCH ×2 (06:07→13:02)
[2020-01-20] MEDS: DICLOFENAC 1% GEL 100 GM (VOLTAREN) TUBE TP SCH ×3 (08:22→20:15)
[2020-01-20] MEDS: BACLOFEN 10 MG (LIORESAL) TAB PO SCH ×3 (08:22→20:14)
[2020-01-20] MEDS: BETHANECHOL 25 MG (URECHOLINE) TAB PO SCH (08:22)
[2020-01-20] MEDS: PANTOPRAZOLE 40 MG (PROTONIX) TAB PO SCH (08:22)
[2020-01-20] MEDS: LOSARTAN 25 MG (COZAAR) TAB PO SCH (08:22)
[2020-01-20] MEDS: APIXABAN 5 MG (ELIQUIS) TABLET PO SCH ×2 (08:22→20:13)
[2020-01-20] MEDS: VITAMIN D3 25 MCG (1,000 UNITS) TABLET PO SCH (08:22)
[2020-01-20] MEDS: ASPIRIN E.C. 81 MG (ECOTRIN) TAB PO SCH (08:22)
[2020-01-20] MEDS: DOCUSATE SODIUM 100 MG (COLACE) CAP PO SCH ×2 (09:54→20:13)
[2020-01-20] MEDS: polyethylene glycoL POWDER 17 GM (MIRALAX) PACK PO SCH (09:54)
[2020-01-20] MEDS: SENNA W/DOCUSATE (SENOKOT S) TABLET PO SCH ×2 (09:54→20:13)
--- NOTE | 2020-01-20 11:56 | PM&R Progress Note ---
Subjective HPI/CC On Admission Date Seen by Provider: Jan 20, 2020 Time Seen by Provider: 12:15 Subjective/Events-last exam 01/20/20: No major issues Asked questions about her med list at DC to home 01/19/20: No major issues BM normal now She intends to go home but she is a 2 person assist 01/18/20: Vaginal discharge discussed again as we do every day No pain reported Working with PT OT 01/17/20: Talks about vaginal issue every day and I tell her the same information every day BM loose today Family training delayed due to with flu 01/16/20: Decreasing Urocholine since she is voiding pretty well Will need to go to a longterm DC is planned for 01/23/20 Vaginal discharge continues but she was having this issue before her stroke Post void residual looks good 01/15/20: Pt vomited a little bit this morning Maalox given for GERD issues Vaginal discharge is still a discussion Pt has a lot of somatic complaints will try to continue supporting and improving anything we can 01/14/20: Labs reviewed Vaginal discharge discussed in-depth Outpatient appt with Dr Hanna will be set up 01/13/20: Patient still talks about vaginal discharge so will need DIGITAL PROGRAM MANAGER appt as outpatient No pain reported BM+ Fall risk 01/12/2020: Reports vaginal discharge started again I personally do not have an answer and she will need outpatient treatment by gynecology Denies any significant new pain Pain is well controlled on extended release narcotics No shortness of breath Participating in therapy 01/11/20: Completing antibiotic Reports the vaginal discharge has returned Unsure of the source of that We will try to confer with gynecology about that Check meds and labs 01/10/20: Tolerating antibiotic Bowels are moving pretty well Vaginal discharge is about the same Mysterious situation with the vaginal discharge Appreciate gynecology and urology 01/09/20: Urine issues showing some residual and retention Bowels moved today Vaginal culture is normal anup Cipro for protease Eliquis started for AF Discontinue Lovenox 01/08/20: Bowels moving today Swab of the vagina was done by Dr. Jackson himself Appreciate Dr. Joseph update 01/07/20: Proteus urine culture, Dr. Nesbitt placed her on Cipro CT scan with rectal contrast has been completed, will evaluate for fistula Bowels moved today but she feels like it goes into her vagina 01/06/20: Spoke to Dr Cook after I assessed her symptoms again of the vaginal discharge and we need CT abd pelvis with rectal contrast to see if fistula is an issue Proteus on UC x but UA was normal which may be involved in this fistula issues Left arm is flaccid some movement in left foot Uterine prolapse noted when she was admitted 01/05/20: Brown vaginal discharge noted If continues will obtain TV [facility] and [facility] consult No pain reported UA repeat normal Incontinence at night 01/04/20: Much improved status Bearden now out and voiding well Not sleeping well so added equivalent of Tylenol PM to night time to see if that helps her since she takes that at home on occasion Advanced diet Repeat UA via in/out cath DC Cleocin 01/03/20: Bearden out and has yet to void Dr Nesbitt and I conferred on the unit Oxycontin increased to 30mg BID she takes it at 0700 and 1330 so instructed pharmacy to put it in for that time slot Swallowing better 12/31/19 BM so laxatives given Pureed diet 01/02/20: Decreasing food intake Chest pain prompting EKG and cardiology evaluation Troponin will be checked Nausea noted Very difficult to manage with such chronic pain Appreciate Dr Nesbitt and Dr Johnson Pt settling in pretty well Having a lot of pain ankylosing spondylitis is very painful for her Will aggressively react bowels Remains with a catheter, I did consult urology Checked meds and labs Conferred with RN Reviewed therapy notes Review of Systems General: Fatigue, Malaise Neurological: Weakness, Incoordination Focused Exam Time of Focused Exam: 11:42 Objective Exam Vital Signs Vital Signs Date Time Temp Pulse Resp B/P (MAP) Pulse Ox O2 Delivery O2 Flow Rate FiO2 01/20/20 20:21 Room Air 01/20/20 17:09 36.6 73 18 129/56 (80) 94 Capillary Refill : Less Than 3 Seconds General Appearance: No Apparent Distress, WD/WN, Chronically ill HEENT: PERRL/EOMI, Normal ENT Inspection Neck: Normal Inspection, Supple Respiratory: Chest Non Tender, Lungs Clear, Normal Breath Sounds, No Accessory Muscle Use, No Respiratory Distress Cardiovascular: Regular Rate, Rhythm, No Edema Gastrointestinal: Normal Bowel Sounds, No Organomegaly, No Pulsatile Mass, Non Tender, Soft Back: Normal Inspection, No CVA Tenderness, No Vertebral Tenderness Extremity: Normal Inspection, No Calf Tenderness, No Pedal Edema Neurologic/Psychiatric: Alert, Oriented x3, Normal Mood/Affect, Motor Weakness Skin: Normal Color, Warm/Dry Lymphatic: No Adenopathy Results/Procedures Lab Patient resulted labs reviewed. FIM Transfers Therapy Code Descriptions/Definitions Functional [place] Measure: 0=Not Assessed/NA 4=Minimal Assistance 1=Total Assistance 5=Supervision or Setup 2=Maximal Assistance 6=Modified [place] 3=Moderate Assistance 7=Complete IndependenceSCALE: Activities may be completed with or without assistive devices. 7-Mdrqyphont-yhakaxg completes the activity by him/herself with no assistance from a helper. 5-Set-up or Clean-up Assistance-helper sets up or cleans up; patient completes activity. [place] assists only prior to or following the activity. 4-Supervision or Touching Assistance-helper provides verbal cues and/or touching/steadying and/or contact guard assistance as patient completes activity. Assistance may be provided throughout the activity or intermittently. 3-Partial/Moderate Assistance-helper does LESS THAN HALF the effort. [place] lift s, holds or supports trunk or limbs, but provides less than half the effort. 2-Substantial/Maximal Assistance-helper does MORE THAN HALF the effort. [place] lifts or holds trunk or limbs and provides more than half the effort. 2-Bmakonkzq-yokcmn does ALL the effort. Patient does none of the effort to complete the activity. Or, the assistance of 2 or more helpers is required for the patient to complete the activity. If activity was not attempted, code reason: 7-Patient Refused. 9-Not Applicable-not attempted and the patient did not perform the activity before the current illness, exacerbation or injury. 10-Not Attempted due to Environmental Limitations-(lack of equipment, weather restraints, etc.). 88-Not Attempted due to Medical Conditions or Safety Concerns. Roll Left to Right (QC): 2 Sit to Lying (QC): 3 Sit to Stand (QC): 3 Chair/Txm-zn-Clavm Xfer(QC): 3 Car Transfer (QC): 1 Gait Training Does the Patient Walk?: No and Walking Goal IS indicated Distance: 3 Walk 10 feet (QC): 88 Walk 50 ft with 2 Turns(QC): 88 Walk 150 ft (QC): 88 Walking 10ft/uneven surface-QC: 88 Gait Persons Needed: 1 Gait Assistive Device: Parallel Bars Wheelchair Training Does the Pt Use a Wheelchair?: Yes Distance: 50'x2 Wheel 50 ft with 2 turns (QC): 3 Wheel 150 ft (QC): 3 Type of Wheelchair: Manual Stair Training 1 Step (curb) (QC): 88 4 Steps (QC): 88 12 Steps (QC): 88 Balance Picking up an Object (QC): 1 ADL-Treatment Eating (QC): 5 (Based on clincial judgement, pt would require set up assistance with feeding) Oral Hygiene (QC): 4 Bathing Location: L Arm, L Upper Leg, R Upper Leg, L Lower Leg (including foot), R Lower Leg (including foot), Chest, Abdomen, Buttocks, Perineal Area Shower/Bathe Self (QC): 3 Upper Body Dressing (QC): 2 Lower Body Dressing (QC): 1 On/Off Footwear (QC): 2 Toileting Hygiene (QC): 1 Toilet Transfer (QC): 1 Assessment/Plan Assessment and Plan Assess & Plan/Chief Complaint Assessment: CVA Left sided weakness AK Hypothyroidism Chronic pain Narcotic dependent Narcotic bowel Osteoporosis Bearden cath in place Urinary retention UTI PAF on Tely 01/07/20 placed on OAC Plan: Dr Nesbitt IRF protocol Current meds 01/01/20: Pain management Dr Nesbitt consult for urinary retention Monitor for falls BM regimen 01/02/20: Pain management Cardiology and Urology consultation is appreciated 01/03/20: Urology appreciated Pain med increased to her home dose Pureed diet 01/04/20: Advanced diet Repeat UA inout cath Insomnia treatment 01/05/20: Vaginal discharge? May need TV [facility] and [facility] consult 01/06/20: Fistula between rectum and vagina? CT scan and TV USG tomorrow 01/07/20: CT scan with rectal enema [facility] consult Conferred with Dr Nesbitt Abx for Proteus 01/08/20: Appreciate Dr Jackson Vaginal swab UTI tx 01/09/20: Monitor weakness Pain control UTI tx 01/10/20: Tolerating abx Monitor voiding 01/11/2020: Pain control Bowel regimen Monitor vaginal discharge 01/12/20: OAC Monitor closely 01/13/20: Continue abx for UTI [facility] appt at DC Needs skilled care if deficits remain severe 01/14/20: Labs reviewed Manage pain issues 01/15/20: Chronic vaginal discharge No pain reported as long as chronic narcs given 01/16/20: DIGITAL PROGRAM MANAGER appt as outpatient Needs NH placement 01/17/20: Monitor bowel function Monitor pain 01/18/20: Vaginal discharge management as outpatient Pain control 01/19/20: Pain control Monitor BM 01/20/20: Monitor closely Check labs in am (1) CVA (cerebral vascular accident) (2) Ankylosing spondylitis (3) Acquired hypothyroidism (4) Chronic pain (5) Narcotic dependence (6) Narcotic bowel syndrome (7) Urinary retention (8) Bearden catheter in place (9) UTI (urinary tract infection) (10) Left-sided weakness (11) Psoriasis (12) Osteoporosis WILEY WRIGHT DO Jan 20, 2020 11:56
[2020-01-20] MEDS: ONDANSETRON 4 MG (ZOFRAN) ORAL DISSOLVE TAB PO PRN (13:02)
--- NOTE | 2020-01-20 17:03 | NUR ---
Patient very tearful after a phone call with her . Patient expresses that her son will not be able to come and help them when she goes home due to lack of transportation. Patient also says that many people in her gnosticism family have recently been diagnosed with Covid and will not be able to help either.
[2020-01-20] MEDS: TAMSULOSIN 0.4 MG (FLOMAX) CAP PO SCH (17:05)
[2020-01-20] MEDS: ALPRAZolam 0.25 MG (XANAX) TAB PO PRN (17:05)
[2020-01-20 17:09] VITALS: BP 129/56
[2020-01-20] MEDS: MELATONIN 3 MG TABLET PO SCH (20:13)
[2020-01-20] MEDS: HYDROcodone/APAP 5 MG/325 MG (LORTAB) TAB PO PRN (20:14)
[2020-01-20] MEDS: ACETAMINOPHEN 500 MG TAB (TYLENOL) PO SCH (20:14)
[2020-01-20] MEDS: diphenhydrAMINE 25 MG TAB (BENADRYL) PO SCH (20:14)
[2020-01-21 05:50] LABS: BASOPHILS # (AUTO) 0.1 10^3/uL (0.0-0.1); BASOPHILS % (AUTO) 1 % (0-10); EOSINOPHILS # (AUTO) 0.4 10^3/uL (0.0-0.3); EOSINOPHILS % (AUTO) 6 % (0-10); HEMATOCRIT 34 % (35-52); HEMOGLOBIN 10.9 g/dL (11.5-16.0); LYMPHOCYTES # (AUTO) 2.3 10^3/uL (1.0-4.0); LYMPHOCYTES % (AUTO) 32 % (12-44); MEAN CORPUSCULAR HEMOGLOBIN 30 pg (25-34); MEAN CORPUSCULAR HGB CONC 32 g/dL (32-36); MEAN CORPUSCULAR VOLUME 93 fL (80-99); MEAN PLATELET VOLUME 10.7 fL (9.0-12.2); MONOCYTES # (AUTO) 0.5 10^3/uL (0.0-1.0); MONOCYTES % (AUTO) 7 % (0-12); NEUTROPHILS # (AUTO) 3.9 10^3/uL (1.8-7.8); NEUTROPHILS % (AUTO) 55 % (42-75); PLATELET COUNT 200 10^3/uL (130-400); WHITE BLOOD COUNT 7.2 10^3/uL (4.3-11.0)
[2020-01-21] MEDS: LEVOTHYROXINE 100 MCG (LEVOTHROID) TAB PO SCH (06:00)
[2020-01-21] MEDS: oxyCODONE ER 10 MG (OxyCONTIN CR) TAB PO SCH ×2 (06:01→13:41)
[2020-01-21 06:12] VITALS: BP 100/48
[2020-01-21 06:16] LABS: ALBUMIN 3.4 GM/DL (3.2-4.5); CHLORIDE 104 MMOL/L (98-107); POTASSIUM 4.3 MMOL/L (3.6-5.0); SODIUM 144 MMOL/L (135-145)
[2020-01-21 06:18] LABS: CALCIUM 9.1 MG/DL (8.5-10.1)
[2020-01-21 06:19] LABS: GLUCOSE 91 MG/DL (70-105); TOTAL PROTEIN 5.9 GM/DL (6.4-8.2)
[2020-01-21 06:20] LABS: BILIRUBIN,TOTAL 0.6 MG/DL (0.1-1.0); CARBON DIOXIDE 30 MMOL/L (21-32)
[2020-01-21 06:22] LABS: ALKALINE PHOSPHATASE 61 U/L (40-136); CREATININE SERUM 0.83 MG/DL (0.60-1.30); GFR ESTIMATED > 60
[2020-01-21 06:23] LABS: BUN/CREATININE RATIO 35
[2020-01-21 06:25] LABS: ALANINE AMINOTRANSFERASE 9 U/L (0-55)
[2020-01-21] MEDS: ASPIRIN E.C. 81 MG (ECOTRIN) TAB PO SCH (08:52)
[2020-01-21] MEDS: BETHANECHOL 25 MG (URECHOLINE) TAB PO SCH (08:52)
[2020-01-21] MEDS: polyethylene glycoL POWDER 17 GM (MIRALAX) PACK PO SCH (08:52)
[2020-01-21] MEDS: DOCUSATE SODIUM 100 MG (COLACE) CAP PO SCH ×2 (08:52→21:05)
[2020-01-21] MEDS: LOSARTAN 25 MG (COZAAR) TAB PO SCH (08:52)
[2020-01-21] MEDS: BACLOFEN 10 MG (LIORESAL) TAB PO SCH ×3 (08:52→21:05)
[2020-01-21] MEDS: APIXABAN 5 MG (ELIQUIS) TABLET PO SCH ×2 (08:52→21:06)
[2020-01-21] MEDS: ALPRAZolam 0.25 MG (XANAX) TAB PO PRN ×2 (08:52→21:05)
[2020-01-21] MEDS: SENNA W/DOCUSATE (SENOKOT S) TABLET PO SCH ×2 (08:52→21:05)
[2020-01-21] MEDS: VITAMIN D3 25 MCG (1,000 UNITS) TABLET PO SCH (08:52)
[2020-01-21] MEDS: PANTOPRAZOLE 40 MG (PROTONIX) TAB PO SCH (08:52)
[2020-01-21] MEDS: DICLOFENAC 1% GEL 100 GM (VOLTAREN) TUBE TP SCH ×3 (08:53→21:06)
--- NOTE | 2020-01-21 09:02 | PM&R Progress Note ---
Subjective HPI/CC On Admission Date Seen by Provider: Jan 21, 2020 Time Seen by Provider: 09:00 Subjective/Events-last exam 01/21/20: Her son cant come into town because his engine blew up in his truck Pt will simply need to go to a skilled nursing Overall doing well but having difficulties with that decision 01/20/20: No major issues Asked questions about her med list at DC to home 01/19/20: No major issues BM normal now She intends to go home but she is a 2 person assist 01/18/20: Vaginal discharge discussed again as we do every day No pain reported Working with PT OT 01/17/20: Talks about vaginal issue every day and I tell her the same information every day BM loose today Family training delayed due to with flu 01/16/20: Decreasing Urocholine since she is voiding pretty well Will need to go to a skilled nursing DC is planned for 01/23/20 Vaginal discharge continues but she was having this issue before her stroke Post void residual looks good 01/15/20: Pt vomited a little bit this morning Maalox given for GERD issues Vaginal discharge is still a discussion Pt has a lot of somatic complaints will try to continue supporting and improving anything we can 01/14/20: Labs reviewed Vaginal discharge discussed in-depth Outpatient appt with Dr Hanna will be set up 01/13/20: Patient still talks about vaginal discharge so will need PHOTO MASK PROCESSOR appt as outpatient No pain reported BM+ Fall risk 01/12/2020: Reports vaginal discharge started again I personally do not have an answer and she will need outpatient treatment by gynecology Denies any significant new pain Pain is well controlled on extended release narcotics No shortness of breath Participating in therapy 01/11/20: Completing antibiotic Reports the vaginal discharge has returned Unsure of the source of that We will try to confer with gynecology about that Check meds and labs 01/10/20: Tolerating antibiotic Bowels are moving pretty well Vaginal discharge is about the same Mysterious situation with the vaginal discharge Appreciate gynecology and urology 01/09/20: Urine issues showing some residual and retention Bowels moved today Vaginal culture is normal anup Cipro for protease Eliquis started for AF Discontinue Lovenox 01/08/20: Bowels moving today Swab of the vagina was done by Dr. Jackson himself Appreciate Dr. Joseph update 01/07/20: Proteus urine culture, Dr. Nesbitt placed her on Cipro CT scan with rectal contrast has been completed, will evaluate for fistula Bowels moved today but she feels like it goes into her vagina 01/06/20: Spoke to Dr Cook after I assessed her symptoms again of the vaginal discharge and we need CT abd pelvis with rectal contrast to see if fistula is an issue Proteus on UC x but UA was normal which may be involved in this fistula issues Left arm is flaccid some movement in left foot Uterine prolapse noted when she was admitted 01/05/20: Brown vaginal discharge noted If continues will obtain TV USG and Radiology Orderly consult No pain reported UA repeat normal Incontinence at night 01/04/20: Much improved status Bearden now out and voiding well Not sleeping well so added equivalent of Tylenol PM to night time to see if that helps her since she takes that at home on occasion Advanced diet Repeat UA via in/out cath DC Cleocin 01/03/20: Bearden out and has yet to void Dr Nesbitt and I conferred on the unit Oxycontin increased to 30mg BID she takes it at 0700 and 1330 so instructed pharmacy to put it in for that time slot Swallowing better 12/31/19 BM so laxatives given Pureed diet 01/02/20: Decreasing food intake Chest pain prompting EKG and cardiology evaluation Troponin will be checked Nausea noted Very difficult to manage with such chronic pain Appreciate Dr Nesbitt and Dr Johnson Pt settling in pretty well Having a lot of pain ankylosing spondylitis is very painful for her Will aggressively react bowels Remains with a catheter, I did consult urology Checked meds and labs Conferred with RN Reviewed therapy notes Review of Systems Neurological: Weakness, Incoordination Focused Exam Time of Focused Exam: 11:42 Objective Exam Vital Signs Vital Signs Date Time Temp Pulse Resp B/P (MAP) Pulse Ox O2 Delivery O2 Flow Rate FiO2 01/21/20 20:00 97 Room Air 01/21/20 18:07 37.6 76 20 155/65 (95) Capillary Refill : Less Than 3 Seconds General Appearance: No Apparent Distress, WD/WN, Chronically ill HEENT: PERRL/EOMI, Normal ENT Inspection Neck: Normal Inspection, Supple Respiratory: Chest Non Tender, Lungs Clear, Normal Breath Sounds, No Accessory Muscle Use, No Respiratory Distress Cardiovascular: Regular Rate, Rhythm, No Edema Gastrointestinal: Normal Bowel Sounds, No Organomegaly, No Pulsatile Mass, Non Tender, Soft Back: Normal Inspection, No CVA Tenderness, No Vertebral Tenderness Extremity: Normal Inspection, No Calf Tenderness, No Pedal Edema Neurologic/Psychiatric: Alert, Oriented x3, Normal Mood/Affect, Motor Weakness Skin: Normal Color, Warm/Dry Lymphatic: No Adenopathy Results/Procedures Lab Laboratory Tests 01/21/20 05:24 Patient resulted labs reviewed. FIM Transfers Therapy Code Descriptions/Definitions Functional [place] Measure: 0=Not Assessed/NA 4=Minimal Assistance 1=Total Assistance 5=Supervision or Setup 2=Maximal Assistance 6=Modified [place] 3=Moderate Assistance 7=Complete IndependenceSCALE: Activities may be completed with or without assistive devices. 4-Cgveghzotr-gzzqdah completes the activity by him/herself with no assistance fr om a helper. 5-Set-up or Clean-up Assistance-helper sets up or cleans up; patient completes activity. [place] assists only prior to or following the activity. 4-Supervision or Touching Assistance-helper provides verbal cues and/or touching/steadying and/or contact guard assistance as patient completes activity. Assistance may be provided throughout the activity or intermittently. 3-Partial/Moderate Assistance-helper does LESS THAN HALF the effort. [place] lifts, holds or supports trunk or limbs, but provides less than half the effort. 2-Substantial/Maximal Assistance-helper does MORE THAN HALF the effort. [place] lifts or holds trunk or limbs and provides more than half the effort. 5-Nflifmprx-alrirx does ALL the effort. Patient does none of the effort to complete the activity. Or, the assistance of 2 or more helpers is required for the patient to complete the activity. If activity was not attempted, code reason: 7-Patient Refused. 9-Not Applicable-not attempted and the patient did not perform the activity before the current illness, exacerbation or injury. 10-Not Attempted due to Environmental Limitations-(lack of equipment, weather restraints, etc.). 88-Not Attempted due to Medical Conditions or Safety Concerns. Roll Left to Right (QC): 2 Sit to Lying (QC): 3 Sit to Stand (QC): 3 Chair/Hfv-vl-Gewxu Xfer(QC): 3 Car Transfer (QC): 1 Gait Training Does the Patient Walk?: No and Walking Goal IS indicated Distance: 3 Walk 10 feet (QC): 88 Walk 50 ft with 2 Turns(QC): 88 Walk 150 ft (QC): 88 Walking 10ft/uneven surface-QC: 88 Gait Persons Needed: 1 Gait Assistive Device: Parallel Bars Wheelchair Training Does the Pt Use a Wheelchair?: Yes Distance: 50'x2 Wheel 50 ft with 2 turns (QC): 3 Wheel 150 ft (QC): 3 Type of Wheelchair: Manual Stair Training 1 Step (curb) (QC): 88 4 Steps (QC): 88 12 Steps (QC): 88 Balance Picking up an Object (QC): 1 ADL-Treatment Eating (QC): 5 (Based on clincial judgement, pt would require set up assistance with feeding) Oral Hygiene (QC): 4 Bathing Location: L Arm, L Upper Leg, R Upper Leg, L Lower Leg (including f oot), R Lower Leg (including foot), Chest, Abdomen, Buttocks, Perineal Area Shower/Bathe Self (QC): 3 Upper Body Dressing (QC): 2 Lower Body Dressing (QC): 1 On/Off Footwear (QC): 2 Toileting Hygiene (QC): 1 Toilet Transfer (QC): 1 Assessment/Plan Assessment and Plan Assess & Plan/Chief Complaint Assessment: CVA Left sided weakness AK Hypothyroidism Chronic pain Narcotic dependent Narcotic bowel Osteoporosis Bearden cath in place Urinary retention UTI PAF on Tely 01/07/20 placed on OAC Plan: Dr Nesbitt IRF protocol Current meds 01/01/20: Pain management Dr Nesbitt consult for urinary retention Monitor for falls BM regimen 01/02/20: Pain management Cardiology and Urology consultation is appreciated 01/03/20: Urology appreciated Pain med increased to her home dose Pureed diet 01/04/20: Advanced diet Repeat UA inout cath Insomnia treatment 01/05/20: Vaginal discharge? May need TV USG and Radiology Orderly consult 01/06/20: Fistula between rectum and vagina? CT scan and TV USG tomorrow 01/07/20: CT scan with rectal enema Radiology Orderly consult Conferred with Dr Nesbitt Abx for Proteus 01/08/20: Appreciate Dr Jackson Vaginal swab UTI tx 01/09/20: Monitor weakness Pain control UTI tx 01/10/20: Tolerating abx Monitor voiding 01/11/2020: Pain control Bowel regimen Monitor vaginal discharge 01/12/20: OAC Monitor closely 01/13/20: Continue abx for UTI Radiology Orderly appt at [place] Needs skilled care if deficits remain severe 01/14/20: Labs reviewed Manage pain issues 01/15/20: Chronic vaginal discharge No pain reported as long as chronic narcs given 01/16/20: PHOTO MASK PROCESSOR appt as outpatient Needs NH placement 01/17/20: Monitor bowel function Monitor pain 01/18/20: Vaginal discharge management as outpatient Pain control 01/19/20: Pain control Monitor BM 01/20/20: Monitor closely Check labs in am 01/21/20: Labs reviewed Needs NHP (1) CVA (cerebral vascular accident) (2) Ankylosing spondylitis (3) Acquired hypothyroidism (4) Chronic pain (5) Narcotic dependence (6) Narcotic bowel syndrome (7) Urinary retention (8) Bearden catheter in place (9) UTI (urinary tract infection) (10) Left-sided weakness (11) Psoriasis (12) Osteoporosis WILEY WRIGHT DO Jan 21, 2020 09:02
--- NOTE | 2020-01-21 11:45 | Physical Therapy Daily Note ---
PT Daily Note-Current Subjective Pt. shares that she very much wants to go home but her is very concerned that he cannot handle her TRFs and dressing and toileting. Pt.wants to focus on this. c/o she feels more tired today Pain Location: No Pain Reported Mental Status Patient Orientation: Person, Place, Time, Situation Attachments: Other-See Comments (mask) Transfers SCALE: Activities may be completed with or without assistive devices. 4-Sptlfsfpgw-adsorzm completes the activity by him/herself with no assistance from a helper. 5-Set-up or Clean-up Assistance-helper sets up or cleans up; patient completes activity. [place] assists only prior to or following the activity. 4-Supervision or Touching Assistance-helper provides verbal cues and/or touching/steadying and/or contact guard assistance as patient completes activity. Assistance may be provided throughout the activity or intermittently. 3-Partial/Moderate Assistance-helper does LESS THAN HALF the effort. [place] lifts, holds or supports trunk or limbs, but provides less than half the effort. 2-Substantial/Maximal Assistance-helper does MORE THAN HALF the effort. [place] lifts or holds trunk or limbs and provides more than half the effort. 4-Jdkwxtckq-qjffen does ALL the effort. Patient does none of the effort to complete the activity. Or, the assistance of 2 or more helpers is required for the patient to complete the activity. If activity was not attempted, code reason: 7-Patient Refused. 9-Not Applicable-not attempted and the patient did not perform the activity before the current illness, exacerbation or injury. 10-Not Attempted due to Environmental Limitations-(lack of equipment, weather restraints, etc.). 88-Not Attempted due to Medical Conditions or Safety Concerns. Roll Left & Right (QC): 3 Sit to Lying (QC): 3 Lying to Sitting/Side of Bed(Q: 3 Sit to Stand (QC): 3 Chair/Ykn-wt-Aioyd Xfer(QC): 3 pt. continues to TRF toward right side with some pushing syndrome noted, emphasis on overcoming this today, TRF SPT to left are equally as challenging as pt. needs near max assist Weight Bearing Full Weight Bearing Full Weight Bearing Gait Training Does the Patient Walk?: No and Walking Goal NOT indicated Wheelchair Training Does the Pt Use a Wheelchair?: Yes Wheel 50 ft with 2 turns (QC): 2 Wheel 150 ft (QC): 2 Type of Wheelchair: Manual pt. 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 , mirror feedback used for sitting posture and standing alignment , pt.able to stand only 15 to 20 sec at //bars with mod assist, tone and pusher increasing as she stands Assessment Current Status: Fair Progress dependent for all mobility PT Short Term Goals Short Term Goals Time Frame: Jan 08, 2020 Roll Left & Right: 3 Sit to lyin Lying to sitting on side of be: 3 Sit to stand: 3 Chair/gey-iz-hvkno transfer: 3 PT Transferrer Goals Transferrer Goals PT Care Home Goals Time Frame: Jan 22, 2020 Roll Left & Right (QC): 3 (Татьяна) Sit to Lying (QC): 3 (Татьяна) Lying-Sitting on Side/Bed(QC): 3 (Татьяна) Sit to Stand (QC): 3 (Татьяна) Chair/Iar-at-Mtixs Xfer(QC): 3 (Татьяна) Toilet Transfer (QC): 3 (Татьяна) Car Transfer (QC): 3 (Татьяна) Does the Patient Walk: No and Walking Goal IS indicated Walk 10 feet (QC): 3 (Татьяна) Walk 50ft with 2 Turns (QC): 88 Walk 150 ft (QC): 88 Walking 10ft on Uneven Surface: 88 1 Step (curb) (QC): 88 4 Steps (QC): 88 12 Steps (QC): 88 Picking up an Object (QC): 88 Wheel 50 feet with 2 turns (QC: 4 Type: Manual Wheel 150 feet: 4 Type: Manual PT Plan Treatment/Plan Treatment Plan: Continue Plan of Care Treatment Plan: Bed Mobility, Education, Functional Activity [place], Functional Strength, Group Therapy, Gait, Safety, Therapeutic Exercise, Transfers Treatment Duration: Jan 21, 2020 Frequency: At least 5 of 7 days/Wk (IRF) Estimated Hrs Per Day: 1.5 hours per day Patient and/or Family Agrees t: Yes Safety Risks/Education Patient Education: Transfer Techniques, Correct Positioning, W/C Management, Disease Process, Safety Issues Teaching Recipient: Patient Teaching Methods: Demonstration, Discussion Response to Teaching: Reinforcement Needed Time/GCodes Time In: 900 Time Out: 1000 Total Billed Treatment Time: 60 Total Billed Treatment 1,FA30,WC15,EX15 RUBEN BARNES CABIN MAN Jan 21, 2020 11:45
--- NOTE | 2020-01-21 12:45 | Occupational Ther Daily Note ---
OT Current Status-Daily Note Subjective No pain reported. Appearance Pt. up in chair with PT when OT enters. Mental Status/Objective Patient Orientation: Person, Place ADL-Treatment Therapy Code Descriptions/Definitions Functional [place] Measure: 0=Not Assessed/NA 4=Minimal Assistance 1=Total Assistance 5=Supervision or Setup 2=Maximal Assistance 6=Modified [place] 3=Moderate Assistance 7=Complete IndependenceSCALE: Activities may be completed with or without assistive devices. 4-Fndesfduan-yabaixi completes the activity by him/herself with no assistance from a helper. 5-Set-up or Clean-up Assistance-helper sets up or cleans up; patient completes activity. [place] assists only prior to or following the activity. 4-Supervision or Touching Assistance-helper provides verbal cues and/or touching/steadying and/or contact guard assistance as patient completes activity. Assistance may be provided throughout the activity or intermittently. 3-Partial/Moderate Assistance-helper does LESS THAN HALF the effort. [place] lifts, holds or supports trunk or limbs, but provides less than half the effort. 2-Substantial/Maximal Assistance-helper does MORE THAN HALF the effort. [place] lifts or holds trunk or limbs and provides more than half the effort. 2-Ijsfmhsal-vbjuyh does ALL the effort. Patient does none of the effort to complete the activity. Or, the assistance of 2 or more helpers is required for the patient to complete the activity. If activity was not attempted, code reason: 7-Patient Refused. 9-Not Applicable-not attempted and the patient did not perform the activity before the current illness, exacerbation or injury. 10-Not Attempted due to Environmental Limitations-(lack of equipment, weather restraints, etc.). 88-Not Attempted due to Medical Conditions or Safety Concerns. Lower Body Dressing (QC): 2 (Pt. able to bridge self in bed so that OT could doff her pants.) Toileting Hygiene (QC): 2 (Pt. incontinent of urine through clothing and onto chair. OT doffed clothing and pt. able to cleanse front dragan area with washcloth. OT donned fresh brief.) Other Treatment Pt. seen by therapy to work on overall strength and independence with daily tasks. Completed partial co-treatment with PT for sit-stand at bar. PT focused on transfer and weight shift while OT addressed transfer and hand placement. Required max x 2 to stand, and then max x 1-2 at times to correct posture, as it was noted that pt. leaned hard to left. Large mirror was put in front of pt. and pt. cued to correct self and maintain upright posture. Pt. had difficulty doing this. PT left session and OT continued working on left UE mobility with PROM, and then e-stim. Unable to gain results or movement with e-stim, and so this was discontinued. Noted discomfort with ROM toward end range. Brought in sit-stand lift to assess pt's mobility with this, to determine if this in fact can be used at home. Pt. is able to stand with correct positioning of sling and feet. However, until spouse can demonstrate this, it is uncertain if he can manage this at home. Pt. encouraged to self propel but has great difficulty with this. OT uses sit-stand lift with pt. and transferred her from chair-bed. Max assist for sit-supine. Education OT Patient Education: Correct positioning, Exercise program, Modified ADL techniques, Progress toward Goal/Update tx plan, Purpose of tx/functional activities, Reviewed precautions, Rehab process, Transfer techniques Teaching Recipient: Patient Teaching Methods: Demonstration, Discussion Response to Teaching: Verbalize Understanding, Return Demonstration OT Short Term Goals Short Term Goals Time Frame: Jan 16, 2020 Eatin Oral hygiene: 5 Upper body dressin Lower body dressin OT Environmental Sciences Professor Goals Environmental Sciences Professor Goals Time Frame: Jan 25, 2020 Eating (QC): 6 Oral Hygiene (QC): 6 Toileting Hygiene (QC): 4 Shower/Bathe Self (QC): 4 Upper Body Dressing (QC): 5 Lower Body Dressing (QC): 4 On/Off Footwear (QC): 3 Additional Goals: 1-Demonstrate ADL Tasks, 2-Verbalize Understanding, 3- ImproveStrength/[place] 1=Demonstrate adherence to instructed precautions during ADL tasks. 2=Patient will verbalize/demonstrate understanding of assistive devices/modifications for ADL. 3=Patient will improve strength/tolerance for activity to enable patient to perform ADL's. OT Education/Plan Problem List/Assessment Assessment: Decreased Activ Tolerance, Decreased UE Strength, Dependent Transfers, Impaired Bed Mobility, Impaired Cognition, Impaired Coordination, Impaired Funct Balance, Impaired I ADL's, Impaired Self-Care Skills, Restricted Funct UE ROM, Visual-Perceptual Deficit Discharge Recommendations Plan/Recommendations: Continue POC Treatment Plan/Plan of Care Treatment,Training & Education: Yes Patient would benefit from OT for education, treatment and training to promote independence in ADL's, mobility, safety and/or upper extremity function for ADL 's. Plan of Care: ADL Retraining, Functional Mobility, Group Exercise/Act as Ind, UE Funct Exercise/Act, UE Neuromus Re-Ed/Coord, Visual/Perceptual Retrain, W/C Management Training Treatment Duration: Jan 25, 2020 Frequency: At least 5 of 7 days/Wk (IRF) Estimated Hrs Per Day: 1.5 hours per day Agreement: Yes Rehab Potential: Fair Time/GCodes Start Time: 09:35 Stop Time: 10:55 Total Time Billed (hr/min): 80 Billed Treatment Time 1, ADL x 20minutes, FA x 60minutes Co-treatment from [id number]. Please see above note for designated roles. DELMER DENIS OT Jan 21, 2020 12:45
--- NOTE | 2020-01-21 13:38 | Physical Therapy Daily Note ---
PT Daily Note-Current Subjective Pt. is concerned about her DC and her husbands concerns. Pain Location: No Pain Reported Mental Status Patient Orientation: Normal For Age Transfers SCALE: Activities may be completed with or without assistive devices. 3-Ypinsvgzuq-eboqtfa completes the activity by him/herself with no assistance from a helper. 5-Set-up or Clean-up Assistance-helper sets up or cleans up; patient completes activity. [employer] assists only prior to or following the activity. 4-Supervision or Touching Assistance-helper provides verbal cues and/or touching/steadying and/or contact guard assistance as patient completes activity. Assistance may be provided throughout the activity or intermittently. 3-Partial/Moderate Assistance-helper does LESS THAN HALF the effort. [place] [employer] lifts, holds or supports trunk or limbs, but provides less than half the effort. 2-Substantial/Maximal Assistance-helper does MORE THAN HALF the effort. [employer] [employer] lifts or holds trunk or limbs and provides more than half the effort. 1-Mcltthbkj-owrydp does ALL the effort. Patient does none of the effort to complete the activity. Or, the assistance of 2 or more helpers is required for the patient to complete the activity. If activity was not attempted, code reason: 7-Patient Refused. 9-Not Applicable-not attempted and the patient did not perform the activity before the current illness, exacerbation or injury. 10-Not Attempted due to Environmental Limitations-(lack of equipment, weather restraints, etc.). 88-Not Attempted due to Medical Conditions or Safety Concerns. Roll Left & Right (QC): 3 Weight Bearing Full Weight Bearing Full Weight Bearing Exercises Supine Ex: Ankle pumps, Quad Set, Rolling, Glut sets, Heel Slides, Short Arc Quads, Straight leg raise, Hip abd/add Supine Reps: 15 (assisted FEMI&L extremity) Assessment Current Status: Fair Progress PT Short Term Goals Short Term Goals Time Frame: Jan 08, 2020 Roll Left & Right: 3 Sit to lyin Lying to sitting on side of be: 3 Sit to stand: 3 Chair/ddd-ln-wtxxw transfer: 3 PT Fpc Goals Fpc Goals PT Fpc Goals Time Frame: Jan 22, 2020 Roll Left & Right (QC): 3 (Татьяна) Sit to Lying (QC): 3 (Татьяна) Lying-Sitting on Side/Bed(QC): 3 (Татьяна) Sit to Stand (QC): 3 (Татьяна) Chair/Qeq-ol-Bnrnq Xfer(QC): 3 (Татьяна) Toilet Transfer (QC): 3 (Татьяна) Car Transfer (QC): 3 (Татьяна) Does the Patient Walk: No and Walking Goal IS indicated Walk 10 feet (QC): 3 (Татьяна) Walk 50ft with 2 Turns (QC): 88 Walk 150 ft (QC): 88 Walking 10ft on Uneven Surface: 88 1 Step (curb) (QC): 88 4 Steps (QC): 88 12 Steps (QC): 88 Picking up an Object (QC): 88 Wheel 50 feet with 2 turns (QC: 4 Type: Manual Wheel 150 feet: 4 Type: Manual PT Plan Treatment/Plan Treatment Plan: Continue Plan of Care Treatment Plan: Bed Mobility, Education, Functional Activity [place], Functional Strength, Group Therapy, Gait, Safety, Therapeutic Exercise, Transfers Treatment Duration: Jan 21, 2020 Frequency: At least 5 of 7 days/Wk (IRF) Estimated Hrs Per Day: 1.5 hours per day Patient and/or Family Agrees t: Yes Safety Risks/Education instructed in bed exercises she can do while alone in bed in room Time/GCodes Time In: 1300 Time Out: 1330 Total Billed Treatment Time: 30 Total Billed Treatment 1,FA10m,EX20m RUBEN BARNES [employer] TAMPER Jan 21, 2020 13:38
--- NOTE | 2020-01-21 14:56 | Occupational Ther Daily Note ---
OT Current Status-Daily Note Subjective No pain reported. Mental Status/Objective Patient Orientation: Person, Place ADL-Treatment Therapy Code Descriptions/Definitions Functional [place] Measure: 0=Not Assessed/NA 4=Minimal Assistance 1=Total Assistance 5=Supervision or Setup 2=Maximal Assistance 6=Modified [place] 3=Moderate Assistance 7=Complete IndependenceSCALE: Activities may be completed with or without assistive devices. 8-Lhttucirzn-sfhpkze completes the activity by him/herself with no assistance from a helper. 5-Set-up or Clean-up Assistance-helper sets up or cleans up; patient completes activity. [place] assists only prior to or following the activity. 4-Supervision or Touching Assistance-helper provides verbal cues and/or touching/steadying and/or contact guard assistance as patient completes activity. Assistance may be provided throughout the activity or intermittently. 3-Partial/Moderate Assistance-helper does LESS THAN HALF the effort. [place] lifts, holds or supports trunk or limbs, but provides less than half the effort. 2-Substantial/Maximal Assistance-helper does MORE THAN HALF the effort. [place] lifts or holds trunk or limbs and provides more than half the effort. 3-Fdgfmbtol-ejsvub does ALL the effort. Patient does none of the effort to complete the activity. Or, the assistance of 2 or more helpers is required for the patient to complete the activity. If activity was not attempted, code reason: 7-Patient Refused. 9-Not Applicable-not attempted and the patient did not perform the activity before the current illness, exacerbation or injury. 10-Not Attempted due to Environmental Limitations-(lack of equipment, weather restraints, etc.). 88-Not Attempted due to Medical Conditions or Safety Concerns. Other Treatment Pt. in bed. Agrees to UE exercises. OT issues pt. pink therapy sponge, as she has lost hers. Pt. encouraged to squeeze with left hand, but is able to make only very slight trace movements with fingers. Pt. completed squeezes in right hand x 10 reps. Pt. educated about theraband exercises. However, pt. begins to report that she is concerned about when her will come for training. Pt. indicates that spouse does not hear his phone, and that his inbox is full. Pt. is encouraged to have spouse call our social worker masters when she talks with him next. She verbalizes that she will do this. All needs met in room. Education OT Patient Education: Correct positioning, Exercise program, Progress toward Goal/Update tx plan, Purpose of tx/functional activities, Reviewed precautions, Rehab process Teaching Recipient: Patient Teaching Methods: Demonstration, Discussion Response to Teaching: Verbalize Understanding, Return Demonstration, Reinforcement Needed OT Short Term Goals Short Term Goals Time Frame: Jan 16, 2020 Eatin Oral hygiene: 5 Upper body dressin Lower body dressin OT Supervisor Inspecting Goals Nursing Home Goals Time Frame: Jan 25, 2020 Eating (QC): 6 Oral Hygiene (QC): 6 Toileting Hygiene (QC): 4 Shower/Bathe Self (QC): 4 Upper Body Dressing (QC): 5 Lower Body Dressing (QC): 4 On/Off Footwear (QC): 3 Additional Goals: 1-Demonstrate ADL Tasks, 2-Verbalize Understanding, 3- ImproveStrength/[place] 1=Demonstrate adherence to instructed precautions during ADL tasks. 2=Patient will verbalize/demonstrate understanding of assistive devices/modifications for ADL. 3=Patient will improve strength/tolerance for activity to enable patient to perform ADL's. OT Education/Plan Problem List/Assessment Assessment: Decreased Activ Tolerance, Decreased UE Strength, Dependent Transfers, Impaired Bed Mobility, Impaired Coordination, Impaired I ADL's, Impaired Self-Care Skills, Restricted Funct UE ROM, Visual-Perceptual Deficit Discharge Recommendations Plan/Recommendations: Continue POC Therapy Discharge Recommendati: 24 Hour Supervision Treatment Plan/Plan of Care Treatment,Training & Education: Yes Patient would benefit from OT for education, treatment and training to promote independence in ADL's, mobility, safety and/or upper extremity function for ADL's. Plan of Care: ADL Retraining, Functional Mobility, Group Exercise/Act as Ind, UE Funct Exercise/Act, UE Neuromus Re-Ed/Coord, Visual/Perceptual Retrain, W/C Management Training Treatment Duration: Jan 25, 2020 Frequency: At least 5 of 7 days/Wk (IRF) Estimated Hrs Per Day: 1.5 hours per day Agreement: Yes Rehab Potential: Fair Time/GCodes Start Time: 13:40 Stop Time: 13:50 Total Time Billed (hr/min): 10 Billed Treatment Time 1, Ex DELMER DENIS OT Jan 21, 2020 14:56
--- NOTE | 2020-01-21 16:37 | NUR ---
CM/SS DISCHARGE PLANNING Visited with patient this afternoon about exploring a bridge placement in a community alf facility closer to her home. As she reported to nursing staff, her son Donavon in [place] is unable to come due to apparent car trouble and this was something she was dependent upon regarding being able to return home. She asked that fha underwriter speak with her spouse. Finally able to connect with Anant Godfrey; per patient he is not able to hear phone and/or does not keep it on him or charged up. Summarizing, he did seem more accepting of the fact the care team did not recommend patient return home with him as a sole caregiver due to her dependency at this time for transfers and all care requiring transfers. Explained that patient used 10 Medicare skilled benefit days at [facility] and that she had the 10 full coverage days left. Regarding co-pay, we have no card copies here, Anant believes they have a Medicare F supplement. Contacted [facility]/Judy Molina to inquire about any copies they may have, out, left message. Discussed SNF's in their area with patient, she asked that fha underwriter discuss this with Anant. Both rejected [facility] in [place]. Referrals sent: [facility]/ZAC López PH: [phone] FX: [phone] [facility]/Kae PH: [phone] FX: [phone] [place], [place], is not taking admissions at this time. A [place] facility is desired, patient's PCP is Dr. Rodrigez in [place]. Attempted x 3 to reach his office for their advice/choice regarding SNF. Left messages for return call. Additionally, patient may qualify for [place] Medicaid with [employer], making a [place] facility that much more essential due to her residency there. Spouse Anant inquiring about coming to see patient; however, when following up on his "flu" that patient reported he had last week, Anant said it was Covid per Dr. Rodrigez. Anant reports that he had lost taste and smell. Plumbing Designer updated Anant that he could not visit patient due to still being in isolation, although Anant did not seem to be maintaining isolation based on the conversation. Await confirmation of denial or acceptance from referral sources.
[2020-01-21] MEDS: TAMSULOSIN 0.4 MG (FLOMAX) CAP PO SCH (17:14)
--- NOTE | 2020-01-21 17:24 | Progress Note - Urology ---
Progress Note-Urology Progress Notes/Assess & Plan Progress/Assessment & Plan CONTINUES WELL RECIO. STOP URECHOLINE Final Diagnosis RETENTION (RESOLVED) JAY NERI MD Jan 21, 2020 17:24
[2020-01-21 18:07] VITALS: BP 155/65
[2020-01-21] MEDS: MELATONIN 3 MG TABLET PO SCH (21:04)
[2020-01-21] MEDS: diphenhydrAMINE 25 MG TAB (BENADRYL) PO SCH (21:05)
[2020-01-21] MEDS: ACETAMINOPHEN 500 MG TAB (TYLENOL) PO SCH (21:05)
--- NOTE | 2020-01-22 06:01 | PM&R Progress Note ---
Subjective HPI/CC On Admission Date Seen by Provider: Jan 22, 2020 Time Seen by Provider: 08:30 Subjective/Events-last exam 01/22/20: Adjusted to the fact that she will need to go to a group home Bowels moved and did pretty well with that Pt overall doing well 01/21/20: Her son cant come into town because his engine blew up in his truck Pt will simply need to go to a group home Overall doing well but having difficulties with that decision 01/20/20: No major issues Asked questions about her med list at DC to home 01/19/20: No major issues BM normal now She intends to go home but she is a 2 person assist 01/18/20: Vaginal discharge discussed again as we do every day No pain reported Working with PT OT 01/17/20: Talks about vaginal issue every day and I tell her the same information every day BM loose today Family training delayed due to with flu 01/16/20: Decreasing Urocholine since she is voiding pretty well Will need to go to a group home DC is planned for 01/23/20 Vaginal discharge continues but she was having this issue before her stroke Post void residual looks good 01/15/20: Pt vomited a little bit this morning Maalox given for GERD issues Vaginal discharge is still a discussion Pt has a lot of somatic complaints will try to continue supporting and improving anything we can 01/14/20: Labs reviewed Vaginal discharge discussed in-depth Outpatient appt with Dr Hanna will be set up 01/13/20: Patient still talks about vaginal discharge so will need SEWER SEPARATION DESIGNER appt as outpatient No pain reported BM+ Fall risk 01/12/2020: Reports vaginal discharge started again I personally do not have an answer and she will need outpatient treatment by gynecology Denies any significant new pain Pain is well controlled on extended release narcotics No shortness of breath Participating in therapy 01/11/20: Completing antibiotic Reports the vaginal discharge has returned Unsure of the source of that We will try to confer with gynecology about that Check meds and labs 01/10/20: Tolerating antibiotic Bowels are moving pretty well Vaginal discharge is about the same Mysterious situation with the vaginal discharge Appreciate gynecology and urology 01/09/20: Urine issues showing some residual and retention Bowels moved today Vaginal culture is normal anup Cipro for protease Eliquis started for AF Discontinue Lovenox 01/08/20: Bowels moving today Swab of the vagina was done by Dr. Jackson himself Appreciate Dr. Joseph update 01/07/20: Proteus urine culture, Dr. Nesbitt placed her on Cipro CT scan with rectal contrast has been completed, will evaluate for fistula Bowels moved today but she feels like it goes into her vagina 01/06/20: Spoke to Dr Cook after I assessed her symptoms again of the vaginal discharge and we need CT abd pelvis with rectal contrast to see if fistula is an issue Proteus on UC x but UA was normal which may be involved in this fistula issues Left arm is flaccid some movement in left foot Uterine prolapse noted when she was admitted 01/05/20: Brown vaginal discharge noted If continues will obtain TV USG and Skid Strapper consult No pain reported UA repeat normal Incontinence at night 01/04/20: Much improved status Bearden now out and voiding well Not sleeping well so added equivalent of Tylenol PM to night time to see if that helps her since she takes that at home on occasion Advanced diet Repeat UA via in/out cath DC Cleocin 01/03/20: Bearden out and has yet to void Dr Nesbitt and I conferred on the unit Oxycontin increased to 30mg BID she takes it at 0700 and 1330 so instructed pharmacy to put it in for that time slot Swallowing better 12/31/19 BM so laxatives given Pureed diet 01/02/20: Decreasing food intake Chest pain prompting EKG and cardiology evaluation Troponin will be checked Nausea noted Very difficult to manage with such chronic pain Appreciate Dr Nesbitt and Dr Johnson Pt settling in pretty well Having a lot of pain ankylosing spondylitis is very painful for her Will aggressively react bowels Remains with a catheter, I did consult urology Checked meds and labs Conferred with RN Reviewed therapy notes Review of Systems Neurological: Weakness, Incoordination Focused Exam Time of Focused Exam: 11:42 Objective Exam Vital Signs Vital Signs Date Time Temp Pulse Resp B/P (MAP) Pulse Ox O2 Delivery O2 Flow Rate FiO2 01/22/20 20:40 Room Air 01/22/20 18:00 36.6 63 18 141/62 (88) 97 Capillary Refill : Less Than 3 Seconds General Appearance: No Apparent Distress, WD/WN, Chronically ill HEENT: PERRL/EOMI, Normal ENT Inspection Neck: Normal Inspection, Supple Respiratory: Chest Non Tender, Lungs Clear, Normal Breath Sounds, No Accessory Muscle Use, No Respiratory Distress Cardiovascular: Regular Rate, Rhythm, No Edema Gastrointestinal: Normal Bowel Sounds, No Organomegaly, No Pulsatile Mass, Non Tender, Soft Back: Normal Inspection, No CVA Tenderness, No Vertebral Tenderness Extremity: Normal Inspection, No Calf Tenderness, No Pedal Edema Neurologic/Psychiatric: Alert, Oriented x3, Normal Mood/Affect, Motor Weakness Skin: Normal Color, Warm/Dry Lymphatic: No Adenopathy Results/Procedures Lab Patient resulted labs reviewed. FIM Transfers Therapy Code Descriptions/Definitions Functional [place] Measure: 0=Not Assessed/NA 4=Minimal Assistance 1=Total Assistance 5=Supervision or Setup 2=Maximal Assistance 6=Modified [place] 3=Moderate Assistance 7=Complete IndependenceSCALE: Activities may be completed with or without assistive devices. 2-Ihzgtmxero-xhhmqgn completes the activity by him/herself with no assistance from a helper. 5-Set-up or Clean-up Assistance-helper sets up or cleans up; patient completes activity. [place] assists only prior to or following the activity. 4-Supervision or Touching Assistance-helper provides verbal cues and/or touching/steadying and/or contact guard assistance as patient completes activity. Assistance may be provided throughout the activity or intermittently. 3-Partial/Moderate Assistance-helper does LESS THAN HALF the effort. [place] lifts, holds or supports trunk or limbs, but provides less than half the effort. 2-Substantial/Maximal Assistance-helper does MORE THAN HALF the effort. [place] lifts or holds trunk or limbs and provides more than half the effort. 6-Ehixwxulx-msgjpc does ALL the effort. Patient does none of the effort to complete the activity. Or, the assistance of 2 or more helpers is required for the patient to complete the activity. If activity was not attempted, code reason: 7-Patient Refused. 9-Not Applicable-not attempted and the patient did not perform the activity before the current illness, exacerbation or injury. 10-Not Attempted due to Environmental Limitations-(lack of equipment, weather restraints, etc.). 88-Not Attempted due to Medical Conditions or Safety Concerns. Roll Left to Right (QC): 3 Sit to Lying (QC): 3 Sit to Stand (QC): 3 Chair/Mjz-hh-Pimue Xfer(QC): 3 Car Transfer (QC): 1 Gait Training Does the Patient Walk?: No and Walking Goal NOT indicated Distance: 3 Walk 10 feet (QC): 88 Walk 50 ft with 2 Turns(QC): 88 Walk 150 ft (QC): 88 Walking 10ft/uneven surface-QC: 88 Gait Persons Needed: 1 Gait Assistive Device: Parallel Bars Wheelchair Training Does the Pt Use a Wheelchair?: Yes Distance: 50'x2 Wheel 50 ft with 2 turns (QC): 2 Wheel 150 ft (QC): 2 Type of Wheelchair: Manual Stair Training 1 Step (curb) (QC): 88 4 Steps (QC): 88 12 Steps (QC): 88 Balance Picking up an Object (QC): 1 ADL-Treatment Eating (QC): 5 (Based on clincial judgement, pt would require set up assistance with feeding) Oral Hygiene (QC): 4 Bathing Location: L Arm, L Upper Leg, R Upper Leg, L Lower Leg (including foot), R Lower Leg (including foot), Chest, Abdomen, Buttocks, Perineal Area Shower/Bathe Self (QC): 3 Upper Body Dressing (QC): 2 Lower Body Dressing (QC): 2 (Pt. able to bridge self in bed so that OT could doff her pants.) On/Off Footwear (QC): 2 Toileting Hygiene (QC): 2 (Pt. incontinent of urine through clothing and onto chair. OT doffed clothing and pt. able to cleanse front dragan area with washcloth. OT donned fresh brief.) Toilet Transfer (QC): 1 Assessment/Plan Assessment and Plan Assess & Plan/Chief Complaint Assessment: CVA Left sided weakness AK Hypothyroidism Chronic pain Narcotic dependent Narcotic bowel Osteoporosis Bearden cath in place Urinary retention UTI PAF on Tely 01/07/20 placed on OAC Plan: Dr Nesbitt IRF protocol Current meds 01/01/20: Pain management Dr Nesbitt consult for urinary retention Monitor for falls BM regimen 01/02/20: Pain management Cardiology and Urology consultation is appreciated 01/03/20: Urology appreciated Pain med increased to her home dose Pureed diet 01/04/20: Advanced diet Repeat UA inout cath Insomnia treatment 01/05/20: Vaginal discharge? May need TV USG and Skid Strapper consult 01/06/20: Fistula between rectum and vagina? CT scan and TV USG tomorrow 01/07/20: CT scan with rectal enema Skid Strapper consult Conferred with Dr Nesbitt Abx for Proteus 01/08/20: Appreciate Dr Jackson Vaginal swab UTI tx 01/09/20: Monitor weakness Pain control UTI tx 01/10/20: Tolerating abx Monitor voiding 01/11/2020: Pain control Bowel regimen Monitor vaginal discharge 01/12/20: OAC Monitor closely 01/13/20: Continue abx for UTI Skid Strapper appt at MD Needs skilled care if deficits remain severe 01/14/20: Labs reviewed Manage pain issues 01/15/20: Chronic vaginal discharge No pain reported as long as chronic narcs given 01/16/20: SEWER SEPARATION DESIGNER appt as outpatient Needs NH placement 01/17/20: Monitor bowel function Monitor pain 01/18/20: Vaginal discharge management as outpatient Pain control 01/19/20: Pain control Monitor BM 01/20/20: Monitor closely Check labs in am 01/21/20: Labs reviewed Needs NHP 01/22/20: Has accepted NHP Monitor closely (1) CVA (cerebral vascular accident) (2) Ankylosing spondylitis (3) Acquired hypothyroidism (4) Chronic pain (5) Narcotic dependence (6) Narcotic bowel syndrome (7) Urinary retention (8) Bearden catheter in place (9) UTI (urinary tract infection) (10) Left-sided weakness (11) Psoriasis (12) Osteoporosis WILEY WRIGHT DO Jan 22, 2020 06:01
[2020-01-22] MEDS: LEVOTHYROXINE 100 MCG (LEVOTHROID) TAB PO SCH (06:10)
[2020-01-22] MEDS: oxyCODONE ER 10 MG (OxyCONTIN CR) TAB PO SCH ×2 (06:13→12:38)
[2020-01-22 06:15] VITALS: BP 101/40
[2020-01-22] MEDS: ASPIRIN E.C. 81 MG (ECOTRIN) TAB PO SCH (08:11)
[2020-01-22] MEDS: BACLOFEN 10 MG (LIORESAL) TAB PO SCH ×3 (08:11→20:34)
[2020-01-22] MEDS: VITAMIN D3 25 MCG (1,000 UNITS) TABLET PO SCH (08:11)
[2020-01-22] MEDS: LOSARTAN 25 MG (COZAAR) TAB PO SCH (08:12)
[2020-01-22] MEDS: DICLOFENAC 1% GEL 100 GM (VOLTAREN) TUBE TP SCH ×3 (08:12→20:39)
[2020-01-22] MEDS: APIXABAN 5 MG (ELIQUIS) TABLET PO SCH ×2 (08:12→20:33)
[2020-01-22] MEDS: DOCUSATE SODIUM 100 MG (COLACE) CAP PO SCH ×2 (08:12→20:33)
[2020-01-22] MEDS: PANTOPRAZOLE 40 MG (PROTONIX) TAB PO SCH (08:12)
[2020-01-22] MEDS: polyethylene glycoL POWDER 17 GM (MIRALAX) PACK PO SCH (08:12)
[2020-01-22] MEDS: SENNA W/DOCUSATE (SENOKOT S) TABLET PO SCH ×2 (08:12→20:44)
--- NOTE | 2020-01-22 10:16 | Progress Note - Urology ---
Progress Note-Urology Progress Notes/Assess & Plan Progress/Assessment & Plan KEEP SAME PLAN RECIO Final Diagnosis RETENTION JAY NERI MD Jan 22, 2020 10:16
--- NOTE | 2020-01-22 11:05 | Progress Note - Urology ---
Progress Note-Urology Progress Notes/Assess & Plan Progress/Assessment & Plan WWE WILL TRY OFF FLOMAX Final Diagnosis RETENTION JAY NERI MD Jan 22, 2020 11:05
[2020-01-22] MEDS: HYDROcodone/APAP 5 MG/325 MG (LORTAB) TAB PO PRN ×3 (11:41→20:35)
--- NOTE | 2020-01-22 12:20 | Physical Therapy Daily Note ---
PT Daily Note-Current Subjective Pt is sitting in recliner upon arrival. Pt agrees to PT but is a little anxious due to pt not getting to see family due to Flu. Family wants Family Training for possibility of home. This MUSIC LEADER doesn't see this as a possibility due to debility of pt. Pain Numeric Pain Scale: 5-Moderate Pain Location: Left Location Body Site: Arm Pain Description: Ache, Tightness Mental Status Patient Orientation: Person, Place, Situation Transfers SCALE: Activities may be completed with or without assistive devices. 3-Azzesblwql-ggloxno completes the activity by him/herself with no assistance from a helper. 5-Set-up or Clean-up Assistance-helper sets up or cleans up; patient completes activity. [place] assists only prior to or following the activity. 4-Supervision or Touching Assistance-helper provides verbal cues and/or touching/steadying and/or contact guard assistance as patient completes ac tivity. Assistance may be provided throughout the activity or intermittently. 3-Partial/Moderate Assistance-helper does LESS THAN HALF the effort. [place] lifts, holds or supports trunk or limbs, but provides less than half the effort. 2-Substantial/Maximal Assistance-helper does MORE THAN HALF the effort. [place] lifts or holds trunk or limbs and provides more than half the effort. 2-Xgsdanigz-ylvqbb does ALL the effort. Patient does none of the effort to complete the activity. Or, the assistance of 2 or more helpers is required for the patient to complete the activity. If activity was not attempted, code reason: 7-Patient Refused. 9-Not Applicable-not attempted and the patient did not perform the activity before the current illness, exacerbation or injury. 10-Not Attempted due to Environmental Limitations-(lack of equipment, weather restraints, etc.). 88-Not Attempted due to Medical Conditions or Safety Concerns. Roll Left & Right (QC): 3 Sit to Lying (QC): 3 Lying to Sitting/Side of Bed(Q: 3 Sit to Stand (QC): 2 Chair/Tfe-kl-Vgdza Xfer(QC): 2 Toilet Transfer (QC): 2 Car Transfer (QC): 7 Weight Bearing Full Weight Bearing Full Weight Bearing Gait Training Does the Patient Walk?: No and Walking Goal IS indicated Walk 10 feet (QC): 88 Walk 50 ft with 2 Turns(QC): 88 Walk 150 ft (QC): 88 Walking 10ft/uneven surface-QC: 88 Pt has difficulty standing and weight shifting let alone walking. Wheelchair Training Does the Pt Use a Wheelchair?: Yes Wheel 50 ft with 2 turns (QC): 3 Wheel 150 ft (QC): 3 Type of Wheelchair: Manual Pt needs assistance with guidance as she is not able to use L UE or LE. Stair Training 1 Step (curb) (QC): 88 4 Steps (QC): 88 12 Steps (QC): 88 See comments in walking. Balance Picking up an Object (QC): 88 Treatments See above for QC scoring items. MUSIC LEADER discusses pt concerns with progress vs. possibility of DC to home or SNF. Pt is wanting Sp to come to ARU for Family Training. Will speak to SW to possibly schedule. Pt completes LE & UE EX to lumber up for transfer. Sit to stand lift is used. Pt is transferred to shower chair for shower with OT. All needs met. Assessment Current Status: Poor Progress Pt is very down with thought of not getting to see Sp and going to SNF. Pt c ontinues to demonstrate limited movement and weakness. PT Short Term Goals Short Term Goals Time Frame: Jan 08, 2020 Roll Left & Right: 3 Sit to lyin Lying to sitting on side of be: 3 Sit to stand: 3 Chair/czv-fu-okxtx transfer: 3 PT Firewood Cutter Goals Prison Goals PT Prison Goals Time Frame: Jan 22, 2020 Roll Left & Right (QC): 3 (Татьяна) Sit to Lying (QC): 3 (Татьяна) Lying-Sitting on Side/Bed(QC): 3 (Татьяна) Sit to Stand (QC): 3 (Татьяна) Chair/Rev-wc-Kqwua Xfer(QC): 3 (Татьяна) Toilet Transfer (QC): 3 (Татьяна) Car Transfer (QC): 3 (Татьяна) Does the Patient Walk: No and Walking Goal IS indicated Walk 10 feet (QC): 3 (Татьяна) Walk 50ft with 2 Turns (QC): 88 Walk 150 ft (QC): 88 Walking 10ft on Uneven Surface: 88 1 Step (curb) (QC): 88 4 Steps (QC): 88 12 Steps (QC): 88 Picking up an Object (QC): 88 Wheel 50 feet with 2 turns (QC: 4 Type: Manual Wheel 150 feet: 4 Type: Manual PT Plan Problem List Problem List: Activity Tolerance, Functional Strength, Safety, Balance, Gait, Transfer, Bed Mobility Treatment/Plan Treatment Plan: Continue Plan of Care Treatment Plan: Bed Mobility, Education, Functional Activity [place], Functional Strength, Group Therapy, Gait, Safety, Therapeutic Exercise, Transfers Treatment Duration: Jan 21, 2020 Frequency: At least 5 of 7 days/Wk (IRF) Estimated Hrs Per Day: 1.5 hours per day Patient and/or Family Agrees t: Yes Safety Risks/Education Patient Education: Transfer Techniques, Correct Positioning, Safety Issues Teaching Recipient: Patient Teaching Methods: Discussion Response to Teaching: Verbalize Understanding, Reinforcement Needed Time/GCodes Time In: 900 Time Out: 1000 Total Billed Treatment Time: 60 Total Billed Treatment 1, FA x3 (40m) & EX (20m) Co-treat with OT (15m) 151-137 JAVON OJEDA PTA Jan 22, 2020 12:20
[2020-01-22] MEDS: ALPRAZolam 0.25 MG (XANAX) TAB PO PRN (12:36)
--- NOTE | 2020-01-22 13:25 | Occupational Ther Daily Note ---
OT Current Status-Daily Note Subjective No pain reported. Appearance Pt. up in chair. PT has been working with pt. Mental Status/Objective Patient Orientation: Person, Place ADL-Treatment Therapy Code Descriptions/Definitions Functional [place] Measure: 0=Not Assessed/NA 4=Minimal Assistance 1=Total Assistance 5=Supervision or Setup 2=Maximal Assistance 6=Modified [place] 3=Moderate Assistance 7=Complete IndependenceSCALE: Activities may be completed with or without assistive devices. 3-Dlfcxwzkqi-zacdrgb completes the activity by him/herself with no assistance from a helper. 5-Set-up or Clean-up Assistance-helper sets up or cleans up; patient completes activity. [place] assists only prior to or following the activity. 4-Supervision or Touching Assistance-helper provides verbal cues and/or touchi ng/steadying and/or contact guard assistance as patient completes activity. Assistance may be provided throughout the activity or intermittently. 3-Partial/Moderate Assistance-helper does LESS THAN HALF the effort. [place] lifts, holds or supports trunk or limbs, but provides less than half the effort. 2-Substantial/Maximal Assistance-helper does MORE THAN HALF the effort. [place] lifts or holds trunk or limbs and provides more than half the effort. 3-Grlgaulsp-nytdlw does ALL the effort. Patient does none of the effort to complete the activity. Or, the assistance of 2 or more helpers is required for the patient to complete the activity. If activity was not attempted, code reason: 7-Patient Refused. 9-Not Applicable-not attempted and the patient did not perform the activity before the current illness, exacerbation or injury. 10-Not Attempted due to Environmental Limitations-(lack of equipment, weather restraints, etc.). 88-Not Attempted due to Medical Conditions or Safety Concerns. Eating (QC): 4 Oral Hygiene (QC): 2 Shower/Bathe Self (QC): 3 (Mod assist seated on shower chair.) Upper Body Dressing (QC): 2 Lower Body Dressing (QC): 2 On/Off Footwear: 1 Toileting Hygiene (QC): 2 Toilet Transfer (QC): 88 Other Treatment Pt. is seen briefly at first with PT for co-treatment, due to need of skilled assistance x 2 for education and mobility. PT focused on LE exercises and discharge education while OT added to discharge goal planning, as well as UE ROM. After this, PT left and OT came back to work on ADLs and mobility. Pt. was transferred to shower chair via sit-stand lift. Completed shower with assist. OT assisted with dressing as well and then pt. transferred to side of bed via lift. Worked on sitting balance, sitting weight shifts, pelvic tilts, UE PROM/AAROM, and trunk rotation. Pt. has slight movement in left fingers and increased movement in left thumb. Limited movement in neck and left shoulder. Pt. transferred sit-supine with max assist. All needs met. Education OT Patient Education: Correct positioning, Exercise program, Modified ADL techniques, Progress toward Goal/Update tx plan, Purpose of tx/functional activities, Reviewed precautions, Rehab process, Transfer techniques Teaching Recipient: Patient Teaching Methods: Demonstration, Discussion Response to Teaching: Verbalize Understanding, Return Demonstration OT Short Term Goals Short Term Goals Time Frame: Jan 16, 2020 Eatin Oral hygiene: 5 Upper body dressin Lower body dressin OT Senior Care Goals Senior Care Goals Time Frame: Jan 25, 2020 Eating (QC): 6 Oral Hygiene (QC): 6 Toileting Hygiene (QC): 4 Shower/Bathe Self (QC): 4 Upper Body Dressing (QC): 5 Lower Body Dressing (QC): 4 On/Off Footwear (QC): 3 Additional Goals: 1-Demonstrate ADL Tasks, 2-Verbalize Understanding, 3- ImproveStrength/Benson 1=Demonstrate adherence to instructed precautions during ADL tasks. 2=Patient will verbalize/demonstrate understanding of assistive devices/modifications for ADL. 3=Patient will improve strength/tolerance for activity to enable patient to perform ADL's. OT Education/Plan Problem List/Assessment Assessment: Decreased Activ Tolerance, Decreased UE Strength, Dependent Transfers, Impaired Bed Mobility, Impaired Coordination, Impaired Funct Balance, Impaired I ADL's, Impaired Self-Care Skills, Restricted Funct UE ROM Discharge Recommendations Plan/Recommendations: Continue POC Therapy Discharge Recommendati: 24 Hour Supervision Treatment Plan/Plan of Care Treatment,Training & Education: Yes Patient would benefit from OT for education, treatment and training to promote independence in ADL's, mobility, safety and/or upper extremity function for ADL's. Plan of Care: ADL Retraining, Functional Mobility, Group Exercise/Act as Ind, UE Funct Exercise/Act, UE Neuromus Re-Ed/Coord, Visual/Perceptual Retrain, W/C Management Training Treatment Duration: Jan 25, 2020 Frequency: At least 5 of 7 days/Wk (IRF) Estimated Hrs Per Day: 1.5 hours per day Agreement: Yes Rehab Potential: Fair Time/GCodes Start Time: 09:30 Stop Time: 11:00 Total Time Billed (hr/min): 75 Billed Treatment Time 4333-7994 1, FA x 15minutes (co-treatment with PT. Please see above note for designated roles.) [id number] ADL x 45minutes, FA x 15minutes DELMER DENIS OT Jan 22, 2020 13:25
--- NOTE | 2020-01-22 13:53 | Speech Therapy Daily Note ---
Speech Daily Progress Note Subjective Date Seen by Provider: Jan 22, 2020 Time Seen by Provider: 00:30 Patient was resting in her bed, states she isn't feeling very well today. Objective Patient completed a series of questions related to her safety and daily needs upon her discharge with 90% given minimal cuing. Patient demo safety of oral intake strategies with 95% without cues. Assessment Assessment Current Status: Good Progress Treatment Plan Discontinue ST, Goals Met Speech Short Term Goals Short Term Goals Short Term Goals 1) Patient will tolerate the least restrictive diet level without s/s of aspiration at 90% or greater. 2) Patient will utilize compensatory strategies as trained for safe oral intake at 90% or greater. Speech Business Intelligence Manager Goals Skilled Nursing Goals Patient will maintain adequate nutrition/hydration via safe effective swallow function. Speech-Plan Patient/Family Goals Patient/Family Goals: Patient is discharging to a SNF closer to her home tomorrow. Treatment Plan Speech Therapy Treatment Plan: Discontinue ST, Goals Met Treatment Duration: Jan 23, 2020 Frequency: 4 times per week Estimated Hrs Per Day: .25 hour per day Rehab Potential: Fair Barriers to Learning: Patient's recent CVA, however her cognitive deficits have primarily resolved. Pt/Family Agrees to Plan: Yes Safety Risks/Education Teaching Recipient: Patient Teaching Methods: Discussion Response to Teaching: Verbalize Understanding, Return Demonstration Education Topics Provided: Continued safety with oral intake upon her discharge. Time Speech Therapy Time In: 11:00 Speech Therapy Time Out: 11:30 Total Billed Time: 30 Billed Treatment Time 1, DYST No QUALITY CODES: EXPRESSION OF IDEAS/WANTS: 4 UNDERSTANDING VERBAL CONTENT: 4 BRIEF INTERVIEW: YES REPETITION OF 3 WORDS: 3 TEMPORAL ORIENTATION: YEAR: CORRECT, MONTH: CORRECT, DAY: CORRECT RECALL: SOCK: YES, COLOR, YES WITH CUE, BED: YES WITH CUE MEMORY ABILITY: SEASON, LOCATION OF ROOM, THAT SHE IS IN THE [facility] Jan 22, 2020 13:53
--- NOTE | 2020-01-22 14:50 | NUR ---
CM/SS DISCHARGE PLANNING [facility] has accepted patient for skilled admission tomorrow. Facility will transport patient at 1000. They will call once here, staff will go down to get the facility wheelchair so patient can be loaded by ARU team and not transferred in outpatient area. IMM2 presented, reviewed. Patient indicated she understood the information and she is in agreement to discharge and transfer to her next level of care as planned. Patient approved for typewriter repairer to sign on her behalf, including date and time. Updated spouse Anant as well as son Donavon Andre in [place]. Both are in agreement with this plan, both express continued hope patient could be well enough to be cared for at home. Donavon indicated he would be coming home January 28. Pin Setter explained Medicare coverage/benefits to him regarding skilled stay and answered his questions to his satisfaction about in-home caregiving being private pay. Encouraged both Anant and Donavon to pursue Medicaid on behalf of patient to assist with those future endeavors, perhaps assistance in the home under HCBS. Pin Setter has advocated that SNF will assist with this process as well either to assist with future medical/residential care or in-home possibilities. Per SNF request, [facility] Pre-Admission Screening, Form [id number], completed. Covid rapid screen done, negative. Will provide discharge Rx, orders and instructions as soon as available.
--- NOTE | 2020-01-22 15:11 | NUR ---
PCP: Dr. Che Rodrigez, [address] [address] PH: [phone] FX: [phone]
--- NOTE | 2020-01-22 15:26 | NUR ---
RD ASSESSMENT PMHx: hypercholesterolemia; HTN; stroke (2003, 12/16/2019); PT INTERACTION: Pt was awake and pleasant during nutrition follow-up. Pt states she has been eating alright since last assessment, but current appetite "was not good today." Note avg PO intake 63% x4d, per chart review. Pt states no issues with nausea, vomiting, constipation, or diarrhea since last assessment. Note last BM was 01/20, and pt currently on bowel regimen of colace BID, senna BID, and miralax qd, per chart review. ABNORMAL NUTRITION-RELATED LAB VALUES LOW: alb 2.9; HIGH: BUN 29; Est. kcal needs: 3392-9921 kcal | 20-25 kcal/kg Est. Pro needs: 61-76 g Pro | 0.8-1.0 g Pro/kg PES STATEMENT: Inadequate oral intake (NI-2.1) related to loss of appetite as evidenced by pt interview, and avg PO intake 63% x4d. INTERVENTION: Continue with current diet order of Regular diet. Continue with current supplementation order of Ensure Enlive with meals TID, for increased kcal intake. Provides 350 kcal and 20 g Pro per serving. Will continue to follow and reassess as pt needs, intake, and status change. Tanvir FRANCIS, MS RD LD [phone] cell
--- NOTE | 2020-01-22 15:38 | Physical Therapy Daily Note ---
PT Daily Note-Current Subjective Pt asleep laying Supine in bed upon arrival. Pt is difficult to wake. Pt has not eaten lunch and is upset due to finding out she will DC to SNF in [place], [place] tomorrow. Pain Location: No Pain Reported Mental Status Patient Orientation: Person, Place Transfers SCALE: Activities may be completed with or without assistive devices. 3-Mkmobcinuw-lbkuhve completes the activity by him/herself with no assistance from a helper. 5-Set-up or Clean-up Assistance-helper sets up or cleans up; patient completes activity. [place] assists only prior to or following the activity. 4-Supervision or Touching Assistance-helper provides verbal cues and/or touching/steadying and/or contact guard assistance as patient completes activity. Assistance may be provided throughout the activity or intermittently. 3-Partial/Moderate Assistance-helper does LESS THAN HALF the effort. [place] lifts, holds or supports trunk or limbs, but provides less than half the effort. 2-Substantial/Maximal Assistance-helper does MORE THAN HALF the effort. [place] lifts or holds trunk or limbs and provides more than half the effort. 0-Lhkxnbfet-jwhbhs does ALL the effort. Patient does none of the effort to complete the activity. Or, the assistance of 2 or more helpers is required for the patient to complete the activity. If activity was not attempted, code reason: 7-Patient Refused. 9-Not Applicable-not attempted and the patient did not perform the activity before the current illness, exacerbation or injury. 10-Not Attempted due to Environmental Limitations-(lack of equipment, weather restraints, etc.). 88-Not Attempted due to Medical Conditions or Safety Concerns. Weight Bearing Full Weight Bearing Full Weight Bearing Treatments Pt is difficult to awaken and keep awake. Pt does not want to complete EX even Supine EX. Pt is repositioned to comfort. All needs met, call light in hand. Assessment Current Status: Poor Progress Pt is very down and drowsy and difficulty getting participation unless its pt's idea. PT Short Term Goals Short Term Goals Time Frame: Jan 08, 2020 Roll Left & Right: 3 Sit to lyin Lying to sitting on side of be: 3 Sit to stand: 3 Chair/xjd-te-nwozf transfer: 3 PT Nonprofit Fundraiser Goals Nonprofit Fundraiser Goals PT Nonprofit Fundraiser Goals Time Frame: Jan 22, 2020 Roll Left & Right (QC): 3 (Татьяна) Sit to Lying (QC): 3 (Татьяна) Lying-Sitting on Side/Bed(QC): 3 (Татьяна) Sit to Stand (QC): 3 (Татьяна) Chair/Vqc-si-Itwnc Xfer(QC): 3 (Татьяна) Toilet Transfer (QC): 3 (Татьяна) Car Transfer (QC): 3 (Татьяна) Does the Patient Walk: No and Walking Goal IS indicated Walk 10 feet (QC): 3 (Татьяна) Walk 50ft with 2 Turns (QC): 88 Walk 150 ft (QC): 88 Walking 10ft on Uneven Surface: 88 1 Step (curb) (QC): 88 4 Steps (QC): 88 12 Steps (QC): 88 Picking up an Object (QC): 88 Wheel 50 feet with 2 turns (QC: 4 Type: Manual Wheel 150 feet: 4 Type: Manual PT Plan Problem List Problem List: Activity Tolerance, Functional Strength, Safety Treatment/Plan Treatment Plan: Continue Plan of Care Treatment Plan: Bed Mobility, Education, Functional Activity Benson, Functional Strength, Group Therapy, Gait, Safety, Therapeutic Exercise, Transfers Treatment Duration: Jan 21, 2020 Frequency: At least 5 of 7 days/Wk (IRF) Estimated Hrs Per Day: 1.5 hours per day Patient and/or Family Agrees t: Yes Time/GCodes Time In: 1415 Time Out: 1430 Total Billed Treatment Time: 15 Total Billed Treatment 1, FA (15m) JAVON [address] TRAIN DRIVER Jan 22, 2020 15:38
[2020-01-22 18:00] VITALS: BP 141/62
--- NOTE | 2020-01-22 19:11 | NUR ---
Bedside report received from ARMAND BOJORQUEZ, assume care of pt
[2020-01-22] MEDS: MELATONIN 3 MG TABLET PO SCH (20:33)
[2020-01-22] MEDS: ACETAMINOPHEN 500 MG TAB (TYLENOL) PO SCH (20:34)
[2020-01-22] MEDS: diphenhydrAMINE 25 MG TAB (BENADRYL) PO SCH (20:34)
[2020-01-22] MEDS ORDERED: ASPI-1238 PO (20:35)
[2020-01-22] MEDS ORDERED: PANT40TA52 PO (20:35)
[2020-01-22] MEDS ORDERED: DICL100G18 TP (20:35)
[2020-01-22] MEDS ORDERED: ATOR80TA76 PO (20:35)
[2020-01-22] MEDS ORDERED: OXC10TCR PO (20:35)
[2020-01-22] MEDS ORDERED: ALPR.25T PO (20:35)
[2020-01-22] MEDS ORDERED: APIX5TAB PO (20:35)
[2020-01-22] MEDS ORDERED: ZINC28PA TOP (20:35)
[2020-01-22] MEDS ORDERED: HYDR-3817 PO (20:35)
--- NOTE | 2020-01-22 20:35 | NUR ---
Refused Colace & Sentishaot, c/o neck pain level 7/10 on numeric scale, Lortab 5 1 tab given & scheduled VOLTAREN GEL
--- NOTE | 2020-01-22 20:36 | Discharge Inst-Skilled Nursing ---
Discharge Inst-Skilled NF Reconcile Patient Problems Problems Reviewed?: Yes Patient Instructions Patient Problems: CVA Goal: [place] Consult/Follow Up/Orders Follow Up Appt.: PCP 1 week Skilled NF Admit to: Certification (SNF) I certify that SNF services are required to be given on an inpatient basis because of the above named patient's need for jail care on a continuing basis for the conditions(s) for which he/she was receiving inpatient hospital services prior to his/her transfer to the SNF. Penitentiary Facility Order: Nursing Services, Road Train Driver-Evaluate & Treat, Physical Therapy-Evaluate & Treat, Speech Language-Evaluate & Treat Oxygen Delivery Method: Room Air Discharge Diet: No Restrictions Daily Activity as Tolerated: Yes Resuscitation Status: Full Code New & Resume Previous Orders New Medications: ALPRAZolam (Xanax Tablet) 0.25 Mg Tab 0.25 MG PO Q8H PRN for ANXIETY, #30 TAB Apixaban (Eliquis) 5 Mg Tablet 5 MG PO BID for 365 Days, TAB Aspirin (Aspirin EC) 81 Mg Tablet.dr 81 MG PO DAILY for 365 Days, TAB Atorvastatin Calcium (Atorvastatin Calcium) 80 Mg Tablet 80 MG PO HS for 365 Days, TAB Diclofenac Sodium (Voltaren) 100 Gm Gel..gram. 0 GM TP TID for 30 Days, TUBE Oxycodone HCl (Oxycontin) 10 Mg Tab.er.12h 30 MG PO BID@0700,1330, #60 TAB Pantoprazole Sodium (Pantoprazole Sodium) 40 Mg Tablet.dr 40 MG PO DAILY for 30 Days, TAB Zinc Oxide (Boudreauxs) 28 Gm Oint 0 GM TOP NEEDED PRN for DIAPER CHANGE for 30 Days, TUBE Continued Medications: Acetaminophen/Diphenhydramine (Tylenol Pm Ex-Strength Caplet) 1 Each Tablet 1-2 EACH PO HS PRN for SLEEP, TAB Adalimumab (Humira) 40 Mg/0.4 Ml Syringekit 40 MG SQ EVERY 2 WEEKS, KIT Baclofen (Baclofen) 10 Mg Tablet 10 MG PO TID, TAB Cholecalciferol (Vitamin D3) (Vitamin D3) 25 Mcg Capsule 25 MCG PO DAILY, CAP Docusate Sodium (Docusate Sodium) 100 Mg Capsule 100 MG PO HS, CAP Hydrocodone/Acetaminophen (Hydrocodone-Acetamin 7.5-325) 1 Each Tablet 1 EA PO Q6H PRN for PAIN-MODERATE (5-7), #60 TAB (This prescription has been renewed) Levothyroxine Sodium (Levothyroxine Sodium) 100 Mcg Tablet 100 MCG PO DAILY, TAB Losartan Potassium (Losartan Potassium) 25 Mg Tablet 25 MG PO DAILY, TAB Mag Hydrox/Al Hydrox/Simeth (Mylanta Suspension) 30 Ml Oral.susp 15 ML PO QID PRN for HEARTBURN/INDIGESTION, ML Discontinued Medications: Carvedilol (Carvedilol) 12.5 Mg Tablet 18.75 MG PO BID, TAB TAKES 1 & (12.5MG) TABS Morphine Sulfate (Morphine Sulfate ER) 15 Mg Tablet.er 30 MG PO BID, TAB TAKES 2 (15MG) TABS Gianna Bentley Jan 22, 2020 20:35 GIANNA BENTLEY DO Jan 22, 2020 20:36
--- NOTE | 2020-01-22 21:25 | NUR ---
Rates pain level 5/10 on numeric scale
[2020-01-23 05:33] VITALS: BP 126/54
[2020-01-23] MEDS: LEVOTHYROXINE 100 MCG (LEVOTHROID) TAB PO SCH (06:11)
[2020-01-23] MEDS: oxyCODONE ER 10 MG (OxyCONTIN CR) TAB PO SCH (06:11)
[2020-01-23] MEDS: polyethylene glycoL POWDER 17 GM (MIRALAX) PACK PO SCH (07:44)
[2020-01-23] MEDS: ASPIRIN E.C. 81 MG (ECOTRIN) TAB PO SCH (07:50)
[2020-01-23] MEDS: SENNA W/DOCUSATE (SENOKOT S) TABLET PO SCH (07:50)
[2020-01-23] MEDS: APIXABAN 5 MG (ELIQUIS) TABLET PO SCH (07:50)
[2020-01-23] MEDS: ALPRAZolam 0.25 MG (XANAX) TAB PO PRN (07:50)
[2020-01-23] MEDS: BACLOFEN 10 MG (LIORESAL) TAB PO SCH (07:51)
[2020-01-23] MEDS: LOSARTAN 25 MG (COZAAR) TAB PO SCH (07:51)
[2020-01-23] MEDS: DOCUSATE SODIUM 100 MG (COLACE) CAP PO SCH (07:51)
[2020-01-23] MEDS: PANTOPRAZOLE 40 MG (PROTONIX) TAB PO SCH (07:51)
[2020-01-23] MEDS: VITAMIN D3 25 MCG (1,000 UNITS) TABLET PO SCH (07:51)
[2020-01-23] MEDS: ZINC OXIDE 16% OINT (BUTT PASTE) 57 GM TUBE TOP PRN (07:52)
[2020-01-23] MEDS: DICLOFENAC 1% GEL 100 GM (VOLTAREN) TUBE TP SCH (07:52)
--- NOTE | 2020-01-23 08:55 | Discharge Summary ---
Diagnosis/Chief Complaint Date of Admission Dec 31, 2019 at 14:25 Date of Discharge Discharge Date: Jan 23, 2020 Discharge Diagnosis Assessment: CVA Left sided weakness AK Hypothyroidism Chronic pain Narcotic dependent Narcotic bowel Osteoporosis Bearden cath in place Urinary retention UTI PAF on Tely 01/07/20 placed on OAC Plan: Dr Nesbitt IRF protocol Current meds 01/01/20: Pain management Dr Nesbitt consult for urinary retention Monitor for falls BM regimen 01/02/20: Pain management Cardiology and Urology consultation is appreciated 01/03/20: Urology appreciated Pain med increased to her home dose Pureed diet 01/04/20: Advanced diet Repeat UA inout cath Insomnia treatment 01/05/20: Vaginal discharge? May need TV USG and Funeral Service Manager consult 01/06/20: Fistula between rectum and vagina? CT scan and TV USG tomorrow 01/07/20: CT scan with rectal enema Funeral Service Manager consult Conferred with Dr Nesbitt Abx for Proteus 01/08/20: Appreciate Dr Jackson Vaginal swab UTI tx 01/09/20: Monitor weakness Pain control UTI tx 01/10/20: Tolerating abx Monitor voiding 01/11/2020: Pain control Bowel regimen Monitor vaginal discharge 01/12/20: OAC Monitor closely 01/13/20: Continue abx for UTI Funeral Service Manager appt at [place] Needs skilled care if deficits remain severe 01/14/20: Labs reviewed Manage pain issues 01/15/20: Chronic vaginal discharge No pain reported as long as chronic narcs given 01/16/20: BEHAVIOR MANAGEMENT SPECIALIST appt as outpatient Needs NH placement 01/17/20: Monitor bowel function Monitor pain 01/18/20: Vaginal discharge management as outpatient Pain control 01/19/20: Pain control Monitor BM 01/20/20: Monitor closely Check labs in am 01/21/20: Labs reviewed Needs NHP 01/22/20: Has accepted NHP Monitor closely (1) CVA (cerebral vascular accident) (2) Ankylosing spondylitis (3) Acquired hypothyroidism (4) Chronic pain (5) Narcotic dependence (6) Narcotic bowel syndrome (7) Urinary retention (8) Bearden catheter in place (9) UTI (urinary tract infection) (10) Left-sided weakness (11) Psoriasis (12) Osteoporosis Discharge Summary Discharge Physical Examination Allergies: Coded Allergies: green pepper (Verified Allergy, Severe, Anaphylaxis, 12/31/19) Sulfa (Sulfonamide Antibiotics) (Verified Allergy, Unknown, 12/31/19) Vitals & I&Os Vital Signs Date Time Temp Pulse Resp B/P (MAP) Pulse Ox O2 Delivery O2 Flow Rate FiO2 01/23/20 11:05 36.4 61 18 126/54 94 Room Air General Appearance: Alert, Oriented X3, Cooperative Respiratory: Clear to Auscultation Cardiovascular: Regular Rate Psych/Mental Status: Mental Status NL Hospital Course Was the Problem List Reviewed?: Yes Hospital Course: Pt had a lengthy hospital course for 24 days after she was moved over from [facility] after suffering a catastrophic stroke with hemaparesis. Pt was overall able to participate in all therapy. She did have a recurrent UTI issue requiring urology work up. Vaginal discharge had been apparent before stroke but Dr. Jackson was consulted, vaginal culture was normal anup but he will have a close follow up with her for a regular pelvic exam. There was no evidence of colonic vaginal fistula as originally thought. 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 Labs (last 24 hrs) Laboratory Tests 12/31/19 14:25: Lab Scanned Report Referred Lab Report 01/01/20 05:41: White Blood Count 8.7, Red Blood Count 4.41, Hemoglobin 13.2, Hematocrit 40, Mean Corpuscular Volume 91, Mean Corpuscular Hemoglobin 30, Mean Corpuscular Hemoglobin Concent 33, Red Cell Distribution Width 13.1, Platelet Count 223, Mean Platelet Volume 10.2, Immature Granulocyte % (Auto) 0, Neutrophils (%) (Auto) 70, Lymphocytes (%) (Auto) 21, Monocytes (%) (Auto) 7, Eosinophils (%) (Auto) 2, Basophils (%) (Auto) 1, Neutrophils # (Auto) 6.1, Lymphocytes # (Auto) 1.8, Monocytes # (Auto) 0.6, Eosinophils # (Auto) 0.1, Basophils # (Auto) 0.1, Immature Granulocyte # (Auto) 0.0, Sodium Level 141, Potassium Level 4.1, Chloride Level 101, Carbon Dioxide Level 30, Anion Gap 10, Blood Urea Nitrogen 21H, Creatinine 0.98, Estimat Glomerular Filtration Rate 55, BUN/Creatinine Ratio 21, Glucose Level 101, Calcium Level 9.7, Corrected Calcium 9.8, Total Bilirubin 0.9, Aspartate Amino Transf (AST/SGOT) 37H, Alanine Aminotransferase (ALT/SGPT) 15, Alkaline Phosphatase 63, Total Protein 6.9, Albumin 3.9 01/02/20 10:35: Troponin I < 0.028 01/02/20 13:57: Troponin I < 0.028 01/04/20 14:30: Urine Color YELLOW, Urine Clarity CLEAR, Urine pH 8.5, Urine Specific [place] 1.010L, Urine Protein NEGATIVE, Urine Glucose (UA) NEGATIVE, Urine Ketones NEGATIVE, Urine Nitrite POSITIVEH, Urine Bilirubin NEGATIVE, Urine Urobilinogen 0.2, Urine Leukocyte Esterase TRACEH, Urine RBC (Auto) NEGATIVE, Urine RBC NONE, Urine WBC 2-5, Urine Squamous Epithelial Cells 2-5, Urine Crystals NONE, Urine Amorphous Sediment MOD MARYJANE PHOSPHATEH, Urine Bacteria FEWH, Urine Casts NONE, Urine Mucus NEGATIVE, Urine Culture Indicated YES 01/06/20 13:00: Urine Color YELLOW, Urine Clarity CLEAR, Urine pH >=9.0, Urine Specific [place] 1.015L, Urine Protein NEGATIVE, Urine Glucose (UA) NEGATIVE, Urine Ketones NEGATIVE, Urine Nitrite POSITIVEH, Urine Bilirubin NEGATIVE, Urine Urobilinogen 0.2, Urine Leukocyte Esterase 2+H, Urine RBC (Auto) NEGATIVE, Urine RBC NONE, Urine WBC 5-10H, Urine Crystals PRESENTH, Urine Amorphous Sediment MOD MARYJANE URATESH, Urine Bacteria LARGEH, Urine Casts NONE, Urine Mucus NEGATIVE, Urine Culture Indicated CULTURE PENDING, Urine Triple Phosphate Crystals LARGEH 01/07/20 05:02: White Blood Count 7.6, Red Blood Count 4.01, Hemoglobin 11.9, Hematocrit 37, Mean Corpuscular Volume 91, Mean Corpuscular Hemoglobin 30, Mean Corpuscular Hemoglobin Concent 33, Red Cell Distribution Width 13.2, Platelet Count 196, Mean Platelet Volume 10.5, Immature Granulocyte % (Auto) 0, Neutrophils (%) (Auto) 60, Lymphocytes (%) (Auto) 28, Monocytes (%) (Auto) 7, Eosinophils (%) (Auto) 5, Basophils (%) (Auto) 1, Neutrophils # (Auto) 4.6, Lymphocytes # (Auto) 2.2, Monocytes # (Auto) 0.5, Eosinophils # (Auto) 0.4H, Basophils # (Auto) 0.0, Immature Granulocyte # (Auto) 0.0, Sodium Level 141, Potassium Level 4.1, Chloride Level 102, Carbon Dioxide Level 26, Anion Gap 13, Blood Urea Nitrogen 20H, Creatinine 0.96, Estimat Glomerular Filtration Rate 56, BUN/Creatinine Ratio 21, Glucose Level 107H, Calcium Level 9.2, Corrected Calcium 9.6, Total Bilirubin 0.5, Aspartate Amino Transf (AST/SGOT) 37H, Alanine Aminotransferase (ALT/SGPT) 19, Alkaline Phosphatase 66, Total Protein 6.2L, Albumin 3.5 01/14/20 06:18: White Blood Count 7.1, Red Blood Count 3.92, Hemoglobin 11.8, Hematocrit 38, Mean Corpuscular Volume 96, Mean Corpuscular Hemoglobin 30, Mean Corpuscular He moglobin Concent 31L, Red Cell Distribution Width 13.4, Platelet Count 261, Mean Platelet Volume 10.7, Immature Granulocyte % (Auto) 0, Neutrophils (%) (Auto) 55, Lymphocytes (%) (Auto) 32, Monocytes (%) (Auto) 7, Eosinophils (%) (Auto) 5, Basophils (%) (Auto) 1, Neutrophils # (Auto) 3.9, Lymphocytes # (Auto) 2.3, Monocytes # (Auto) 0.5, Eosinophils # (Auto) 0.3, Basophils # (Auto) 0.1, Immature Granulocyte # (Auto) 0.0, Sodium Level 144, Potassium Level 4.4, Chloride Level 104, Carbon Dioxide Level 29, Anion Gap 11, Blood Urea Nitrogen 25H, Creatinine 0.92, Estimat Glomerular Filtration Rate 59, BUN/Creatinine Ratio 27, Glucose Level 93, Calcium Level 9.0, Corrected Calcium 9.3, Total Bilirubin 0.6, Aspartate Amino Transf (AST/SGOT) 21, Alanine Aminotransferase (ALT/SGPT) 13, Alkaline Phosphatase 66, Total Protein 6.0L, Albumin 3.6 01/17/20 10:33: Glucometer 126H 01/21/20 05:24: White Blood Count 7.2, Red Blood Count 3.66L, Hemoglobin 10.9L, Hematocrit 34L, Mean Corpuscular Volume 93, Mean Corpuscular Hemoglobin 30, Mean Corpuscular Hemoglobin Concent 32, Red Cell Distribution Width 13.4, Platelet Count 200, Mean Platelet Volume 10.7, Immature Granulocyte % (Auto) 0, Neutrophils (%) (Auto) 55, Lymphocytes (%) (Auto) 32, Monocytes (%) (Auto) 7, Eosinophils (%) (Auto) 6, Basophils (%) (Auto) 1, Neutrophils # (Auto) 3.9, Lymphocytes # (Auto) 2.3, Monocytes # (Auto) 0.5, Eosinophils # (Auto) 0.4H, Basophils # (Auto) 0.1, Immature Granulocyte # (Auto) 0.0, Sodium Level 144, Potassium Level 4.3, Chloride Level 104, Carbon Dioxide Level 30, Anion Gap 10, Blood Urea Nitrogen 29H, Creatinine 0.83, Estimat Glomerular Filtration Rate > 60, BUN/Creatinine Ratio 35, Glucose Level 91, Calcium Level 9.1, Corrected Calcium 9.6, Total Bilirubin 0.6, Aspartate Amino Transf (AST/SGOT) 19, Alanine Aminotransferase (ALT/SGPT) 9, Alkaline Phosphatase 61, Total Protein 5.9L, Albumin 3.4 01/22/20 12:25: Coronavirus 2019 ([facility]) Negative Microbiology 01/08/20 Genital Culture - Final, Complete YEAST Usual Vaginal Anup 01/08/20 Wet Prep - Final, Complete 01/06/20 Urine Culture - Final, Complete Proteus mirabilis Pending Labs Microbiology Date/Time Source Procedure Growth Status 01/08/20 08:10 Vaginal Genital Culture - Final YEAST Usual Vaginal Anup Complete 01/08/20 08:10 Vaginal Wet Prep - Final Complete 01/06/20 13:00 Urine Straight Cath, In/Out Urine Culture - Final Proteus mirabilis Complete 01/06/20 13:00 Vaginal Genital Culture - Final Usual Vaginal Anup Complete 01/04/20 14:30 Urine Straight Cath, In/Out Urine Culture - Final Proteus mirabilis Complete Laboratory Tests 12/31/19 14:25: Lab Scanned Report Referred Lab Report 01/01/20 05:41: White Blood Count 8.7, Red Blood Count 4.41, Hemoglobin 13.2, Hematocrit 40, Mean Corpuscular Volume 91, Mean Corpuscular Hemoglobin 30, Mean Corpuscular Hemoglobin Concent 33, Red Cell Distribution Width 13.1, Platelet Count 223, Mean Platelet Volume 10.2, Immature Granulocyte % (Auto) 0, Neutrophils (%) (Auto) 70, Lymphocytes (%) (Auto) 21, Monocytes (%) (Auto) 7, Eosinophils (%) (Auto) 2, Basophils (%) (Auto) 1, Neutrophils # (Auto) 6.1, Lymphocytes # (Auto) 1.8, Monocytes # (Auto) 0.6, Eosinophils # (Auto) 0.1, Basophils # (Auto) 0.1, Immature Granulocyte # (Auto) 0.0, Sodium Level 141, Potassium Level 4.1, Chloride Level 101, Carbon Dioxide Level 30, Anion Gap 10, Blood Urea Nitrogen 21, Creatinine 0.98, Estimat Glomerular Filtration Rate 55, BUN/Creatinine Ratio 21, Glucose Level 101, Calcium Level 9.7, Corrected Calcium 9.8, Total Bilirubin 0.9, Aspartate Amino Transf (AST/SGOT) 37, Alanine Aminotransferase (ALT/SGPT) 15, Alkaline Phosphatase 63, Total Protein 6.9, Albumin 3.9 01/02/20 10:35: Troponin I < 0.028 01/02/20 13:57: Troponin I < 0.028 01/04/20 14:30: Urine Color YELLOW, Urine Clarity CLEAR, Urine pH 8.5, Urine Specific [place] 1.010, Urine Protein NEGATIVE, Urine Glucose (UA) NEGATIVE, Urine Ketones NEGATIVE, Urine Nitrite POSITIVE, Urine Bilirubin NEGATIVE, Urine Urobilinogen 0.2, Urine Leukocyte Esterase TRACE, Urine RBC (Auto) NEGATIVE, Urine RBC NONE, Urine WBC 2-5, Urine Squamous Epithelial Cells 2-5, Urine Crystals NONE, Urine Amorphous Sediment MOD MARYJANE PHOSPHATE, Urine Bacteria FEW, Urine Casts NONE, Urine Mucus NEGATIVE, Urine Culture Indicated YES 01/06/20 13:00: Urine Color YELLOW, Urine Clarity CLEAR, Urine pH >=9.0, Urine Specific [place] 1.015, Urine Protein NEGATIVE, Urine Glucose (UA) NEGATIVE, Urine Ketones NEGATIVE, Urine Nitrite POSITIVE, Urine Bilirubin NEGATIVE, Urine Urobilinogen 0.2, Urine Leukocyte Esterase 2+, Urine RBC (Auto) NEGATIVE, Urine RBC NONE, Urine WBC 5-10, Urine Crystals PRESENT, Urine Amorphous Sediment MOD MARYJANE URATES, Urine Bacteria LARGE, Urine Casts NONE, Urine Mucus NEGATIVE, Urine Culture Indicated CULTURE PENDING, Urine Triple Phosphate Crystals LARGE 01/07/20 05:02: White Blood Count 7.6, Red Blood Count 4.01, Hemoglobin 11.9, Hematocrit 37, Mean Corpuscular Volume 91, Mean Corpuscular Hemoglobin 30, Mean Corpuscular Hemoglobin Concent 33, Red Cell Distribution Width 13.2, Platelet Count 196, Mean Platelet Volume 10.5, Immature Granulocyte % (Auto) 0, Neutrophils (%) (Auto) 60, Lymphocytes (%) (Auto) 28, Monocytes (%) (Auto) 7, Eosinophils (%) (Auto) 5, Basophils (%) (Auto) 1, Neutrophils # (Auto) 4.6, Lymphocytes # (Auto) 2.2, Monocytes # (Auto) 0.5, Eosinophils # (Auto) 0.4, Basophils # (Auto) 0.0, Immature Granulocyte # (Auto) 0.0, Sodium Level 141, Potassium Level 4.1, Chloride Level 102, Carbon Dioxide Level 26, Anion Gap 13, Blood Urea Nitrogen 20, Creatinine 0.96, Estimat Glomerular Filtration Rate 56, BUN/Creatinine Ratio 21, Glucose Level 107, Calcium Level 9.2, Corrected Calcium 9.6, Total Bilirubin 0.5, Aspartate Amino Transf (AST/SGOT) 37, Alanine Aminotransferase (ALT/SGPT) 1 9, Alkaline Phosphatase 66, Total Protein 6.2, Albumin 3.5 01/14/20 06:18: White Blood Count 7.1, Red Blood Count 3.92, Hemoglobin 11.8, Hematocrit 38, Mean Corpuscular Volume 96, Mean Corpuscular Hemoglobin 30, Mean Corpuscular Hemoglobin Concent 31, Red Cell Distribution Width 13.4, Platelet Count 261, Mean Platelet Volume 10.7, Immature Granulocyte % (Auto) 0, Neutrophils (%) (Auto) 55, Lymphocytes (%) (Auto) 32, Monocytes (%) (Auto) 7, Eosinophils (%) (Auto) 5, Basophils (%) (Auto) 1, Neutrophils # (Auto) 3.9, Lymphocytes # (Auto) 2.3, Monocytes # (Auto) 0.5, Eosinophils # (Auto) 0.3, Basophils # (Auto) 0.1, Immature Granulocyte # (Auto) 0.0, Sodium Level 144, Potassium Level 4.4, Chloride Level 104, Carbon Dioxide Level 29, Anion Gap 11, Blood Urea Nitrogen 25, Creatinine 0.92, Estimat Glomerular Filtration Rate 59, BUN/Creatinine Ratio 27, Glucose Level 93, Calcium Level 9.0, Corrected Calcium 9.3, Total Bilirubin 0.6, Aspartate Amino Transf (AST/SGOT) 21, Alanine Aminotransferase (ALT/SGPT) 13, Alkaline Phosphatase 66, Total Protein 6.0, Albumin 3.6 01/17/20 10:33: Glucometer 126 01/21/20 05:24: White Blood Count 7.2, Red Blood Count 3.66, Hemoglobin 10.9, Hematocrit 34, Mean Corpuscular Volume 93, Mean Corpuscular Hemoglobin 30, Mean Corpuscular Hemoglobin Concent 32, Red Cell Distribution Width 13.4, Platelet Count 200, Mean Platelet Volume 10.7, Immature Granulocyte % (Auto) 0, Neutrophils (%) (Auto) 55, Lymphocytes (%) (Auto) 32, Monocytes (%) (Auto) 7, Eosinophils (%) (Auto) 6, Basophils (%) (Auto) 1, Neutrophils # (Auto) 3.9, Lymphocytes # (Auto) 2.3, Monocytes # (Auto) 0.5, Eosinophils # (Auto) 0.4, Basophils # (Auto) 0.1, Immature Granulocyte # (Auto) 0.0, Sodium Level 144, Potassium Level 4.3, Chloride Level 104, Carbon Dioxide Level 30, Anion Gap 10, Blood Urea Nitrogen 29, Creatinine 0.83, Estimat Glomerular Filtration Rate > 60, BUN/Creatinine Ratio 35, Glucose Level 91, Calcium Level 9.1, Corrected Calcium 9.6, Total Bilirubin 0.6, Aspartate Amino Transf (AST/SGOT) 19, Alanine Aminotransferase (ALT/SGPT) 9, Alkaline Phosphatase 61, Total Protein 5.9, Albumin 3.4 01/22/20 12:25: Coronavirus 2019 ([facility]) Negative Discharge Home Medications: Active Scripts Active Urecholine (Bethanechol Chloride) 10 Mg Tablet 25 Mg PO BID 90 Days Flomax (Tamsulosin HCl) 0.4 Mg Cap 0.4 Mg PO DAILY 90 Days Boudreauxs (Zinc Oxide) 28 Gm Oint 0 Gm TOP NEEDED PRN 30 Days Pantoprazole Sodium 40 Mg Tablet.dr 40 Mg PO DAILY 30 Days Xanax Tablet (Alprazolam) 0.25 Mg Tab 0.25 Mg PO Q8H PRN Oxycontin (Oxycodone HCl) 10 Mg Tab.er.12h 30 Mg PO BID@0700,1330 Voltaren (Diclofenac Sodium) 100 Gm Gel..gram. 0 Gm TP TID 30 Days Aspirin EC (Aspirin) 81 Mg Tablet.dr 81 Mg PO DAILY 365 Days Atorvastatin Calcium 80 Mg Tablet 80 Mg PO HS 365 Days Eliquis (Apixaban) 5 Mg Tablet 5 Mg PO BID 365 Days Hydrocodone-Acetamin 7.5-325 (Hydrocodone/Acetaminophen) 1 Each Tablet 1 Ea PO Q6H PRN Reported Humira (Adalimumab) 40 Mg/0.4 Ml Syringekit 40 Mg SQ EVERY 2 WEEKS Tylenol Pm Ex-Strength Caplet (Acetaminophen/Diphenhydramine) 1 Each Tablet 1-2 Each PO HS PRN Baclofen 10 Mg Tablet 10 Mg PO TID Losartan Potassium 25 Mg Tablet 25 Mg PO DAILY Levothyroxine Sodium 100 Mcg Tablet 100 Mcg PO DAILY Docusate Sodium 100 Mg Capsule 100 Mg PO HS Vitamin D3 (Cholecalciferol (Vitamin D3)) 25 Mcg Capsule 25 Mcg PO DAILY Mylanta Suspension (Al Hydrox/Mg Hydrox/Simethicone) 30 Ml Oral.susp 15 Ml PO QID PRN Instructions to patient/family Please see electronic discharge instructions given to patient. Diagnosis/Problems Diagnosis/Problems (1) CVA (cerebral vascular accident) (2) Ankylosing spondylitis (3) Acquired hypothyroidism (4) Chronic pain (5) Narcotic dependence (6) Narcotic bowel syndrome (7) Urinary retention (8) Bearden catheter in place (9) UTI (urinary tract infection) (10) Left-sided weakness (11) Psoriasis (12) Osteoporosis Clinical Quality Measures DVT/VTE Risk/Contraindication: Risk Factor Score Per Nursin RFS Level Per Nursing on Admit: 4+=Very High WILEY WRIGHT DO Jan 23, 2020 08:55
--- NOTE | 2020-01-23 09:34 | Therapy Team Discharge Summary ---
Therapy Discharge Summary Discharge Recommendations Date of Discharge 01-23-20 Therapy D/C Recommendations: 24 hr Supervision Occupational Therapy Pt. has been seen by occupational therapy to increase overall strength and independence with daily skills. Pt. continues to require max/dependent as sistance for most tasks. Pt. has difficulty maintaining upright posture in stance and sitting, and often leans to one side. Due to other health conditions, pt. is unable to rotate her neck to assist with visual agudelo. Pt. had had little return to left UE, but continues to work on this. Pt. will discharge to long term facility as spouse is unable to care for pt. at this time. Recommend continued OT treatment. Decreased Activ Tolerance, Decreased UE Strength, Dependent Transfers, Impaired Bed Mobility, Impaired Coordination, Impaired Funct Balance, Impaired I ADL's, Impaired Self-Care Skills, Restricted Funct UE ROM, Visual-Perceptual Deficit PT Jail Goals Hat Mender Goals PT Jail Goals Time Frame: Jan 22, 2020 Roll Left to Right (QC): 3 (Татьяна) Sit to Lying (QC): 3 (Татьяна) Lying-Sitting on Side/Bed(QC): 3 (Татьяна) Sit to Stand (QC): 3 (Татьяна) Chair/[id number] Xfer(QC): 3 (Татьяна) Car Transfer (QC): 3 (Татьяна) Does the Patient Walk: No and Walking Goal IS indicated Walk 10 feet (QC): 3 (Татьяна) Walk 10ft-Uneven Surface(QC): 88 Walk 50ft with 2 Turns (QC): 88 Walk 150 ft (QC): 88 Wheel 50 feet with 2 turns (QC: 4 1 Step (curb) (QC): 88 4 Steps (QC): 88 12 Steps (QC): 88 Picking up an Object (QC): 88 OT Hat Mender Goals Hat Mender Goals Time Frame: Jan 25, 2020 Eating (QC): 6 (not met) Oral Hygiene (QC): 6 (not met) Shower/Bathe Self (QC): 4 (not met) Upper Body Dressing (QC): 5 (not met) Lower Body Dressing (QC): 4 (not met) On/Off Footwear (QC): 3 (not met) Toileting Hygiene (QC): 4 (not met) Toilet/Commode Transfer (QC): 3 (not met) Additional Goals: 1-Demonstrate ADL Tasks, 2-Verbalize Understanding, 3- ImproveStrength/Benson 1=Demonstrate adherence to instructed precautions during ADL tasks. 2=Patient will verbalize/demonstrate understanding of assistive devices/modifications for ADL. 3=Patient will improve strength/tolerance for activity to enable patient to perform ADL's. Speech Hat Mender Goals Hat Mender Goals Patient will maintain adequate nutrition/hydration via safe effective swallow function. DELMER DENIS OT Jan 23, 2020 09:34
--- NOTE | 2020-01-23 10:10 | NUR ---
BRADY SIDHU demonstrates understanding of discharge instructions and accurately returns instructions upon questioning. Copy of Post-Discharge Instructions given to transport aide. BRADY SIDHU is not able to manage continuing needs after discharge. Patients belongings returned to . Patient discharged from [facility] on 01-23-2020 at 1010. BRADY SIDHU left floor via , accompanied by . Report called to Roxie at [facility]. Reported pt needed follow up appt wit Clement Mendez ( )for vaginal discharge and Dr Nesbitt for urinary retention. Urecholine and Flomax restarted today as pt is retaining urine and to cont to monitor for recurrent UTI. Using barrier cream to coccyx and turn every 2 hrs and prn. Inc of bowel and bladder. Meds taken whole in pudding. Pt is anxious and requires PRN xanax. Pt upset about going to [facility] home as the plan was to go home. A/Ox4 and very appreciative and cooperative. Be sure and give pain medications with food as pt c/o nausea otherwise.
[2020-01-23] MEDS ORDERED: TMSL.4C PO (10:19)
[2020-01-23] MEDS ORDERED: BTH10T PO (10:21)
--- NOTE | 2020-01-23 11:02 | NUR ---
CM/SS DISCHARGE Patient discharged this a.m. as planned to new Medicare skilled level of care at [facility] in [place], [place]. Faxed all final continuum of care information to RN/Roxie at facility. Prepared packets to accompany patient. Patient tearful about this lengthy separation from her spouse Donavon, their longest ever during their 55 year marriage. The SNF is not allowing visitors, congruent with most all facilities. Patient's spouse is waiting on the parking lot to see her during her escort in from [place]. Staff intend to allow them a short, distanced, exchange. Student Career Development Specialist cautioned Roxie that based on what Donavon shared there is a possibility his physician indicated he had Covid but he was reportedly not tested to confirm. Per timeline, he would still be under isolation window but he has not adhered to it. Partnered with Unit RN for patient pack-up and escort to SNF [facility].
[2020-01-23 11:05] VITALS: BP 126/54
--- NOTE | 2020-01-23 11:21 | Therapy Team Discharge Summary ---
Therapy Discharge Summary Discharge Recommendations Date of Discharge Therapy D/C Recommendations: 24 hr Supervision Occupational Therapy Decreased Activ Tolerance, Decreased UE Strength, Dependent Transfers, Impaired Bed Mobility, Impaired Coordination, Impaired Funct Balance, Impaired I ADL's, Impaired Self-Care Skills, Restricted Funct UE ROM, Visual-Perceptual Deficit Speech-Language Pathology Patient was admitted to the ARU s/p CVA. Patient did not require speech therapy. Patient did require dysphagia therapy to upgrade diet level safely. patient was upgraded to regular without s/s of aspiration. Patient is discharging to SNF near her home this date. PT Photography Coordinator Goals Detention Goals PT Detention Goals Time Frame: Jan 22, 2020 Roll Left to Right (QC): 3 (Татьяна) Sit to Lying (QC): 3 (Татьяна) Lying-Sitting on Side/Bed(QC): 3 (Татьяна) Sit to Stand (QC): 3 (Татьяна) Chair/[id number]-Nzqxl Xfer(QC): 3 (Татьяна) Car Transfer (QC): 3 (Татьяна) Does the Patient Walk: No and Walking Goal IS indicated Walk 10 feet (QC): 3 (Татьяна) Walk 10ft-Uneven Surface(QC): 88 Walk 50ft with 2 Turns (QC): 88 Walk 150 ft (QC): 88 Wheel 50 feet with 2 turns (QC: 4 1 Step (curb) (QC): 88 4 Steps (QC): 88 12 Steps (QC): 88 Picking up an Object (QC): 88 OT Photography Coordinator Goals Detention Goals Time Frame: Jan 25, 2020 Eating (QC): 6 (not met) Oral Hygiene (QC): 6 (not met) Shower/Bathe Self (QC): 4 (not met) Upper Body Dressing (QC): 5 (not met) Lower Body Dressing (QC): 4 (not met) On/Off Footwear (QC): 3 (not met) Toileting Hygiene (QC): 4 (not met) Toilet/Commode Transfer (QC): 3 (not met) Additional Goals: 1-Demonstrate ADL Tasks, 2-Verbalize Understanding, 3- ImproveStrength/Benson 1=Demonstrate adherence to instructed precautions during ADL tasks. 2=Patient will verbalize/demonstrate understanding of assistive devices/mo difications for ADL. 3=Patient will improve strength/tolerance for activity to enable patient to perform ADL's. Speech Photography Coordinator Goals Photography Coordinator Goals Patient will maintain adequate nutrition/hydration via safe effective swallow function. SPENCER PEDRAZA Jan 23, 2020 11:21
--- NOTE | 2020-01-23 12:59 | Therapy Team Discharge Summary ---
Therapy Discharge Summary Discharge Recommendations Date of Discharge Therapy D/C Recommendations: 24 hr Supervision Physical Therapy Patient came to rehab following a CVA. Upon evaluation patient performed bed mobility with mod assist, supine <-> sit max assist, sit <-> stand max assist, transfers max assist, car transfer max assist, no ambulation but propelled a WC 50' with max assist. Patient has been performing bed mobility and transfer training, balance and endurance training, functional strengthening, gait training, and education. 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 Now, patient performed bed mobility and supine <-> sit with min/mod assist, sit <-> stand and transfers with max assist. Patient can propel a manual WC 150' with min/mod assist. Patient is discharging from this facility today and will be discharged from PT at this time. Occupational Therapy Decreased Activ Tolerance, Decreased UE Strength, Dependent Transfers, Impaired Bed Mobility, Impaired Coordination, Impaired Funct Balance, Impaired I ADL's, Impaired Self-Care Skills, Restricted Funct UE ROM, Visual-Perceptual Deficit PT Pasteurizer Helper Goals Retirement Goals PT Retirement Goals Time Frame: Jan 22, 2020 Roll Left to Right (QC): 3 (Татьяна) Sit to Lying (QC): 3 (Татьяна) Lying-Sitting on Side/Bed(QC): 3 (Татьяна) Sit to Stand (QC): 3 (Татьяна) Chair/Ssf-ot-Mcpki Xfer(QC): 3 (Татьяна) Car Transfer (QC): 3 (Татьяна) Does the Patient Walk: No and Walking Goal IS indicated Walk 10 feet (QC): 3 (Татьяна) Walk 10ft-Uneven Surface(QC): 88 Walk 50ft with 2 Turns (QC): 88 Walk 150 ft (QC): 88 Wheel 50 feet with 2 turns (QC: 4 1 Step (curb) (QC): 88 4 Steps (QC): 88 12 Steps (QC): 88 Picking up an Object (QC): 88 OT Retirement Goals Retirement Goals Time Frame: Jan 25, 2020 Eating (QC): 6 (not met) Oral Hygiene (QC): 6 (not met) Shower/Bathe Self (QC): 4 (not met) Upper Body Dressing (QC): 5 (not met) Lower Body Dressing (QC): 4 (not met) On/Off Footwear (QC): 3 (not met) Toileting Hygiene (QC): 4 (not met) Toilet/Commode Transfer (QC): 3 (not met) Additional Goals: 1-Demonstrate ADL Tasks, 2-Verbalize Understanding, 3- ImproveStrength/Benson 1=Demonstrate adherence to instructed precautions during ADL tasks. 2=Patient will verbalize/demonstrate understanding of assistive dev ices/modifications for ADL. 3=Patient will improve strength/tolerance for activity to enable patient to perform ADL's. Speech Retirement Goals Retirement Goals Patient will maintain adequate nutrition/hydration via safe effective swallow function. DEON BAIRD PT Jan 23, 2020 12:59
== END 2020-01-23 10:10 | DRG 57 ==
PROVIDERS: ADMIT Internal Medicine; ATTEND Internal Medicine
DX: I69.354 Hemiplegia and hemiparesis following cerebral infarction affecting left non-dominant side (principal); N39.0 Urinary tract infection, site not specified; I69.392 Facial weakness following cerebral infarction; N31.9 Neuromuscular dysfunction of bladder, unspecified; R33.9 Retention of urine, unspecified; M45.9 Ankylosing spondylitis of unspecified sites in spine; B96.4 Proteus (mirabilis) (morganii) as the cause of diseases classified elsewhere; B37.3 Candidiasis of vulva and vagina; Z20.828 Contact with and (suspected) exposure to other viral communicable diseases; N89.8 Other specified noninflammatory disorders of vagina; K59.03 Drug induced constipation; E78.00 Pure hypercholesterolemia, unspecified; E78.5 Hyperlipidemia, unspecified; I10 Essential (primary) hypertension; I48.0 Paroxysmal atrial fibrillation; M81.0 Age-related osteoporosis without current pathological fracture; F41.9 Anxiety disorder, unspecified; F32.9 Major depressive disorder, single episode, unspecified; K21.9 Gastro-esophageal reflux disease without esophagitis; E03.9 Hypothyroidism, unspecified; Z90.710 Acquired absence of both cervix and uterus; Z90.49 Acquired absence of other specified parts of digestive tract; Z79.82 Long term (current) use of aspirin; Z79.891 Long term (current) use of opiate analgesic
CPT/HCPCS: 36415; 74176; 80053; 81000; 82962; 84484; 85025; 87070; 87077; 87088; 87186; 87205; 87210; 87635; 93005

== ENCOUNTER → 2021-06-18 | Outpatient (CLI) | payer MEDICARE, OTHER ==
[~2021-06-18] MED LIST: ACET-3075 PO; ACET325C7 PO; ACHD5005 PO; ADAL40SY SQ; ALPR.25T PO; APIX5TAB PO; ASPI-1238 PO; ATOR40TA70 PO; ATOR80TA76 PO; BACL10TA PO; BISA10SU8 RC; BISA5TAB8 PO; BTH10T PO; CARV12.53 PO; CHOL100048 PO; CLIN150C2 PO; CLOP75TA69 PO; DICL100G18 TP; DOCU100C37 PO; HYDR-3817 PO; LACT10SO3 PO; LEVO100T7 PO; LOSA25TA41 PO; MAG30ORA2 PO; MORP-68 PO; ONDA-105 PO; OXC10TCR PO; OXYC-710 PO; PANT40TA52 PO; PHEN28OI9 RC; POLY17PO6 PO; TMSL.4C PO; ZINC28PA TOP
== END ==
LOC: ORTHO 01:20
PROVIDERS: ATTEND Orthopaedic Surgery
DX: M25.561 Pain in right knee (principal); M25.562 Pain in left knee
CPT/HCPCS: 99213